=== PATIENT | male | born 1940 | race Caucasian/White ===

== ENCOUNTER → 2017-01-24 | Outpatient (CLI) | payer OTHER ==
--- NOTE | 2017-01-25 10:33 | MR ---
EXAMINATION TYPE: MR brain wo con DATE OF EXAM: 01/24/2017 1:21 PM COMPARISON: NONE HISTORY: early onset parkinsons dis CONTRAST: Performed utilizing 0 mL intravenous MultiHance gadolinium contrast. TECHNIQUE: Multiplanar, multiecho imaging on a 3.0 Radha magnet is performed through the brain. Stud y is performed within 24 hours of arrival to the hospital. The craniovertebral junction is normal. The pituitary is normal. Diffusion-weighted imaging is performed. No abnormal hyperintensity is present to suggest an acute i ntracranial infarct or acute ischemic change. There are scattered punctate hyperintensities in the subcortical and deep white matter, slightly grea ter in the right frontal region. The largest area measures 0.9 x 0.7 cm within the right frontal lobe subcortical white matter. Series 501 image 19. Findings are nonspecific but can be related to chroni c white matter ischemic changes. Ventricles and sulci are mildly prominent for the patient age. There is an air-fluid level within right maxillary sinus. Minimal mucosal thickening is within the ri ght maxillary sinus. Very minimal mucosal thickening is within the medial left maxillary sinus. Mucos al thickening is through ethmoid air cells and the right frontal sinus. IMPRESSIONS: 1. Atrophy with chronic appearing periventricular white matter ischemic type changes
== END | disposition home or self-care (01) ==
LOC: RADMRIMAIN 12:27
PROVIDERS: ATTEND Psychiatry & Neurology Neurology
DX: G31.9 Degenerative disease of nervous system, unspecified (principal); I67.82 Cerebral ischemia; R90.82 White matter disease, unspecified; R90.89 Other abnormal findings on diagnostic imaging of central nervous system
CPT/HCPCS: 70551

== ENCOUNTER → 2017-07-29 | Outpatient (CLI) | payer OTHER ==
[2017-07-29 13:07] LABS: Anion Gap 10 mmol/L; Blood Urea Nitrogen 14 mg/dL (9-20); Calcium 9.7 mg/dL (8.4-10.2); Carbon Dioxide 27 mmol/L (22-30); Chloride 106 mmol/L (98-107); Glucose 114 mg/dL (74-99); Non-African American GFR(MDRD) >60 (>60 ml/min/1.73 sqM); Potassium 4.5 mmol/L (3.5-5.1); Sodium 143 mmol/L (137-145)
== END | disposition home or self-care (01) ==
LOC: LABWHC1 12:34
PROVIDERS: ATTEND Internal Medicine Interventional Cardiology
DX: I10 Essential (primary) hypertension (principal); I25.10 Atherosclerotic heart disease of native coronary artery without angina pectoris
CPT/HCPCS: 36415; 80048

== ENCOUNTER → 2018-08-16 | Outpatient (CLI) | payer OTHER ==
--- NOTE | 2018-08-17 03:51 | MR ---
EXAMINATION TYPE: MR cervical spine wo con DATE OF EXAM: 08/16/2018 COMPARISON: None HISTORY: Neck pain, Left arm pain TECHNIQUE: Multiplanar, multisequence images of the cervical spine were acquired. Cervical vertebra show fairly normal alignment. There is some degenerative disc space narrowing from C3 to C7 with spurring of the endplates. I see no evidence of cord edema. The spinal canal is narrowed to 7.2 mm at the C3-4 level. The brains tem appears intact. There is no compression fracture. I see no focal bone destruction. IMPRESSION: Multilevel spondylotic changes. There is 7 mm mild spinal stenosis at C3-4. No fracture seen.
== END | disposition home or self-care (01) ==
LOC: RADMRIMAIN 19:49
PROVIDERS: ATTEND Physician Assistant Medical
DX: M48.02 Spinal stenosis, cervical region (principal); M47.812 Spondylosis without myelopathy or radiculopathy, cervical region
CPT/HCPCS: 72141

== ENCOUNTER → 2019-04-12 | Outpatient (CLI) | payer OTHER ==
--- NOTE | 2019-04-12 11:08 | XR ---
EXAMINATION TYPE: XR KUB DATE OF EXAM: 04/12/2019 10:25 AM CLINICAL HISTORY: Distal right ureteral stone. Abdominal pain. TECHNIQUE: Single supine KUB image of the abdomen is obtained. COMPARISON: None. FINDINGS: There are radiopaque calculi overlying the renal shadows. On the right there are at least 3 measuring 0.3 cm, 0.2 cm, and 2.0 cm. On the left there are also at least 3 measuring 0.4 cm,r 0.8 c m, and 1.5 cm. Punctate calcifications are also seen within the region of the stomach and pancreas. C hronic pancreatitis is possible. Additionally overlying the right hemisacrum there is a 0.7 cm calculus that may be located within the distal right ureter. Cholecystectomy clips are seen. Moderate degenerative changes of the spine with mildly levoscoliosis of the lower lumbar spine. Surgical clips overlying the right hemipelvis. Atherosclerosis of the femo ral veins. No dilated bowel. IMPRESSION: 1. Possible distal right ureteral calculus measuring 3.7 cm. 2. Multiple additional bilateral calculi as detailed above.
== END | disposition home or self-care (01) ==
LOC: RADXRMAIN 10:07
PROVIDERS: ATTEND Urology
DX: N20.2 Calculus of kidney with calculus of ureter (principal)
CPT/HCPCS: 74018

== ENCOUNTER → 2019-04-21 | Outpatient (CLI) | payer OTHER ==
--- NOTE | 2019-04-21 12:19 | XR ---
EXAMINATION TYPE: XR KUB DATE OF EXAM: 04/21/2019 COMPARISON: 04/12/2019 INDICATION: Renal stones TECHNIQUE: Single view abdomen supine view FINDINGS: There is a nonspecific bowel gas pattern. Psoas margins are normal. No organomegaly is present. Multiple calcifications overlie the bilateral kidneys. A remaining 0.8 cm calcification which originally resided at the inferior pole left kidney is now in the region of the renal pelvis on the left. A larger calcification on the right measuring 1.9 cm is close to the right renal pelvis on the current exam. The punctate calcifications previously identifie d are less well visualized currently. No suspicious distal ureteral stone is evident. The area of inc reased density along the right margin of the sacrum appears stable. IMPRESSION: 1. Bilateral kidneys have inferior pole renal stones which appear to move into the region of the oneil l pelves bilaterally.
== END | disposition home or self-care (01) ==
LOC: RADXRMAIN 11:43
PROVIDERS: ATTEND Urology
DX: N20.0 Calculus of kidney (principal); Z98.890 Other specified postprocedural states
CPT/HCPCS: 74018

== ENCOUNTER → 2019-04-23 | Outpatient (CLI) | payer OTHER ==
--- NOTE | 2019-04-23 15:28 | XR ---
EXAMINATION TYPE: XR KUB DATE OF EXAM: 04/23/2019 3:11 PM CLINICAL HISTORY: Renal calculus TECHNIQUE: Single supine KUB image of the abdomen is obtained. COMPARISON: 04/21/2019 FINDINGS: Change in size of the rounded right renal calculus may be from obliquity as this previously measured 1.9 cm and now measures 1.5 cm. On the left there are 2 calculi adjacent to one another the first measuring 1.5 cm and the second measuring 0.9 cm. There is mild dextro scoliosis of the thorac olumbar junction and moderate degenerative disc disease. Surgical changes are seen of the right hemia bdomen with scattered surgical clips. Moderate arthropathy of the hips. No dilated overlying bowel in the left hemicolon how her right hemicolon is dilated with the cecum measuring approximately 11 cm a nd marked amount retained colonic stool. Atherosclerosis is seen at the abdominal aorta branches. IMPRESSION: 1. Bilateral renal calculi, stable in number from the prior. 2. Mildly dilated cecum by marked amount of retained colonic stool.
== END | disposition home or self-care (01) ==
LOC: RADXRMAIN 15:00
PROVIDERS: ATTEND Urology
DX: N20.0 Calculus of kidney (principal); K59.39 Other megacolon
CPT/HCPCS: 74018

== ENCOUNTER → 2019-05-03 | Outpatient (CLI) | payer OTHER ==
[2019-05-03 13:28] LABS: Appearance,Urine Clear (Clear); Bilirubin,Urine Negative (Negative); Blood,Urine Negative (Negative); Color,Urine Yellow; Glucose,Urine (UA) Negative (Negative); Ketones,Urine Negative (Negative); Leukocyte Esterase,Urine Negative (Negative); Nitrite,Urine Negative (Negative); PH, Urine 6.5 (5.0-8.0); Protein,Urine Negative (Negative); Specific Gravity,Urine 1.013 (1.001-1.035); Urobilinogen,Urine <2.0 mg/dL (<2.0)
--- NOTE | 2019-05-03 13:56 | XR ---
EXAMINATION TYPE: XR KUB DATE OF EXAM: 05/03/2019 COMPARISON: 04/23/2019 HISTORY: Z01.818 TECHNIQUE: Supine abdomen FINDINGS: There is a 1.8 cm inferior right renal stone. There is a 1.5 and 0.7 cm mid left renal ston e. Psoas margins are normal. Organomegaly is not evident. Surgical clips are within the right hemipelvis . Normal colonic bowel gas is present. IMPRESSION: 1. Bilateral calcifications which are likely renal calcifications present previously
== END | disposition home or self-care (01) ==
LOC: RADXRMAIN 12:18
PROVIDERS: ATTEND Urology
DX: Z01.818 Encounter for other preprocedural examination (principal); N20.0 Calculus of kidney; Z79.899 Other long term (current) drug therapy; R31.29 Other microscopic hematuria; I10 Essential (primary) hypertension; Z01.812 Encounter for preprocedural laboratory examination
CPT/HCPCS: 74018; 81003; 87086; 93005

== ENCOUNTER 2019-05-08 06:32 | Day surgery (SDC) | payer OTHER ==
[2019-05-03 09:30] VITALS: BMI 30.7
--- NOTE | 2019-05-07 20:08 | P.GSHP ---
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, early Parkinson's, tremors, "pre-diabetic"-checks blood sugar periodically, kidney stones, left inguinal hernia currently, uses CPAP Last Myocardial Infarction Date:: unknown History of Any Multi-Drug Resistant Organisms: None Reported Past Surgical History: Cholecystectomy, Coronary Bypass/CABG, Heart Catheterization, Hernia Repair, Orthopedic Surgery Additional Past Surgical History / Comment(s): 2001 double bypass, right tibia repair, lithotripsy 04-15-19 Past Anesthesia/Blood Transfusion Reactions: No Reported Reaction Smoking Status: Former smoker - Past Family History Mother Family Medical History: No Reported History Medications and Allergies Home Medications Medication Instructions Recorded Confirmed Type Ascorbic Acid [Vitamin C] 1,000 mg PO DAILY 05/03/19 05/03/19 History Aspirin 81 mg PO DAILY 05/03/19 05/03/19 History Cinnamon Bark [Cinnamon] 500 mg PO DAILY 05/03/19 05/03/19 History Fish Oil/Dha/Epa [Fish Oil 1,200 1,200 mg PO DAILY 05/03/19 05/03/19 History mg Fish Oil] Fluticasone Nasal [place] [Flonase 2 spr EA NOSTRIL DAILY 05/03/19 05/03/19 History Nasal [place]] Garlic 1,000 mg PO DAILY 05/03/19 05/03/19 History Glucosamine Sulfate 1,500 mg PO DAILY 05/03/19 05/03/19 History L.acidoph,Paracasei, B.lactis 1 each PO DAILY 05/03/19 05/03/19 History [Probiotic] Levothyroxine Sodium [Synthroid] 150 mcg PO DAILY 05/03/19 05/03/19 History Mometasone Inhalr 220 Mcg/Puff 1 puff INHALATION BID 05/03/19 05/03/19 History [Asmanex] Montelukast [Singulair] 10 mg PO DAILY 05/03/19 05/03/19 History Multivitamins, Thera [Multivitamin 0.5 tab PO BID 05/03/19 05/03/19 History (formulary)] Omeprazole 20 mg PO DAILY 05/03/19 05/03/19 History Simvastatin [Zocor] 20 mg PO HS 05/03/19 05/03/19 History Tamsulosin [Flomax] 0.4 mg PO DAILY 05/03/19 05/03/19 History Turmeric Root Extract [Turmeric] 500 mg PO DAILY 05/03/19 05/03/19 History Vitamin B Complex 1 each PO DAILY 05/03/19 05/03/19 History Vitamin E (Dl,Tocopheryl Acet) 400 unit PO DAILY 05/03/19 05/03/19 History [Vitamin E] White [place] Bark 1 tab PO DAILY 05/03/19 05/03/19 History amLODIPine BESYLATE [Norvasc] 5 mg PO HS 05/03/19 05/03/19 History Allergies Allergy/AdvReac Type Severity Reaction Status Date / Time furosemide [From Lasix] Allergy hives, lip Verified 05/03/19 09:27 swelling levofloxacin [From Levaquin] Allergy Rash/Hives Verified 05/03/19 09:27 moxifloxacin [From Avelox] Allergy Rash/Hives Verified 05/03/19 09:27 valacyclovir [From Valtrex] Allergy Rash/Hives Verified 05/03/19 08:56 Surgical - Exam - General well developed, well nourished, no distress - Eyes PERRL - ENT no hearing loss - Neck trachea midline - Respiratory normal expansion, normal respiratory effort - Cardiovascular Rhythm: regular - Abdomen Abdomen: soft, non tender - Genitourinary normal penis with no external lesions, testicles present - Neurologic normal coordination, normal sensation - Musculoskeletal normal gait, normal posture - Psychiatric oriented to time, oriented to person, oriented to place, speech is normal, memory intact Results - Imaging Abdominal x-ray: report reviewed, image reviewed CT scan - abdomen: report reviewed, image reviewed CT scan - pelvis: report reviewed, image reviewed Assessment and Plan Assessment: Impression: Bilateral renal stones Plan: Right pcnl
[~2019-05-08 06:32] MED LIST: DEXAMETHASONE SOD PHOSPHATE 10 MG/ML 1 ML VIAL IV ONE; LIDOCAINE 1% 20 ML VIAL (10MG/ML) FOR IV START INTRADERMA PRN; MIDAZOLAM 2 MG/2 ML VIAL IV PRN; ONDANSETRON 4 MG/2 ML VIAL IVP ONE; fentaNYL (PF) 50 MCG/ML 2 ML AMP IV PRN
[2019-05-08] MEDS: LACTATED RINGERS 1,000 ML IV SCH (07:25)
[2019-05-08] MEDS ORDERED: fentaNYL (PF) 50 MCG/ML 2 ML AMP ONE (07:26)
[2019-05-08] MEDS ORDERED: PROPOFOL 10 MG/ML 20 ML VIAL IV ONE (07:26)
[2019-05-08] MEDS ORDERED: ePHEDrine SULFATE/0.9% NACL/PF 50 MG/5 ML SYRINGE IV ONE (07:26)
[2019-05-08] MEDS ORDERED: NEOSTIGMINE 1 MG/ML 10 ML VIAL ONE (07:26)
[2019-05-08] MEDS ORDERED: ROCURONIUM BROMIDE 10 MG/ML 10 ML VIAL IV ONE (07:26)
[2019-05-08] MEDS ORDERED: MIDAZOLAM 2 MG/2 ML VIAL ONE (07:26)
[2019-05-08] MEDS ORDERED: GLYCOPYRROLATE 0.2 MG/ML 2 ML VIAL ONE (07:26)
[2019-05-08] MEDS ORDERED: SUCCINYLCHOLINE CHLORIDE 100 MG/5 ML SYR IV ONE (07:26)
[2019-05-08] MEDS ORDERED: LIDOCAINE 1% INJ 10MG/ML (20 ML MDV) ONE (07:26)
--- NOTE | 2019-05-08 07:40 | XR ---
EXAMINATION TYPE: XR KUB DATE OF EXAM: 05/08/2019 COMPARISON: 05/03/2019 INDICATION: Presurgical percutaneous nephrostomy TECHNIQUE: Single view abdomen supine view FINDINGS: There is a normal bowel gas pattern. Psoas margins are normal. No organomegaly is present. Multiple bilateral renal stones are present. The renal stone at the left renal pelvic region has move d from the inferior pole of the previous exam. The inferior pole left renal stone is stable in positi on. The right renal calcification appears stable position. Distal right calcification is unchanged he mipelvis. IMPRESSION: 1. A 1.6 cm calcification now resides in the region of the left renal pelvis and is moved from the in ferior pole from the prior examination. Remaining calcifications appear stable in appearance.
[2019-05-08] MEDS ORDERED: IOPAMIDOL-300 50ML BTL MISCELLANE ONE ×3 (07:45→08:00)
[2019-05-08] MEDS ORDERED: LACTATED RINGERS 1,000 ML IV ONE (09:39)
[2019-05-08] MEDS ORDERED: MAG HYDROX/AL HYDROX/SIMETH 30 ML CUP PO PRN (09:46)
[2019-05-08] MEDS ORDERED: ONDANSETRON 4 MG/2 ML VIAL IVP PRN (09:46)
[2019-05-08] MEDS ORDERED: ACETAMINOPHEN TAB 325 MG TAB PO PRN (09:46)
--- NOTE | 2019-05-08 09:53 | P.OP ---
Date of Procedure: 05/08/19 Preoperative Diagnosis: Right renal calculus Postoperative Diagnosis: Right ureteral calculus, right renal calculus Procedure(s) Performed: Cystoscopy, right ureteroscopy with laser lithotripsy, right percutaneous nephrostolithotomy with antegrade double-J catheter nephrostomy tube Anesthesia: MAYA Surgeon: Thanh Mckenzie Gun [employer] Manager #1: Michael Drew [employer] Manager #2: Eron Braun Estimated Blood Loss (ml): 50 Pathology: other (Stone) Condition: stable Disposition: PACU Indications for Procedure: The patient is a 79-year-old gentleman patient of who has active stone disease. Dr. Townsend did a shockwave lithotripsy to a right ureteral stone and then asked me to do percutaneous nephrostolithotomy to his 18 mm right renal pelvic stone and eventually a left percutaneous nephrostolithotomy to 2 stones over 2 cm in diameter the patient comes for this procedure. I question whether there may be a right distal ureteral stone on KUB. Description of Procedure: Patient is brought to the operating suite. He is given general anesthesia. He's placed in a frog position with sterile prep and drape. Cystoscopy Foroblique lens and 22-[place] sheath is performed. The right ureteral orifice is identified and intubated with a 5-[place] occluding balloon catheter but meet an obstruction. This is consistent with a ureteral stone. The patient is taken out of frog position and placed on the operating table in a lithotomy position. He is reprepped and drape. I then pass a 7-[place]ese mini ureteroscope up the right ureter and identify the stone about 7 mm between the iliac vessels and the bladder. With the laser probe I break the stone into small pieces and basketed out the fragments. I then pass a 5-[place] occluding balloon catheter through the cystoscope up into the proximal ureter. The patient is then placed in a prone position with care to airways and extremities. Dr. braun of radiology performed percutaneous access to a right middle pole calyx as a 18 mm stone is in the right renal pelvis. I then dilate the tract to 30-[place]ai[place]ese. With the ultrasonic wand the stone was broken into smaller pieces in the larger pieces were grasped and removed from the collecting system. I then inspect the ureter and the calyces with the flexible nephroscope and see no remaining stones. Over the working wire a 6 x 26 double-J catheters and passed into the bladder and coils in the bladder in the renal pelvis as seen fluoroscopically and endoscopically. I then place an 8-[place]ai[place]ese J nephrostomy tube into the collecting system. His secured to the skin. The sheath, wires and occluding balloon catheter are removed. The patient's awake and returned recovery room good condition. Blood loss is at most 50 mL.
[2019-05-08] MEDS ORDERED: NALOXONE 0.4 MG/ML 1 ML VIAL IV PRN (10:13)
--- NOTE | 2019-05-08 12:41 | FL ---
EXAMINATION TYPE: FL Perc Nephrostomy New Access DATE OF EXAM: 05/08/2019 COMPARISON: NONE HISTORY: Right renal stone Procedure had been discussed with the patient by Dr. Mckenzie, risks, benefits, alternatives, were dis cussed and any questions were answered. Informed consent was obtained. The patient was in a semipro ne position prepped and draped on the OR table in the usual sterile fashion. Utilizing a 15 cm lengt h [place] needle a single pass was made into a lower pole posterior calyx under fluoroscopic guidance. An 0.018 guidewire is passed through the needle and there was placement of a 6-[place]e catheter sheat h system. There was conversion to a 0.035 system was performed with passage of a guidewire into the ureter utilizing a directional catheter. A second safety wire was placed. Remaining portion of pro cedure performed by . Approximately 4.1 minutes of fluoroscopy was provided. No images sub mitted. IMPRESSION: 1. Successful intraoperative right nephrostomy prior to nephrolithotomy.
[2019-05-08] MEDS ORDERED: HYDROmorphone PCA 10 MG/50 ML BAG IV PRN (12:49)
[2019-05-08] MEDS: DEXTROSE 5%-0.45% NACL 1,000 ML IV SCH (14:21)
[2019-05-08] MEDS ORDERED: amLODIPine 5 MG TAB PO SCH (21:00)
[2019-05-08] MEDS ORDERED: ATORVASTATIN 10 MG TAB PO SCH (21:00)
[2019-05-08] MEDS: FLUTICASONE 110 MCG INHALER INHALATION SCH (21:23)
[2019-05-09] MEDS: DEXTROSE 5%-0.45% NACL 1,000 ML IV SCH (00:54)
[2019-05-09 02:29] VITALS: RESP 16
[2019-05-09] MEDS: LACTATED RINGERS 1,000 ML IV SCH (04:53)
--- NOTE | 2019-05-09 06:25 | P.DS ---
Providers Attending physician: Thanh Mckenzie Primary care physician: [facility] Course: The patient was admitted to the hospital 05/08/2019 for a right percutaneous nephrostolithotomy. He ended up having both a renal stone as well as a ureteral stone. He underwent ureteroscopy with laser lithotripsy and then a percutaneous nephrostolithotomy. He has done well overnight with minimal discomfort. His nephrostomy tube urine is cleared nicely. I will remove his [place]. He'll be discharged home later this morning. He'll follow-up in the office tomorrow for removal nephrostomy tube. The ureteral catheter will stay in another week or so. Condition is good. He'll resume his home medicines other than blood thinners. He does not wish any pain medicine. Patient Condition at Discharge: Good Plan - Discharge Summary Discharge Rx Participant: No New Discharge Prescriptions: No Action Vitamin E (Dl,Tocopheryl Acet) [Vitamin E] 400 unit PO DAILY Montelukast [Singulair] 10 mg PO DAILY Mometasone Inhalr 220 Mcg/Puff [Asmanex] 1 puff INHALATION BID Multivitamins, Thera [Multivitamin (formulary)] 0.5 tab PO BID Glucosamine Sulfate 1,500 mg PO DAILY Fluticasone Nasal [place] [Flonase Nasal [place]] 2 spr EA NOSTRIL DAILY Aspirin 81 mg PO DAILY amLODIPine BESYLATE [Norvasc] 5 mg PO HS [place] Bark 1 tab PO DAILY Vitamin B Complex 1 each PO DAILY Turmeric Root Extract [Turmeric] 500 mg PO DAILY Tamsulosin [Flomax] 0.4 mg PO DAILY Simvastatin [Zocor] 20 mg PO HS Omeprazole 20 mg PO DAILY Levothyroxine Sodium [Synthroid] 150 mcg PO DAILY L.acidoph,Paracasei, B.lactis [Probiotic] 1 each PO DAILY Garlic 1,000 mg PO DAILY Fish Oil/Dha/Epa [Fish Oil 1,200 mg Fish Oil] 1,200 mg PO DAILY Cinnamon Bark [Cinnamon] 500 mg PO DAILY Ascorbic Acid [Vitamin C] 1,000 mg PO DAILY Discharge Medication List Ascorbic Acid [Vitamin C] 1,000 mg PO DAILY 05/03/19 [History] Aspirin 81 mg PO DAILY 05/03/19 [History] Cinnamon Bark [Cinnamon] 500 mg PO DAILY 05/03/19 [History] Fish Oil/Dha/Epa [Fish Oil 1,200 mg Fish Oil] 1,200 mg PO DAILY 05/03/19 [History] Fluticasone Nasal [place] [Flonase Nasal [place]] 2 spr EA NOSTRIL DAILY 05/03/19 [History] Garlic 1,000 mg PO DAILY 05/03/19 [History] Glucosamine Sulfate 1,500 mg PO DAILY 05/03/19 [History] L.acidoph,Paracasei, B.lactis [Probiotic] 1 each PO DAILY 05/03/19 [History] Levothyroxine Sodium [Synthroid] 150 mcg PO DAILY 05/03/19 [History] Mometasone Inhalr 220 Mcg/Puff [Asmanex] 1 puff INHALATION BID 05/03/19 [History] Montelukast [Singulair] 10 mg PO DAILY 05/03/19 [History] Multivitamins, Thera [Multivitamin (formulary)] 0.5 tab PO BID 05/03/19 [History] Omeprazole 20 mg PO DAILY 05/03/19 [History] Simvastatin [Zocor] 20 mg PO HS 05/03/19 [History] Tamsulosin [Flomax] 0.4 mg PO DAILY 05/03/19 [History] Turmeric Root Extract [Turmeric] 500 mg PO DAILY 05/03/19 [History] Vitamin B Complex 1 each PO DAILY 05/03/19 [History] Vitamin E (Dl,Tocopheryl Acet) [Vitamin E] 400 unit PO DAILY 05/03/19 [History] [place] Bark 1 tab PO DAILY 05/03/19 [History] amLODIPine BESYLATE [Norvasc] 5 mg PO HS 05/03/19 [History] Follow up Appointment(s)/Referral(s): Thanh Mckenzie MD [STAFF PHYSICIAN] - 05/10/19 Activity/Diet/Wound Care/Special Instructions: home with n tube Discharge Disposition: HOME SELF-CARE
[2019-05-09] MEDS ORDERED: LEVOTHYROXINE 75 MCG TAB PO SCH (06:30)
[2019-05-09] MEDS ORDERED: PANTOPRAZOLE 40 MG TABLET PO SCH (07:30)
[2019-05-09 08:21] VITALS: BP 143/73; PULSE 78; TEMP 98.2
[2019-05-09] MEDS: FLUTICASONE 110 MCG INHALER INHALATION SCH (08:55)
[2019-05-09] MEDS ORDERED: TAMSULOSIN 0.4 MG CAP.ER.24H PO SCH (09:00)
[2019-05-09] MEDS ORDERED: MONTELUKAST 10 MG TAB PO SCH (09:00)
[2019-05-09] MEDS ORDERED: FLUTICASONE 50MCG/SPRAY NASAL 16GM EA NOSTRIL SCH (09:00)
== END 2019-05-09 10:54 | disposition home or self-care (01) ==
LOC: OR 06:32 → 4SSUR 09:38 → OR 05-09 10:54
PROVIDERS: ATTEND Urology
DX: N40.2 Nodular prostate without lower urinary tract symptoms (principal); J45.909 Unspecified asthma, uncomplicated; K21.9 Gastro-esophageal reflux disease without esophagitis; E78.5 Hyperlipidemia, unspecified; I10 Essential (primary) hypertension; E11.9 Type 2 diabetes mellitus without complications; I25.2 Old myocardial infarction; M19.90 Unspecified osteoarthritis, unspecified site; G62.2 Polyneuropathy due to other toxic agents; Z77.098 Contact with and (suspected) exposure to other hazardous, chiefly nonmedicinal, chemicals; N42.9 Disorder of prostate, unspecified; G47.30 Sleep apnea, unspecified; E03.9 Hypothyroidism, unspecified; Z99.89 Dependence on other enabling machines and devices; G20 Parkinson's disease; Z87.442 Personal history of urinary calculi; Z90.49 Acquired absence of other specified parts of digestive tract; Z95.1 Presence of aortocoronary bypass graft; Z87.891 Personal history of nicotine dependence; I25.5 Ischemic cardiomyopathy; I25.10 Atherosclerotic heart disease of native coronary artery without angina pectoris; Z82.49 Family history of ischemic heart disease and other diseases of the circulatory system; Z97.2 Presence of dental prosthetic device (complete) (partial); Z79.4 Long term (current) use of insulin; Z79.51 Long term (current) use of inhaled steroids; Z79.82 Long term (current) use of aspirin; Z79.890 Hormone replacement therapy; Z79.899 Other long term (current) drug therapy; Z88.1 Allergy status to other antibiotic agents; Z88.8 Allergy status to other drugs, medicaments and biological substances
CPT/HCPCS: 50081; 94640 ×2; 82365; 50432; 74018; 52353; C2625; C1769 ×3; C2628; C1894; C1729; J2250; J1100; J2710; J0690; J2405; J2001; J3010; J0330; J2704; Q9967; 36415; 86850; 86900; 86901

== ENCOUNTER → 2019-05-29 | Outpatient (CLI) | payer OTHER ==
[2019-05-29 13:22] LABS: African American GFR (CKD) >90 (>60 ml/min/1.73 sqM); Anion Gap 10 mmol/L; Blood Urea Nitrogen 11 mg/dL (9-20); Calcium 9.6 mg/dL (8.4-10.2); Carbon Dioxide 22 mmol/L (22-30); Chloride 109 mmol/L (98-107); Glucose 117 mg/dL (74-99); Potassium 4.2 mmol/L (3.5-5.1); Sodium 141 mmol/L (137-145)
[2019-05-29 13:23] LABS: Appearance,Urine Clear (Clear); Bacteria,Urine Rare /hpf; Bilirubin,Urine Negative (Negative); Blood,Urine Large (Negative); Color,Urine Yellow; Glucose,Urine (UA) Negative (Negative); Ketones,Urine Negative (Negative); Leukocyte Esterase,Urine Small (Negative); Mucus,Urine Rare /hpf; Nitrite,Urine Negative (Negative); PH, Urine 5.5 (5.0-8.0); Protein,Urine 1+ (Negative); RBC,Urine >182 /hpf (0-5); Specific Gravity,Urine 1.018 (1.001-1.035); Squamous Epithelial Cell,Urine <1 /hpf (0-4); Urobilinogen,Urine <2.0 mg/dL (<2.0); WBC,Urine 9 /hpf (0-5)
[2019-05-29 13:30] LABS: Basophils # (A) 0.1 k/uL (0-0.2); Basophils % (A) 1 %; Eosinophils # (A) 0.1 k/uL (0-0.7); Eosinophils % (A) 2 %; HCT 44.8 % (39.0-53.0); HGB 15.2 gm/dL (13.0-17.5); Lymphocytes # (A) 1.9 k/uL (1.0-4.8); Lymphocytes % (A) 26 %; MCH 30.9 pg (25.0-35.0); MCHC 33.9 g/dL (31.0-37.0); MCV 91.1 fL (80.0-100.0); Mean Platelet Volume 7.4; Monocytes # (A) 0.5 k/uL (0-1.0); Monocytes % (A) 8 %; Neutrophils # (A) 4.5 k/uL (1.3-7.7); Neutrophils % (A) 62 %; Platelet Count 249 k/uL (150-450); RBC 4.92 m/uL (4.30-5.90); RDW 15.7 % (11.5-15.5); WBC 7.3 k/uL (3.8-10.6)
== END | disposition home or self-care (01) ==
LOC: LABPAT 11:30
PROVIDERS: ATTEND Urology
DX: Z01.812 Encounter for preprocedural laboratory examination (principal); Z01.818 Encounter for other preprocedural examination; E11.9 Type 2 diabetes mellitus without complications; N20.0 Calculus of kidney; R31.29 Other microscopic hematuria
CPT/HCPCS: 36415; 80048; 81001; 85025; 87086

== ENCOUNTER 2019-06-05 08:47 | Day surgery (SDC) | payer OTHER ==
[2019-06-04 11:06] VITALS: BMI 30.9
--- NOTE | 2019-06-04 20:20 | P.GSHP ---
History of Present Illness H&P Date: 06/04/19 79 yo male with a previous rt pcnl now comes for a left pcnl due to a large volume of stones[2.5] cm the risks complications and alternatives have been discussed. - Constitutional Constitutional: Denies chills, Denies fever - EENT Eyes: denies blurred vision, denies pain Ears, nose, mouth and throat: Denies headache, Denies sore throat - Cardiovascular Cardiovascular: Denies chest pain, Denies shortness of breath - Respiratory Respiratory: Denies cough, Denies 7 - Gastrointestinal Gastrointestinal: Denies abdominal pain, Denies diarrhea, Denies nausea, Denies vomiting - Genitourinary (Female) Genitourinary: Denies dysuria, Denies hematuria - Genitourinary (Male) Genitourinary: Denies dysuria, Denies hematuria - Musculoskeletal Musculoskeletal: Denies myalgias - Integumentary Integumentary: Denies pruritus, Denies rash - Neurological Neurological: Denies numbness, Denies weakness - Psychiatric Psychiatric: Denies anxiety, Denies depression - Endocrine Endocrine: Denies fatigue, Denies weight change Past Medical History Past Medical History: Asthma, Diabetes Mellitus, GERD/Reflux, Hyperlipidemia, Hypertension, Myocardial Infarction ([place]), Neurologic Disorder, Osteoarthritis (OA), Prostate Disorder, Sleep Apnea/CPAP/BIPAP, Thyroid Disorder Additional Past Medical History / Comment(s): 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 nephrostolithotomy 05-08-19 Past Anesthesia/Blood Transfusion Reactions: No Reported Reaction Smoking Status: Former smoker - Past Family History Mother Family Medical History: No Reported History Medications and Allergies Home Medications Medication Instructions Recorded Confirmed Type Ascorbic Acid [Vitamin C] 1,000 mg PO DAILY 05/03/19 06/04/19 History Aspirin 81 mg PO DAILY 05/03/19 06/04/19 History Fish Oil/Dha/Epa [Fish Oil 1,200 1,200 mg PO DAILY 05/03/19 06/04/19 History mg Fish Oil] Fluticasone Nasal [place] [Flonase 2 spr EA NOSTRIL DAILY 05/03/19 06/04/19 History Nasal [place]] Garlic 1,000 mg PO DAILY 05/03/19 06/04/19 History Glucosamine Sulfate 1,500 mg PO DAILY 05/03/19 06/04/19 History L.acidoph,Paracasei, B.lactis 1 each PO DAILY 05/03/19 06/04/19 History [Probiotic] Levothyroxine Sodium [Synthroid] 150 mcg PO DAILY 05/03/19 06/04/19 History Mometasone Inhalr 220 Mcg/Puff 2 puff INHALATION BID 05/03/19 06/04/19 History [Asmanex] Montelukast [Singulair] 10 mg PO HS 05/03/19 06/04/19 History Multivitamins, Thera [Multivitamin 0.5 tab PO BID 05/03/19 06/04/19 History (formulary)] Omeprazole 20 mg PO DAILY 05/03/19 06/04/19 History Simvastatin [Zocor] 20 mg PO HS 05/03/19 06/04/19 History Tamsulosin [Flomax] 0.4 mg PO DAILY 05/03/19 06/04/19 History Turmeric Root Extract [Turmeric] 500 mg PO DAILY 05/03/19 06/04/19 History Vitamin B Complex 1 each PO DAILY 05/03/19 06/04/19 History Vitamin E (Dl,Tocopheryl Acet) 400 unit PO DAILY 05/03/19 06/04/19 History [Vitamin E] [place] Bark 1 tab PO DAILY 05/03/19 06/04/19 History amLODIPine BESYLATE [Norvasc] 5 mg PO HS 05/03/19 06/04/19 History [place] 500 mg PO DAILY 06/04/19 06/04/19 History Allergies Allergy/AdvReac Type Severity Reaction Status Date / Time furosemide [From Lasix] Allergy hives, lip Verified 06/04/19 10:16 swelling levofloxacin [From Levaquin] Allergy Rash/Hives Verified 06/04/19 10:16 moxifloxacin [From Avelox] Allergy Rash/Hives Verified 06/04/19 10:16 valacyclovir [From Valtrex] Allergy Rash/Hives Verified 06/04/19 10:16 Surgical - Exam - General well developed, well nourished, no distress - Eyes PERRL - ENT no hearing loss - Neck no masses - Respiratory normal expansion, normal respiratory effort - Cardiovascular Rhythm: regular - Abdomen Abdomen: soft, non tender - Genitourinary normal penis with no external lesions, testicles present - Integumentary no rash, no growths - Neurologic normal coordination, normal sensation - Musculoskeletal normal gait, normal posture - Psychiatric oriented to time, oriented to person, oriented to place, speech is normal, memory intact Results - Imaging CT scan - abdomen: report reviewed, image reviewed CT scan - pelvis: report reviewed, image reviewed Assessment and Plan Assessment: Impression : Left renal stones large Plan: PCNL left
[~2019-06-05 08:47] MED LIST changes: +AMPICILLIN 1,000 MG in SODIUM CHLORIDE 0.9% 50 ML IVPB ONE; -DEXAMETHASONE SOD PHOSPHATE 10 MG/ML 1 ML VIAL IV ONE; +GENTAMICIN 140 MG in SODIUM CHLORIDE 0.9% 100 ML IVPB ONE; +HYDROmorphone 0.5 MG/0.5 ML SYRINGE IVP PRN; -MIDAZOLAM 2 MG/2 ML VIAL IV PRN; +ONDANSETRON 4 MG/2 ML VIAL IVP PRN; -fentaNYL (PF) 50 MCG/ML 2 ML AMP IV PRN
--- NOTE | 2019-06-05 08:59 | XR ---
KUB HISTORY: Kidney stones Frontal KUB and 2 images correlated prior KUB 05/08/2019 Double-J stent has been placed in the interval on the right coiled within the region of the right augusto al pelvis and bladder. The right-sided kidney stone seen on prior exam is no longer evident. 2 left-s ided kidney stones persist and are overlying the midpole the left kidney. Surgical clips present righ t upper quadrant. Right pelvic clips also noted, there are likely vascular calcifications present. Ri ght pelvic calcification also no longer seen. IMPRESSION: Left-sided nephrolithiasis. Double-J stent on the right, interval stone removal.
[2019-06-05] MEDS: LACTATED RINGERS 1,000 ML IV SCH ×2 (09:26→23:37)
[2019-06-05] MEDS ORDERED: DEXAMETHASONE SOD PHOS (MDV) 100 MG/10 ML VIAL IVP ONE (09:32)
[2019-06-05] MEDS ORDERED: ROCURONIUM BROMIDE 10 MG/ML 10 ML VIAL IV ONE (09:48)
[2019-06-05] MEDS ORDERED: GLYCOPYRROLATE 0.2 MG/ML 2 ML VIAL ONE (09:48)
[2019-06-05] MEDS ORDERED: fentaNYL (PF) 50 MCG/ML 2 ML AMP ONE (09:48)
[2019-06-05] MEDS ORDERED: PROPOFOL 10 MG/ML 20 ML VIAL IV ONE (09:48)
[2019-06-05] MEDS ORDERED: LIDOCAINE 1% INJ 10MG/ML (20 ML MDV) ONE (09:48)
[2019-06-05] MEDS ORDERED: SUCCINYLCHOLINE CHLORIDE 100 MG/5 ML SYR IV ONE (09:48)
[2019-06-05] MEDS ORDERED: ePHEDrine SULFATE/0.9% NACL/PF 50 MG/5 ML SYRINGE IV ONE (09:48)
[2019-06-05] MEDS ORDERED: NEOSTIGMINE 1 MG/ML 10 ML VIAL ONE (09:48)
[2019-06-05] MEDS ORDERED: MIDAZOLAM 2 MG/2 ML VIAL ONE (09:48)
[2019-06-05 10:04] LABS: Glucose,Whole Blood 122 mg/dL (75-99)
[2019-06-05] MEDS ORDERED: IOHEXOL 350 MG/ML (PER ML) 100ML BTL MISCELLANE ONE (10:06)
[2019-06-05] MEDS ORDERED: LACTATED RINGERS 1,000 ML IV ONE (11:17)
[2019-06-05] MEDS ORDERED: MAG HYDROX/AL HYDROX/SIMETH 30 ML CUP PO PRN (11:28)
[2019-06-05] MEDS ORDERED: ACETAMINOPHEN TAB 325 MG TAB PO PRN (11:28)
[2019-06-05] MEDS ORDERED: ONDANSETRON 4 MG/2 ML VIAL IVP PRN (11:28)
[2019-06-05] MEDS ORDERED: NALOXONE 0.4 MG/ML 1 ML VIAL IV PRN (11:30)
[2019-06-05] MEDS ORDERED: KETOROLAC 30 MG/ML 1 ML VIAL IVP PRN (11:30)
[2019-06-05] MEDS ORDERED: HYDROmorphone PCA 10 MG/50 ML BAG IV PRN (11:30)
--- NOTE | 2019-06-05 11:35 | P.OP ---
Date of Procedure: 06/05/19 Preoperative Diagnosis: Left renal calculi large Postoperative Diagnosis: Same Procedure(s) Performed: Cystoscopy, removal double-J catheter right, placement of occluding balloon catheter left, percutaneous nephrostomy (Dr. harris], percutaneous nephrosto lithotomy with ultrasound, placement of 8 J nephrostomy Anesthesia: MAYA Surgeon: Thanh Mckenzie Estimated Blood Loss (ml): 50 Pathology: other (Stone) Condition: stable Disposition: PACU Indications for Procedure: The patient is 79. He presented several weeks ago with bilateral large renal stones. He is undergone a successful right percutaneous nephrostolithotomy. He now comes for a left percutaneous nephrostolithotomy. The risks and complications have been outlined. Description of Procedure: Patient is brought to the operating suite. He is given a successful general endotracheal anesthesia on the transport gurney. He's placed in a frog position with a sterile prep and drape. Cystoscopy Foroblique lens and 22-Bahraini sheath with Foroblique lens identifies a normal anterior urethra. The prostatic urethra shows some middle lobe obstruction. Upon entering the bladder the right double-J catheters identified and grasped with the grasping forceps and removed. I reintroduced the scope. Identify the left ureteral orifices and it is intubated with a 5-Bahraini occluding balloon catheter. The cystoscope was removed. A Madden catheters placed and secured to the ureteral catheter. The patient's placed in a prone position care to airways and extremities. Dr. harris of radiology enters the procedure and performed percutaneous access to a left lower pole calyx. I dilate the tract to 30-Bahraini. I remove clot and see the 2 stones one about 8 mm another closer to 2 cm given stone burden greater than 2 cm. The smaller stone was grasped and removed. I then used the ultrasound to break up the larger stone into pieces and remove all the fragments. At the end of the procedure I looked throughout the collecting system with the flexible nephroscope. I passed down in the ureter and see no remaining stone. Over the working wire and 8-Bahraini J nephrostomy tube was placed and coils in the renal pelvis. It is secured to the skin. The patient's awake and returned recovery in good condition. Blood loss is approximately 50 mL. He tolerated procedure well be placed in the hospital postoperatively.
--- NOTE | 2019-06-05 11:38 | FL ---
EXAMINATION TYPE: FL Perc Nephrostomy New Access DATE OF EXAM: 06/05/2019 COMPARISON: X-ray 06/05/2019 HISTORY: Left renal stone Procedure had been discussed with the patient by Dr. Mckenzie, risks, benefits, alternatives, were dis cussed and any questions were answered. Informed consent was obtained. The patient was in a semipro ne position prepped and draped on the OR table in the usual sterile fashion. Utilizing a 15 cm lengt h Chiba needle a single pass was made into a lower pole posterior calyx under fluoroscopic guidance. An 0.018 guidewire is passed through the needle and there was placement of a 6-Chadian catheter sheat h system. There was conversion to a 0.035 system was performed with passage of a guidewire into the ureter utilizing a directional catheter. A second safety wire was placed. Remaining portion of pro cedure performed by . Approximately 2.1 minutes of fluoroscopy was provided. IMPRESSION: 1. Successful intraoperative left nephrostomy prior to nephrolithotomy.
[2019-06-05 12:38] LABS: Glucose,Whole Blood 129 mg/dL (75-99)
[2019-06-05] MEDS: DEXTROSE 5%-0.45% NACL 1,000 ML IV SCH ×2 (15:13→23:36)
[2019-06-05] MEDS: FLUTICASONE 220 MCG INHALER INHALATION SCH (20:23)
[2019-06-05] MEDS ORDERED: amLODIPine 5 MG TAB PO SCH (21:00)
[2019-06-05] MEDS ORDERED: MONTELUKAST 10 MG TAB PO SCH (21:00)
[2019-06-05] MEDS ORDERED: ATORVASTATIN 10 MG TAB PO SCH (21:00)
[2019-06-06] MEDS: DEXTROSE 5%-0.45% NACL 1,000 ML IV SCH (05:19)
[2019-06-06] MEDS ORDERED: LEVOTHYROXINE 75 MCG TAB PO SCH (06:30)
--- NOTE | 2019-06-06 06:38 | P.DS ---
Providers Attending physician: Thanh Mckenzie Primary care physician: [facility] Course: The patient was admitted 06/05/2019 for a left percutaneous nephrostolithotomy. He underwent this without difficulty. He did well overnight. This morning his pain is under control. His urine has cleared up. I will remove his Madden. If he voids well he'll be discharged home later this morning. He'll follow-up in the office tomorrow for nephrostomy tube removal. Postoperative instructions been given. He will resume his home medicines other than blood thinners and aspirin. He'll contact me with any problems. His condition is good. Patient Condition at Discharge: Good Plan - Discharge Summary Discharge Rx Participant: No New Discharge Prescriptions: No Action Vitamin E (Dl,Tocopheryl Acet) [Vitamin E] 400 unit PO DAILY Montelukast [Singulair] 10 mg PO HS Mometasone Inhalr 220 Mcg/Puff [Asmanex] 2 puff INHALATION BID Multivitamins, Thera [Multivitamin (formulary)] 0.5 tab PO BID Glucosamine Sulfate 1,500 mg PO DAILY Fluticasone Nasal [place] [Flonase Nasal [place]] 2 spr EA NOSTRIL DAILY Aspirin 81 mg PO DAILY amLODIPine BESYLATE [Norvasc] 5 mg PO HS [place] Bark 1 tab PO DAILY Vitamin B Complex 1 each PO DAILY Turmeric Root Extract [Turmeric] 500 mg PO DAILY Tamsulosin [Flomax] 0.4 mg PO DAILY Simvastatin [Zocor] 20 mg PO HS Omeprazole 20 mg PO DAILY Levothyroxine Sodium [Synthroid] 150 mcg PO DAILY L.acidoph,Paracasei, B.lactis [Probiotic] 1 each PO DAILY Garlic 1,000 mg PO DAILY Fish Oil/Dha/Epa [Fish Oil 1,200 mg Fish Oil] 1,200 mg PO DAILY Ascorbic Acid [Vitamin C] 1,000 mg PO DAILY Deisy 500 mg PO DAILY Discharge Medication List Ascorbic Acid [Vitamin C] 1,000 mg PO DAILY 05/03/19 [History] Aspirin 81 mg PO DAILY 05/03/19 [History] Fish Oil/Dha/Epa [Fish Oil 1,200 mg Fish Oil] 1,200 mg PO DAILY 05/03/19 [History] Fluticasone Nasal [place] [Flonase Nasal [place]] 2 spr EA NOSTRIL DAILY 05/03/19 [History] Garlic 1,000 mg PO DAILY 05/03/19 [History] Glucosamine Sulfate 1,500 mg PO DAILY 05/03/19 [History] L.acidoph,Paracasei, B.lactis [Probiotic] 1 each PO DAILY 05/03/19 [History] Levothyroxine Sodium [Synthroid] 150 mcg PO DAILY 05/03/19 [History] Mometasone Inhalr 220 Mcg/Puff [Asmanex] 2 puff INHALATION BID 05/03/19 [History] Montelukast [Singulair] 10 mg PO HS 05/03/19 [History] Multivitamins, Thera [Multivitamin (formulary)] 0.5 tab PO BID 05/03/19 [History] Omeprazole 20 mg PO DAILY 05/03/19 [History] Simvastatin [Zocor] 20 mg PO HS 05/03/19 [History] Tamsulosin [Flomax] 0.4 mg PO DAILY 05/03/19 [History] Turmeric Root Extract [Turmeric] 500 mg PO DAILY 05/03/19 [History] Vitamin B Complex 1 each PO DAILY 05/03/19 [History] Vitamin E (Dl,Tocopheryl Acet) [Vitamin E] 400 unit PO DAILY 05/03/19 [History] [place] Bark 1 tab PO DAILY 05/03/19 [History] amLODIPine BESYLATE [Norvasc] 5 mg PO HS 05/03/19 [History] Deisy 500 mg PO DAILY 06/04/19 [History] Follow up Appointment(s)/Referral(s): Thanh Mckenzie MD [STAFF PHYSICIAN] - 06/07/19 Activity/Diet/Wound Care/Special Instructions: Home with nephrostomy tube. Hold aspirin. Discharge Disposition: HOME SELF-CARE
[2019-06-06 07:19] VITALS: BP 154/80; PULSE 62; RESP 18; TEMP 98.5
[2019-06-06] MEDS ORDERED: PANTOPRAZOLE 40 MG TABLET PO SCH (07:30)
[2019-06-06] MEDS ORDERED: FLUTICASONE 50MCG/SPRAY NASAL 16GM EA NOSTRIL SCH (09:00)
[2019-06-06] MEDS ORDERED: TAMSULOSIN 0.4 MG CAP.ER.24H PO SCH (09:00)
[2019-06-06] MEDS: FLUTICASONE 220 MCG INHALER INHALATION SCH (09:54)
== END 2019-06-06 11:13 | disposition home or self-care (01) ==
LOC: OR 08:47 → 4SSUR 11:22 → OR 06-06 11:13
PROVIDERS: ATTEND Urology
DX: N20.0 Calculus of kidney (principal); Z46.6 Encounter for fitting and adjustment of urinary device; J45.909 Unspecified asthma, uncomplicated; R73.03 Prediabetes; K21.9 Gastro-esophageal reflux disease without esophagitis; E78.5 Hyperlipidemia, unspecified; I10 Essential (primary) hypertension; I25.2 Old myocardial infarction; G62.2 Polyneuropathy due to other toxic agents; M19.90 Unspecified osteoarthritis, unspecified site; N42.9 Disorder of prostate, unspecified; G47.30 Sleep apnea, unspecified; Z99.89 Dependence on other enabling machines and devices; E07.9 Disorder of thyroid, unspecified; Z90.49 Acquired absence of other specified parts of digestive tract; Z95.1 Presence of aortocoronary bypass graft; Z87.891 Personal history of nicotine dependence; Z79.82 Long term (current) use of aspirin; Z79.890 Hormone replacement therapy; Z79.899 Other long term (current) drug therapy; Z88.1 Allergy status to other antibiotic agents; Z88.8 Allergy status to other drugs, medicaments and biological substances
CPT/HCPCS: 50080; 94640 ×2; 82365; 50432; 74018; C1769 ×3; C2628; C1729 ×2; C1894; J2250; J2710; Q9967; J2405 ×2; J2001; J3010; J1580; J0290; J1100; J0330; J2704; 86850; 86900; 86901

== ENCOUNTER → 2019-06-17 | Outpatient (CLI) | payer OTHER | END | disposition home or self-care (01) | LOC: RADCTMAIN 05-01 16:29 | PROVIDERS: ATTEND Internal Medicine Interventional Cardiology | DX: Z53.9 Procedure and treatment not carried out, unspecified reason (principal) ==

== ENCOUNTER 2019-06-24 18:00 | Inpatient (IN) | payer OTHER, MEDICARE ==
[2019-06-24] MEDS ORDERED: SODIUM CHLORIDE 0.9% 1,000 ML IV STA (18:16)
--- NOTE | 2019-06-24 18:16 | ED ---
Weakness HPI - General Stated complaint: GENERALIZED WEAKNESS Time Seen by Provider: 06/24/19 18:12 Source: RN notes reviewed, old records reviewed Mode of arrival: EMS Limitations: altered mental status, physical limitation - History of Present Illness Initial comments: This 39-year-old male the ER for evasive generalized weakness presented by EMS for evaluation regarding this unlabored for history obtained by EMS also complaining of nausea vomiting diarrhea and then again over is overall weakness. Patient denying any pain currently. Patient did and was noticed to have fever. Patient does admit to not feeling well last nail male this morning, he did feel like he may or may have had a fever had some chills and sweating earlier. He is also had persistent nausea vomiting and diarrhea MD Complaint: generalized weakness, lack of energy, difficulty walking -: unknown Location: generalized Severity: moderate Severity scale (1-10): 7 Consistency: constant Improves with: none Worsens with: none Context: recent illness (Known fever) Associated Symptoms: nausea/vomiting - Related Data Home Medications Medication Instructions Recorded Confirmed Ascorbic Acid [Vitamin C] 1,000 mg PO DAILY 05/03/19 06/24/19 Aspirin 81 mg PO DAILY 05/03/19 06/24/19 Fish Oil/Dha/Epa [Fish Oil 1,200 1,200 mg PO DAILY 05/03/19 06/24/19 mg Fish Oil] Fluticasone Nasal [place] [Flonase 2 spr EA NOSTRIL DAILY 05/03/19 06/24/19 Nasal [place]] Garlic 1,000 mg PO DAILY 05/03/19 06/24/19 L.acidoph,Paracasei, B.lactis 1 cap PO DAILY 05/03/19 06/24/19 [Probiotic] Levothyroxine Sodium [Synthroid] 150 mcg PO DAILY 05/03/19 06/24/19 Mometasone Inhalr 220 Mcg/Puff 2 puff INHALATION RT-BID 05/03/19 06/24/19 [Asmanex] Montelukast [Singulair] 10 mg PO HS 05/03/19 06/24/19 Multivitamins, Thera [Multivitamin 0.5 tab PO BID 05/03/19 06/24/19 (formulary)] Omeprazole 20 mg PO DAILY 05/03/19 06/24/19 Simvastatin [Zocor] 20 mg PO HS 05/03/19 06/24/19 Tamsulosin [Flomax] 0.4 mg PO DAILY 05/03/19 06/24/19 Turmeric Root Extract [Turmeric] 500 mg PO DAILY 05/03/19 06/24/19 Vitamin B Complex 1 cap PO BID 05/03/19 06/24/19 Vitamin E (Dl,Tocopheryl Acet) 400 unit PO DAILY 05/03/19 06/24/19 [Vitamin E] [place] Bark 1 tab PO DAILY 05/03/19 06/24/19 amLODIPine BESYLATE [Norvasc] 5 mg PO HS 05/03/19 06/24/19 Deisy 500 mg PO BID 06/04/19 06/24/19 Cholecalciferol [Vitamin D3 (25 1,000 unit PO DAILY 06/24/19 06/24/19 Mcg = 1000 Iu)] Cyanocobalamin (Vitamin B-12) 1,000 mcg PO BID 06/24/19 06/24/19 [Vitamin B-12] Glucosam/Praveen-Msm1/C/Harris/Bosw 1 tab PO BID 06/24/19 06/24/19 [Glucosamine-Chondroitin Tablet] Turmeric Root Extract [Turmeric] 500 mg PO BID 06/24/19 06/24/19 Allergies Allergy/AdvReac Type Severity Reaction Status Date / Time furosemide [From Lasix] Allergy hives, lip Verified 06/24/19 18:54 swelling levofloxacin [From Levaquin] Allergy Rash/Hives Verified 06/24/19 18:54 moxifloxacin [From Avelox] Allergy Rash/Hives Verified 06/24/19 18:54 valacyclovir [From Valtrex] Allergy Rash/Hives Verified 06/24/19 18:54 Review of Systems ROS Statement: Those systems with pertinent positive or pertinent negative responses have been documented in the HPI. ROS Other: All systems not noted in ROS Statement are negative. 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, early Parkinson's, tremors, "pre-diabetic"-checks blood sugar periodically, kidney stones, left inguinal hernia currently, uses CPAP Last Myocardial Infarction Date:: unknown History of Any Multi-Drug Resistant Organisms: None Reported Past Surgical History: Cholecystectomy, Coronary Bypass/CABG, Heart Catheterization, Hernia Repair, Orthopedic Surgery Additional Past Surgical History / Comment(s): 2002 double bypass, right tibia repair, lithotripsy 04-15-19 Past Anesthesia/Blood Transfusion Reactions: No Reported Reaction Past Psychological History: No Psychological Hx Reported Smoking Status: Former smoker Past Alcohol Use History: Occasional Additional Past Alcohol Use History / Comment(s): quit smoking 1998, smoked 40 yrs. <ppd Past Drug Use History: None Reported - Past Family History Mother Family Medical History: No Reported History General Exam General appearance: alert, in no apparent distress Head exam: Present: atraumatic, normocephalic, normal inspection Eye exam: Present: normal appearance, EOMI. Absent: scleral icterus, conjunctival injection, periorbital swelling ENT exam: Present: normal exam, mucous membranes moist Neck exam: Present: normal inspection. Absent: tenderness, meningismus, lymphadenopathy Respiratory exam: Present: normal lung sounds bilaterally. Absent: respiratory distress, wheezes, rales, rhonchi, stridor Cardiovascular Exam: Present: regular rate, normal rhythm, normal heart sounds. Absent: systolic murmur, diastolic murmur, rubs, gallop, clicks GI/Abdominal exam: Present: soft, normal bowel sounds. Absent: distended, tenderness, guarding, rebound, rigid Extremities exam: Present: normal inspection, full ROM, normal capillary refill. Absent: tenderness, pedal edema, joint swelling, calf tenderness Back exam: Present: normal inspection Neurological exam: Present: alert, oriented X3, CN II-XII intact Psychiatric exam: Present: normal affect, normal mood Skin exam: Present: warm, dry, intact, normal color. Absent: rash Course Vital Signs 06/24/19 06/24/19 18:20 20:18 Temperature 100.4 F H 100.9 F H Pulse Rate 75 77 Respiratory 18 20 Rate Blood Pressure 153/88 134/93 O2 Sat by Pulse 98 95 Oximetry - Reevaluation(s) Reevaluation #1: 06/24/19 18:22 Medical history is reviewed Reevaluation #2: 06/24/19 20:25 Patient is improving with fever control and hydration here in the ER, no pain - Consultations Consultation #1: spoke w Dr Shea ok for admission EKG Findings - EKG Comments: EKG Findings:: EKG shows sinus rhythm rate of 77, MD 150, QRS 114, QTc 468 Medical Decision Making - Medical Decision Making Male the ER for evaluation of weakness, brought by EMS. Positive fever po sitive pneumonia on x-ray, patient's can be required pneumonia no recent hospitalizations will admit for IV antibiotics - Lab Data Result diagrams: 06/24/19 18:45 06/24/19 18:45 Lab Results 06/24/19 06/24/19 06/24/19 Range/Units 18:45 18:45 18:45 WBC 9.6 (3.8-10.6) k/uL RBC 5.18 (4.30-5.90) m/uL Hgb 15.7 (13.0-17.5) gm/dL Hct 45.1 (39.0-53.0) % MCV 87.1 (80.0-100.0) fL MCH 30.3 (25.0-35.0) pg MCHC 34.7 (31.0-37.0) g/dL RDW 12.9 (11.5-15.5) % Plt Count 212 (150-450) k/uL Neutrophils % 78 % Lymphocytes % 9 % Monocytes % 9 % Eosinophils % 0 % Basophils % 2 % Neutrophils # 7.5 (1.3-7.7) k/uL Lymphocytes # 0.8 L (1.0-4.8) k/uL Monocytes # 0.9 (0-1.0) k/uL Eosinophils # 0.0 (0-0.7) k/uL Basophils # 0.2 (0-0.2) k/uL PT (9.0-12.0) sec INR (<1.2) APTT (22.0-30.0) sec Sodium 135 L (137-145) mmol/L Potassium 4.1 (3.5-5.1) mmol/L Chloride 102 (98-107) mmol/L Carbon Dioxide 20 L (22-30) mmol/L Anion Gap 13 mmol/L BUN 14 (9-20) mg/dL Creatinine 0.75 (0.66-1.25) mg/dL Est GFR (CKD-EPI)AfAm >90 (>60 ml/min/1.73 sqM) Est GFR (CKD-EPI)NonAf 89 (>60 ml/min/1.73 sqM) Glucose 133 H (74-99) mg/dL Plasma Lactic Acid Ras 1.3 (0.7-2.0) mmol/L Calcium 8.9 (8.4-10.2) mg/dL Phosphorus 2.9 (2.5-4.5) mg/dL Magnesium 1.9 (1.6-2.3) mg/dL Total Bilirubin 1.2 (0.2-1.3) mg/dL AST 47 (17-59) U/L ALT 23 (21-72) U/L Alkaline Phosphatase 76 (38-126) U/L Creatine Kinase 264 H (55-170) U/L Troponin I (0.000-0.034) ng/mL Total Protein 7.1 (6.3-8.2) g/dL Albumin 3.9 (3.5-5.0) g/dL TSH 0.318 L (0.465-4.680) mIU/L 06/24/19 06/24/19 Range/Units 18:45 18:45 WBC (3.8-10.6) k/uL RBC (4.30-5.90) m/uL Hgb (13.0-17.5) gm/dL Hct (39.0-53.0) % MCV (80.0-100.0) fL MCH (25.0-35.0) pg MCHC (31.0-37.0) g/dL RDW (11.5-15.5) % Plt Count (150-450) k/uL Neutrophils % % Lymphocytes % % Monocytes % % Eosinophils % % Basophils % % Neutrophils # (1.3-7.7) k/uL Lymphocytes # (1.0-4.8) k/uL Monocytes # (0-1.0) k/uL Eosinophils # (0-0.7) k/uL Basophils # (0-0.2) k/uL PT 10.7 (9.0-12.0) sec INR 1.0 (<1.2) APTT 31.6 H (22.0-30.0) sec Sodium (137-145) mmol/L Potassium (3.5-5.1) mmol/L Chloride (98-107) mmol/L Carbon Dioxide (22-30) mmol/L Anion Gap mmol/L BUN (9-20) mg/dL Creatinine (0.66-1.25) mg/dL Est GFR (CKD-EPI)AfAm (>60 ml/min/1.73 sqM) Est GFR (CKD-EPI)NonAf (>60 ml/min/1.73 sqM) Glucose (74-99) mg/dL Plasma Lactic Acid Ras (0.7-2.0) mmol/L Calcium (8.4-10.2) mg/dL Phosphorus (2.5-4.5) mg/dL Magnesium (1.6-2.3) mg/dL Total Bilirubin (0.2-1.3) mg/dL AST (17-59) U/L ALT (21-72) U/L Alkaline Phosphatase (38-126) U/L Creatine Kinase (55-170) U/L Troponin I 0.035 H* (0.000-0.034) ng/mL Total Protein (6.3-8.2) g/dL Albumin (3.5-5.0) g/dL TSH (0.465-4.680) mIU/L - Radiology Data Radiology results: report reviewed (Chest x-ray is positive for pneumonia), image reviewed Disposition Clinical Impression: Dehydration, Community acquired bacterial pneumonia, Fever, Weakness Disposition: ADMITTED IP TO THIS HOSP Condition: Fair Is patient prescribed a controlled substance at d/c from ED?: No Referrals: [facility],Clinic [Primary Care Provider] - 1-2 days
[2019-06-24 19:08] LABS: Partial Thromboplastin Time 31.6 sec (22.0-30.0); Prothrombin Time 10.7 sec (9.0-12.0)
[2019-06-24 19:10] LABS: ALT 23 U/L (21-72); AST 47 U/L (17-59); African American GFR (CKD) >90 (>60 ml/min/1.73 sqM); Albumin 3.9 g/dL (3.5-5.0); Alkaline Phosphatase 76 U/L (38-126); Anion Gap 13 mmol/L; Blood Urea Nitrogen 14 mg/dL (9-20); Calcium 8.9 mg/dL (8.4-10.2); Carbon Dioxide 20 mmol/L (22-30); Chloride 102 mmol/L (98-107); Creatine Kinase 264 U/L (55-170); Glucose 133 mg/dL (74-99); Phosphorus 2.9 mg/dL (2.5-4.5); Sodium 135 mmol/L (137-145); Total Bilirubin 1.2 mg/dL (0.2-1.3); Total Protein 7.1 g/dL (6.3-8.2)
[2019-06-24 19:11] LABS: Basophils # (A) 0.2 k/uL (0-0.2); Basophils % (A) 2 %; Eosinophils % (A) 0 %; HCT 45.1 % (39.0-53.0); HGB 15.7 gm/dL (13.0-17.5); Lymphocytes # (A) 0.8 k/uL (1.0-4.8); Lymphocytes % (A) 9 %; MCH 30.3 pg (25.0-35.0); MCHC 34.7 g/dL (31.0-37.0); MCV 87.1 fL (80.0-100.0); Mean Platelet Volume 7.1; Monocytes # (A) 0.9 k/uL (0-1.0); Monocytes % (A) 9 %; Neutrophils # (A) 7.5 k/uL (1.3-7.7); Neutrophils % (A) 78 %; Platelet Count 212 k/uL (150-450); RBC 5.18 m/uL (4.30-5.90); RDW 12.9 % (11.5-15.5); WBC 9.6 k/uL (3.8-10.6)
[2019-06-24 19:17] LABS: Magnesium 1.9 mg/dL (1.6-2.3); Potassium 4.1 mmol/L (3.5-5.1)
--- NOTE | 2019-06-24 19:27 | XR ---
EXAMINATION TYPE: XR chest 2V DATE OF EXAM: 06/24/2019 COMPARISON: NONE HISTORY: Short of breath TECHNIQUE: Frontal and lateral views of the chest are obtained. FINDINGS: There is a 4 cm patch of infiltrate in the left upper lobe. The right lung is clear. There is no heart failure. There are sternal wires. Costophrenic angles are clear. There are chest leads. There is no definite pleural effusion. IMPRESSION: Poorly marginated pneumonic infiltrate left upper lobe. Follow-up recommended show clear ing. No heart failure.
[2019-06-24] MEDS ORDERED: PNEUMONIA PROTOCOL UTILIZED 1 EACH MISC PO PRN (20:23)
[2019-06-24] MEDS ORDERED: AZITHROMYCIN 500 MG in SODIUM CHLORIDE 0.9% 250 ML IVPB STA (20:23)
[2019-06-24 21:14] LABS: Appearance,Urine Clear (Clear); Bilirubin,Urine Negative (Negative); Blood,Urine Negative (Negative); Color,Urine Yellow; Glucose,Urine (UA) Negative (Negative); Granular Casts,Urine 1 /lpf (0); Ketones,Urine 1+ (Negative); Leukocyte Esterase,Urine Negative (Negative); Mucus,Urine Rare /hpf; Nitrite,Urine Negative (Negative); PH, Urine 5.5 (5.0-8.0); Protein,Urine 1+ (Negative); RBC,Urine 3 /hpf (0-5); Specific Gravity,Urine 1.021 (1.001-1.035); Urobilinogen,Urine <2.0 mg/dL (<2.0)
[2019-06-24] MEDS: ACETAMINOPHEN TAB 325 MG TAB PO PRN (21:23)
[2019-06-24] MEDS: SODIUM CHLORIDE 0.9% 1,000 ML IV SCH (22:48)
[2019-06-25] MEDS: LEVOTHYROXINE 75 MCG TAB PO SCH (05:14)
[2019-06-25] MEDS: ACETAMINOPHEN TAB 325 MG TAB PO PRN (05:16)
[2019-06-25] MEDS: IPRATROPIUM-ALBUTEROL 3 ML NEB INHALATION SCH ×4 (07:55→20:03)
--- NOTE | 2019-06-25 08:28 | XR ---
EXAMINATION TYPE: XR chest 2V DATE OF EXAM: 06/25/2019 COMPARISON: 06/24/2019 HISTORY: Shortness of breath. Follow-up exam for pneumonia. TECHNIQUE: Frontal and lateral views of the chest are obtained. FINDINGS: Persistent left upper lobe opacity, appearing larger than the prior and somewhat masslike. Nodular density in the left lower lung likely representing minimal shadow. There is prominence that is new within the aorticopulmonary window and ill definition of the aortic arch. Right basilar atelec tasis is unchanged. There is tortuosity of the descending thoracic aorta and mild cardiomediastinal s ilhouette enlargement with post CABG change. IMPRESSION: Masslike consolidation in the left upper lobe is larger than the prior. CT thorax is rec ommended to evaluate for underlying mass. Poor definition of the aorticopulmonary window could repres ent adenopathy, peribronchial cuffing or atelectasis.
[2019-06-25] MEDS: CYANOCOBALAMIN 500 MCG TAB PO SCH ×2 (08:50→21:44)
[2019-06-25] MEDS: TAMSULOSIN 0.4 MG CAP.ER.24H PO SCH (08:50)
[2019-06-25] MEDS: MULTIVITAMINS, THERA 1 EACH TAB PO SCH ×2 (08:50→21:43)
[2019-06-25] MEDS: ASPIRIN 81 MG PO SCH (08:50)
[2019-06-25] MEDS: ENOXAPARIN 40 MG/0.4 ML SYRINGE SQ SCH (08:51)
[2019-06-25] MEDS: SODIUM CHLORIDE 0.9% 1,000 ML IV SCH ×2 (08:51→17:40)
[2019-06-25] MEDS: CHOLECALCIFEROL 1,000 UNIT TAB PO SCH (08:51)
[2019-06-25] MEDS ORDERED: RX INFO: IV CONTRAST WAS GIVEN 1 EACH MISC MISCELLANE PRN (10:51)
--- NOTE | 2019-06-25 14:28 | CT ---
EXAMINATION TYPE: CT chest w con DATE OF EXAM: 06/25/2019 COMPARISON: Chest x-ray same date HISTORY: Left upper lobe pneumonia CT DLP: 652.5 mGycm Automated exposure control for dose reduction was used. CONTRAST: CT scan of the chest is performed with IV Contrast, patient injected with 100 mL of Isovue 300. FINDINGS: LUNGS: The lungs are remarkable for air bronchograms, abnormal increased attenuation in the left uppe r lobe and a patchy distribution. There is associated volume loss. There is only minimal left pleural effusion. The tracheobronchial tree is patent. MEDIASTINUM: There are no greater than 1 cm hilar or mediastinal lymph nodes. No pericardial effusi on is seen. There is some pericardial calcification suspected along the inferior wall of the heart. Intracardiac metallic density present within the left ventricle is indeterminate. Some calcification, metallic density present at the root of the aorta. The heart is enlarged. AORTA: No additional significant abnormality is seen. OTHER: Patient is post cholecystectomy. Liver shows low attenuation possibly due to hepatic steatosi s. Spleen shows calcification possibly due to old granulomatous disease. IMPRESSION: Findings consistent with pneumonia. Follow-up to resolution to exclude underlying mass. Cardiomegaly. Postop changes. Coronary artery disease. Additional findings above.
[2019-06-25] MEDS: PANTOPRAZOLE 40 MG TABLET PO SCH (15:17)
[2019-06-25 16:35] LABS: Hemoglobin A1C 5.3 % (4.0-6.0)
--- NOTE | 2019-06-25 17:31 | CONS ---
CONSULTATION DATE OF SERVICE: 06/25/2019. HISTORY OF PRESENT ILLNESS: Patient is a 79-year-old male who follows with Dr. Mejia in the Pulmonary office. Patient states that on Monday, he started to experience generalized weakness with nausea, dry heaves, constipation followed by loose stools. Patient did have chills at home with a possible fever. He did not check it. The patient states that he would sit down in a recliner and the weakness was to the extent where he could not even get up out of the chair and had no appetite. Also complains of a cough which is productive. Denies any hemoptysis. Subsequently, patient came to the emergency room at [facility] and was admitted for further evaluation and treatment. PAST MEDICAL HISTORY: Significant for thyroid disease, diabetes mellitus, pre-GERD, asthma, hypertension, ND, high cholesterol, BPH, CAD, neurologic disorder, osteoarthritis, SONYA on CPAP, kidney stones. PAST SURGICAL HISTORY: Significant for cholecystectomy, CABG, heart catheterization, hernia repair, right tibia repair and lithotripsy. Patient recently had placement of a nephrostomy tube and underwent nephrostolithotomy the end of May and the tube was removed a few days later. ALLERGIES: INCLUDE LEVAQUIN, LASIX, AVELOX, AND VALACYCLOVIR. FAMILY HISTORY: Noncontributory. SOCIAL HISTORY: The patient does have a history of smoking x 40 years. Less a pack per day, quit in 1998. Alcohol socially. Denies any illicit drug use. 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 REVIEW OF SYSTEMS: General is positive for fever, chills. Negative for any loss of weight. Patient is trying to lose weight. HEENT: Negative for any headaches or dizziness. Negative for acute visual changes. Denies any difficulty hearing. Does have seasonal allergies. Denies any sore throat or difficulty swallowing. RESPIRATORY is positive for shortness of breath with worsening congestion nasally and chest scott. Negative for hemoptysis. CARDIOVASCULAR: Negative for any chest pain or palpitations. GI: Positive for dry heaves which have resolved. No nausea, no vomiting. Did have constipation followed by diarrhea. : Negative for any hematuria or dysuria. Again, did have recent nephrostomy tube with a procedure by the urologist. ENDOCRINE positive for prediabetes and thyroid disease. MUSCULOSKELETAL: History of osteoarthritis. NEUROLOGIC is positive for Parkinson's from [employer]. Patient follows with Dr. Muriel Weller. PSYCHIATRIC is negative for anxiety or depression. MEDICATIONS: Patient's home medications include Norvasc 5 mg p.o. q.h.s., Zocor 20 mg p.o. q.h.s., Singulair 10 mg p.o. q.h.s., Tumeric 500 mg p.o. b.i.d., silvio 500 mg p.o. b.i.d., willow bark 1 tab p.o. daily, vitamin D3 1000 international units daily, vitamin B complex 1 cap b.i.d., vitamin B12 a 1000 mcg b.i.d., vitamin D 400 units p.o. daily. Asmanex 2 puffs b.i.d., probiotic 1 cap daily, glucosamine chondroitin 1 tab p.o. b.i.d., Flomax 0.4 mg p.o. daily, multivitamin 0.5 tab p.o. b.i.d., garlic 1000 mg p.o. daily. Flonase 2 sprays each nostril daily. Omeprazole 20 mg p.o. daily, Synthroid 150 mcg daily, fish oil 1200 mg daily, aspirin 81 mg p.o. daily and vitamin C 1000 mg p.o. daily. PHYSICAL EXAM: GENERAL is a pleasant 79-year-old male who is seen sitting up on the side of bed, in no acute distress. VITAL SIGNS temp is 98.3, pulse is 61, respiratory rate is 17, blood pressure 137/76, O2 saturation 97% on 2 L O2 via nasal cannula. HEENT: Head is normocephalic, atraumatic. Pupils equal, round, react to light. Ears, nose: No discharge is noted. Mouth was moist mucous membranes. Small oropharynx. No pharyngeal erythema is noted. NECK: Supple. Trachea is midline. LUNGS: With slightly decreased breath sounds. No rales or wheezes. Prolonged expiratory phase. HEART: S1, S2 are heard. Not tachycardic. ABDOMEN: Soft. Bowel sounds are positive. EXTREMITIES: With no edema. NEUROLOGIC: Patient is awake and alert. LABS: White count 9.6, hemoglobin 15.7, hematocrit 45.1 with 212,000 platelets. PT is 10.7, INR is 1.0, PTT is 31.6. Sodium is 135, potassium is 4.1, chloride is 102, CO2 is 20, anion gap is 13, BUN is 14, creatinine 0.75, glucose is 133. Plasma lactic acid venous 1.3, calcium 8.9, phosphorus 2.9, magnesium 1.9, total bilirubin 1.2. AST 47, ALT 23, alkaline phosphatase 76, CK 264, troponin 0.035, total protein 7.1, albumin 3.9, TSH 0.318, free T4 1.54. Repeat troponins are 0.031. Urinalysis is 1+ protein, 1+, ketones negative for nitrites, negative for leuk esterase. IMAGING: Chest x-ray, a masslike consolidation in the left upper lobe is larger than the prior. CT thorax is recommended to evaluate for underlying mass. Poor definition of the aorta pulmonary window could represent adenopathy, peribronchial cuffing or atelectasis. CT of the chest: Findings consistent with pneumonia. Followup to resolution to exclude underlying mass. Cardiomegaly, postop changes, coronary artery disease. IMPRESSION: At this time: 1. Left upper lobe pneumonia, 2. Generalized weakness 3. Obstructive sleep apnea, treated with CPAP. 4. Asthma, stable. 5. History of coronary artery disease. PLAN: Agree with bronchodilators and antibiotics, Lovenox for DVT prophylaxis. We will add Protonix for GI prophylaxis. We will add aerosol steroids. Add incentive spirometry with pulmonary hygiene. Supplemental oxygen to maintain saturation > 92%. Sputum culture is pending. Thank you for the consultation. We will follow patient closely with you making further changes as necessary. I performed a History & Physical Examination of the patient and discussed their management with nurse practitioner. I reviewed the nurse practitioner's note and agree with the documented findings and plan of care. MMODL / IJN: [id number] / ELIZABETH
[2019-06-25] MEDS ORDERED: AZITHROMYCIN 500 MG TAB PO SCH (19:00)
[2019-06-25] MEDS: BUDESONIDE 0.5 MG/2 ML NEBU INHALATION SCH (20:03)
[2019-06-25 20:04] VITALS: RESP 16
[2019-06-25] MEDS ORDERED: amLODIPine 5 MG TAB PO SCH (21:00)
[2019-06-25] MEDS ORDERED: MONTELUKAST 10 MG TAB PO SCH (21:00)
--- NOTE | 2019-06-25 21:30 | P.HPIM ---
History of Present Illness H&P Date: 06/25/19 Chief Complaint: Generalized weakness Patient is a 79-year-old male with a known history of hypertension, hyperlipidemia,diabetes type II, history of AK, history of coronary artery bypass graft, sure arthritis, obstructive sleep apnea and recent history of percutaneous lithotripsy in March and April 2019 came to ER with the complaints of generalized weakness and not eating very well for the past 5 days. Patient also has been having nausea and few episodes of vomiting. Last night he was sitting in the chair and suddenly slid down to the floor due to generalized weakness. Patient does have fever and chills. T-max 100.8 on admission. Patient denied any complaints of chest pain or shortness of breath. No headache or dizziness or tenderness. Denied any cough or sputum production. Denied any recent illnesses or sick contacts. Chest x-ray showed left upper lobe consolidation and mass like. CT of the chest was recommended. Patient also found have slightly elevated troponin level 0.035 Review of Systems Constitutional: Patient does have fever and chills. Generalized weakness and malaise. Abdomen: Patient denied nausea vomiting and diarrhea and abdominal pain. Cardiovascular: Patient denies any chest pain or short of breath no palpitations. Respiratory: patient denied any cough is from production. Does have shortness of breath Neurologic: Patient denied any numbness or tingling headache. Musculoskeletal: Patient denies any complaints of joint swelling or deformity. Skin: Negative Psychiatric: Negative Endocrine: No heat or cold intolerance. No recent weight gain. Genitourinary: No dysuria or hematuria. 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, early Parkinson's, tremors, "pre-diabetic"-checks blood sugar periodically, kidney stones, left inguinal hernia currently, uses CPAP Last Myocardial Infarction Date:: unknown History of Any Multi-Drug Resistant Organisms: None Reported Past Surgical History: Cholecystectomy, Coronary Bypass/CABG, Heart Catheterization, Hernia Repair, Orthopedic Surgery Additional Past Surgical History / Comment(s): 2001 double bypass, right tibia repair, lithotripsy 04-15-19 Past Anesthesia/Blood Transfusion Reactions: No Reported Reaction Past Psychological History: No Psychological Hx Reported Smoking Status: Former smoker Past Alcohol Use History: Occasional Additional Past Alcohol Use History / Comment(s): quit smoking 1998, smoked 40 yrs. <ppd Past Drug Use History: None Reported - Past Family History Mother Family Medical History: No Reported History Medications and Allergies Home Medications Medication Instructions Recorded Confirmed Type Ascorbic Acid [Vitamin C] 1,000 mg PO DAILY 05/03/19 06/24/19 History Aspirin 81 mg PO DAILY 05/03/19 06/24/19 History Fish Oil/Dha/Epa [Fish Oil 1,200 1,200 mg PO DAILY 05/03/19 06/24/19 History mg Fish Oil] Fluticasone Nasal [place] [Flonase 2 spr EA NOSTRIL DAILY 05/03/19 06/24/19 History Nasal [place]] Garlic 1,000 mg PO DAILY 05/03/19 06/24/19 History L.acidoph,Paracasei, B.lactis 1 cap PO DAILY 05/03/19 06/24/19 History [Probiotic] Levothyroxine Sodium [Synthroid] 150 mcg PO DAILY 05/03/19 06/24/19 History Mometasone Inhalr 220 Mcg/Puff 2 puff INHALATION RT-BID 05/03/19 06/24/19 History [Asmanex] Montelukast [Singulair] 10 mg PO HS 05/03/19 06/24/19 History Multivitamins, Thera [Multivitamin 0.5 tab PO BID 05/03/19 06/24/19 History (formulary)] Omeprazole 20 mg PO DAILY 05/03/19 06/24/19 History Simvastatin [Zocor] 20 mg PO HS 05/03/19 06/24/19 History Tamsulosin [Flomax] 0.4 mg PO DAILY 05/03/19 06/24/19 History Turmeric Root Extract [Turmeric] 500 mg PO DAILY 05/03/19 06/24/19 History Vitamin B Complex 1 cap PO BID 05/03/19 06/24/19 History Vitamin E (Dl,Tocopheryl Acet) 400 unit PO DAILY 05/03/19 06/24/19 History [Vitamin E] [place] 1 tab PO DAILY 05/03/19 06/24/19 History amLODIPine BESYLATE [Norvasc] 5 mg PO HS 05/03/19 06/24/19 History Deisy 500 mg PO BID 06/04/19 06/24/19 History Cholecalciferol [Vitamin D3 (25 1,000 unit PO DAILY 06/24/19 06/24/19 History Mcg = 1000 Iu)] Cyanocobalamin (Vitamin B-12) 1,000 mcg PO BID 06/24/19 06/24/19 History [Vitamin B-12] Glucosam/Praveen-Msm1/C/Harris/Bosw 1 tab PO BID 06/24/19 06/24/19 History [Glucosamine-Chondroitin Tablet] Turmeric Root Extract [Turmeric] 500 mg PO BID 06/24/19 06/24/19 History Allergies Allergy/AdvReac Type Severity Reaction Status Date / Time furosemide [From Lasix] Allergy hives, lip Verified 06/24/19 18:54 swelling levofloxacin [From Levaquin] Allergy Rash/Hives Verified 06/24/19 18:54 moxifloxacin [From Avelox] Allergy Rash/Hives Verified 06/24/19 18:54 valacyclovir [From Valtrex] Allergy Rash/Hives Verified 06/24/19 18:54 Physical Exam Vitals: Vital Signs Temp Pulse Pulse Resp BP BP Pulse Ox 06/25/19 08:06 88 06/25/19 07:58 84 06/25/19 07:00 98.3 F 61 17 137/76 97 06/25/19 02:07 100.3 F H 78 18 150/84 94 L 06/24/19 22:39 100.1 F H 64 16 133/64 94 L 06/24/19 21:20 79 20 156/83 95 06/24/19 20:18 100.9 F H 77 20 134/93 95 06/24/19 18:20 100.4 F H 75 18 153/88 98 Intake and Output 06/24/19 06/25/19 06/25/19 22:59 06:59 14:59 Intake Total 1100 580 980 Balance 1100 580 980 Intake: Amount of Fluid Infused ( 1100 ml) Intake, IV Titration 100 500 Amount Sodium Chloride 0.9% 1, 100 500 000 ml @ 100 mls/hr IV . Q10H [facility] Rx#:[id number] Oral 480 480 Other: # Voids 1 1 Weight 110.677 kg PHYSICAL EXAMINATION: Patient is lying in the bed comfortably, no acute distress, awake alert and oriented.. HEENT: Normocephalic. Neck is supple. Pupils reactive. Nostrils clear. Oral cavity is moist. Ears reveal no drainage. Neck reveals no JVD, carotid bruits, or thyromegaly. CHEST EXAMINATION: Trachea is central. Symmetrical expansion. Lung chahal clear to auscultation and percussion. CARDIAC: Normal S1, S2 with no gallops. No murmurs ABDOMEN: Soft. Bowel sounds normal. No organomegaly. No abdominal bruits. Extremities: reveal no edema. No clubbing or cyanosis Neurologically awake, alert, oriented x3 with well-coordinated movements. No focal deficits noted Skin: No rash or skin lesions. Psychiatric: Coperative. Nonsuicidal Musculoskeletal: No joint swelling or deformity. Normal range of motion. Results CBC & Chem 7: 06/24/19 18:45 06/24/19 18:45 Labs: Abnormal Lab Results - Last 24 Hours (Table) 06/24/19 06/24/19 06/24/19 Range/Units 18:45 18:45 18:45 Lymphocytes # 0.8 L (1.0-4.8) k/uL APTT 31.6 H (22.0-30.0) sec Sodium 135 L (137-145) mmol/L Carbon Dioxide 20 L (22-30) mmol/L Glucose 133 H (74-99) mg/dL Creatine Kinase 264 H (55-170) U/L Troponin I (0.000-0.034) ng/mL TSH 0.318 L (0.465-4.680) mIU/L Urine Protein (Negative) Urine Ketones (Negative) Urine Mucus (None) /hpf 06/24/19 06/24/19 Range/Units 18:45 20:50 Lymphocytes # (1.0-4.8) k/uL APTT (22.0-30.0) sec Sodium (137-145) mmol/L Carbon Dioxide (22-30) mmol/L Glucose (74-99) mg/dL Creatine Kinase (55-170) U/L Troponin I 0.035 H* (0.000-0.034) ng/mL TSH (0.465-4.680) mIU/L Urine Protein 1+ H (Negative) Urine Ketones 1+ H (Negative) Urine Mucus Rare H (None) /hpf Thrombosis Risk Factor Assmnt - DVT/VTE Prophylaxis DVT/VTE Prophylaxis: Pharmacologic Prophylaxis ordered - Choose All That Apply Any of the Below Risk Factors Present?: No Other Risk Factors: Yes Each Risk Factor Represents 3 Points: Age 75 years or older Thrombosis Risk Factor Assessment Total Risk Factor Score: 3 Thrombosis Risk Factor Assessment Level: Moderate Risk Assessment and Plan Assessment: Left upper lobe masslike consolidation likely due to pneumonia. CT chest was ordered to rule out any underlying mass. Nausea vomiting and generalized weakness. Improving now Objective sleep apnea on CPAP at home Previous history of smoking GERD Diabetes type 2. Prediabetic. Asthma stable Hypertension Hyperlipidemia History of AK History of coronary artery bypass grafting Parkinson's disease with tremors history of recent renal stones and lithotripsy 2 DVT prophylaxis with heparin subcu. plan: Patient will be continued on antibiotics in the form of ceftriaxone and azithromycin. Continue with oxygen therapy and breathing treatments as needed. CT of the chest was done to rule out any underlying mass. Continue the current management and follow closely. Continue the home medications and the prognosis is guarded with multiple medical problems and comorbid conditions. Time with Patient: Greater than 30
[2019-06-26] MEDS: BUDESONIDE 0.5 MG/2 ML NEBU INHALATION SCH (07:54)
[2019-06-26] MEDS: IPRATROPIUM-ALBUTEROL 3 ML NEB INHALATION SCH ×2 (07:54→11:25)
[2019-06-26 08:09] VITALS: BP 134/69; PULSE 64; TEMP 98.1
[2019-06-26] MEDS: LEVOTHYROXINE 75 MCG TAB PO SCH (08:12)
[2019-06-26] MEDS: ASPIRIN 81 MG PO SCH (08:25)
[2019-06-26] MEDS: TAMSULOSIN 0.4 MG CAP.ER.24H PO SCH (08:25)
[2019-06-26] MEDS: MULTIVITAMINS, THERA 1 EACH TAB PO SCH (08:25)
[2019-06-26] MEDS: CHOLECALCIFEROL 1,000 UNIT TAB PO SCH (08:26)
[2019-06-26] MEDS: ENOXAPARIN 40 MG/0.4 ML SYRINGE SQ SCH ×2 (08:26→08:28)
[2019-06-26] MEDS: PANTOPRAZOLE 40 MG TABLET PO SCH (08:26)
[2019-06-26] MEDS: CYANOCOBALAMIN 500 MCG TAB PO SCH (08:26)
[2019-06-26 08:27] LABS: African American GFR (CKD) >90 (>60 ml/min/1.73 sqM); Anion Gap 10 mmol/L; Blood Urea Nitrogen 9 mg/dL (9-20); Calcium 8.1 mg/dL (8.4-10.2); Carbon Dioxide 21 mmol/L (22-30); Chloride 103 mmol/L (98-107); Glucose 102 mg/dL (74-99); Potassium 3.6 mmol/L (3.5-5.1); Sodium 134 mmol/L (137-145)
[2019-06-26 08:33] LABS: Basophils # (A) 0.1 k/uL (0-0.2); Basophils % (A) 2 %; Eosinophils # (A) 0.1 k/uL (0-0.7); Eosinophils % (A) 1 %; HCT 39.5 % (39.0-53.0); HGB 12.9 gm/dL (13.0-17.5); Lymphocytes # (A) 1.7 k/uL (1.0-4.8); Lymphocytes % (A) 21 %; MCH 29.1 pg (25.0-35.0); MCHC 32.7 g/dL (31.0-37.0); MCV 88.9 fL (80.0-100.0); Mean Platelet Volume 8.8; Monocytes # (A) 0.7 k/uL (0-1.0); Monocytes % (A) 9 %; Neutrophils # (A) 5.1 k/uL (1.3-7.7); Neutrophils % (A) 64 %; Platelet Count 214 k/uL (150-450); RBC 4.45 m/uL (4.30-5.90); RDW 13.1 % (11.5-15.5)
[2019-06-26] MEDS ORDERED: CEFDINIR 300 MG CAP PO SCH (09:00)
--- NOTE | 2019-06-26 12:38 | PN ---
PROGRESS NOTE DATE OF SERVICE: 06/26/2019 He has been hemodynamically stable. He is afebrile and is doing significantly better overall. He has been walking around. PHYSICAL EXAMINATION: Blood pressure is 134/69, respiratory rate of 16, pulse rate of 64, temperature 98.1, O2 saturation on room air is 92%. HEENT reveals pupils that are equal. No jugular venous distention. Chest is clear. Cardiovascular system reveals an S1, S2. Abdomen is soft. There is no pedal edema. Cultures have shown no growth so far. Chest x-ray as well as CT scan were reviewed. Labs were reviewed. IMPRESSION: 1. Left upper lobe pneumonia. 2. Obstructive sleep apnea, on CPAP. 3. Asthma. This seems fairly stable. 4. Coronary artery disease. Continue antibiotics. Agree with discharge planning with close outpatient followup. Continue him on his inhalers that he had been on at home. Continue CPAP as well. I would like to thank you for allowing me the privilege of participating in his care. MMODL / IJN: [id number] /
== END 2019-06-26 12:39 | disposition home or self-care (01) | DRG 195 ==
LOC: EC 18:00 → 4SSUR 20:24 → INTOOBSV 20:24 → OBSVTOIN 06-26 10:05
PROVIDERS: ADMIT Hospitalist; ATTEND Hospitalist
DX: J18.1 Lobar pneumonia, unspecified organism (principal); G20 Parkinson's disease; G62.2 Polyneuropathy due to other toxic agents; E86.0 Dehydration; E11.9 Type 2 diabetes mellitus without complications; G47.33 Obstructive sleep apnea (adult) (pediatric); I25.10 Atherosclerotic heart disease of native coronary artery without angina pectoris; T59.891A Toxic effect of other specified gases, fumes and vapors, accidental (unintentional), initial encounter; J45.909 Unspecified asthma, uncomplicated; I10 Essential (primary) hypertension; E78.5 Hyperlipidemia, unspecified; K59.00 Constipation, unspecified; N40.0 Benign prostatic hyperplasia without lower urinary tract symptoms; E07.9 Disorder of thyroid, unspecified; R19.7 Diarrhea, unspecified; R11.2 Nausea with vomiting, unspecified; K21.9 Gastro-esophageal reflux disease without esophagitis; I25.2 Old myocardial infarction; M19.90 Unspecified osteoarthritis, unspecified site; Z79.82 Long term (current) use of aspirin; Z79.890 Hormone replacement therapy; Z79.899 Other long term (current) drug therapy; Z88.1 Allergy status to other antibiotic agents; Z88.8 Allergy status to other drugs, medicaments and biological substances; Z87.442 Personal history of urinary calculi; Z99.89 Dependence on other enabling machines and devices; Z90.49 Acquired absence of other specified parts of digestive tract; Z95.1 Presence of aortocoronary bypass graft; Z98.890 Other specified postprocedural states; Z87.891 Personal history of nicotine dependence
CPT/HCPCS: 36415; 71046; 71260; 80048; 80053; 81001; 82550; 83036; 83605; 83735; 84100; 84439; 84443; 84484; 85025; 85610; 85730; 87040; 87070; 87205; 93005; 94640; 96361; 96365; 96366; 99285

== ENCOUNTER → 2020-02-21 | Outpatient (CLI) | payer OTHER | END | disposition home or self-care (01) | LOC: CPPFTMAIN 11:52 | PROVIDERS: ATTEND Internal Medicine Critical Care Medicine | DX: J44.9 Chronic obstructive pulmonary disease, unspecified (principal); R94.2 Abnormal results of pulmonary function studies | CPT/HCPCS: 94060; 94726; 94729 ==

== ENCOUNTER 2020-08-22 18:00 | Inpatient (IN) | payer MEDICARE, OTHER ==
[2020-08-22] MEDS ORDERED: HEPARIN SODIUM,PORCINE 5,000 UNIT/ML 1 ML VIAL IV PRN (18:03)
[2020-08-22] MEDS ORDERED: NALOXONE 0.4 MG/ML 1 ML VIAL IV PRN (18:11)
[2020-08-22] MEDS ORDERED: DEXAMETHASONE SOD PHOSPHATE 10 MG/ML 1 ML VIAL IV STA (18:12)
[2020-08-22] MEDS ORDERED: HEPARIN SOD,PORK IN 0.45% NACL 25,000 UNIT in 0.45% NACL 1 250ML.BAG IV SCH (18:15)
--- NOTE | 2020-08-22 18:20 | ED ---
General Adult HPI - General Chief complaint: Recheck/Abnormal Lab/Rx Stated complaint: NSTEMI transfer Time Seen by Provider: 08/22/20 18:02 Source: patient, EMS, RN notes reviewed, old records reviewed Mode of arrival: EMS Limitations: no limitations - History of Present Illness Initial comments: 80-year-old male presenting from outside hospital, evaluation of dyspnea, coronavirus, troponin elevation. Patient was transferred for evaluation of coronavirus and non-ST segment elevated [place]. He has been experiencing some cough, fatigue, dyspnea over the past 2 weeks. He was found to have an elevated troponin and was started on heparin, aspirin, and transferred for further evaluation. He denies a substernal chest pain. He has had dyspnea over the past approximately 10 days. He was found to be hypoxic in the high 80s, he was placed on nasal cannula at 3 L with improvement and hypoxia. He is stating he is feeling much better at the time my evaluation. No active chest pain. - Related Data Home Medications Medication Instructions Recorded Confirmed Ascorbic Acid [Vitamin C] 1,000 mg PO DAILY 05/03/19 06/24/19 Aspirin 81 mg PO DAILY 05/03/19 06/24/19 Fish Oil/Dha/Epa [Fish Oil 1,200 1,200 mg PO DAILY 05/03/19 06/24/19 mg Fish Oil] Fluticasone Nasal [place] [Flonase 2 spr EA NOSTRIL DAILY 05/03/19 06/24/19 Nasal [place]] Garlic 1,000 mg PO DAILY 05/03/19 06/24/19 L.acidoph,Paracasei, B.lactis 1 cap PO DAILY 05/03/19 06/24/19 [Probiotic] Levothyroxine Sodium [Synthroid] 150 mcg PO DAILY 05/03/19 06/24/19 Mometasone Inhalr 220 Mcg/Puff 2 puff INHALATION RT-BID 05/03/19 06/24/19 [Asmanex] Montelukast [Singulair] 10 mg PO HS 05/03/19 06/24/19 Multivitamins, Thera [Multivitamin 0.5 tab PO BID 05/03/19 06/24/19 (formulary)] Omeprazole 20 mg PO DAILY 05/03/19 06/24/19 Simvastatin [Zocor] 20 mg PO HS 05/03/19 06/24/19 Tamsulosin [Flomax] 0.4 mg PO DAILY 05/03/19 06/24/19 Turmeric Root Extract [Turmeric] 500 mg PO DAILY 05/03/19 06/24/19 Vitamin B Complex 1 cap PO BID 05/03/19 06/24/19 Vitamin E (Dl,Tocopheryl Acet) 400 unit PO DAILY 05/03/19 06/24/19 [Vitamin E] [place] Bark 1 tab PO DAILY 05/03/19 06/24/19 amLODIPine BESYLATE [Norvasc] 5 mg PO HS 05/03/19 06/24/19 Deisy 500 mg PO BID 06/04/19 06/24/19 Cholecalciferol [Vitamin D3 (25 1,000 unit PO DAILY 06/24/19 06/24/19 Mcg = 1000 Iu)] Cyanocobalamin (Vitamin B-12) 1,000 mcg PO BID 06/24/19 06/24/19 [Vitamin B-12] Glucosam/Praveen-Msm1/C/Harris/Bosw 1 tab PO BID 06/24/19 06/24/19 [Glucosamine-Chondroitin Tablet] Turmeric Root Extract [Turmeric] 500 mg PO BID 06/24/19 06/24/19 Previous Rx's Medication Instructions Recorded Cefdinir [Omnicef] 300 mg PO BID 5 Days #10 cap 06/26/19 Allergies Allergy/AdvReac Type Severity Reaction Status Date / Time furosemide [From Lasix] Allergy hives, lip Verified 08/22/20 18:07 swelling levofloxacin [From Levaquin] Allergy Rash/Hives Verified 08/22/20 18:07 moxifloxacin [From Avelox] Allergy Rash/Hives Verified 08/22/20 18:07 valacyclovir [From Valtrex] Allergy Rash/Hives Verified 08/22/20 18:07 Review of Systems ROS Statement: Those systems with pertinent positive or pertinent negative responses have been documented in the HPI. ROS Other: All systems not noted in ROS Statement are negative. 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, early Parkinson's, tremors, "pre-diabetic"-checks blood sugar periodically, kidney stones, left inguinal hernia currently, uses CPAP Last Myocardial Infarction Date:: unknown History of Any Multi-Drug Resistant Organisms: None Reported Past Surgical History: Cholecystectomy, Coronary Bypass/CABG, Heart Catheterization, Hernia Repair, Orthopedic Surgery Additional Past Surgical History / Comment(s): 2002 double bypass, right tibia repair, lithotripsy 04-15-19 Past Anesthesia/Blood Transfusion Reactions: No Reported Reaction Past Psychological History: No Psychological Hx Reported Smoking Status: Never smoker Past Alcohol Use History: Occasional Past Drug Use History: None Reported - Past Family History Mother Family Medical History: No Reported History General Exam Limitations: no limitations General appearance: alert, in no apparent distress Head exam: Present: atraumatic, normocephalic Eye exam: Present: normal appearance, PERRL ENT exam: Present: normal exam Neck exam: Present: normal inspection Respiratory exam: Absent: respiratory distress Cardiovascular Exam: Present: regular rate, normal rhythm GI/Abdominal exam: Present: soft. Absent: distended, tenderness, guarding, rebound Extremities exam: Present: normal inspection, normal capillary refill. Absent: pedal edema Neurological exam: Present: alert, oriented X3, CN II-XII intact. Absent: motor sensory deficit Psychiatric exam: Present: normal affect, normal mood Skin exam: Present: warm, dry, intact. Absent: cyanosis, diaphoretic Course Vital Signs 08/22/20 18:03 Temperature 98.6 F Pulse Rate 62 Respiratory 18 Rate Blood Pressure 124/80 O2 Sat by Pulse 96 Oximetry EKG Findings - EKG Comments: EKG Findings:: EKG: Normal sinus, left axis widened QRS with left ventricular hypertrophy, rate of 61, MI interval 146, QRS duration 1:30, QTC 509, no ST segment elevation. Medical Decision Making - Medical Decision Making 72-year-old male with dyspnea, presenting as a transfer with diagnosis of coronavirus and troponin elevation. Patient had been started on heparin as well as oxygen. He is feeling much better at time my evaluation. Patient was noted to have an elevated troponin of 0.67 this will be repeated, these results are pending. He's continued on heparin. Patient did have a normal CBC, normal CMP, these will also be repeated and results are pending. His oxygenation is 96 nasal cannula. No respiratory distress. Patient is given a dose of Decadron in the emergency department. He will be admitted with cardiology on consult. Case discussed with Dr. Velasquez who will admit. Disposition Clinical Impression: COVID-19, Elevated troponin Disposition: ADMITTED IP TO THIS HOSP Condition: Stable Is patient prescribed a controlled substance at d/c from ED?: No Referrals: Tony Diehl PT [Primary Care Provider] - 1-2 days Decision to Admit Reason: Admit from EC Decision Date: 08/22/20 Decision Time: 18:20
[2020-08-22 18:26] LABS: Basophils # (A) 0.1 k/uL (0-0.2); Basophils % (A) 1 %; Eosinophils % (A) 1 %; HCT 49.4 % (39.0-53.0); HGB 16.4 gm/dL (13.0-17.5); Lymphocytes # (A) 1.6 k/uL (1.0-4.8); Lymphocytes % (A) 24 %; MCH 28.5 pg (25.0-35.0); MCHC 33.1 g/dL (31.0-37.0); Mean Platelet Volume 9.1; Monocytes # (A) 0.2 k/uL (0-1.0); Monocytes % (A) 4 %; Neutrophils # (A) 4.7 k/uL (1.3-7.7); Neutrophils % (A) 69 %; Platelet Count 179 k/uL (150-450); RBC 5.75 m/uL (4.30-5.90); RDW 13.8 % (11.5-15.5); WBC 6.8 k/uL (3.8-10.6)
[2020-08-22 18:37] LABS: INR 1.1 (<1.2); Partial Thromboplastin Time 55.6 sec (22.0-30.0); Prothrombin Time 11.3 sec (9.0-12.0)
[2020-08-22 18:55] LABS: ALT 39 U/L (4-49); AST 75 U/L (17-59); African American GFR (CKD) >90 (>60 ml/min/1.73 sqM); Albumin 3.6 g/dL (3.5-5.0); Alkaline Phosphatase 57 U/L (38-126); Anion Gap 9 mmol/L; Blood Urea Nitrogen 16 mg/dL (9-20); Calcium 8.6 mg/dL (8.4-10.2); Carbon Dioxide 23 mmol/L (22-30); Chloride 104 mmol/L (98-107); Glucose 109 mg/dL (74-99); Non-African American GFR(CKD) 80 (>60 ml/min/1.73 sqM); Potassium 3.6 mmol/L (3.5-5.1); Sodium 136 mmol/L (137-145); Total Protein 6.7 g/dL (6.3-8.2)
[2020-08-22] MEDS ORDERED: ALBUTEROL NEBULIZED 2.5 MG/3 ML INHALATION SCH (20:00)
[2020-08-23] MEDS: LEVOTHYROXINE 75 MCG TAB PO SCH (06:32)
[2020-08-23] MEDS: carvediloL 6.25 MG TAB PO SCH ×2 (06:32→17:08)
[2020-08-23 06:38] LABS: Basophils % (A) 1 %; Eosinophils % (A) 0 %; HCT 48.1 % (39.0-53.0); HGB 16.1 gm/dL (13.0-17.5); Lymphocytes # (A) 0.7 k/uL (1.0-4.8); Lymphocytes % (A) 14 %; MCH 28.9 pg (25.0-35.0); MCHC 33.5 g/dL (31.0-37.0); MCV 86.3 fL (80.0-100.0); Mean Platelet Volume 9.1; Monocytes # (A) 0.2 k/uL (0-1.0); Monocytes % (A) 3 %; Neutrophils % (A) 80 %; Platelet Count 174 k/uL (150-450); RBC 5.58 m/uL (4.30-5.90); RDW 13.9 % (11.5-15.5)
[2020-08-23 06:51] LABS: African American GFR (CKD) >90 (>60 ml/min/1.73 sqM); Anion Gap 8 mmol/L; Blood Urea Nitrogen 16 mg/dL (9-20); Calcium 8.4 mg/dL (8.4-10.2); Carbon Dioxide 24 mmol/L (22-30); Chloride 105 mmol/L (98-107); Glucose 205 mg/dL (74-99); Non-African American GFR(CKD) >90 (>60 ml/min/1.73 sqM); Potassium 3.7 mmol/L (3.5-5.1); Sodium 137 mmol/L (137-145)
[2020-08-23] MEDS: ALBUTEROL HFA INHALER INHALATION SCH ×4 (07:53→19:56)
[2020-08-23] MEDS: dexAMETHasone 2 MG TAB PO SCH (08:14)
[2020-08-23] MEDS: ASCORBIC ACID 500 MG TAB PO SCH (08:14)
[2020-08-23] MEDS: LOSARTAN 50 MG TAB PO SCH (08:14)
[2020-08-23] MEDS: ASPIRIN 81 MG PO SCH (08:14)
--- NOTE | 2020-08-23 08:14 | P.HPIM ---
History of Present Illness This is a pleasant 80 years old male with multiple medical problems as below. [facility] in the [place] [facility]. Presents because of dyspnea and generalized weakness. Patient was complaining of from Raynaud's few days ago and he has been prescribed amoxicillin which helped him a little bit but then he developed significant weakness and fatigue over the last 3-4 days that his make him come to the hospital. He has history of COPD and he quit smoking in 1998, he follows up with Dr. [place] is not on home oxygen however he says that he has mild dyspnea associated with chronic cough and brown greenish phlegm. He denies chest pain, but he has loose bowel movement about once daily no abdominal pain or vomiting No urinary complaints. He denies alcohol or illicit drugs. Vital signs stable, he is saturating 91% on 4 L oxygen via nasal cannula. He has had unremarkable labs including CBC, INR, BMP, liver enzymes. For his troponin is elevated at 0.05, 0.04, 0.03. EKG showed normal sinus rhythm at [address]-T changes, Q waves in lead 2, 3 and aVF, T wave inversion in the lateral blades V4-V6 Labs at [facility] showing normal sodium and potassium at 137 and 3.5 respectively, creatinine normal at 1.0, liver enzymes not elevated, bilirubin is normal 0.9, WT normal 6.9K, hemoglobin 16.6 and platelets 180 1K. Coronavirus was detected As per the records his been having shortness of breath for 10 days. And he checked his oxygen saturating at home it was 88%. He states that he is post to [place] by son and [id number] around Thanksgiving time. Chest x-ray report showed mild atelectasis. Review of Systems CONSTITUTIONAL: No fever, no malaise, no fatigue. HEENT: No recent visual problems or hearing problems. Denied any sore throat. CARDIOVASCULAR: No orthopnea, PND, no palpitations, no syncope. PULMONARY: No chest wall tenderness,, no hemoptysis. GASTROINTESTINAL: No diarrhea, no nausea, no vomiting, no abdominal pain. Normoactive bowel sounds. NEUROLOGICAL: No headaches, no weakness, no numbness. HEMATOLOGICAL: Denies any bleeding or petechiae. GENITOURINARY: Denies any burning micturition, frequency, or urgency. MUSCULOSKELETAL/RHEUMATOLOGICAL: Denies any joint pain, swelling, or any muscle pain. ENDOCRINE: Denies any polyuria or polydipsia. 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, early Parkinson's, tremors, "pre-diabetic"-checks blood sugar periodically, kidney stones, left inguinal hernia currently, uses CPAP Last Myocardial Infarction Date:: unknown History of Any Multi-Drug Resistant Organisms: None Reported Past Surgical History: Cholecystectomy, Coronary Bypass/CABG, Heart Catheterization, Hernia Repair, Orthopedic Surgery Additional Past Surgical History / Comment(s): 2001 double bypass, right tibia repair, lithotripsy 04-15-19 Past Anesthesia/Blood Transfusion Reactions: No Reported Reaction Past Psychological History: No Psychological Hx Reported Smoking Status: Never smoker Past Alcohol Use History: Occasional Additional Past Alcohol Use History / Comment(s): quit smoking 1998, smoked 40 yrs. <ppd Past Drug Use History: None Reported - Past Family History Mother Family Medical History: No Reported History Medications and Allergies Home Medications Medication Instructions Recorded Confirmed Type Ascorbic Acid [Vitamin C] 1,000 mg PO DAILY 05/03/19 08/22/20 History Aspirin 81 mg PO DAILY 05/03/19 08/22/20 History Fluticasone Nasal [place] [Flonase 2 spr EA NOSTRIL DAILY 05/03/19 08/22/20 History Nasal [place]] Garlic 1,000 mg PO DAILY 05/03/19 08/22/20 History Levothyroxine Sodium [Synthroid] 150 mcg PO DAILY 05/03/19 08/22/20 History Multivitamins, Thera [Multivitamin 1 tab PO DAILY 05/03/19 08/22/20 History (formulary)] Simvastatin [Zocor] 20 mg PO HS 05/03/19 08/22/20 History Tamsulosin [Flomax] 0.4 mg PO DAILY 05/03/19 08/22/20 History Vitamin E (Dl,Tocopheryl Acet) 400 unit PO BID 05/03/19 08/22/20 History [Vitamin E] Cholecalciferol [Vitamin D3 (25 1,000 unit PO DAILY 06/24/19 08/22/20 History Mcg = 1000 Iu)] Glucosam/Praveen-Msm1/C/Harris/Bosw 1 tab PO BID 06/24/19 08/22/20 History [Glucosamine-Chondroitin Tablet] Amoxic-Pot Clav 875-125Mg 1 tab PO BID 08/22/20 08/22/20 History [Augmentin 875-125] Bumetanide [BUMEX] 1 mg PO BID 08/22/20 08/22/20 History Carvedilol [Coreg] 6.25 mg PO BID 08/22/20 08/22/20 History Fish Oil/Dha/Epa [Fish Oil 1,200 1 cap PO DAILY 08/22/20 08/22/20 History mg Fish Oil] Loratadine [Claritin] 10 mg PO DAILY 08/22/20 08/22/20 History Losartan Potassium 50 mg PO DAILY 08/22/20 08/22/20 History Allergies Allergy/AdvReac Type Severity Reaction Status Date / Time furosemide [From Lasix] Allergy hives, lip Verified 08/22/20 18:07 swelling levofloxacin [From Levaquin] Allergy Rash/Hives Verified 08/22/20 18:07 moxifloxacin [From Avelox] Allergy Rash/Hives Verified 08/22/20 18:07 valacyclovir [From Valtrex] Allergy Rash/Hives Verified 08/22/20 18:07 Physical Exam Vitals: Vital Signs Temp Pulse Pulse Resp BP BP Pulse Ox 08/23/20 04:00 98.1 F 66 20 124/71 91 L 08/23/20 00:00 98.2 F 67 18 131/72 94 L 08/22/20 20:42 76 16 08/22/20 20:33 74 16 08/22/20 20:30 98.2 F 70 18 135/93 92 L 08/22/20 19:42 98.1 F 64 20 138/74 92 L 08/22/20 18:03 98.6 F 62 18 124/80 96 Intake and Output 08/22/20 08/23/20 08/23/20 22:59 06:59 14:59 Intake Total 535.982 Balance 535.982 Intake: Intake, IV Titration 60.982 Amount Heparin Sod,Pork in 0.45% 60.982 NaCl 25,000 unit In 0.45 % NaCl 1 250ml.bag @ 9.07 UNITS/KG/HR 9.997 mls/hr IV .Q24H [facility] Rx#: [id number] Oral 475 Other: Voiding Method Toilet Toilet Weight 110.223 kg 109 kg GENERAL: The patient is alert and oriented x3, not in any acute distress. Well developed, well nourished. HEENT: Pupils are round and equally reacting to light. EOMI. No scleral icterus. No conjunctival pallor. Normocephalic, atraumatic. No pharyngeal erythema. No thyromegaly. CARDIOVASCULAR: S1 and S2 present. No murmurs, rubs, or gallops. PULMONARY: Chest is clear to auscultation, no wheezing or crackles. Mild basal crepitation ABDOMEN: Soft, nontender, nondistended, normoactive bowel sounds. No palpable organomegaly. MUSCULOSKELETAL: No joint swelling or deformity. -EXTREMITIES: No cyanosis, clubbing, . 2+ bilateral leg edema NEUROLOGICAL: Gross neurological examination did not reveal any focal deficits. SKIN: No rashes. No petechiae Results CBC & Chem 7: 08/23/20 06:17 08/23/20 06:17 Labs: Abnormal Lab Results - Last 24 Hours (Table) 08/22/20 08/22/20 08/22/20 Range/Units 18:08 18:08 18:08 Lymphocytes # (1.0-4.8) k/uL APTT 55.6 H (22.0-30.0) sec Sodium 136 L (137-145) mmol/L Glucose 109 H (74-99) mg/dL AST 75 H (17-59) U/L Troponin I 0.058 H* (0.000-0.034) ng/mL 08/22/20 08/22/20 08/22/20 Range/Units 21:04 23:45 23:45 Lymphocytes # (1.0-4.8) k/uL APTT 44.3 H (22.0-30.0) sec Sodium (137-145) mmol/L Glucose (74-99) mg/dL AST (17-59) U/L Troponin I 0.040 H* 0.035 H* (0.000-0.034) ng/mL 08/23/20 08/23/20 Range/Units 06:17 06:17 Lymphocytes # 0.7 L (1.0-4.8) k/uL APTT (22.0-30.0) sec Sodium (137-145) mmol/L Glucose 205 H (74-99) mg/dL AST (17-59) U/L Troponin I (0.000-0.034) ng/mL Thrombosis Risk Factor Assmnt - Choose All That Apply Any of the Below Risk Factors Present?: Yes Each Factor Represents 1 point: Medical pt on bed rest, Obesity (BMI >25), Serious lung disease incl. pneumonia (< 1month) Each Risk Factor Represents 3 Points: Age 75 years or older Other congenital or acquired thrombophilia - If yes, enter type in comment: No Thrombosis Risk Factor Assessment Total Risk Factor Score: 6 Thrombosis Risk Factor Assessment Level: High Risk Assessment and Plan Assessment: Acute hypoxic respiratory failure Elevated troponin, rule out cardiac causes. Diabetes mellitus Hypertension Hyperlipidemia Osteoarthritis Chronic heart failure Hypothyroidism Sleep apnea on CPAP/BiPAP Prostatic hypertrophy Diabetic neuropathy Parkinson disease with Keyur History of kidney stone Asthma, not an active issue GERD Plan: This is a pleasant 80 years old who presents with covid infection and elevated troponin. Continue with bronchodilator, dexamethasone, heparin drip, zinc and vitamin C. continue with Bumex(patient is ALLERGIC to Lasix) . Continue with oxygen as needed. Send sputum culture. Check a pro-calcitonin. Follow-up inflammatory markers Cardiology and pulmonary consult Labs and medication were reviewed.. Continue same treatment. Continue with symptomatic treatment. Resume home medication. Monitor lytes and vitals. DVT and GI prophylaxis. Further recommendations depends on the clinical course of the patient DVT prophylaxis: heparin GI Prophylaxis: Ppi PT/OT: Pending Prognosis is guarded
[2020-08-23] MEDS: TAMSULOSIN 0.4 MG CAP.ER.24H PO SCH (08:15)
[2020-08-23] MEDS: BUMETANIDE 1 MG TAB PO SCH ×2 (08:15→19:37)
[2020-08-23] MEDS: CHOLECALCIFEROL 1,000 UNIT TAB PO SCH (08:15)
[2020-08-23] MEDS: PANTOPRAZOLE 40 MG TABLET PO SCH (08:15)
[2020-08-23] MEDS: FLUTICASONE 50MCG/SPRAY NASAL 16GM EA NOSTRIL SCH (08:16)
[2020-08-23] MEDS: ZINC SULFATE 220 MG CAP PO SCH (08:16)
[2020-08-23 09:14] LABS: C Reactive Protein 59.5 mg/L (<10.0)
[2020-08-23] MEDS ORDERED: REMDESIVIR 200 MG in SODIUM CHLORIDE 0.9% 250 ML IVPB ONE (11:03)
--- NOTE | 2020-08-23 11:05 | P.CNPUL ---
History of Present Illness Consult date: 08/23/20 History of present illness: 10-year-old male patient who follows up at the [place] [facility]. The patient presented to the emergency department because of generalized weakness and worsening shortness of breath. Apparently the patient was given antibiotics on outpatient basis without any help. He reported increased dyspnea and cough and sputum. Apparently, the patient has been having shortness of breath for almost 10 days. He stated that exposed to COVID 19 by his son and [id number] around [facility]. Patient went yesterday to [facility] where he was checked and he was tested positive for coronary/Covid 19 infection. Following that, he was brought to the hospital for further evaluation. Note that his main symptoms were fatigue, tiredness, loss of appetite, diminished oral intake and some increased shortness of breath. No nausea. No vomiting. No abdominal pain. No loss in the sense of taste and smell. He was having some symptoms of URI. Currently is on 2 by nasal cannula with a pulse is 91%. He does have some mild troponin leak with troponin being at 0.05 0.04-0.03 respectively with an EKG showing a normal sinus mechanism and some nonspecific T-wave inversions. Blood work from [facility] showed normal LFTs, white cell count of 6900, hemoglobin of 16.6, platelets of 1 80,000, and his sodium was at 137. The patient's LDH is at 982 and the CRP is a 59.5. Chest x-ray is showing some limited infiltration of the lung bases. On examination he has crackles in lung bases bilaterally. No altered mental status. The patient is currently on Decadron 6 mg by mouth daily. Acute hypoxic respiratory failure Elevated troponin, rule out cardiac causes. Diabetes mellitus Hypertension Hyperlipidemia Osteoarthritis Chronic heart failure Hypothyroidism Sleep apnea on CPAP/BiPAP Prostatic hypertrophy Diabetic neuropathy Parkinson disease with Keyur History of kidney stone Asthma, not an active issue GERD Review of Systems Constitutional: Reports fatigue, Reports fever, Reports lethargy, Reports poor appetite, Reports weakness Eyes: denies as per HPI, denies blurred vision, denies bulging eye, denies decreased vision, denies diplopia, denies discharge, denies dry eye, denies irritation, denies itching, denies pain, denies photophobia, denies loss of peripheral vision, denies loss of vision, denies tunnel vision/blind spots Ears: deny: decreased hearing, ear discharge, earache, tinnitus Ears, nose, mouth and throat: Reports nasal congestion, Reports sinus pressure, Denies headache, Denies sore throat Breasts: absent: as per HPI, gynecomastia Cardiovascular: Reports as per HPI, Reports decreased exercise tolerance, Reports dyspnea on exertion Respiratory: Reports dyspnea Gastrointestinal: Reports as per HPI, Reports loss of appetite Genitourinary: Reports as per HPI Musculoskeletal: Reports as per HPI Musculoskeletal: absent: ankle pain, ankle stiffness, ankle swelling Integumentary: Reports as per HPI Neurological: Reports as per HPI, Reports weakness Psychiatric: Reports as per HPI Endocrine: Reports as per HPI, Reports fatigue Hematologic/Lymphatic: Reports as per HPI Allergic/Immunologic: Reports as per HPI Past Medical History Past Medical History: Asthma, Diabetes Mellitus, GERD/Reflux, Hyperlipidemia, Hypertension, Myocardial Infarction ([place]), Neurologic Disorder, Osteoarthritis (OA), Prostate Disorder, Sleep Apnea/CPAP/BIPAP, Thyroid Disorder Additional Past Medical History / Comment(s): Coronary artery disease, Diabetes mellitus, Hypertension, hyperlipidemia, osteoarthritis, CHF, hypothyroidism,, Sleep apnea on CPAP/BiPAP, Prostatic hypertrophy, Diabetic neuropathy, Pa rkinson's disease, nephrolithiasis,. 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, early Parkinson's, tremors, "pre-diabetic"-checks blood sugar periodically, kidney stones, left inguinal hernia currently, uses CPAP Last Myocardial Infarction Date:: unknown History of Any Multi-Drug Resistant Organisms: None Reported Past Surgical History: Cholecystectomy, Coronary Bypass/CABG, Heart Catheterization, Hernia Repair, Orthopedic Surgery Additional Past Surgical History / Comment(s): 2001 double bypass, right tibia repair, lithotripsy 04-15-19 Past Anesthesia/Blood Transfusion Reactions: No Reported Reaction Past Psychological History: No Psychological Hx Reported Smoking Status: Never smoker Past Alcohol Use History: Occasional Additional Past Alcohol Use History / Comment(s): quit smoking 1998, smoked 40 yrs. <ppd Past Drug Use History: None Reported - Past Family History Mother Family Medical History: No Reported History Medications and Allergies Home Medications Medication Instructions Recorded Confirmed Type Ascorbic Acid [Vitamin C] 1,000 mg PO DAILY 05/03/19 08/22/20 History Aspirin 81 mg PO DAILY 05/03/19 08/22/20 History Fluticasone Nasal [place] [Flonase 2 spr EA NOSTRIL DAILY 05/03/19 08/22/20 History Nasal [place]] Garlic 1,000 mg PO DAILY 05/03/19 08/22/20 History Levothyroxine Sodium [Synthroid] 150 mcg PO DAILY 05/03/19 08/22/20 History Multivitamins, Thera [Multivitamin 1 tab PO DAILY 05/03/19 08/22/20 History (formulary)] Simvastatin [Zocor] 20 mg PO HS 05/03/19 08/22/20 History Tamsulosin [Flomax] 0.4 mg PO DAILY 05/03/19 08/22/20 History Vitamin E (Dl,Tocopheryl Acet) 400 unit PO BID 05/03/19 08/22/20 History [Vitamin E] Cholecalciferol [Vitamin D3 (25 1,000 unit PO DAILY 06/24/19 08/22/20 History Mcg = 1000 Iu)] Glucosam/Praveen-Msm1/C/Harris/Bosw 1 tab PO BID 06/24/19 08/22/20 History [Glucosamine-Chondroitin Tablet] Amoxic-Pot Clav 875-125Mg 1 tab PO BID 08/22/20 08/22/20 History [Augmentin 875-125] Bumetanide [BUMEX] 1 mg PO BID 08/22/20 08/22/20 History Carvedilol [Coreg] 6.25 mg PO BID 08/22/20 08/22/20 History Fish Oil/Dha/Epa [Fish Oil 1,200 1 cap PO DAILY 08/22/20 08/22/20 History mg Fish Oil] Loratadine [Claritin] 10 mg PO DAILY 08/22/20 08/22/20 History Losartan Potassium 50 mg PO DAILY 08/22/20 08/22/20 History Allergies Allergy/AdvReac Type Severity Reaction Status Date / Time furosemide [From Lasix] Allergy hives, lip Verified 08/22/20 18:07 swelling levofloxacin [From Levaquin] Allergy Rash/Hives Verified 08/22/20 18:07 moxifloxacin [From Avelox] Allergy Rash/Hives Verified 08/22/20 18:07 valacyclovir [From Valtrex] Allergy Rash/Hives Verified 08/22/20 18:07 Physical Exam Vitals: Vital Signs Temp Pulse Pulse Resp BP BP Pulse Ox 08/23/20 08:00 97.8 F 61 19 125/71 91 L 08/23/20 04:00 98.1 F 66 20 124/71 91 L 08/23/20 00:00 98.2 F 67 18 131/72 94 L 08/22/20 20:42 76 16 08/22/20 20:33 74 16 08/22/20 20:30 98.2 F 70 18 135/93 92 L 08/22/20 19:42 98.1 F 64 20 138/74 92 L 08/22/20 18:03 98.6 F 62 18 124/80 96 Intake and Output 08/22/20 08/23/20 08/23/20 22:59 06:59 14:59 Intake Total 535.982 Balance 535.982 Intake: Intake, IV Titration 60.982 Amount Heparin Sod,Pork in 0.45% 60.982 NaCl 25,000 unit In 0.45 % NaCl 1 250ml.bag @ 9.07 UNITS/KG/HR 9.997 mls/hr IV .[facility]H [facility] Rx#: [id number] Oral 475 Other: Voiding Method Toilet Toilet Weight 110.223 kg 109 kg The patient appeared well nourished and normally developed. Vital signs as documented. Head exam is unremarkable. No scleral icterus or corneal arcus noted. Neck is without jugular venous distension, thyromegaly, or carotid bruits. Carotid upstrokes are brisk bilaterally. Lungs show thoracotomy scar over the anterior chest area. The patient also has some limited bibasilar crackles. Cardiac exam reveals the PMI to be normally sized and situated. Rhythm is regular. First and second heart sounds normal. No murmurs, rubs or gallops. Abdominal exam reveals normal bowel sounds, no masses, no organomegaly and no aortic enlargement. Extremities are nonedematous and both femoral and pedal pulses are normal.Examination of the skin revealed no evidence of significant rashes, suspicious appearing nevi or other concerning lesions.Neurologically, the patient is awake and alert and the patient does not have any focal neurological deficit. Cranial nerves are essentially intact. Results - Laboratory Findings CBC and BMP: 08/23/20 06:17 08/23/20 06:17 PT/INR, D-dimer PT 11.3 sec (9.0-12.0) 08/22/20 18:08 INR 1.1 (<1.2) 08/22/20 18:08 Abnormal lab findings: Abnormal Labs 08/22/20 08/22/20 08/22/20 18:08 18:08 18:08 Lymphocytes # APTT 55.6 H Sodium 136 L Glucose 109 H AST 75 H Lactate Dehydrogenase Troponin I 0.058 H* C-Reactive Protein 08/22/20 08/22/20 08/22/20 21:04 23:45 23:45 Lymphocytes # APTT 44.3 H Sodium Glucose AST Lactate Dehydrogenase Troponin I 0.040 H* 0.035 H* C-Reactive Protein 08/23/20 08/23/20 08/23/20 06:17 06:17 08:25 Lymphocytes # 0.7 L APTT Sodium Glucose 205 H AST Lactate Dehydrogenase 982 H Troponin I C-Reactive Protein 59.5 H 08/23/20 08:25 Lymphocytes # APTT 43.5 H Sodium Glucose AST Lactate Dehydrogenase Troponin I C-Reactive Protein - Diagnostic Findings Chest x-ray: image reviewed Assessment and Plan Plan: 1 acute Covid 19 related pneumonia. The patient was diagnosed having Covid 19 infection on 08/22/2020. His exposure was around Thanksgiving and the patient has been symptomatic for approximately a week. His chest x-ray showing some limited bibasilar pulmonary infiltrates. He is currently hypoxic and 40s about 2 by nasal cannula.. Significant constitutional symptoms and his inflammatory markers are elevated. 2 acute hypoxic respiratory failure, currently on 4 L of oxygen by nasal cannula secondary to above 3 COPD with an FEV1 of 86% of predicted. The patient is not home oxygen dependent and the patient is an ex-smoker 4 coronary artery disease with previous bypass surgery. Limited amount of troponin leak and free of any chest pain and EKG is not showing any acute ischemic changes. 5 CHF 6 diabetes mellitus 7 BPH 8 Parkinson's disease 9 obstructive sleep apnea 10 history of nephrolithiasis 11 history of peripheral neuropathy CHRIS Start the patient on Decadron 6 mg by mouth daily and monitor the blood sugars Start the patient on Remdesivir per protocol which will essentially lower the duration of the sickness Use a vitamin supplements including vitamin C and vitamin D in addition to using Pepcid and melatonin Oxygen supplementation 4 liters per minute nasal cannula Lovenox 40 mg subcu for DVT prophylaxis Resume all medications We'll continue to follow
--- NOTE | 2020-08-23 12:38 | P.CRDCN ---
History of Present Illness History of present illness: HISTORY OF PRESENTING ILLNESS This is a pleasant 80-year-old male past medical history significant for coronary artery disease status post 2V bypass grafting 2001, diabetes mellitus, hypertension, dyslipidemia and former nicotine dependence. 82 follows in the office with Dr Zayas in [place]. We have been asked to see in consultation for elevated troponin. He states since Monday after Thanksgiving he has noticed increased nasal drainage and congestion. He was seen in urgent care and started on antibiotics for presumed sinus infection. However, his symptoms persisted without improvement and he started becoming increasingly weak and unable to even dress himself. He has been tested COVID positive. He denies ever having symptoms of chest pain or shortness of breath. EKG on arrival reveals sinus mechanism heart rate of 61, T wave inversions inferior laterally left axis deviation. Consistent with previous EKGs. No acute changes noted. Laboratory data reviewed, CBC unremarkable, sodium 137, potassium 3.7, creatinine 0.71, troponin 0.058, 0.040, 0.035 and 0.022. Current daily cardiac medications include Bumex 1 mg twice a day, carvedilol 6.25 mg twice a day, losartan 50 mg daily and simvastatin 20 mg at bedtime. REVIEW OF SYSTEMS At the time of my exam: CONSTITUTIONAL: Denies fever or chills. Complains of generalized weakness. CARDIOVASCULAR: Denies chest pain, shortness of breath, orthopnea, PND or palpitations. RESPIRATORY: Denies cough. GASTROINTESTINAL: Denies abdominal pain, diarrhea, constipation, nausea or vomiting. MUSCULOSKELETAL: Denies myalgias. NEUROLOGIC: Denies numbness, tingling or weakness. ENDOCRINE: Denies fatigue, weight change, polydipsia or polyurina. GENITOURINARY: Denies burning, hematuria or urgency with micturation. HEMATOLOGIC: Denies history of anemia or bleeding. PHYSICAL EXAMINATION Blood pressure 125/71 heart rate 61 afebrile and maintaining oxygen saturation on nasal cannula. CONSTITUTIONAL: No apparent distress. Limited exam done secondary to Covid 19. Patient was interviewed at length from an appropriate distance. ASSESSMENT Acute Covid 19 Troponin leak not related to primary myocardial injury History of coronary artery disease status post bypass grafting in 2001 Diabetes mellitus Hypertension Dyslipidemia Former nicotine dependence PLAN Resume aspirin, simvastatin, coreg and bumex as previously ordered. Request records from his primary clinical data coordinator for review. Obtain 2D echocardiogram and doppler study to assess cardiac structure and function. Ongoing treatment of acute COVID 19. If echo is unremarkable, we will follow along as needed. Thank you kindly for this consultation. Nurse Practitioner note has been reviewed, I agree with a documented findings and plan of care. Patient was seen and examined. 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, early Parkinson's, tremors, "pre-diabetic"-checks blood sugar periodically, kidney stones, left inguinal hernia currently, uses CPAP Last Myocardial Infarction Date:: unknown History of Any Multi-Drug Resistant Organisms: None Reported Past Surgical History: Cholecystectomy, Coronary Bypass/CABG, Heart Catheterization, Hernia Repair, Orthopedic Surgery Additional Past Surgical History / Comment(s): 2001 double bypass, right tibia repair, lithotripsy 04-15-19 Past Anesthesia/Blood Transfusion Reactions: No Reported Reaction Past Psychological History: No Psychological Hx Reported Smoking Status: Never smoker Past Alcohol Use History: Occasional Additional Past Alcohol Use History / Comment(s): quit smoking 1998, smoked 40 yrs. <ppd Past Drug Use History: None Reported - Past Family History Mother Family Medical History: No Reported History Medications and Allergies Home Medications Medication Instructions Recorded Confirmed Type Ascorbic Acid [Vitamin C] 1,000 mg PO DAILY 05/03/19 08/22/20 History Aspirin 81 mg PO DAILY 05/03/19 08/22/20 History Fluticasone Nasal Malinta [Flonase 2 spr EA NOSTRIL DAILY 05/03/19 08/22/20 History Nasal Malinta] Garlic 1,000 mg PO DAILY 05/03/19 08/22/20 History Levothyroxine Sodium [Synthroid] 150 mcg PO DAILY 05/03/19 08/22/20 History Multivitamins, Thera [Multivitamin 1 tab PO DAILY 05/03/19 08/22/20 History (formulary)] Simvastatin [Zocor] 20 mg PO HS 05/03/19 08/22/20 History Tamsulosin [Flomax] 0.4 mg PO DAILY 05/03/19 08/22/20 History Vitamin E (Dl,Tocopheryl Acet) 400 unit PO BID 05/03/19 08/22/20 History [Vitamin E] Cholecalciferol [Vitamin D3 (25 1,000 unit PO DAILY 06/24/19 08/22/20 History Mcg = 1000 Iu)] Glucosam/Praveen-Msm1/C/Harris/Bosw 1 tab PO BID 06/24/19 08/22/20 History [Glucosamine-Chondroitin Tablet] Amoxic-Pot Clav 875-125Mg 1 tab PO BID 08/22/20 08/22/20 History [Augmentin 875-125] Bumetanide [BUMEX] 1 mg PO BID 08/22/20 08/22/20 History Carvedilol [Coreg] 6.25 mg PO BID 08/22/20 08/22/20 History Fish Oil/Dha/Epa [Fish Oil 1,200 1 cap PO DAILY 08/22/20 08/22/20 History mg Fish Oil] Loratadine [Claritin] 10 mg PO DAILY 08/22/20 08/22/20 History Losartan Potassium 50 mg PO DAILY 08/22/20 08/22/20 History Allergies Allergy/AdvReac Type Severity Reaction Status Date / Time furosemide [From Lasix] Allergy hives, lip Verified 08/22/20 18:07 swelling levofloxacin [From Levaquin] Allergy Rash/Hives Verified 08/22/20 18:07 moxifloxacin [From Avelox] Allergy Rash/Hives Verified 08/22/20 18:07 valacyclovir [From Valtrex] Allergy Rash/Hives Verified 08/22/20 18:07 Physical Exam Vitals: Vital Signs Temp Pulse Pulse Resp BP BP Pulse Ox 08/23/20 08:00 97.8 F 61 19 125/71 91 L 08/23/20 04:00 98.1 F 66 20 124/71 91 L 08/23/20 00:00 98.2 F 67 18 131/72 94 L 08/22/20 20:42 76 16 08/22/20 20:33 74 16 08/22/20 20:30 98.2 F 70 18 135/93 92 L 08/22/20 19:42 98.1 F 64 20 138/74 92 L 08/22/20 18:03 98.6 F 62 18 124/80 96 Intake and Output 08/22/20 08/23/20 08/23/20 22:59 06:59 14:59 Intake Total 535.982 Balance 535.982 Intake: Intake, IV Titration 60.982 Amount Heparin Sod,Pork in 0.45% 60.982 NaCl 25,000 unit In 0.45 % NaCl 1 250ml.bag @ 9.07 UNITS/KG/HR 9.997 mls/hr IV .Q24H [facility] Rx#: [id number] Oral 475 Other: Voiding Method Toilet Toilet Weight 110.223 kg 109 kg Results 08/23/20 06:17 08/23/20 06:17 Cardiac Enzymes 08/22/20 08/22/20 08/22/20 Range/Units 18:08 18:08 21:04 AST 75 H (17-59) U/L Lactate Dehydrogenase (313-618) U/L Troponin I 0.058 H* 0.040 H* (0.000-0.034) ng/mL 08/22/20 08/23/20 08/23/20 Range/Units 23:45 06:17 08:25 AST (17-59) U/L Lactate Dehydrogenase 982 H (313-618) U/L Troponin I 0.035 H* 0.022 (0.000-0.034) ng/mL Coagulation 08/22/20 08/22/20 08/23/20 Range/Units 18:08 23:45 08:25 PT 11.3 (9.0-12.0) sec APTT 55.6 H 44.3 H 43.5 H (22.0-30.0) sec CBC 08/22/20 08/23/20 Range/Units 18:08 06:17 WBC 6.8 5.0 (3.8-10.6) k/uL RBC 5.75 5.58 (4.30-5.90) m/uL Hgb 16.4 16.1 (13.0-17.5) gm/dL Hct 49.4 48.1 (39.0-53.0) % Plt Count 179 174 (150-450) k/uL Comprehensive Metabolic Panel 08/22/20 08/23/20 Range/Units 18:08 06:17 Sodium 136 L 137 (137-145) mmol/L Potassium 3.6 3.7 (3.5-5.1) mmol/L Chloride 104 105 (98-107) mmol/L Carbon Dioxide 23 24 (22-30) mmol/L BUN 16 16 (9-20) mg/dL Creatinine 0.92 0.71 (0.66-1.25) mg/dL Glucose 109 H 205 H (74-99) mg/dL Calcium 8.6 8.4 (8.4-10.2) mg/dL AST 75 H (17-59) U/L ALT 39 (4-49) U/L Alkaline Phosphatase 57 (38-126) U/L Total Protein 6.7 (6.3-8.2) g/dL Albumin 3.6 (3.5-5.0) g/dL Current Medications Generic Name Dose Route Start Last Admin Trade Name Freq PRN Reason Stop Dose Admin Acetaminophen 650 mg 08/22/20 18:11 Acetaminophen Tab 325 Mg Tab PO Q6HR PRN Mild Pain or Fever > 100.5 Albuterol Sulfate 2 puff 08/23/20 04:14 08/23/20 07:53 Albuterol Hfa Inhaler INHALATION 2 puff RT-QID WOLFGANG Administration Ascorbic Acid 1,000 mg 08/23/20 09:00 08/23/20 08:14 Ascorbic Acid 500 Mg Tab PO 1,000 mg DAILY WOLFGANG Administration Aspirin 81 mg 08/23/20 09:00 08/23/20 08:14 Aspirin 81 Mg PO 81 mg DAILY WOLFGANG Administration Bumetanide 1 mg 08/23/20 09:00 08/23/20 08:15 Bumetanide 1 Mg Tab PO 1 mg BID WOLFGANG Administration Carvedilol 6.25 mg 08/23/20 07:30 08/23/20 06:32 Carvedilol 6.25 Mg Tab PO 6.25 mg BID-W/MEALS WOLFGANG Administration Cholecalciferol 1,000 unit 08/23/20 09:00 08/23/20 08:15 Cholecalciferol 1,000 Unit Tab PO 1,000 unit DAILY WOLFGANG Administration Dexamethasone 6 mg 08/23/20 09:00 08/23/20 08:14 Dexamethasone 2 Mg Tab PO 09/01/20 09:01 6 mg DAILY WOLFGANG Administration Fluticasone Propionate 2 spray 08/23/20 09:00 08/23/20 08:16 Fluticasone 50mcg/Malinta Nasal 16gm EA NOSTRIL Not Given DAILY WOLFGANG Heparin Sodium (Porcine) 0 unit 08/22/20 18:03 Heparin Sodium,Porcine 5,000 Unit/Ml 1 Ml Vial IV PER PROTOCOL PRN Low PTT Protocol Heparin Sodium/Sodium Chloride 250 mls @ 9.997 mls/hr 08/22/20 18:15 08/23/20 00:50 25,000 unit/ Sodium Chloride IV 9.07 units/kg/hr .Q24H WOLFAGNG 9.997 mls/hr Titration Protocol 9.07 UNITS/KG/HR Levothyroxine Sodium 150 mcg 08/23/20 06:30 08/23/20 06:32 Levothyroxine 75 Mcg Tab PO 150 mcg DAILY@0630 WOLFGANG Administration Losartan Potassium 50 mg 08/23/20 09:00 08/23/20 08:14 Losartan 50 Mg Tab PO 50 mg DAILY WOLFGANG Administration Naloxone HCl 0.2 mg 08/22/20 18:11 Naloxone 0.4 Mg/Ml 1 Ml Vial IV Q2M PRN Opioid Reversal Pantoprazole Sodium 40 mg 08/23/20 08:00 08/23/20 08:15 Pantoprazole 40 Mg Tablet PO 40 mg [id number] WOLFGANG Administration Tamsulosin HCl 0.4 mg 08/23/20 09:00 08/23/20 08:15 Tamsulosin 0.4 Mg Cap.Er.24h PO 0.4 mg DAILY WOLFGANG Administration Zinc Sulfate 220 mg 08/23/20 09:00 08/23/20 08:16 Zinc Sulfate 220 Mg Cap PO 220 mg DAILY WOLFGANG Administration Intake and Output 08/22/20 08/23/20 08/23/20 22:59 06:59 14:59 Intake Total 535.982 Balance 535.982 Intake: Intake, IV Titration 60.982 Amount Heparin Sod,Pork in 0.45% 60.982 NaCl 25,000 unit In 0.45 % NaCl 1 250ml.bag @ 9.07 UNITS/KG/HR 9.997 mls/hr IV .Q24H [facility] Rx#: [id number] Oral 475 Other: Voiding Method Toilet Toilet Weight 110.223 kg 109 kg 08/23/20 06:17 08/23/20 06:17
[2020-08-23] MEDS: ENOXAPARIN 40 MG/0.4 ML SYRINGE SQ SCH (12:52)
[2020-08-23 16:59] LABS: Ferritin 581.9 ng/mL (22.0-322.0)
[2020-08-23] MEDS: ACETAMINOPHEN TAB 325 MG TAB PO PRN (19:43)
[2020-08-23 20:56] LABS: Glucose,Whole Blood 177 mg/dL (75-99)
[2020-08-24] MEDS: ACETAMINOPHEN TAB 325 MG TAB PO PRN ×2 (03:31→11:18)
[2020-08-24] MEDS ORDERED: ALBUTEROL HFA INHALER INHALATION PRN (03:37)
[2020-08-24] MEDS: PANTOPRAZOLE 40 MG TABLET PO SCH (05:45)
[2020-08-24] MEDS: LEVOTHYROXINE 75 MCG TAB PO SCH (05:45)
[2020-08-24] MEDS: carvediloL 6.25 MG TAB PO SCH ×2 (05:46→17:09)
[2020-08-24 06:26] LABS: Glucose,Whole Blood 129 mg/dL (75-99)
[2020-08-24 07:54] LABS: Basophils # (A) 0.1 k/uL (0-0.2); Basophils % (A) 1 %; Eosinophils % (A) 0 %; HCT 47.1 % (39.0-53.0); HGB 16.2 gm/dL (13.0-17.5); Lymphocytes % (A) 9 %; MCHC 34.4 g/dL (31.0-37.0); MCV 87.2 fL (80.0-100.0); Mean Platelet Volume 8.8; Monocytes # (A) 0.3 k/uL (0-1.0); Monocytes % (A) 3 %; Neutrophils # (A) 9.9 k/uL (1.3-7.7); Neutrophils % (A) 85 %; Platelet Count 202 k/uL (150-450); RBC 5.39 m/uL (4.30-5.90); RDW 13.5 % (11.5-15.5); WBC 11.6 k/uL (3.8-10.6)
[2020-08-24 08:03] LABS: Chloride 106 mmol/L (98-107)
[2020-08-24 08:09] LABS: African American GFR (CKD) >90 (>60 ml/min/1.73 sqM); Anion Gap 10 mmol/L; Blood Urea Nitrogen 20 mg/dL (9-20); Calcium 8.6 mg/dL (8.4-10.2); Carbon Dioxide 22 mmol/L (22-30); Glucose 129 mg/dL (74-99); LDH 1275 U/L (313-618); Non-African American GFR(CKD) 83 (>60 ml/min/1.73 sqM); Potassium 3.8 mmol/L (3.5-5.1); Sodium 138 mmol/L (137-145)
[2020-08-24 08:17] LABS: Partial Thromboplastin Time 25.2 sec (22.0-30.0)
[2020-08-24] MEDS: ASPIRIN 81 MG PO SCH (08:24)
[2020-08-24] MEDS: ZINC SULFATE 220 MG CAP PO SCH (08:24)
[2020-08-24] MEDS: LOSARTAN 50 MG TAB PO SCH (08:24)
[2020-08-24] MEDS: ENOXAPARIN 40 MG/0.4 ML SYRINGE SQ SCH (08:24)
[2020-08-24] MEDS: CHOLECALCIFEROL 1,000 UNIT TAB PO SCH (08:24)
[2020-08-24] MEDS: dexAMETHasone 2 MG TAB PO SCH (08:24)
[2020-08-24] MEDS: TAMSULOSIN 0.4 MG CAP.ER.24H PO SCH (08:24)
[2020-08-24] MEDS: BUMETANIDE 1 MG TAB PO SCH ×2 (08:24→20:21)
[2020-08-24] MEDS: ASCORBIC ACID 500 MG TAB PO SCH (08:24)
[2020-08-24] MEDS: FLUTICASONE 50MCG/SPRAY NASAL 16GM EA NOSTRIL SCH (08:25)
[2020-08-24] MEDS: ALPRAZolam 0.25 MG TAB PO SCH ×2 (08:38→20:21)
[2020-08-24] MEDS ORDERED: AZITHROMYCIN 500 MG TAB PO SCH (09:00)
[2020-08-24] MEDS: ALBUTEROL HFA INHALER INHALATION SCH ×4 (09:00→19:26)
[2020-08-24] MEDS ORDERED: REMDESIVIR 100 MG in SODIUM CHLORIDE 0.9% 250 ML IVPB SCH (11:03)
[2020-08-24 12:07] LABS: Glucose,Whole Blood 130 mg/dL (75-99)
--- NOTE | 2020-08-24 12:53 | P.PN ---
Subjective Progress Note Date: 08/24/20 HISTORY OF PRESENT ILLNESS: 80-year-old male who was admitted to the hospital secondary to Covid 19. Patient febrile this morning with a temperature of 101.9. Heart rate in the 60s. Blood pressure 142/66. He is on a nonrebreather with oxygen saturations greater than 92%. PHYSICAL EXAM: Thorough physical exam not completed secondary to limited evaluation/examination and due to Covid19 ASSESSMENT: Acute Covid 19 Troponin leak not related to primary myocardial injury History of coronary artery disease status post bypass grafting in 2001 Diabetes mellitus Hypertension Dyslipidemia Former nicotine dependence PLAN: Echo ordered. Await results. If no significant abnormalities noted on echocardiogram we will sign off. Nurse practitioner note has been reviewed by physician. Signing provider agrees with the documented findings, assessment, and plan of care. Objective - Vital Signs Vital signs: Vital Signs Temp 98.1 F 08/24/20 12:31 Pulse 63 08/24/20 11:15 Resp 34 H 08/24/20 11:15 BP 117/57 08/24/20 11:15 Pulse Ox 94 L 08/24/20 11:15 Intake & Output 08/23/20 08/24/20 08/24/20 18:59 06:59 18:59 Intake Total 390 0 Output Total 150 Balance 390 -150 0 Weight 108.5 kg Intake: Oral 390 0 Output: Urine 150 Other: # Voids 1 1 1 - Labs CBC & Chem 7: 08/24/20 07:24 08/24/20 07:24 Labs: Abnormal Lab Results - Last 24 Hours (Table) 08/23/20 08/23/20 08/23/20 Range/Units 08:25 08:25 20:54 WBC (3.8-10.6) k/uL Neutrophils # (1.3-7.7) k/uL D-Dimer (<0.60) mg/L FEU Glucose (74-99) mg/dL POC Glucose (mg/dL) 177 H (75-99) mg/dL Ferritin 581.9 H (22.0-322.0) ng/mL Lactate Dehydrogenase (313-618) U/L C-Reactive Protein (<10.0) mg/L Procalcitonin 0.12 H (0.02-0.09) ng/mL 08/24/20 08/24/20 08/24/20 Range/Units 06:22 07:24 07:24 WBC 11.6 H (3.8-10.6) k/uL Neutrophils # 9.9 H (1.3-7.7) k/uL D-Dimer (<0.60) mg/L FEU Glucose 129 H (74-99) mg/dL POC Glucose (mg/dL) 129 H (75-99) mg/dL Ferritin (22.0-322.0) ng/mL Lactate Dehydrogenase 1275 H (313-618) U/L C-Reactive Protein 45.0 H (<10.0) mg/L Procalcitonin (0.02-0.09) ng/mL 08/24/20 08/24/20 Range/Units 07:24 12:05 WBC (3.8-10.6) k/uL Neutrophils # (1.3-7.7) k/uL D-Dimer 1.44 H (<0.60) mg/L FEU Glucose (74-99) mg/dL POC Glucose (mg/dL) 130 H (75-99) mg/dL Ferritin (22.0-322.0) ng/mL Lactate Dehydrogenase (313-618) U/L C-Reactive Protein (<10.0) mg/L Procalcitonin (0.02-0.09) ng/mL
--- NOTE | 2020-08-24 13:00 | ECHOF ---
Referral Reason: MEASUREMENTS -------- HEIGHT: 185.4 cm WEIGHT: 108.4 kg BP: 157/67 IVSd: 1.4 cm (0.6 - 1.1) LVIDd: 4.6 cm (3.9 - 5.3) LVPWd: 1.2 cm (0.6 - 1.1) IVSs: 1.7 cm LVIDs: 4.3 cm LVPWs: 1.4 cm Ao Diam: 3.2 cm (2.0 - 3.7) AV Cusp: 1.7 cm (1.5 - 2.6) LA Diam: 4.6 cm (2.7 - 3.8) MV EXCURSION: 23.492 mm (> 18.000) MV EF SLOPE: 68 mm/s (70 - 150) EPSS: 1.1 cm MV E Francisco: 0.62 m/s MV DecT: 285 ms MV A Francisco: 1.01 m/s MV E/A Ratio: 0.61 RAP: 5.00 mmHg RVSP: 12.70 mmHg FINDINGS -------- This was a technically difficult study with suboptimal views. Not all wall segments were visualized however there is global hypokinesis with EF approximately 35-40 %. Unable to give Lumason for better definition. If more precise EF required, may repeat echo with Lumason. The RV was not well visualized. , and the LA measures 4.6cm. The right atrium was not well visualized. Aortic valve is trileaflet and is mildly thickened. The mitral valve leaflets are mildly thickened. There is trace mitral regurgitation. The tricuspid valve appears structurally normal. Trace tricuspid regurgitation present. Right matt tricular systolic pressure is normal at < 35 mmHg. The pulmonic valve was not well visualized. The aortic root size is normal. IVC Not well visulized. There is no pericardial effusion. CONCLUSIONS -------- 1. Not all wall segments were visualized however there is global hypokinesis with EF approximately 35 -40%. Unable to give Lumason for better definition. If more precise EF required, may repeat echo wi th Lumason. 2. Aortic valve is trileaflet and is mildly thickened. 3. The mitral valve leaflets are mildly thickened. 4. There is trace mitral regurgitation. 5. Trace tricuspid regurgitation present. 6. There is no pericardial effusion. SEPARATOR TENDER: Gemma Melissa RDCS
--- NOTE | 2020-08-24 15:01 | XR ---
EXAMINATION TYPE: XR chest 1V portable DATE OF EXAM: 08/24/2020 HISTORY: Shortness of breath. COMPARISON: 06/25/2019 TECHNIQUE: Single view of the chest is submitted. FINDINGS: Demonstrated are scattered senescent parenchymal change. Interstitial left mid and lower lung zone infiltrates seen bilaterally. Correlate for Covid 19 pneumo toby. The heart is stable. Hilar and mediastinal structures are within normal limits. Degenerative changes are seen of the dorsal spine. IMPRESSION: 1. Interstitial left mid and lower lung zone infiltrates seen bilaterally. Correlate for Covid 19 pn eumonia.
[2020-08-24 16:09] LABS: Glucose,Whole Blood 174 mg/dL (75-99)
--- NOTE | 2020-08-24 18:12 | P.PN ---
Subjective Progress Note Date: 08/24/20 Principal diagnosis: acute COVID 19 80-year-old male patient who follows up at the [facility] clinic. The patient presented to the emergency department because of generalized weakness and worsening shortness of breath. Apparently the patient was given antibiotics on outpatient basis without any help. He reported increased dyspnea and cough and sputum. Apparently, the patient has been having shortness of breath for almost 10 days. He stated that exposed to COVID 19 by his son and [id number] around [facility]. Patient went yesterday to [facility] where he was checked and he was tested positive for coronary/Covid 19 infection. Following that, he was brought to the hospital for further evaluation. Note that his main symptoms were fatigue, tiredness, loss of appetite, diminished oral intake and some increased shortness of breath. No nausea. No vomiting. No abdominal pain. No loss in the sense of taste and smell. He was having some symptoms of URI. Alina abraham is on 2 by nasal cannula with a pulse is 91%. He does have some mild troponin leak with troponin being at 0.05 0.04-0.03 respectively with an EKG showing a normal sinus mechanism and some nonspecific T-wave inversions. Blood work from [facility] or [facility] showed normal LFTs, white cell count of 6900, hemoglobin of 16.6, platelets of 1 80,000, and his sodium was at 137. The patient's LDH is at 982 and the CRP is a 59.5. Chest x-ray is showing some limited infiltration of the lung bases. On examination he has crackles in lung bases bilaterally. No altered mental status. The patient is currently on Decadron 6 mg by mouth daily. On 08/24/2020 patient seen in follow-up on selective care unit. He remains on Lovenox at prophylactic dose, oral Bumex, home dose at 1 mg twice daily, and oral Decadron 6 mg daily, maintenance on high flow oxygen, 15 L, his pulse ox is 91-94%, low-grade fever earlier today, his LDH has trended up, and is currently at 1275, LDH has come down some. His d-dimer currently is at 1.4, electrolytes are renal profile are unremarkable. pro Calcitonin level was low at 0.12 Objective - Vital Signs Vital signs: Vital Signs Temp 98.7 F 08/24/20 16:00 Pulse 54 L 08/24/20 16:00 Resp 24 08/24/20 16:00 BP 132/68 08/24/20 16:00 Pulse Ox 91 L 08/24/20 16:00 Intake & Output 08/23/20 08/24/20 08/24/20 18:59 06:59 18:59 Intake Total 390 120 Output Total 150 Balance 390 -150 120 Weight 108.5 kg Intake: Oral 390 120 Output: Urine 150 Other: # Voids 1 1 1 # Bowel Movements 1 - Exam GENERAL EXAM: Alert, very pleasant, 72-year-old 15 L of oxygen and the pulse ox of 91-94% comfortable in no apparent distress. HEAD: Normocephalic/atraumatic. EYES: Normal reaction of pupils, equal size. Conjunctiva pink, sclera white. NOSE: Clear with pink turbinates. THROAT: No erythema or exudates. NECK: No masses, no JVD, no thyroid enlargement, no adenopathy. CHEST: No chest wall deformity. Symmetrical expansion. LUNGS: Equal air entry with no crackles, wheeze, rhonchi or dullness. CVS: Regular rate and rhythm, normal S1 and S2, no gallops, no murmurs, no rubs ABDOMEN: Soft, nontender. No hepatosplenomegaly, normal bowel sounds, no guarding or rigidity. EXTREMITIES: No clubbing, no edema, no cyanosis, 2+ pulses and upper and lower extremities. MUSCULOSKELETAL: Muscle strength and tone normal. SPINE: No scoliosis or deformity SKIN: No rashes CENTRAL NERVOUS SYSTEM: Alert and oriented -3. No focal deficits, tone is normal in all 4 extremities. PSYCHIATRIC: Alert and oriented -3. Appropriate affect. Intact judgment and insight. - Labs CBC & Chem 7: 08/24/20 07:24 08/24/20 07:24 Labs: Abnormal Lab Results - Last 24 Hours (Table) 08/23/20 08/24/20 08/24/20 Range/Units 20:54 06:22 07:24 WBC 11.6 H (3.8-10.6) k/uL Neutrophils # 9.9 H (1.3-7.7) k/uL D-Dimer (<0.60) mg/L FEU Glucose (74-99) mg/dL POC Glucose (mg/dL) 177 H 129 H (75-99) mg/dL Lactate Dehydrogenase (313-618) U/L C-Reactive Protein (<10.0) mg/L 08/24/20 08/24/20 08/24/20 Range/Units 07:24 07:24 12:05 WBC (3.8-10.6) k/uL Neutrophils # (1.3-7.7) k/uL D-Dimer 1.44 H (<0.60) mg/L FEU Glucose 129 H (74-99) mg/dL POC Glucose (mg/dL) 130 H (75-99) mg/dL Lactate Dehydrogenase 1275 H (313-618) U/L C-Reactive Protein 45.0 H (<10.0) mg/L 08/24/20 Range/Units 16:05 WBC (3.8-10.6) k/uL Neutrophils # (1.3-7.7) k/uL D-Dimer (<0.60) mg/L FEU Glucose (74-99) mg/dL POC Glucose (mg/dL) 174 H (75-99) mg/dL Lactate Dehydrogenase (313-618) U/L C-Reactive Protein (<10.0) mg/L Assessment and Plan Plan: Assessment: 1 acute Covid 19 related pneumonia. The patient was diagnosed having Covid 19 infection on 08/22/2020. His exposure was around Thanksgiving and the patient has been symptomatic for approximately a week. His chest x-ray showing some limited bibasilar pulmonary infiltrates. He is currently hypoxic and 40s about 2 by nasal cannula.. Significant constitutional symptoms and his inflammatory markers are elevated. he was outside of the window for Remdesivir. he will receive 2 units of convalescent plasma 2 acute hypoxic respiratory failure, currently on 4 L of oxygen by nasal cannula secondary to above 3 COPD with an FEV1 of 86% of predicted. The patient is not home oxygen dependent and the patient is an ex-smoker 4 coronary artery disease with previous bypass surgery. Limited amount of troponin leak and free of any chest pain and EKG is not showing any acute ischemic changes. 5 CHF 6 diabetes mellitus 7 BPH 8 Parkinson's disease 9 obstructive sleep apnea 10 history of nephrolithiasis 11 history of peripheral neuropathy Plan: Continue with all current medical treatment, continue with the oral Decadron, prophylactic dose of Lovenox, still requiring high flow oxygen, patient was outs rosita the window for Remdesivir, continue the vitamins and supplements, we will transfuse the patient with 2 units of convalescent plasma, follow-up chest x-ray in the morning, monitor symptom progression. Monitor inflammatory markers, continue to follow I performed a history & physical examination of the patient and discussed their management with my nurse practitioner, Martine Currie. I reviewed the nurse practitioner's note and agree with the documented findings and plan of care. Lung sounds are positive for management of sounds The findings and the impression was discussed with the patient. I attest to the documentation by the nurse practitioner. Time with Patient: Less than 30
[2020-08-24 20:30] LABS: Glucose,Whole Blood 143 mg/dL (75-99)
[2020-08-25] MEDS: ACETAMINOPHEN TAB 325 MG TAB PO PRN ×2 (02:34→10:01)
[2020-08-25 06:15] LABS: Glucose,Whole Blood 120 mg/dL (75-99)
[2020-08-25] MEDS: LEVOTHYROXINE 75 MCG TAB PO SCH (06:29)
[2020-08-25] MEDS: PANTOPRAZOLE 40 MG TABLET PO SCH (06:29)
[2020-08-25] MEDS: carvediloL 6.25 MG TAB PO SCH ×2 (06:29→18:22)
--- NOTE | 2020-08-25 07:50 | XR ---
EXAMINATION TYPE: XR chest 1V portable DATE OF EXAM: 08/25/2020 COMPARISON: 08/24/2020 INDICATION: Short of breath TECHNIQUE: Single frontal view of the chest is obtained. FINDINGS: The heart size is enlarged. The pulmonary vasculature is normal. Diffuse increased lung markings are present bilaterally. Findings are worsening. IMPRESSION: 1. Worsening bilateral patchy infiltrates
[2020-08-25 08:59] LABS: Basophils # (A) 0.1 k/uL (0-0.2); Basophils % (A) 1 %; Eosinophils % (A) 0 %; HCT 47.3 % (39.0-53.0); HGB 15.6 gm/dL (13.0-17.5); Lymphocytes # (A) 1.3 k/uL (1.0-4.8); Lymphocytes % (A) 11 %; MCH 28.5 pg (25.0-35.0); MCV 86.6 fL (80.0-100.0); Monocytes # (A) 0.3 k/uL (0-1.0); Monocytes % (A) 2 %; Neutrophils # (A) 9.3 k/uL (1.3-7.7); Neutrophils % (A) 84 %; Platelet Count 234 k/uL (150-450); RBC 5.46 m/uL (4.30-5.90); WBC 11.1 k/uL (3.8-10.6)
[2020-08-25 09:16] LABS: C Reactive Protein 61.2 mg/L (<10.0); Calcium 8.5 mg/dL (8.4-10.2); Potassium 4.4 mmol/L (3.5-5.1)
[2020-08-25] MEDS: ALBUTEROL HFA INHALER INHALATION SCH ×4 (09:16→19:21)
[2020-08-25] MEDS: dexAMETHasone 2 MG TAB PO SCH (09:28)
[2020-08-25] MEDS: ASCORBIC ACID 500 MG TAB PO SCH (09:28)
[2020-08-25] MEDS: TAMSULOSIN 0.4 MG CAP.ER.24H PO SCH (09:28)
[2020-08-25] MEDS: ASPIRIN 81 MG PO SCH (09:28)
[2020-08-25] MEDS: CHOLECALCIFEROL 1,000 UNIT TAB PO SCH (09:28)
[2020-08-25] MEDS: ENOXAPARIN 40 MG/0.4 ML SYRINGE SQ SCH (09:29)
[2020-08-25] MEDS: ZINC SULFATE 220 MG CAP PO SCH (09:29)
[2020-08-25] MEDS: ALPRAZolam 0.25 MG TAB PO SCH ×2 (09:29→21:26)
[2020-08-25] MEDS: LOSARTAN 50 MG TAB PO SCH (09:29)
[2020-08-25] MEDS: BUMETANIDE 1 MG TAB PO SCH ×2 (09:29→21:26)
[2020-08-25] MEDS: FLUTICASONE 50MCG/SPRAY NASAL 16GM EA NOSTRIL SCH (09:32)
[2020-08-25 11:32] LABS: Appearance,Urine Clear (Clear); Bilirubin,Urine Negative (Negative); Blood,Urine Negative (Negative); Color,Urine Yellow; Glucose,Urine (UA) Negative (Negative); Hyaline Casts,Urine 1 /lpf (0-2); Ketones,Urine Negative (Negative); Leukocyte Esterase,Urine Negative (Negative); Mucus,Urine Rare /hpf; Nitrite,Urine Negative (Negative); Protein,Urine 2+ (Negative); RBC,Urine <1 /hpf (0-5); Specific Gravity,Urine 1.023 (1.001-1.035); Urobilinogen,Urine <2.0 mg/dL (<2.0); WBC,Urine 2 /hpf (0-5)
--- NOTE | 2020-08-25 11:42 | P.PN ---
Subjective This is a pleasant 80 years old male with multiple medical problems as below. He follows up in the [place] [facility]. Presents because of dyspnea and generalized weakness. Patient was complaining of from Raynaud's few days ago and he has been prescribed amoxicillin which helped him a little bit but then he developed significant weakness and fatigue over the last 3-4 days that his make him come to the hospital. He has history of COPD and he quit smoking in 1998, he follows up with Dr. Toledo is not on home oxygen however he says that he has mild dyspnea associated with chronic cough and brown greenish phlegm. He denies chest pain, but he has loose bowel movement about once daily no abdominal pain or vomiting No urinary complaints. He denies alcohol or illicit drugs. Vital signs stable, he is saturating 91% on 4 L oxygen via nasal cannula. He has had unremarkable labs including CBC, INR, BMP, liver enzymes. For his troponin is elevated at 0.05, 0.04, 0.03. EKG showed normal sinus rhythm at [address]-T changes, Q waves in lead 2, 3 and aVF, T wave inversion in the lateral blades V4-V6 Labs at [facility] showing normal sodium and potassium at 137 and 3.5 respectively, creatinine normal at 1.0, liver enzymes not elevated, bilirubin is normal 0.9, WT normal 6.9K, hemoglobin 16.6 and platelets 180 1K. Coronavirus was detected As per the records his been having shortness of breath for 10 days. And he checked his oxygen saturating at home it was 88%. He states that he is post to covert by son and [id number] around Thanksgiving time. Chest x-ray report showed mild atelectasis. 08/24/2020 Patient awake and alert, he has more dyspnea. No chest pain. He still has fever, his respiratory status was worsened overnight and is currently on 15 L high flow oxygen via cannula with oxygen saturation 91-93%. Inflammatory markers LDH and C-reactive protein are the same or slightly worsened. He is followed closely by the pulmonary team and he is on dexamethasone, vitamin C, zinc and Zithromax Cardiology team evaluated the patient for elevated troponin and echocardiogram is reviewed with preserved LV function, and they signed off the case Review of Systems CONSTITUTIONAL: No fever, no malaise, no fatigue. HEENT: No recent visual problems or hearing problems. Denied any sore throat. CARDIOVASCULAR: No orthopnea, PND, no palpitations, no syncope. PULMONARY: No chest wall tenderness,, no hemoptysis. GASTROINTESTINAL: No diarrhea, no nausea, no vomiting, no abdominal pain. Nor moactive bowel sounds. NEUROLOGICAL: No headaches, no weakness, no numbness. Active Medications Acetaminophen (Acetaminophen Tab 325 Mg Tab) 650 mg PO Q6HR PRN Albuterol Sulfate (Albuterol Hfa Inhaler) 2 puff INHALATION RT-QID [place] Albuterol Sulfate (Albuterol Hfa Inhaler) 2 puff INHALATION RT-QID PRN Alprazolam (Alprazolam 0.25 Mg Tab) 0.25 mg PO BID [facility] Ascorbic Acid (Ascorbic Acid 500 Mg Tab) 1,000 mg PO DAILY [facility] Aspirin (Aspirin 81 Mg) 81 mg PO DAILY [facility] Bumetanide (Bumetanide 1 Mg Tab) 1 mg PO BID [facility] Carvedilol (Carvedilol 6.25 Mg Tab) 6.25 mg PO BID-W/MEALS [facility] Cholecalciferol (Cholecalciferol 1,000 Unit Tab) 1,000 unit PO DAILY [facility] Dexamethasone (Dexamethasone 2 Mg Tab) 6 mg PO DAILY [facility] Enoxaparin Sodium (Enoxaparin 40 Mg/0.4 Ml Syringe) 40 mg SQ DAILY [facility] Fluticasone Propionate (Fluticasone 50mcg/[place] Nasal 16gm) 2 spray EA NOSTRIL DAILY [facility] Ceftriaxone Sodium 1 gm/ (Sodium Chloride) 50 mls @ 100 mls/hr IVPB Q24HR [facility] Levothyroxine Sodium (Levothyroxine 75 Mcg Tab) 150 mcg PO DAILY@0630 [facility] Losartan Potassium (Losartan 50 Mg Tab) 50 mg PO DAILY [facility] Naloxone HCl (Naloxone 0.4 Mg/Ml 1 Ml Vial) 0.2 mg IV Q2M PRN Pantoprazole Sodium (Pantoprazole 40 Mg Tablet) 40 mg PO AC-BRKFST [facility] Spironolactone (Spironolactone 25 Mg Tab) 25 mg PO DAILY [facility] Tamsulosin HCl (Tamsulosin 0.4 Mg Cap.Er.24h) 0.4 mg PO DAILY [facility] Zinc Sulfate (Zinc Sulfate 220 Mg Cap) 220 mg PO DAILY [facility] Objective - Vital Signs Vital signs: Vital Signs Temp 98.7 F 08/24/20 16:00 Pulse 54 L 08/24/20 16:00 Resp 24 08/24/20 16:00 BP 132/68 08/24/20 16:00 Pulse Ox 91 L 08/24/20 16:00 Intake & Output 08/23/20 08/24/20 08/24/20 18:59 06:59 18:59 Intake Total 390 120 Output Total 150 Balance 390 -150 120 Weight 108.5 kg Intake: Oral 390 120 Output: Urine 150 Other: # Voids 1 1 1 # Bowel Movements 1 - Exam GENERAL: The patient is alert and oriented x3, not in any acute distress. Well developed, well nourished. HEENT: Pupils are round and equally reacting to light. EOMI. No scleral icterus. No conjunctival pallor. Normocephalic, atraumatic. No pharyngeal erythema. No thyromegaly. CARDIOVASCULAR: S1 and S2 present. No murmurs, rubs, or gallops. PULMONARY: Chest is clear to auscultation, no wheezing or crackles. ABDOMEN: Soft, nontender, nondistended, normoactive bowel sounds. No palpable organomegaly. MUSCULOSKELETAL: No joint swelling or deformity. EXTREMITIES: No cyanosis, clubbing, or pedal edema. NEUROLOGICAL: Gross neurological examination did not reveal any focal deficits. SKIN: No rashes. no petechiae. - Labs CBC & Chem 7: 08/25/20 08:16 08/25/20 08:16 Labs: Abnormal Lab Results - Last 24 Hours (Table) 08/23/20 08/24/20 08/24/20 Range/Units 20:54 06:22 07:24 WBC 11.6 H (3.8-10.6) k/uL Neutrophils # 9.9 H (1.3-7.7) k/uL D-Dimer (<0.60) mg/L FEU Glucose (74-99) mg/dL POC Glucose (mg/dL) 177 H 129 H (75-99) mg/dL Lactate Dehydrogenase (313-618) U/L C-Reactive Protein (<10.0) mg/L 08/24/20 08/24/20 08/24/20 Range/Units 07:24 07:24 12:05 WBC (3.8-10.6) k/uL Neutrophils # (1.3-7.7) k/uL D-Dimer 1.44 H (<0.60) mg/L FEU Glucose 129 H (74-99) mg/dL POC Glucose (mg/dL) 130 H (75-99) mg/dL Lactate Dehydrogenase 1275 H (313-618) U/L C-Reactive Protein 45.0 H (<10.0) mg/L 08/24/20 Range/Units 16:05 WBC (3.8-10.6) k/uL Neutrophils # (1.3-7.7) k/uL D-Dimer (<0.60) mg/L FEU Glucose (74-99) mg/dL POC Glucose (mg/dL) 174 H (75-99) mg/dL Lactate Dehydrogenase (313-618) U/L C-Reactive Protein (<10.0) mg/L Assessment and Plan Assessment: Acute hypoxic respiratory failure Bilateral covid pneumonia Elevated troponin, secondary to demand ischemia from pulmonary disease Diabetes mellitus Hypertension Hyperlipidemia Osteoarthritis Chronic heart failure Hypothyroidism Sleep apnea on CPAP/BiPAP Prostatic hypertrophy Diabetic neuropathy Parkinson disease History of kidney stone Asthma, not an active issue GERD Plan: This is a pleasant 80 years old who presents with covid infection and hypoxia. Continue with bronchodilator, dexamethasone, Lovenox, zinc and vitamin C. continue with Bumex(patient is ALLERGIC to Lasix) . Continue with oxygen via high flow cannula. Send sputum culture. Cardiology Team signed off. Follow-up recommendation by pulmonary team Labs and medication were reviewed.. Continue same treatment. Continue with symptomatic treatment. Resume home medication. Monitor lytes and vitals. DVT and GI prophylaxis. Further recommendations depends on the clinical course of the patient DVT prophylaxis: Lovenox GI Prophylaxis: Ppi Prognosis is guarded
[2020-08-25 12:05] LABS: Glucose,Whole Blood 140 mg/dL (75-99)
[2020-08-25] MEDS: SPIRONOLACTONE 25 MG TAB PO SCH (12:19)
--- NOTE | 2020-08-25 12:36 | P.PN ---
Subjective 80 years old male with multiple medical problems as below. He follows up in the [place] [facility]. Presents because of dyspnea and generalized weakness. Patient was complaining of from Raynaud's few days ago and he has been prescribed amoxicillin which helped him a little bit but then he developed significant weakness and fatigue over the last 3-4 days that his make him come to the hospital. He has history of COPD and he quit smoking in 1998, he follows up with Dr. Toledo is not on home oxygen however he says that he has mild dyspnea associated with chronic cough and brown greenish phlegm. He denies chest pain, but he has loose bowel movement about once daily no abdominal pain or vomiting No urinary complaints. He denies alcohol or illicit drugs. Vital signs stable, he is saturating 91% on 4 L oxygen via nasal cannula. He narayanan s had unremarkable labs including CBC, INR, BMP, liver enzymes. For his troponin is elevated at 0.05, 0.04, 0.03. EKG showed normal sinus rhythm at [address]-T changes, Q waves in lead 2, 3 and aVF, T wave inversion in the lateral blades V4-V6 Labs at [facility] showing normal sodium and potassium at 137 and 3.5 respectively, creatinine normal at 1.0, liver enzymes not elevated, bilirubin is normal 0.9, WT normal 6.9K, hemoglobin 16.6 and platelets 180 1K. Coronavirus was detected As per the records his been having shortness of breath for 10 days. And he checked his oxygen saturating at home it was 88%. He states that he is post to [place] by son and [id number] around Thanksgiving time. Chest x-ray report showed mild atelectasis. 08/24/2020 Patient awake and alert, he has more dyspnea. No chest pain. He still has fever, his respiratory status was worsened overnight and is currently on 15 L high flow oxygen via cannula with oxygen saturation 91-93%. Inflammatory markers LDH and C-reactive protein are the same or slightly worsened. He is followed closely by the pulmonary team and he is on dexamethasone, vitamin C, zinc and Zithromax Cardiology team evaluated the patient for elevated troponin and echocardiogram is reviewed with preserved LV function, and they signed off the case 08/25/2020 Patient remains on the 15 L high flow along with Ventimask. Patient is to have elevated inflammatory markers. Patient does have a congestive heart failure appears to be fairly euvolemic continue with the present regimen of heart failure medication patient blood pressure is low because of which I'll hold off on losartan temporarily will be resumed as soon as possible. Constitutional: Admits second fatigue Cardio vascular: denied any chest pain, palpitations Gastrointestinal denied any nausea vomiting Pulmonary: He used to have shortness of breath cough Neurologic denied any new focal deficits All inpatient medications were reviewed and appropriate changes in these medications as dictated in the interval history and assessment and plan. Objective - Vital Signs Vital signs: Vital Signs Temp 98.4 F 08/25/20 12:00 Pulse 65 08/25/20 12:00 Resp 38 H 08/25/20 12:00 BP 104/58 08/25/20 12:00 Pulse Ox 92 L 08/25/20 12:00 Intake & Output 08/24/20 08/25/20 08/25/20 18:59 06:59 18:59 Intake Total 120 393 Output Total 500 Balance 120 -107 Weight 107.5 kg Intake: Oral 120 Blood Product 393 Ffp Pher Conval Covid19 200 Acda 2 Unit [id number] Ffp Pher Conval Covid19 193 Acda 2 Unit [id number] Output: Urine 500 Other: Voiding Method Toilet # Voids 1 1 2 # Bowel Movements 1 - Exam PHYSICAL EXAMINATION: GENERAL: The patient is alert and oriented x3, not in any acute distress. Well developed, well nourished. HEENT: Pupils are round and equally reacting to light. EOMI. No scleral icterus. No conjunctival pallor. Normocephalic, atraumatic. No pharyngeal erythema. No thyromegaly. CARDIOVASCULAR: S1 and S2 present. No murmurs, rubs, or gallops. PULMONARY: Crackles bilaterally ABDOMEN: Soft, nontender, nondistended, normoactive bowel sounds. No palpable organomegaly. MUSCULOSKELETAL: No joint swelling or deformity. EXTREMITIES: No cyanosis, clubbing, or pedal edema. NEUROLOGICAL: Gross neurological examination did not reveal any focal deficits. SKIN: No rashes. - Labs CBC & Chem 7: 08/25/20 08:16 08/25/20 08:16 Labs: Abnormal Lab Results - Last 24 Hours (Table) 08/24/20 08/24/20 08/25/20 Range/Units 16:05 20:28 06:13 WBC (3.8-10.6) k/uL Neutrophils # (1.3-7.7) k/uL D-Dimer (<0.60) mg/L FEU BUN (9-20) mg/dL Glucose (74-99) mg/dL POC Glucose (mg/dL) 174 H 143 H 120 H (75-99) mg/dL Lactate Dehydrogenase (313-618) U/L C-Reactive Protein (<10.0) mg/L Urine Protein (Negative) Urine Mucus (None) /hpf 08/25/20 08/25/20 08/25/20 Range/Units 08:16 08:16 08:16 WBC 11.1 H (3.8-10.6) k/uL Neutrophils # 9.3 H (1.3-7.7) k/uL D-Dimer 2.30 H (<0.60) mg/L FEU BUN 21 H (9-20) mg/dL Glucose 119 H (74-99) mg/dL POC Glucose (mg/dL) (75-99) mg/dL Lactate Dehydrogenase 1411 H (313-618) U/L C-Reactive Protein 61.2 H (<10.0) mg/L Urine Protein (Negative) Urine Mucus (None) /hpf 08/25/20 08/25/20 Range/Units 11:00 12:04 WBC (3.8-10.6) k/uL Neutrophils # (1.3-7.7) k/uL D-Dimer (<0.60) mg/L FEU BUN (9-20) mg/dL Glucose (74-99) mg/dL POC Glucose (mg/dL) 140 H (75-99) mg/dL Lactate Dehydrogenase (313-618) U/L C-Reactive Protein (<10.0) mg/L Urine Protein 2+ H (Negative) Urine Mucus Rare H (None) /hpf Assessment and Plan Plan: Acute hypoxic respiratory failure secondary to call with 19 continue with respiratory support continue with Decadron, zinc, vitamin C, bronchodilator therapy. Elevated troponin, secondary to demand ischemia from pulmonary disease Diabetes mellitus can you present regimen titrate depending on blood sugars. Hypertension Hyperlipidemia Osteoarthritis Chronic heart failure, chronic systolic dysfunction without any acute attacks of which patient is fairly will continue with oral Bumex, Aldactone and Coreg. Hold off on losartan temporarily because of hypotension Hypothyroidism Sleep apnea on CPAP/BiPAP Benign Prostatic hypertrophy Diabetic neuropathy Parkinson disease History of kidney stone Asthma, not an active issue GERD
--- NOTE | 2020-08-25 12:44 | P.PN ---
Subjective Progress Note Date: 08/25/20 Principal diagnosis: acute COVID 19 80-year-old male patient who follows up at the [place] [facility]. The patient presented to the emergency department because of generalized weakness and worsening shortness of breath. Apparently the patient was given antibiotics on outpatient basis without any help. He reported increased dyspnea and cough and sputum. Apparently, the patient has been having shortness of breath for almost 10 days. He stated that exposed to COVID 19 by his son and [id number] around [facility]. Patient went yesterday to [facility] where he was checked and he was tested positive for coronary/Covid 19 infection. Following that, he was brought to the hospital for further evaluation. Note that his main symptoms were fatigue, tiredness, loss of appetite, diminished oral intake and some increased shortness of breath. No nausea. No vomiting. No abdominal pain. No loss in the sense of taste and smell. He was having some symptoms of URI. Alina abraham is on 2 by nasal cannula with a pulse is 91%. He does have some mild troponin leak with troponin being at 0.05 0.04-0.03 respectively with an EKG showing a normal sinus mechanism and some nonspecific T-wave inversions. Blood work from [place] or [facility] showed normal LFTs, white cell count of 6900, hemoglobin of 16.6, platelets of 1 80,000, and his sodium was at 137. The patient's LDH is at 982 and the CRP is a 59.5. Chest x-ray is showing some limited infiltration of the lung bases. On examination he has crackles in lung bases bilaterally. No altered mental status. The patient is currently on Decadron 6 mg by mouth daily. On 08/24/2020 patient seen in follow-up on selective care unit. He remains on Lovenox at prophylactic dose, oral Bumex, home dose at 1 mg twice daily, and oral Decadron 6 mg daily, maintenance on high flow oxygen, 15 L, his pulse ox is 91-94%, low-grade fever earlier today, his LDH has trended up, and is currently at 1275, LDH has come down some. His d-dimer currently is at 1.4, electrolytes are renal profile are unremarkable. pro Calcitonin level was low at 0.12 On 08/25/2020 patient seen in follow-up on selective care unit, he is awake and alert, he is on 15 L of oxygen, and at times she gets confused, sometimes removes the oxygen, on 15 L he sat about 92-93%. Today's chest x-ray shows worsening bilateral patchy infiltrates. Yesterday we transfused the patient with 2 units of convalescent plasma, is possible the patient has a component of fluid overload, and we'll start the patient on IV diuretics. Lung sounds reveal coarse inspiratory crackles in bilateral lungs, patient patient was spiking fevers with T-max of 103 this morning. We'll obtain blood cultures, and Sandostatin pro calcitonin level., The patient with Rocephin for empiric antibiotic coverage. Objective - Vital Signs Vital signs: Vital Signs Temp 98.4 F 08/25/20 12:00 Pulse 65 08/25/20 12:00 Resp 38 H 08/25/20 12:00 BP 104/58 08/25/20 12:00 Pulse Ox 92 L 08/25/20 12:00 Intake & Output 08/24/20 08/25/20 08/25/20 18:59 06:59 18:59 Intake Total 120 393 Output Total 500 Balance 120 -107 Weight 107.5 kg Intake: Oral 120 Blood Product 393 Ffp Pher Conval Covid19 200 Acda 2 Unit [id number] Ffp Pher Conval Covid19 193 Acda 2 Unit [id number] Output: Urine 500 Other: Voiding Method Toilet # Voids 1 1 2 # Bowel Movements 1 - Exam GENERAL EXAM: Alert, very pleasant, 72-year-old 15 L of oxygen and the pulse ox of 91-94% comfortable in no apparent distress. HEAD: Normocephalic/atraumatic. EYES: Normal reaction of pupils, equal size. Conjunctiva pink, sclera white. NOSE: Clear with pink turbinates. THROAT: No erythema or exudates. NECK: No masses, no JVD, no thyroid enlargement, no adenopathy. CHEST: No chest wall deformity. Symmetrical expansion. LUNGS: Equal air entry with no crackles, wheeze, rhonchi or dullness. CVS: Regular rate and rhythm, normal S1 and S2, no gallops, no murmurs, no rubs ABDOMEN: Soft, nontender. No hepatosplenomegaly, normal bowel sounds, no guarding or rigidity. EXTREMITIES: No clubbing, no edema, no cyanosis, 2+ pulses and upper and lower extremities. MUSCULOSKELETAL: Muscle strength and tone normal. SPINE: No scoliosis or deformity SKIN: No rashes CENTRAL NERVOUS SYSTEM: Alert and oriented -3. No focal deficits, tone is normal in all 4 extremities. PSYCHIATRIC: Alert and oriented -3. Appropriate affect. Intact judgment and insight. - Labs CBC & Chem 7: 08/25/20 08:16 08/25/20 08:16 Labs: Abnormal Lab Results - Last 24 Hours (Table) 08/24/20 08/24/20 08/25/20 Range/Units 16:05 20:28 06:13 WBC (3.8-10.6) k/uL Neutrophils # (1.3-7.7) k/uL D-Dimer (<0.60) mg/L FEU BUN (9-20) mg/dL Glucose (74-99) mg/dL POC Glucose (mg/dL) 174 H 143 H 120 H (75-99) mg/dL Lactate Dehydrogenase (313-618) U/L C-Reactive Protein (<10.0) mg/L Urine Protein (Negative) Urine Mucus (None) /hpf 08/25/20 08/25/20 08/25/20 Range/Units 08:16 08:16 08:16 WBC 11.1 H (3.8-10.6) k/uL Neutrophils # 9.3 H (1.3-7.7) k/uL D-Dimer 2.30 H (<0.60) mg/L FEU BUN 21 H (9-20) mg/dL Glucose 119 H (74-99) mg/dL POC Glucose (mg/dL) (75-99) mg/dL Lactate Dehydrogenase 1411 H (313-618) U/L C-Reactive Protein 61.2 H (<10.0) mg/L Urine Protein (Negative) Urine Mucus (None) /hpf 08/25/20 08/25/20 Range/Units 11:00 12:04 WBC (3.8-10.6) k/uL Neutrophils # (1.3-7.7) k/uL D-Dimer (<0.60) mg/L FEU BUN (9-20) mg/dL Glucose (74-99) mg/dL POC Glucose (mg/dL) 140 H (75-99) mg/dL Lactate Dehydrogenase (313-618) U/L C-Reactive Protein (<10.0) mg/L Urine Protein 2+ H (Negative) Urine Mucus Rare H (None) /hpf Assessment and Plan Plan: Assessment: 1 acute Covid 19 related pneumonia. The patient was diagnosed having Covid 19 infection on 08/22/2020. His exposure was around Thanksgiving and the patient has been symptomatic for approximately a week. His chest x-ray showing some limited bibasilar pulmonary infiltrates. He is currently hypoxic and 40s about 2 by nasal cannula.. Significant constitutional symptoms and his inflammatory markers are elevated. he was outside of the window for Remdesivir. he will receive 2 units of convalescent plasma 2 acute hypoxic respiratory failure, currently on 4 L of oxygen by nasal cannula secondary to above 3 COPD with an FEV1 of 86% of predicted. The patient is not home oxygen dependent and the patient is an ex-smoker 4 coronary artery disease with previous bypass surgery. Limited amount of troponin leak and free of any chest pain and EKG is not showing any acute ischemic changes. 5 CHF 6 diabetes mellitus 7 BPH 8 Parkinson's disease 9 obstructive sleep apnea 10 history of nephrolithiasis 11 history of peripheral neuropathy Plan: Continue Bumex, we will add Rocephin for empiric antibiotic coverage, will send a pro-calcitonin level, and blood cultures, continue with oral Decadron, Lovenox at current dose, labs and chest x-ray have been noted, inflammatory markers remain elevated, and today's chest x-ray shows worsening of bilateral airspace disease. Continue to closely follow, prognosis is guarded I performed a history & physical examination of the patient and discussed their management with my nurse practitioner, Martine Currie. I reviewed the nurse practitioner's note and agree with the documented findings and plan of care. Lung sounds are positive for management of sounds The findings and the impression was discussed with the patient. I attest to the documentation by the nurse practitioner. Time with Patient: Less than 30
--- NOTE | 2020-08-25 15:01 | P.PN ---
Subjective Progress Note Date: 08/25/20 HISTORY OF PRESENT ILLNESS: 80-year-old male who was admitted to the hospital secondary to Covid 19. Echocardiogram completed reveals ejection fraction 35- 40%, trace mitral regurgitation and trace tricuspid regurgitation. Patient febrile this morning with a temperature of 103.0. Blood pressure 125/63. He is on 15 L high flow cannula. PHYSICAL EXAM: Thorough physical exam not completed secondary to limited evaluation/examination and due to Covid19 ASSESSMENT: Acute Covid 19 Troponin leak not related to primary myocardial injury History of coronary artery disease status post bypass grafting in 2001 Chronic systolic congestive heart failure, EF 35-40% Diabetes mellitus Hypertension Dyslipidemia Former nicotine dependence PLAN: Echocardiogram completed reveals cardiomyopathy with ejection fraction 35-40%. No previous echocardiogram available for comparison. Cardiomyopathy may be related to Covid 19, however patient has history of CAD as well so cardiomyopathy likely ischemic in nature. Add Aldactone 25mg daily. Patient will require further cardiac up with his primary special delivery clerk, Dr Zayas in [place] on an outpatient basis. Nurse practitioner note has been reviewed by physician. Signing provider agrees with the documented findings, assessment, and plan of care. Objective - Vital Signs Vital signs: Vital Signs Temp 98.4 F 08/25/20 12:00 Pulse 65 08/25/20 12:00 Resp 38 H 08/25/20 12:00 BP 104/58 08/25/20 12:00 Pulse Ox 92 L 08/25/20 12:00 Intake & Output 08/24/20 08/25/20 08/25/20 18:59 06:59 18:59 Intake Total 120 393 120 Output Total 500 Balance 120 -107 120 Weight 107.5 kg Intake: Oral 120 120 Blood Product 393 Ffp Pher Conval Covid19 200 Acda 2 Unit [id number] Ffp Pher Conval Covid19 193 Acda 2 Unit [id number] Output: Urine 500 Other: Voiding Method Toilet # Voids 1 1 2 # Bowel Movements 1 - Labs CBC & Chem 7: 08/25/20 08:16 08/25/20 08:16 Labs: Abnormal Lab Results - Last 24 Hours (Table) 08/24/20 08/24/20 08/25/20 Range/Units 16:05 20:28 06:13 WBC (3.8-10.6) k/uL Neutrophils # (1.3-7.7) k/uL D-Dimer (<0.60) mg/L FEU BUN (9-20) mg/dL Glucose (74-99) mg/dL POC Glucose (mg/dL) 174 H 143 H 120 H (75-99) mg/dL Lactate Dehydrogenase (313-618) U/L C-Reactive Protein (<10.0) mg/L Urine Protein (Negative) Urine Mucus (None) /hpf 08/25/20 08/25/20 08/25/20 Range/Units 08:16 08:16 08:16 WBC 11.1 H (3.8-10.6) k/uL Neutrophils # 9.3 H (1.3-7.7) k/uL D-Dimer 2.30 H (<0.60) mg/L FEU BUN 21 H (9-20) mg/dL Glucose 119 H (74-99) mg/dL POC Glucose (mg/dL) (75-99) mg/dL Lactate Dehydrogenase 1411 H (313-618) U/L C-Reactive Protein 61.2 H (<10.0) mg/L Urine Protein (Negative) Urine Mucus (None) /hpf 08/25/20 08/25/20 Range/Units 11:00 12:04 WBC (3.8-10.6) k/uL Neutrophils # (1.3-7.7) k/uL D-Dimer (<0.60) mg/L FEU BUN (9-20) mg/dL Glucose (74-99) mg/dL POC Glucose (mg/dL) 140 H (75-99) mg/dL Lactate Dehydrogenase (313-618) U/L C-Reactive Protein (<10.0) mg/L Urine Protein 2+ H (Negative) Urine Mucus Rare H (None) /hpf
[2020-08-25 17:02] LABS: Glucose,Whole Blood 181 mg/dL (75-99)
[2020-08-25 20:10] LABS: Glucose,Whole Blood 195 mg/dL (75-99)
[2020-08-25 20:34] LABS: ABG Base Excess 1.2 mmol/L; ABG HCO3 25 mmol/L (21-25); ABG Oxygen Saturation 93.4 % (94-97); ABG PCO2 35 mmHg (35-45); ABG PH 7.47 (7.35-7.45); ABG PO2 62 mmHg (83-108); ABG TCO2 26 mmol/L (19-24); Allen Test Performed? Yes
[2020-08-26 06:16] LABS: Glucose,Whole Blood 132 mg/dL (75-99)
[2020-08-26] MEDS: carvediloL 6.25 MG TAB PO SCH ×2 (06:23→17:37)
[2020-08-26] MEDS: PANTOPRAZOLE 40 MG TABLET PO SCH (06:23)
[2020-08-26] MEDS: LEVOTHYROXINE 75 MCG TAB PO SCH (06:23)
[2020-08-26] MEDS ORDERED: BUMETANIDE 0.25 MG/ML 4 ML VIAL IVP STA (08:20)
[2020-08-26] MEDS: ALBUTEROL HFA INHALER INHALATION SCH ×4 (08:28→19:08)
[2020-08-26 08:59] LABS: HCT 47.2 % (39.0-53.0); HGB 15.8 gm/dL (13.0-17.5); MCH 28.8 pg (25.0-35.0); MCHC 33.6 g/dL (31.0-37.0); MCV 85.8 fL (80.0-100.0); Mean Platelet Volume 10.1; Platelet Count 253 k/uL (150-450); WBC 11.8 k/uL (3.8-10.6)
--- NOTE | 2020-08-26 09:08 | XR ---
EXAMINATION TYPE: XR chest 1V portable DATE OF EXAM: 08/26/2020 HISTORY: Shortness of breath. COMPARISON: 08/25/2020 TECHNIQUE: Single view of the chest is submitted. FINDINGS: Demonstrated are scattered senescent parenchymal change. Patchy perihilar and basilar infiltrates persist. The heart is stable. Hilar and mediastinal structures are within normal limits. Degenerative changes are seen of the dorsal spine. IMPRESSION: 1. Patchy perihilar and basilar infiltrates persist.
[2020-08-26 09:15] LABS: ALT 44 U/L (4-49); African American GFR (CKD) >90 (>60 ml/min/1.73 sqM); Anion Gap 7 mmol/L; Blood Urea Nitrogen 24 mg/dL (9-20); C Reactive Protein 64.4 mg/L (<10.0); Calcium 8.4 mg/dL (8.4-10.2); Carbon Dioxide 25 mmol/L (22-30); Chloride 107 mmol/L (98-107); Glucose 132 mg/dL (74-99); Non-African American GFR(CKD) 89 (>60 ml/min/1.73 sqM); Sodium 139 mmol/L (137-145); Total Bilirubin 1.1 mg/dL (0.2-1.3)
[2020-08-26 09:28] LABS: AST 75 U/L (17-59); Albumin 3.4 g/dL (3.5-5.0); Alkaline Phosphatase 67 U/L (38-126); Potassium 4.6 mmol/L (3.5-5.1); Total Protein 6.9 g/dL (6.3-8.2)
[2020-08-26 09:29] LABS: LDH 2060 U/L (313-618)
--- NOTE | 2020-08-26 10:26 | P.PN ---
Subjective 80 years old male with multiple medical problems as below. He [facility] up in the [place] [facility]. Presents because of dyspnea and generalized weakness. Patient was complaining of from Raynaud's few days ago and he has been prescribed amoxicillin which helped him a little bit but then he developed significant weakness and fatigue over the last 3-4 days that his make him come to the hospital. He has history of COPD and he quit smoking in 1998, he follows up with Dr. Toledo is not on home oxygen however he says that he has mild dyspnea associated with chronic cough and brown greenish phlegm. He denies chest pain, but he has loose bowel movement about once daily no abdominal pain or vomiting No urinary complaints. He denies alcohol or illicit drugs. Vital signs stable, he is saturating 91% on 4 L oxygen via nasal cannula. He narayanan s had unremarkable labs including CBC, INR, BMP, liver enzymes. For his troponin is elevated at 0.05, 0.04, 0.03. EKG showed normal sinus rhythm at [address]-T changes, Q waves in lead 2, 3 and aVF, T wave inversion in the lateral blades V4-V6 Labs at [facility] showing normal sodium and potassium at 137 and 3.5 respectively, creatinine normal at 1.0, liver enzymes not elevated, bilirubin is normal 0.9, WT normal 6.9K, hemoglobin 16.6 and platelets 180 1K. Coronavirus was detected As per the records his been having shortness of breath for 10 days. And he checked his oxygen saturating at home it was 88%. He states that he is post to [place] by son and [id number] around Thanksgiving time. Chest x-ray report showed mild atelectasis. 08/24/2020 Patient awake and alert, he has more dyspnea. No chest pain. He still has fever, his respiratory status was worsened overnight and is currently on 15 L high flow oxygen via cannula with oxygen saturation 91-93%. Inflammatory markers LDH and C-reactive protein are the same or slightly worsened. He is followed closely by the pulmonary team and he is on dexamethasone, vitamin C, zinc and Zithromax Cardiology team evaluated the patient for elevated troponin and echocardiogram is reviewed with preserved LV function, and they signed off the case 08/25/2020 Patient remains on the 15 L high flow along with Ventimask. Patient is to have elevated inflammatory markers. Patient does have a congestive heart failure appears to be fairly euvolemic continue with the present regimen of heart failure medication patient blood pressure is low because of which I'll hold off on losartan temporarily will be resumed as soon as possible. 08/26/2020 Patient is presently on Airvo. Patient's is pretty status has worsened and patient is being transferred to ICU at this time. Patient the regarding heart failure scott appear to be euvolemic. Patient received a dose of Bumex today. Patient chest x-ray is consistent with a diffuse interstitial infiltrates. Review of systems: Unable to interpret due to his clinical condition All inpatient medications were reviewed and appropriate changes in these medications as dictated in the interval history and assessment and plan. Objective - Vital Signs Vital signs: Vital Signs Temp 98.9 F 08/26/20 04:00 Pulse 61 08/26/20 04:00 Resp 24 08/26/20 04:00 BP 147/80 08/26/20 04:00 Pulse Ox 89 L 08/26/20 08:39 Intake & Output 08/25/20 08/26/20 08/26/20 18:59 06:59 18:59 Intake Total 356 240 Output Total 650 1020 Balance -294 -1020 240 Weight 106 kg Intake: Oral 356 240 Output: Urine 650 1020 Other: Voiding Method Toilet # Voids 2 1 - Exam PHYSICAL EXAMINATION: GENERAL: The patient is drowsy on airvo, not in any acute distress. Well developed, well nourished. HEENT: Pupils are round and equally reacting to light. EOMI. No scleral icterus. No conjunctival pallor. Normocephalic, atraumatic. No pharyngeal erythema. No thyromegaly. CARDIOVASCULAR: S1 and S2 present. No murmurs, rubs, or gallops. PULMONARY: Crackles bilaterally ABDOMEN: Soft, nontender, nondistended, normoactive bowel sounds. No palpable organomegaly. MUSCULOSKELETAL: No joint swelling or deformity. EXTREMITIES: No cyanosis, clubbing, or pedal edema. NEUROLOGICAL: Unable to assess at this time SKIN: No rashes. - Labs CBC & Chem 7: 08/26/20 07:05 08/26/20 07:05 Labs: Abnormal Lab Results - Last 24 Hours (Table) 08/25/20 08/25/20 08/25/20 Range/Units 10:55 11:00 12:04 WBC (3.8-10.6) k/uL D-Dimer (<0.60) mg/L FEU ABG pH (7.35-7.45) ABG pO2 (83-108) mmHg ABG Total CO2 (19-24) mmol/L ABG O2 Saturation (94-97) % BUN (9-20) mg/dL Glucose (74-99) mg/dL POC Glucose (mg/dL) 140 H (75-99) mg/dL AST (17-59) U/L Lactate Dehydrogenase (313-618) U/L C-Reactive Protein (<10.0) mg/L Albumin (3.5-5.0) g/dL Procalcitonin 0.14 H (0.02-0.09) ng/mL Urine Protein 2+ H (Negative) Urine Mucus Rare H (None) /hpf 08/25/20 08/25/20 08/25/20 Range/Units 17:01 20:08 20:24 WBC (3.8-10.6) k/uL D-Dimer (<0.60) mg/L FEU ABG pH 7.47 H (7.35-7.45) ABG pO2 62 L (83-108) mmHg ABG Total CO2 26 H (19-24) mmol/L ABG O2 Saturation 93.4 L (94-97) % BUN (9-20) mg/dL Glucose (74-99) mg/dL POC Glucose (mg/dL) 181 H 195 H (75-99) mg/dL AST (17-59) U/L Lactate Dehydrogenase (313-618) U/L C-Reactive Protein (<10.0) mg/L Albumin (3.5-5.0) g/dL Procalcitonin (0.02-0.09) ng/mL Urine Protein (Negative) Urine Mucus (None) /hpf 08/26/20 08/26/20 08/26/20 Range/Units 06:15 07:05 07:05 WBC (3.8-10.6) k/uL D-Dimer 1.40 H (<0.60) mg/L FEU ABG pH (7.35-7.45) ABG pO2 (83-108) mmHg ABG Total CO2 (19-24) mmol/L ABG O2 Saturation (94-97) % BUN 24 H (9-20) mg/dL Glucose 132 H (74-99) mg/dL POC Glucose (mg/dL) 132 H (75-99) mg/dL AST 75 H (17-59) U/L Lactate Dehydrogenase 2060 H (313-618) U/L C-Reactive Protein 64.4 H (<10.0) mg/L Albumin 3.4 L (3.5-5.0) g/dL Procalcitonin (0.02-0.09) ng/mL Urine Protein (Negative) Urine Mucus (None) /hpf 08/26/20 Range/Units 07:05 WBC 11.8 H (3.8-10.6) k/uL D-Dimer (<0.60) mg/L FEU ABG pH (7.35-7.45) ABG pO2 (83-108) mmHg ABG Total CO2 (19-24) mmol/L ABG O2 Saturation (94-97) % BUN (9-20) mg/dL Glucose (74-99) mg/dL POC Glucose (mg/dL) (75-99) mg/dL AST (17-59) U/L Lactate Dehydrogenase (313-618) U/L C-Reactive Protein (<10.0) mg/L Albumin (3.5-5.0) g/dL Procalcitonin (0.02-0.09) ng/mL Urine Protein (Negative) Urine Mucus (None) /hpf Assessment and Plan Plan: Acute hypoxic respiratory failure secondary to Covid 19 continue with respiratory support continue with Decadron, zinc, vitamin C, bronchodilator therapy. Patient had worsening respiratory status and was initiated on Airvo and is being transferred to intensive care unit. Elevated troponin, secondary to demand ischemia from pulmonary disease Diabetes mellitus blood sugars are well controlled. Hypertension Hyperlipidemia Osteoarthritis Chronic heart failure, chronic systolic dysfunction without any acute attacks of which patient is fairly will continue with oral Bumex, Aldactone and Coreg. Hold off on losartan temporarily because of hypotension Hypothyroidism Sleep apnea on CPAP/BiPAP Benign Prostatic hypertrophy Diabetic neuropathy Parkinson disease History of kidney stone Asthma, not an active issue GERD
[2020-08-26] MEDS: ALPRAZolam 0.25 MG TAB PO SCH ×2 (10:27→20:53)
[2020-08-26] MEDS: ZINC SULFATE 220 MG CAP PO SCH (10:27)
[2020-08-26] MEDS: ASPIRIN 81 MG PO SCH (10:27)
[2020-08-26] MEDS: TAMSULOSIN 0.4 MG CAP.ER.24H PO SCH (10:27)
[2020-08-26] MEDS: ASCORBIC ACID 500 MG TAB PO SCH (10:27)
[2020-08-26] MEDS: BUMETANIDE 1 MG TAB PO SCH ×2 (10:28→20:53)
[2020-08-26] MEDS: FLUTICASONE 50MCG/SPRAY NASAL 16GM EA NOSTRIL SCH (10:28)
[2020-08-26] MEDS: ENOXAPARIN 40 MG/0.4 ML SYRINGE SQ SCH (10:30)
[2020-08-26] MEDS: CHOLECALCIFEROL 1,000 UNIT TAB PO SCH (10:30)
[2020-08-26] MEDS: dexAMETHasone 2 MG TAB PO SCH (10:30)
[2020-08-26] MEDS: SPIRONOLACTONE 25 MG TAB PO SCH (10:31)
[2020-08-26 12:18] LABS: Glucose,Whole Blood 145 mg/dL (75-99)
--- NOTE | 2020-08-26 14:38 | P.PN ---
Subjective Progress Note Date: 08/26/20 Principal diagnosis: acute COVID 19 80-year-old male patient who [facility] [place] [facility]. The patient presented to the emergency department because of generalized weakness and worsening shortness of breath. Apparently the patient was given antibiotics on outpatient basis without any help. He reported increased dyspnea and cough and sputum. Apparently, the patient has been having shortness of breath for almost 10 days. He stated that exposed to COVID 19 by his son and [id number] around [facility]. Patient went yesterday to [facility] where he was checked and he was tested positive for coronary/Covid 19 infection. Following that, he was brought to the hospital for further evaluation. Note that his main symptoms were fatigue, tiredness, loss of appetite, diminished oral intake and some increased shortness of breath. No nausea. No vomiting. No abdominal pain. No loss in the sense of taste and smell. He was having some symptoms of URI. Alina abraham is on 2 by nasal cannula with a pulse is 91%. He does have some mild troponin leak with troponin being at 0.05 0.04-0.03 respectively with an EKG showing a normal sinus mechanism and some nonspecific T-wave inversions. Blood work from [facility] showed normal LFTs, white cell count of 6900, hemoglobin of 16.6, platelets of 1 80,000, and his sodium was at 137. The patient's LDH is at 982 and the CRP is a 59.5. Chest x-ray is showing some limited infiltration of the lung bases. On examination he has crackles in lung bases bilaterally. No altered mental status. The patient is currently on Decadron 6 mg by mouth daily. On 08/24/2020 patient seen in follow-up on selective care unit. He remains on Lovenox at prophylactic dose, oral Bumex, home dose at 1 mg twice daily, and oral Decadron 6 mg daily, maintenance on high flow oxygen, 15 L, his pulse ox is 91-94%, low-grade fever earlier today, his LDH has trended up, and is currently at 1275, LDH has come down some. His d-dimer currently is at 1.4, electrolytes are renal profile are unremarkable. pro Calcitonin level was low at 0.12 On 08/25/2020 patient seen in follow-up on selective care unit, he is awake and alert, he is on 15 L of oxygen, and at times she gets confused, sometimes removes the oxygen, on 15 L he sat about 92-93%. Today's chest x-ray shows worsening bilateral patchy infiltrates. Yesterday we transfused the patient with 2 units of convalescent plasma, is possible the patient has a component of fluid overload, and we'll start the patient on IV diuretics. Lung sounds reveal coarse inspiratory crackles in bilateral lungs, patient patient was spiking fevers with T-max of 103 this morning. We'll obtain blood cultures, and Sandostatin pro calcitonin level., The patient with Rocephin for empiric antibiotic coverage. On 08/26/2020 patient seen in follow-up on [facility] care unit, his reading worsened this morning, patient had to be placed on high flow oxygen, he is currently on Airvo at 60 l/min, and Fio2 of 93%, patient was given extra dose of IV Bumex this morning, stay chest x-ray was obtained showing patchy perihilar and basilar infiltrates. Blood gas was obtained last night, showed pO2 of 62, pCO2 of 35, and pH of 7.47, this was done and FiO2 of 100%. His LDH is significantly elevated at 2059, his CRP remains elevated and 60 over 0.4, AST is 75, ALT and alk phos are within normal limits, his electrolytes were unremarkable, B1 is 24 creatinine 0.72. His white cell count is 11.8, d-dimer is 1.4. Patient continues on IV Rocephin for empiric antibiotic coverage, he is on oral Decadron, he is on a prophylactic dose of Lovenox 40 mg daily. he was placed on high flow oxygen, he was ordered to transfer to the intensive care unit earlier this morning however he has been placed on high flow oxygen and appears to be more comfortable, also he started to diurese. Objective - Vital Signs Vital signs: Vital Signs Temp 98.0 F 08/26/20 08:00 Pulse 58 L 08/26/20 08:00 Resp 34 H 08/26/20 08:00 BP 125/64 08/26/20 08:00 Pulse Ox 86 L 08/26/20 12:18 Intake & Output 08/25/20 08/26/20 08/26/20 18:59 06:59 18:59 Intake Total 356 480 Output Total 650 1020 1000 Balance -294 -1020 -520 Weight 106 kg Intake: Oral 356 480 Output: Urine 650 1020 1000 Other: Voiding Method Toilet Toilet # Voids 2 1 - Exam GENERAL EXAM: Alert, very pleasant, 72-year-old on 60 l/min, 90% Fio2, and the pulse ox of 86-92% comfortable in no apparent distress. HEAD: Normocephalic/atraumatic. EYES: Normal reaction of pupils, equal size. Conjunctiva pink, sclera white. NOSE: Clear with pink turbinates. THROAT: No erythema or exudates. NECK: No masses, no JVD, no thyroid enlargement, no adenopathy. CHEST: No chest wall deformity. Symmetrical expansion. LUNGS: Equal air entry with no crackles, wheeze, rhonchi or dullness. CVS: Regular rate and rhythm, normal S1 and S2, no gallops, no murmurs, no rubs ABDOMEN: Soft, nontender. No hepatosplenomegaly, normal bowel sounds, no guarding or rigidity. EXTREMITIES: No clubbing, no edema, no cyanosis, 2+ pulses and upper and lower extremities. MUSCULOSKELETAL: Muscle strength and tone normal. SPINE: No scoliosis or deformity SKIN: No rashes CENTRAL NERVOUS SYSTEM: Alert and oriented -3. No focal deficits, tone is normal in all 4 extremities. PSYCHIATRIC: Alert and oriented -3. Appropriate affect. Intact judgment and insight. - Labs CBC & Chem 7: 08/26/20 07:05 08/26/20 07:05 Labs: Abnormal Lab Results - Last 24 Hours (Table) 08/25/20 08/25/20 08/25/20 Range/Units 10:55 17:01 20:08 WBC (3.8-10.6) k/uL D-Dimer (<0.60) mg/L FEU ABG pH (7.35-7.45) ABG pO2 (83-108) mmHg ABG Total CO2 (19-24) mmol/L ABG O2 Saturation (94-97) % BUN (9-20) mg/dL Glucose (74-99) mg/dL POC Glucose (mg/dL) 181 H 195 H (75-99) mg/dL AST (17-59) U/L Lactate Dehydrogenase (313-618) U/L C-Reactive Protein (<10.0) mg/L Albumin (3.5-5.0) g/dL Procalcitonin 0.14 H (0.02-0.09) ng/mL 08/25/20 08/26/20 08/26/20 Range/Units 20:24 06:15 07:05 WBC (3.8-10.6) k/uL D-Dimer 1.40 H (<0.60) mg/L FEU ABG pH 7.47 H (7.35-7.45) ABG pO2 62 L (83-108) mmHg ABG Total CO2 26 H (19-24) mmol/L ABG O2 Saturation 93.4 L (94-97) % BUN (9-20) mg/dL Glucose (74-99) mg/dL POC Glucose (mg/dL) 132 H (75-99) mg/dL AST (17-59) U/L Lactate Dehydrogenase (313-618) U/L C-Reactive Protein (<10.0) mg/L Albumin (3.5-5.0) g/dL Procalcitonin (0.02-0.09) ng/mL 08/26/20 08/26/20 08/26/20 Range/Units 07:05 07:05 12:14 WBC 11.8 H (3.8-10.6) k/uL D-Dimer (<0.60) mg/L FEU ABG pH (7.35-7.45) ABG pO2 (83-108) mmHg ABG Total CO2 (19-24) mmol/L ABG O2 Saturation (94-97) % BUN 24 H (9-20) mg/dL Glucose 132 H (74-99) mg/dL POC Glucose (mg/dL) 145 H (75-99) mg/dL AST 75 H (17-59) U/L Lactate Dehydrogenase 2060 H (313-618) U/L C-Reactive Protein 64.4 H (<10.0) mg/L Albumin 3.4 L (3.5-5.0) g/dL Procalcitonin (0.02-0.09) ng/mL Microbiology - Last 24 Hours (Table) 08/25/20 10:55 Blood Culture - Preliminary Blood No Growth after 24 hours Assessment and Plan Plan: Assessment: 1 acute Covid 19 related pneumonia. The patient was diagnosed having Covid 19 infection on 08/22/2020. His exposure was around Thanksgiving and the patient has been symptomatic for approximately a week. His chest x-ray showing some limited bibasilar pulmonary infiltrates. He is currently hypoxic and 40s about 2 by nasal cannula.. Significant constitutional symptoms and his inflammatory markers are elevated. he was outside of the window for Remdesivir. he will receive 2 units of convalescent plasma 2 acute hypoxic respiratory failure, currently on 4 L of oxygen by nasal cannula secondary to above. On 08/26/2020 patient's is a demand has increased, patient was placed on high flow per Airvo at 60 l/min, Fio2 90% 3 COPD with an FEV1 of 86% of predicted. The patient is not home oxygen dependent and the patient is an ex-smoker 4 coronary artery disease with previous bypass surgery. Limited amount of troponin leak and free of any chest pain and EKG is not showing any acute ischemic changes. 5 CHF 6 diabetes mellitus 7 BPH 8 Parkinson's disease 9 obstructive sleep apnea 10 history of nephrolithiasis 11 history of peripheral neuropathy Plan: Continue current medical treatment, continue diuretics, continue current dose Decadron, continue Lovenox, patient started to diurese, chest x-ray has been reviewed, no worsening in the appearance of bilateral infiltrates, may add 100% nonrebreather, her try BiPAP support if there is worsening dyspnea and hypoxia, patient is awaiting a bed in the intensive care unit, continue close monitoring, patient appears to be more comfortable and breathing easier since this morning. We'll continue to follow I performed a history & physical examination of the patient and discussed their management with my nurse practitioner, Martine Currie. I reviewed the nurse practitioner's note and agree with the documented findings and plan of care. Lung sounds are positive for management of sounds The findings and the impression was discussed with the patient. I attest to the documentation by the nurse practitioner. Time with Patient: Less than 30
[2020-08-26 16:45] LABS: Glucose,Whole Blood 221 mg/dL (75-99)
[2020-08-26 20:42] LABS: Glucose,Whole Blood 233 mg/dL (75-99)
[2020-08-27] MEDS: carvediloL 6.25 MG TAB PO SCH ×2 (06:21→17:34)
[2020-08-27] MEDS: LEVOTHYROXINE 75 MCG TAB PO SCH (06:21)
[2020-08-27] MEDS: PANTOPRAZOLE 40 MG TABLET PO SCH (06:21)
[2020-08-27 06:30] LABS: Glucose,Whole Blood 155 mg/dL (75-99)
[2020-08-27] MEDS: ALBUTEROL HFA INHALER INHALATION SCH ×4 (07:53→19:50)
[2020-08-27 08:10] LABS: HCT 47.4 % (39.0-53.0); HGB 16.2 gm/dL (13.0-17.5); MCH 29.9 pg (25.0-35.0); MCHC 34.2 g/dL (31.0-37.0); MCV 87.4 fL (80.0-100.0); Mean Platelet Volume 8.8; Platelet Count 286 k/uL (150-450); RBC 5.42 m/uL (4.30-5.90); RDW 13.6 % (11.5-15.5); WBC 10.6 k/uL (3.8-10.6)
[2020-08-27 08:16] LABS: African American GFR (CKD) >90 (>60 ml/min/1.73 sqM); Anion Gap 10 mmol/L; Blood Urea Nitrogen 24 mg/dL (9-20); Calcium 8.4 mg/dL (8.4-10.2); Carbon Dioxide 25 mmol/L (22-30); Chloride 106 mmol/L (98-107); Glucose 175 mg/dL (74-99); Non-African American GFR(CKD) 87 (>60 ml/min/1.73 sqM); Potassium 3.7 mmol/L (3.5-5.1); Sodium 141 mmol/L (137-145)
[2020-08-27] MEDS: ZINC SULFATE 220 MG CAP PO SCH (09:00)
[2020-08-27] MEDS: dexAMETHasone 2 MG TAB PO SCH (09:00)
[2020-08-27] MEDS: ALPRAZolam 0.25 MG TAB PO SCH ×2 (09:00→20:53)
[2020-08-27] MEDS: ASPIRIN 81 MG PO SCH (09:00)
[2020-08-27] MEDS: CHOLECALCIFEROL 1,000 UNIT TAB PO SCH (09:00)
[2020-08-27] MEDS: BUMETANIDE 1 MG TAB PO SCH ×2 (09:00→20:53)
[2020-08-27] MEDS: TAMSULOSIN 0.4 MG CAP.ER.24H PO SCH (09:00)
[2020-08-27] MEDS: ASCORBIC ACID 500 MG TAB PO SCH (09:01)
[2020-08-27] MEDS: ENOXAPARIN 40 MG/0.4 ML SYRINGE SQ SCH (09:01)
[2020-08-27] MEDS: SPIRONOLACTONE 25 MG TAB PO SCH (09:01)
--- NOTE | 2020-08-27 09:25 | P.PN ---
Subjective 80 years old male with multiple medical problems as below. He [facility] up in the [place] [facility]. Presents because of dyspnea and generalized weakness. Patient was complaining of from Raynaud's few days ago and he has been prescribed amoxicillin which helped him a little bit but then he developed significant weakness and fatigue over the last 3-4 days that his make him come to the hospital. He has history of COPD and he quit smoking in 1998, he follows up with Dr. Toledo is not on home oxygen however he says that he has mild dyspnea associated with chronic cough and brown greenish phlegm. He denies chest pain, but he has loose bowel movement about once daily no abdominal pain or vomiting No urinary complaints. He denies alcohol or illicit drugs. Vital signs stable, he is saturating 91% on 4 L oxygen via nasal cannula. He narayanan s had unremarkable labs including CBC, INR, BMP, liver enzymes. For his troponin is elevated at 0.05, 0.04, 0.03. EKG showed normal sinus rhythm at [address]-T changes, Q waves in lead 2, 3 and aVF, T wave inversion in the lateral blades V4-V6 Labs at [facility] showing normal sodium and potassium at 137 and 3.5 respectively, creatinine normal at 1.0, liver enzymes not elevated, bilirubin is normal 0.9, WT normal 6.9K, hemoglobin 16.6 and platelets 180 1K. Coronavirus was detected As per the records his been having shortness of breath for 10 days. And he checked his oxygen saturating at home it was 88%. He states that he is post to [place] by son and [id number] around Thanksgiving time. Chest x-ray report showed mild atelectasis. 08/24/2020 Patient awake and alert, he has more dyspnea. No chest pain. He still has fever, his respiratory status was worsened overnight and is currently on 15 L high flow oxygen via cannula with oxygen saturation 91-93%. Inflammatory markers LDH and C-reactive protein are the same or slightly worsened. He is followed closely by the pulmonary team and he is on dexamethasone, vitamin C, zinc and Zithromax Cardiology team evaluated the patient for elevated troponin and echocardiogram is reviewed with preserved LV function, and they signed off the case 08/25/2020 Patient remains on the 15 L high flow along with Ventimask. Patient is to have elevated inflammatory markers. Patient does have a congestive heart failure appears to be fairly euvolemic continue with the present regimen of heart failure medication patient blood pressure is low because of which I'll hold off on losartan temporarily will be resumed as soon as possible. 08/26/2020 Patient is presently on Airvo. Patient's is pretty status has worsened and patient is being transferred to ICU at this time. Patient the regarding heart failure scott appear to be euvolemic. Patient received a dose of Bumex today. Patient chest x-ray is consistent with a diffuse interstitial infiltrates. 08/27/2020 Patient is presently on 6 L of oxygen does look much better actually wanted to go home. Then 60 L of oxygen. Constitutional: Denied any fatigue denied any fever. Cardio vascular: denied any chest pain, palpitations Gastrointestinal denied any nausea vomiting Pulmonary: Denied any shortness of breath cough Neurologic denied any new focal deficits All inpatient medications were reviewed and appropriate changes in these medications as dictated in the interval history and assessment and plan. Objective - Vital Signs Vital signs: Vital Signs Temp 97.8 F 08/27/20 03:56 Pulse 58 L 08/27/20 03:56 Resp 28 H 08/27/20 03:56 BP 118/70 08/27/20 03:56 Pulse Ox 89 L 08/27/20 03:56 Intake & Output 08/26/20 08/27/20 08/27/20 18:59 06:59 18:59 Intake Total 480 240 Output Total 1000 1200 Balance -520 -1200 240 Weight 159.3 kg Intake: Oral 480 240 Output: Urine 1000 1200 Uretheral (Madden) 600 Other: Voiding Method Toilet Indwelling Catheter - Exam PHYSICAL EXAMINATION: GENERAL: The patient is drowsy on airvo, not in any acute distress. Well developed, well nourished. HEENT: Pupils are round and equally reacting to light. EOMI. No scleral icterus. No conjunctival pallor. Normocephalic, atraumatic. No pharyngeal erythema. No thyromegaly. CARDIOVASCULAR: S1 and S2 present. No murmurs, rubs, or gallops. PULMONARY: Crackles bilaterally ABDOMEN: Soft, nontender, nondistended, normoactive bowel sounds. No palpable organomegaly. MUSCULOSKELETAL: No joint swelling or deformity. EXTREMITIES: No cyanosis, clubbing, or pedal edema. NEUROLOGICAL: Unable to assess at this time SKIN: No rashes. - Labs CBC & Chem 7: 08/27/20 07:38 08/27/20 07:38 Labs: Abnormal Lab Results - Last 24 Hours (Table) 08/26/20 08/26/20 08/26/20 Range/Units 07:05 07:05 12:14 BUN 24 H (9-20) mg/dL Glucose 132 H (74-99) mg/dL POC Glucose (mg/dL) 145 H (75-99) mg/dL Ferritin 1159.5 H (22.0-322.0) ng/mL AST 75 H (17-59) U/L Lactate Dehydrogenase 2060 H (313-618) U/L C-Reactive Protein 64.4 H (<10.0) mg/L Albumin 3.4 L (3.5-5.0) g/dL 08/26/20 08/26/20 08/27/20 Range/Units 16:43 20:40 06:29 BUN (9-20) mg/dL Glucose (74-99) mg/dL POC Glucose (mg/dL) 221 H 233 H 155 H (75-99) mg/dL Ferritin (22.0-322.0) ng/mL AST (17-59) U/L Lactate Dehydrogenase (313-618) U/L C-Reactive Protein (<10.0) mg/L Albumin (3.5-5.0) g/dL 08/27/20 Range/Units 07:38 BUN 24 H (9-20) mg/dL Glucose 175 H (74-99) mg/dL POC Glucose (mg/dL) (75-99) mg/dL Ferritin (22.0-322.0) ng/mL AST (17-59) U/L Lactate Dehydrogenase (313-618) U/L C-Reactive Protein (<10.0) mg/L Albumin (3.5-5.0) g/dL Microbiology - Last 24 Hours (Table) 08/25/20 10:55 Blood Culture - Preliminary Blood No Growth after 24 hours Assessment and Plan Plan: Acute hypoxic respiratory failure secondary to Covid 19 continue with respiratory support continue with Decadron, zinc, vitamin C, bronchodilator therapy. Patient's respiratory status and was initiated on Airvo respiratory status is fairly stable compared to yesterday. Patient is presently on 6 L of oxygen Elevated troponin, secondary to demand ischemia from pulmonary disease Diabetes mellitus blood sugars are well controlled. Hypertension Hyperlipidemia Osteoarthritis Chronic heart failure, chronic systolic dysfunction without any acute attacks of which patient is fairly will continue with oral Bumex, Aldactone and Coreg. Hold off on losartan temporarily because of hypotension Hypothyroidism Sleep apnea on CPAP/BiPAP Benign Prostatic hypertrophy Diabetic neuropathy Parkinson disease History of kidney stone Asthma, not an active issue GERD
[2020-08-27 11:42] LABS: Glucose,Whole Blood 262 mg/dL (75-99)
[2020-08-27] MEDS: FLUTICASONE 50MCG/SPRAY NASAL 16GM EA NOSTRIL SCH (11:49)
--- NOTE | 2020-08-27 15:36 | P.PN ---
Subjective Progress Note Date: 08/27/20 Principal diagnosis: acute COVID 19 80-year-old male patient who [facility] at [facility] [place] [facility]. The patient presented to the emergency department because of generalized weakness and worsening shortness of breath. Apparently the patient was given antibiotics on outpatient basis without any help. He reported increased dyspnea and cough and sputum. Apparently, the patient has been having shortness of breath for almost 10 days. He stated that exposed to COVID 19 by his son and [id number] around [facility]. Patient went yesterday to [facility] where he was checked and he was tested positive for coronary/Covid 19 infection. Following that, he was brought to the hospital for further evaluation. Note that his main symptoms were fatigue, tiredness, loss of appetite, diminished oral intake and some increased shortness of breath. No nausea. No vomiting. No abdominal pain. No loss in the sense of taste and smell. He was having some symptoms of URI. Alina abraham is on 2 by nasal cannula with a pulse is 91%. He does have some mild troponin leak with troponin being at 0.05 0.04-0.03 respectively with an EKG showing a normal sinus mechanism and some nonspecific T-wave inversions. Blood work from [facility] or [facility] showed normal LFTs, white cell count of 6900, hemoglobin of 16.6, platelets of 1 80,000, and his sodium was at 137. The patient's LDH is at 982 and the CRP is a 59.5. Chest x-ray is showing some limited infiltration of the lung bases. On examination he has crackles in lung bases bilaterally. No altered mental status. The patient is currently on Decadron 6 mg by mouth daily. On 08/24/2020 patient seen in follow-up on selective care unit. He remains on Lovenox at prophylactic dose, oral Bumex, home dose at 1 mg twice daily, and oral Decadron 6 mg daily, maintenance on high flow oxygen, 15 L, his pulse ox is 91-94%, low-grade fever earlier today, his LDH has trended up, and is currently at 1275, LDH has come down some. His d-dimer currently is at 1.4, electrolytes are renal profile are unremarkable. pro Calcitonin level was low at 0.12 On 08/25/2020 patient seen in follow-up on selective care unit, he is awake and alert, he is on 15 L of oxygen, and at times she gets confused, sometimes removes the oxygen, on 15 L he sat about 92-93%. Today's chest x-ray shows worsening bilateral patchy infiltrates. Yesterday we transfused the patient with 2 units of convalescent plasma, is possible the patient has a component of fluid overload, and we'll start the patient on IV diuretics. Lung sounds reveal coarse inspiratory crackles in bilateral lungs, patient patient was spiking fevers with T-max of 103 this morning. We'll obtain blood cultures, and Sandostatin pro calcitonin level., The patient with Rocephin for empiric antibiotic coverage. On 08/26/2020 patient seen in follow-up on selective care unit, his reading worsened this morning, patient had to be placed on high flow oxygen, he is currently on Airvo at 60 l/min, and Fio2 of 93%, patient was given extra dose of IV Bumex this morning, stay chest x-ray was obtained showing patchy perihilar and basilar infiltrates. Blood gas was obtained last night, showed pO2 of 62, pCO2 of 35, and pH of 7.47, this was done and FiO2 of 100%. His LDH is significantly elevated at 2059, his CRP remains elevated and 60 over 0.4, AST is 75, ALT and alk phos are within normal limits, his electrolytes were unremarkable, B1 is 24 creatinine 0.72. His white cell count is 11.8, d-dimer is 1.4. Patient continues on IV Rocephin for empiric antibiotic coverage, he is on oral Decadron, he is on a prophylactic dose of Lovenox 40 mg daily. he was placed on high flow oxygen, he was ordered to transfer to the intensive care unit earlier this morning however he has been placed on high flow oxygen and appears to be more comfortable, also he started to diurese. On 08/27/2020 patient is seen in follow-up on [facility] care unit, he still remains on high flow oxygen per Airvo at 60 L and FiO2 of 90% and his pulse ox is ranging between 86-90%. We have not been able to wean his FiO2 down any further. He sitting up in the recliner, she is eating lunch, does not appear to be in any acute distress, denies any chest discomfort, he does have tachypnea, and he becomes very short of breath with any exertion, but overall seems to be breathing more comfortably than he did yesterday. His been afebrile, has not had any chest x-ray today, yesterday's chest x-ray showed patchy perihilar and bibasilar infiltrates. Patient continues on oral diuretics with Bumex 1 mg twice daily, is maintaining negative fluid balance, he is in -1.7 L of last 24 hours. he remains on empiric antibiotics in the form of Rocephin, patient was outside the window for Remdesivir treatment, received 2 units of convalescent plasma, last set of inflammatory markers revealed still significantly elevated LDH at 2059, and CRP was relatively stable at 64.4 Objective - Vital Signs Vital signs: Vital Signs Temp 98.9 F 08/27/20 12:00 Pulse 66 08/27/20 14:00 Resp 30 H 08/27/20 14:00 BP 143/70 08/27/20 12:00 Pulse Ox 86 L 08/27/20 12:00 Intake & Output 08/26/20 08/27/20 08/27/20 18:59 06:59 18:59 Intake Total 480 340 Output Total 1000 1200 600 Balance -520 -1200 -260 Weight 159.3 kg 159.3 kg Intake: Oral 480 340 Output: Urine 1000 1200 600 Uretheral (Madden) 600 600 Other: Voiding Method Toilet Indwelling Catheter Indwelling Catheter - Exam GENERAL EXAM: Alert, very pleasant, 72-year-old on 60 l/min, 90% Fio2, and the pulse ox of 86-92% comfortable in no apparent distress. HEAD: Normocephalic/atraumatic. EYES: Normal reaction of pupils, equal size. Conjunctiva pink, sclera white. NOSE: Clear with pink turbinates. THROAT: No erythema or exudates. NECK: No masses, no JVD, no thyroid enlargement, no adenopathy. CHEST: No chest wall deformity. Symmetrical expansion. LUNGS: Equal air entry with no crackles, wheeze, rhonchi or dullness. CVS: Regular rate and rhythm, normal S1 and S2, no gallops, no murmurs, no rubs ABDOMEN: Soft, nontender. No hepatosplenomegaly, normal bowel sounds, no guarding or rigidity. EXTREMITIES: No clubbing, no edema, no cyanosis, 2+ pulses and upper and lower extremities. MUSCULOSKELETAL: Muscle strength and tone normal. SPINE: No scoliosis or deformity SKIN: No rashes CENTRAL NERVOUS SYSTEM: Alert and oriented -3. No focal deficits, tone is normal in all 4 extremities. PSYCHIATRIC: Alert and oriented -3. Appropriate affect. Intact judgment and insight. - Labs CBC & Chem 7: 08/27/20 07:38 08/27/20 07:38 Labs: Abnormal Lab Results - Last 24 Hours (Table) 08/26/20 08/26/20 08/26/20 Range/Units 07:05 16:43 20:40 BUN (9-20) mg/dL Glucose (74-99) mg/dL POC Glucose (mg/dL) 221 H 233 H (75-99) mg/dL Ferritin 1159.5 H (22.0-322.0) ng/mL 08/27/20 08/27/20 08/27/20 Range/Units 06:29 07:38 11:40 BUN 24 H (9-20) mg/dL Glucose 175 H (74-99) mg/dL POC Glucose (mg/dL) 155 H 262 H (75-99) mg/dL Ferritin (22.0-322.0) ng/mL Microbiology - Last 24 Hours (Table) 08/25/20 10:55 Blood Culture - Preliminary Blood No Growth after 48 hours Assessment and Plan Plan: Assessment: 1 acute Covid 19 related pneumonia. The patient was diagnosed having Covid 19 infection on 08/22/2020. His exposure was around Thanksgiving and the patient has been symptomatic for approximately a week. His chest x-ray showing some limited bibasilar pulmonary infiltrates. He is currently hypoxic and 40s about 2 by nasal cannula.. Significant constitutional symptoms and his inflammatory markers are elevated. he was outside of the window for Remdesivir. Patient status post transfusion with 2 units, plasma on 08/24/2020, and 08/25/2020 2 acute hypoxic respiratory failure, and his oxygenation has worsened, patient is currently requiring high flow oxygen per Airvo On 08/26/2020 patient's is a demand has increased, patient was placed on high flow per Airvo at 60 l/min, Fio2 90% 3 COPD with an FEV1 of 86% of predicted. The patient is not home oxygen dependent and the patient is an ex-smoker 4 coronary artery disease with previous bypass surgery. Limited amount of troponin leak and free of any chest pain and EKG is not showing any acute ischemic changes. 5 CHF 6 diabetes mellitus 7 BPH 8 Parkinson's disease 9 obstructive sleep apnea 10 history of nephrolithiasis 11 history of peripheral neuropathy Plan: Continue current medical treatment, continue IV steroids, continue high flow oxygen, continue oral diuretics, will obtain follow-up chest x-ray in the morning, continue prophylactic dose of Lovenox, vitamins, zinc supplement, obtain a set of inflammatory markers, d-dimer in the morning, we'll continue to follow I performed a history & physical examination of the patient and discussed their management with my nurse practitioner, Martine Currie. I reviewed the nurse practitioner's note and agree with the documented findings and plan of care. Lung sounds are positive for management of sounds The findings and the impression was discussed with the patient. I attest to the documentation by the nurse practitioner. Time with Patient: Less than 30
[2020-08-27 16:52] LABS: Glucose,Whole Blood 187 mg/dL (75-99)
[2020-08-27 19:55] LABS: Glucose,Whole Blood 209 mg/dL (75-99)
[2020-08-28 06:17] LABS: Glucose,Whole Blood 129 mg/dL (75-99)
[2020-08-28] MEDS: LEVOTHYROXINE 75 MCG TAB PO SCH (06:24)
[2020-08-28] MEDS: carvediloL 6.25 MG TAB PO SCH ×2 (06:24→18:03)
[2020-08-28] MEDS: PANTOPRAZOLE 40 MG TABLET PO SCH (06:24)
[2020-08-28] MEDS: ALBUTEROL HFA INHALER INHALATION SCH ×4 (07:35→16:39)
--- NOTE | 2020-08-28 07:46 | XR ---
EXAMINATION TYPE: XR chest 1V portable DATE OF EXAM: 08/28/2020 COMPARISON: 08/26/2020 INDICATION: Covid 19 TECHNIQUE: Single frontal view of the chest is obtained. FINDINGS: The heart size is enlarged. The pulmonary vasculature is normal. Patchy infiltrates are through the bilateral lung chahal. Findings are worsening over the interval. IMPRESSION: 1. Worsening bilateral lung infiltrates can be compatible with atypical pneumonia.
[2020-08-28 08:19] LABS: C Reactive Protein 58.4 mg/L (<10.0)
--- NOTE | 2020-08-28 09:06 | P.PN ---
Subjective 80 years old male with multiple medical problems as below. He follows up in the [place] [facility]. Presents because of dyspnea and generalized weakness. Patient was complaining of from Raynaud's few days ago and he has been prescribed amoxicillin which helped him a little bit but then he developed significant weakness and fatigue over the last 3-4 days that his make him come to the hospital. He has history of COPD and he quit smoking in 1998, he follows up with Dr. Tol[place] is not on home oxygen however he says that he has mild dyspnea associated with chronic cough and brown greenish phlegm. He denies chest pain, but he has loose bowel movement about once daily no abdominal pain or vomiting No urinary complaints. He denies alcohol or illicit drugs. Vital signs stable, he is saturating 91% on 4 L oxygen via nasal cannula. He narayanan s had unremarkable labs including CBC, INR, BMP, liver enzymes. For his troponin is elevated at 0.05, 0.04, 0.03. EKG showed normal sinus rhythm at [address]-T changes, Q waves in lead 2, 3 and aVF, T wave inversion in the lateral blades V4-V6 Labs at [facility] showing normal sodium and potassium at 137 and 3.5 respectively, creatinine normal at 1.0, liver enzymes not elevated, bilirubin is normal 0.9, WT normal 6.9K, hemoglobin 16.6 and platelets 180 1K. Coronavirus was detected As per the records his been having shortness of breath for 10 days. And he checked his oxygen saturating at home it was 88%. He states that he is post to [place] by son and [id number] around Thanksgiving time. Chest x-ray report showed mild atelectasis. 08/24/2020 Patient awake and alert, he has more dyspnea. No chest pain. He still has fever, his respiratory status was worsened overnight and is currently on 15 L high flow oxygen via cannula with oxygen saturation 91-93%. Inflammatory markers LDH and C-reactive protein are the same or slightly worsened. He is followed closely by the pulmonary team and he is on dexamethasone, vitamin C, zinc and Zithromax Cardiology team evaluated the patient for elevated troponin and echocardiogram is reviewed with preserved LV function, and they signed off the case 08/25/2020 Patient remains on the 15 L high flow along with Ventimask. Patient is to have elevated inflammatory markers. Patient does have a congestive heart failure appears to be fairly euvolemic continue with the present regimen of heart failure medication patient blood pressure is low because of which I'll hold off on losartan temporarily will be resumed as soon as possible. 08/26/2020 Patient is presently on Airvo. Patient's is pretty status has worsened and patient is being transferred to ICU at this time. Patient the regarding heart failure scott appear to be euvolemic. Patient received a dose of Bumex today. Patient chest x-ray is consistent with a diffuse interstitial infiltrates. 08/27/2020 Patient is presently on 6 L of oxygen does look much better actually wanted to go home. Then 60 L of oxygen. 08/28/2020 X-ray today is showing some worsening of the infiltrate. Patient remains on about 60 L of oxygen no significant worsening clinically. Constitutional: Denied any fatigue denied any fever. Cardio vascular: denied any chest pain, palpitations Gastrointestinal denied any nausea vomiting Pulmonary: Denied any shortness of breath cough on high flow oxygen with airvo Neurologic denied any new focal deficits All inpatient medications were reviewed and appropriate changes in these medications as dictated in the interval history and assessment and plan. Objective - Vital Signs Vital signs: Vital Signs Temp 98.8 F 08/28/20 04:00 Pulse 65 08/28/20 04:00 Resp 16 08/28/20 04:00 BP 136/75 08/28/20 04:00 Pulse Ox 90 L 08/28/20 04:00 Intake & Output 08/27/20 08/28/20 08/28/20 18:59 06:59 18:59 Intake Total 580 Output Total 1800 925 Balance -1220 -925 Weight 159.3 kg 160 kg Intake: Oral 580 Output: Urine 1800 925 Uretheral (Madden) 600 225 Other: Voiding Method Indwelling Catheter Indwelling Catheter # Voids 0 - Exam PHYSICAL EXAMINATION: GENERAL: The patient is drowsy on airvo, not in any acute distress. Well developed, well nourished. HEENT: Pupils are round and equally reacting to light. EOMI. No scleral icterus. No conjunctival pallor. Normocephalic, atraumatic. No pharyngeal erythema. No thyromegaly. CARDIOVASCULAR: S1 and S2 present. No murmurs, rubs, or gallops. PULMONARY: Crackles bilaterally ABDOMEN: Soft, nontender, nondistended, normoactive bowel sounds. No palpable organomegaly. MUSCULOSKELETAL: No joint swelling or deformity. EXTREMITIES: No cyanosis, clubbing, or pedal edema. NEUROLOGICAL: Unable to assess at this time SKIN: No rashes. Note: Because of COVID 19 isolation, some of the history and physical exam findings are indirect and obtained from nursing staff, and other physician examinations to avoid unnecessary contact with the patient. - Labs CBC & Chem 7: 08/27/20 07:38 08/27/20 07:38 Labs: Abnormal Lab Results - Last 24 Hours (Table) 08/27/20 08/27/20 08/27/20 Range/Units 11:40 16:50 19:53 D-Dimer (<0.60) mg/L FEU POC Glucose (mg/dL) 262 H 187 H 209 H (75-99) mg/dL Lactate Dehydrogenase (313-618) U/L C-Reactive Protein (<10.0) mg/L 08/28/20 08/28/20 08/28/20 Range/Units 06:14 06:59 06:59 D-Dimer 2.24 H (<0.60) mg/L FEU POC Glucose (mg/dL) 129 H (75-99) mg/dL Lactate Dehydrogenase 1456 H (313-618) U/L C-Reactive Protein 58.4 H (<10.0) mg/L Microbiology - Last 24 Hours (Table) 08/25/20 10:55 Blood Culture - Preliminary Blood No Growth after 48 hours Assessment and Plan Plan: Acute hypoxic respiratory failure secondary to Covid 19 continue with respiratory support continue with Decadron, zinc, vitamin C, bronchodilator th erapy. Patient's respiratory status and was initiated on Airvo respiratory status is fairly stable compared to yesterday. Patient is presently on 60 L of oxygen. No significant improvement clinically chest x-ray showing worsening Elevated troponin, secondary to demand ischemia from pulmonary disease Diabetes mellitus blood sugars are well controlled. Hypertension Hyperlipidemia Osteoarthritis Chronic heart failure, chronic systolic dysfunction without any acute attacks of which patient is fairly will continue with oral Bumex, Aldactone and Coreg. Hold off on losartan temporarily because of hypotension Hypothyroidism Sleep apnea on CPAP/BiPAP Benign Prostatic hypertrophy Diabetic neuropathy Parkinson disease History of kidney stone Asthma, not an active issue GERD over all prognosis is extremely poor
[2020-08-28] MEDS: ENOXAPARIN 40 MG/0.4 ML SYRINGE SQ SCH (09:10)
[2020-08-28] MEDS: TAMSULOSIN 0.4 MG CAP.ER.24H PO SCH (09:11)
[2020-08-28] MEDS: CHOLECALCIFEROL 1,000 UNIT TAB PO SCH (09:11)
[2020-08-28] MEDS: ASCORBIC ACID 500 MG TAB PO SCH (09:11)
[2020-08-28] MEDS: ZINC SULFATE 220 MG CAP PO SCH (09:11)
[2020-08-28] MEDS: SPIRONOLACTONE 25 MG TAB PO SCH (09:11)
[2020-08-28] MEDS: ASPIRIN 81 MG PO SCH (09:11)
[2020-08-28] MEDS: dexAMETHasone 2 MG TAB PO SCH (09:11)
[2020-08-28] MEDS: BUMETANIDE 1 MG TAB PO SCH ×2 (09:11→21:41)
[2020-08-28] MEDS: ALPRAZolam 0.25 MG TAB PO SCH ×2 (09:11→21:11)
[2020-08-28] MEDS: ACETAMINOPHEN TAB 325 MG TAB PO PRN (09:25)
--- NOTE | 2020-08-28 10:01 | P.PN ---
Progress Note - Text Progress Note Date: 08/28/20 Rapid response was called due to severe dyspnea and hypoxia. O2 sats were dropping into the 80s on 60L airvo. Patient is still answering questions and oriented. He denied any pain. No nausea or vomiting. No fevers. His vitals revealed normal temp, BP 160/80, RR 35, HR 95, O2 sats 84% on 60L airvo. Lung exam with scattered crackles. No wheezing. Patient is already known to pulmonary service, he is being treated for covid pneumonia. He is currently on Decadron as well as ceftriaxone. 100% nonrebreather mask was applied and oxygen saturations came up to the upper 80s, lower 90s. Case was discussed with the nurses and the ICU staff, patient will be transferred to the ICU for further evaluation and management. Time for evaluation 34 min
[2020-08-28] MEDS: FLUTICASONE 50MCG/SPRAY NASAL 16GM EA NOSTRIL SCH (14:13)
--- NOTE | 2020-08-28 14:45 | P.PN ---
Subjective Progress Note Date: 08/28/20 Principal diagnosis: Acute hypoxic respiratory failure secondary to covid 19 pneumonitis. 80-year-old male patient who follows up at the [facility]. The patient presented to the emergency department because of generalized weakness and worsening shortness of breath. Apparently the patient was given antibiotics on outpatient basis without any help. He reported increased dyspnea and cough and sputum. Apparently, the patient has been having shortness of breath for almost 10 days. He stated that exposed to COVID 19 by his son and [id number] around [facility]. Patient went yesterday to [facility] where he was checked and he was tested positive for coronary/Covid 19 infection. Following that, he was brought to the hospital for further evaluation. Note that his main symptoms were fatigue, tiredness, loss of appetite, diminished oral intake and some incre ased shortness of breath. No nausea. No vomiting. No abdominal pain. No loss in the sense of taste and smell. He was having some symptoms of URI. Currently is on 2 by nasal cannula with a pulse is 91%. He does have some mild troponin leak with troponin being at 0.05 0.04-0.03 respectively with an EKG showing a normal sinus mechanism and some nonspecific T-wave inversions. Blood work from [place] or [facility] showed normal LFTs, white cell count of 6900, hemoglobin of 16.6, platelets of 1 80,000, and his sodium was at 137. The patient's LDH is at 982 and the CRP is a 59.5. Chest x-ray is showing some limited infiltration of the lung bases. On examination he has crackles in lung bases bilaterally. No altered mental status. The patient is currently on Decadron 6 mg by mouth daily. On 08/24/2020 patient seen in follow-up on selective care unit. He remains on Lovenox at prophylactic dose, oral Bumex, home dose at 1 mg twice daily, and oral Decadron 6 mg daily, maintenance on high flow oxygen, 15 L, his pulse ox is 91-94%, low-grade fever earlier today, his LDH has trended up, and is currently at 1275, LDH has come down some. His d-dimer currently is at 1.4, electrolytes are renal profile are unremarkable. pro Calcitonin level was low at 0.12 On 08/25/2020 patient seen in follow-up on selective care unit, he is awake and alert, he is on 15 L of oxygen, and at times she gets confused, sometimes removes the oxygen, on 15 L he sat about 92-93%. Today's chest x-ray shows worsening bilateral patchy infiltrates. Yesterday we transfused the patient with 2 units of convalescent plasma, is possible the patient has a component of fluid overload, and we'll start the patient on IV diuretics. Lung sounds reveal coarse inspiratory crackles in bilateral lungs, patient patient was spiking fevers with T-max of 103 this morning. We'll obtain blood cultures, and Sandostatin pro calcitonin level., The patient with Rocephin for empiric antibiotic coverage. On 08/26/2020 patient seen in follow-up on selective care unit, his reading worsened this morning, patient had to be placed on high flow oxygen, he is currently on Airvo at 60 l/min, and Fio2 of 93%, patient was given extra dose of IV Bumex this morning, stay chest x-ray was obtained showing patchy perihilar and basilar infiltrates. Blood gas was obtained last night, showed pO2 of 62, pCO2 of 35, and pH of 7.47, this was done and FiO2 of 100%. His LDH is significantly elevated at 2059, his CRP remains elevated and 60 over 0.4, AST is 75, ALT and alk phos are within normal limits, his electrolytes were unremarkable, B1 is 24 creatinine 0.72. His white cell count is 11.8, d-dimer is 1.4. Patient continues on IV Rocephin for empiric antibiotic coverage, he is on oral Decadron, he is on a prophylactic dose of Lovenox 40 mg daily. he was placed on high flow oxygen, he was ordered to transfer to the intensive care unit earlier this morning however he has been placed on high flow oxygen and appears to be more comfortable, also he started to diurese. On 08/27/2020 patient is seen in follow-up on selective care unit, he still remains on high flow oxygen per Airvo at 60 L and FiO2 of 90% and his pulse ox is ranging between 86-90%. We have not been able to wean his FiO2 down any further. He sitting up in the recliner, she is eating lunch, does not appear to be in any acute distress, denies any chest discomfort, he does have tachypnea, and he becomes very short of breath with any exertion, but overall seems to be breathing more comfortably than he did yesterday. His been afebrile, has not had any chest x-ray today, yesterday's chest x-ray showed patchy perihilar and bibasilar infiltrates. Patient continues on oral diuretics with Bumex 1 mg twice daily, is maintaining negative fluid balance, he is in -1.7 L of last 24 hours. he remains on empiric antibiotics in the form of Rocephin, patient was outside the window for Remdesivir treatment, received 2 units of convalescent plasma, last set of inflammatory markers revealed still significantly elevated LDH at 2059, and CRP was relatively stable at 64.4 Reevaluated today on 08/28/20, patient was transferred early this morning to the ICU, his O2 saturation dropped significantly this morning, and he was transferred to the ICU placed on BiPAP, and high flow oxygen. Ulman better shortly after he arrived to the ICU, and his O2 saturation is in the low 90s. Remains hemodynamically stable, denies any fever or chills, he has mostly cough. Cough is productive with whitish phlegm. D-dimer today is slightly up . WBC c ount is 10.6 hemoglobin is 16.2. Electrolytes are normal. Basic metabolic profile is normal. Renal profile is normal. LDH is coming down 1456 C-reactive protein is coming down 58.4. Patient did not receive remdesivir,, only because he was outside the window for treatment. He did receive however 2 units of convalescent plasma chest x-ray continues to show bilateral interstitial infiltrates quite extensive Objective - Vital Signs Vital signs: Vital Signs Temp 99.7 F H 08/28/20 13:05 Pulse 61 08/28/20 14:30 Resp 24 08/28/20 14:30 BP 144/78 08/28/20 14:30 Pulse Ox 88 L 08/28/20 14:30 Intake & Output 08/27/20 08/28/20 08/28/20 18:59 06:59 18:59 Intake Total 580 600 Output Total 1800 925 500 Balance -1220 -925 100 Weight 159.3 kg 160 kg Intake: Oral 580 600 Output: Urine 1800 925 500 Uretheral (Madden) 600 225 Other: Voiding Method Indwelling Catheter Indwelling Catheter Indwelling Catheter # Voids 0 0 # Bowel Movements 1 - Exam GENERAL EXAM: Alert, very pleasant, obese, on BiPAP, seems to be comfortable. HEAD: Normocephalic/atraumatic. EENT: Short obese neck, PERRLA, EOMI, no icterus, no neck masses, no JVD, no stridor. Moist mucous membranes. CHEST: No chest wall deformity. Symmetrical expansion. LUNGS: Fine crackles noted throughout bilaterally.. CVS: Distant S1 and S2, no S3 gallop. ABDOMEN: Obese, Soft, nontender. No hepatosplenomegaly, normal bowel sounds, no guarding or rigidity. EXTREMITIES: No clubbing, no edema, no cyanosis, 2+ pulses and upper and lower extremities. MUSCULOSKELETAL: Muscle strength and tone normal. SPINE: No scoliosis or deformity SKIN: No rashes CENTRAL NERVOUS SYSTEM: Alert oriented 3 focal deficits. PSYCHIATRIC: Normal mood affect and normal mental status examination. - Labs CBC & Chem 7: 08/27/20 07:38 08/27/20 07:38 Labs: Abnormal Lab Results - Last 24 Hours (Table) 08/27/20 08/27/20 08/28/20 Range/Units 16:50 19:53 06:14 D-Dimer (<0.60) mg/L FEU POC Glucose (mg/dL) 187 H 209 H 129 H (75-99) mg/dL Lactate Dehydrogenase (313-618) U/L C-Reactive Protein (<10.0) mg/L 08/28/20 08/28/20 Range/Units 06:59 06:59 D-Dimer 2.24 H (<0.60) mg/L FEU POC Glucose (mg/dL) (75-99) mg/dL Lactate Dehydrogenase 1456 H (313-618) U/L C-Reactive Protein 58.4 H (<10.0) mg/L Microbiology - Last 24 Hours (Table) 08/25/20 10:55 Blood Culture - Preliminary Blood No Growth after 72 hours Assessment and Plan Assessment: Impression: Acute hypoxic respiratory failure secondary to Covid 19 pneumonia. And ARDS. Patient was diagnosed on 08/22/20, he was exposed around Thanksgiving. Patient was transferred to the ICU this morning because of worsening oxygenation and desaturation. History of mild COPD FEV1 is 86%. History of coronary artery disease and previous CABG. Type 2 diabetes. Obstructive sleep apnea syndrome. History of Parkinson's disease. History of peripheral neuropathy. Recommendation: Continue present medical regimen including Covid 19 cocktail. Continue to titrate oxygen accordingly. Close monitoring in the ICU, may even require intubation and mechanical ventilation. Continue Decadron. Continue inhalers. Continue diuretics/Bumex. Continue Lovenox 40 mg subcu daily. Continue GI and DVT prophylaxis. Continue empiric antibiotics/Rocephin. We'll continue to follow. Critical care time is over 30 minutes. Time with Patient: Greater than 30
[2020-08-29 06:06] LABS: Basophils % (A) 0 %; Eosinophils # (A) 0.2 k/uL (0-0.7); Eosinophils % (A) 2 %; HCT 48.3 % (39.0-53.0); HGB 16.4 gm/dL (13.0-17.5); Lymphocytes # (A) 1.2 k/uL (1.0-4.8); Lymphocytes % (A) 12 %; MCH 29.2 pg (25.0-35.0); MCHC 33.8 g/dL (31.0-37.0); MCV 86.3 fL (80.0-100.0); Mean Platelet Volume 8.4; Monocytes # (A) 0.2 k/uL (0-1.0); Monocytes % (A) 2 %; Neutrophils # (A) 8.5 k/uL (1.3-7.7); Neutrophils % (A) 82 %; Platelet Count 385 k/uL (150-450); RDW 13.9 % (11.5-15.5); WBC 10.3 k/uL (3.8-10.6)
[2020-08-29 06:32] LABS: ALT 69 U/L (4-49); AST 57 U/L (17-59); African American GFR (CKD) >90 (>60 ml/min/1.73 sqM); Albumin 3.3 g/dL (3.5-5.0); Alkaline Phosphatase 85 U/L (38-126); Anion Gap 8 mmol/L; Blood Urea Nitrogen 22 mg/dL (9-20); C Reactive Protein 78.5 mg/L (<10.0); Calcium 8.5 mg/dL (8.4-10.2); Carbon Dioxide 25 mmol/L (22-30); Chloride 107 mmol/L (98-107); Glucose 134 mg/dL (74-99); Non-African American GFR(CKD) >90 (>60 ml/min/1.73 sqM); Sodium 140 mmol/L (137-145); Total Bilirubin 1.5 mg/dL (0.2-1.3); Total Protein 6.8 g/dL (6.3-8.2)
[2020-08-29] MEDS ORDERED: POTASSIUM CHLORIDE ER 20 MEQ TAB.ER PO STA (06:35)
[2020-08-29] MEDS: LEVOTHYROXINE 75 MCG TAB PO SCH (06:50)
[2020-08-29] MEDS: PANTOPRAZOLE 40 MG TABLET PO SCH (06:51)
[2020-08-29] MEDS: carvediloL 6.25 MG TAB PO SCH ×2 (06:51→17:32)
--- NOTE | 2020-08-29 07:18 | XR ---
EXAMINATION TYPE: XR chest 1V DATE OF EXAM: 08/29/2020 COMPARISON: 08/28/2020 HISTORY: Cough TECHNIQUE: Single frontal view of the chest is obtained. FINDINGS: Diffuse multifocal areas of infiltrate bilaterally. Heart enlarged. Postsurgical change. N o pneumothorax. IMPRESSION: Stable diffuse bilateral infiltrates.
[2020-08-29] MEDS: ALBUTEROL HFA INHALER INHALATION SCH ×4 (07:57→19:33)
[2020-08-29] MEDS: ASPIRIN 81 MG PO SCH (08:00)
[2020-08-29] MEDS: ALPRAZolam 0.25 MG TAB PO SCH ×2 (08:00→21:16)
[2020-08-29] MEDS: dexAMETHasone 2 MG TAB PO SCH (08:00)
[2020-08-29] MEDS: ZINC SULFATE 220 MG CAP PO SCH (08:00)
[2020-08-29] MEDS: ASCORBIC ACID 500 MG TAB PO SCH (08:00)
[2020-08-29] MEDS: CHOLECALCIFEROL 1,000 UNIT TAB PO SCH (08:01)
[2020-08-29] MEDS: TAMSULOSIN 0.4 MG CAP.ER.24H PO SCH (08:01)
[2020-08-29] MEDS: ENOXAPARIN 40 MG/0.4 ML SYRINGE SQ SCH (08:01)
[2020-08-29] MEDS: SPIRONOLACTONE 25 MG TAB PO SCH (08:01)
[2020-08-29] MEDS: FLUTICASONE 50MCG/SPRAY NASAL 16GM EA NOSTRIL SCH (08:30)
[2020-08-29] MEDS: BUMETANIDE 1 MG TAB PO SCH ×2 (08:30→21:16)
[2020-08-29] MEDS: FLUCONAZOLE 100 MG TAB PO SCH ×2 (09:55→21:16)
[2020-08-29] MEDS: NYSTATIN 100,000 UNIT/ML SUSP 500,000 UNIT/5 ML CUP PO SCH ×4 (09:55→21:16)
[2020-08-29 11:07] LABS: Glucose,Whole Blood 176 mg/dL (75-99)
--- NOTE | 2020-08-29 11:42 | P.PN ---
Subjective 80 years old male with multiple medical problems as below. He follows up in the [place] [facility]. Presents because of dyspnea and generalized weakness. Patient was complaining of from Raynaud's few days ago and he has been prescribed amoxicillin which helped him a little bit but then he developed significant weakness and fatigue over the last 3-4 days that his make him come to the hospital. He has history of COPD and he quit smoking in 1998, he follows up with Dr. [place] is not on home oxygen however he says that he has mild dyspnea associated with chronic cough and brown greenish phlegm. He denies chest pain, but he has loose bowel movement about once daily no abdominal pain or vomiting No urinary complaints. He denies alcohol or illicit drugs. Vital signs stable, he is saturating 91% on 4 L oxygen via nasal cannula. He narayanan s had unremarkable labs including CBC, INR, BMP, liver enzymes. For his troponin is elevated at 0.05, 0.04, 0.03. EKG showed normal sinus rhythm at [address]-T changes, Q waves in lead 2, 3 and aVF, T wave inversion in the lateral blades V4-V6 Labs at [facility] showing normal sodium and potassium at 137 and 3.5 respectively, creatinine normal at 1.0, liver enzymes not elevated, bilirubin is normal 0.9, WT normal 6.9K, hemoglobin 16.6 and platelets 180 1K. Coronavirus was detected As per the records his been having shortness of breath for 10 days. And he checked his oxygen saturating at home it was 88%. He states that he is post to [place] by son and [id number] around Thanksgiving time. Chest x-ray report showed mild atelectasis. 08/24/2020 Patient awake and alert, he has more dyspnea. No chest pain. He still has fever, his respiratory status was worsened overnight and is currently on 15 L high flow oxygen via cannula with oxygen saturation 91-93%. Inflammatory markers LDH and C-reactive protein are the same or slightly worsened. He is followed closely by the pulmonary team and he is on dexamethasone, vitamin C, zinc and Zithromax Cardiology team evaluated the patient for elevated troponin and echocardiogram is reviewed with preserved LV function, and they signed off the case 08/25/2020 Patient remains on the 15 L high flow along with Ventimask. Patient is to have elevated inflammatory markers. Patient does have a congestive heart failure appears to be fairly euvolemic continue with the present regimen of heart failure medication patient blood pressure is low because of which I'll hold off on losartan temporarily will be resumed as soon as possible. 08/26/2020 Patient is presently on Airvo. Patient's is pretty status has worsened and patient is being transferred to ICU at this time. Patient the regarding heart failure scott appear to be euvolemic. Patient received a dose of Bumex today. Patient chest x-ray is consistent with a diffuse interstitial infiltrates. 08/27/2020 Patient is presently on 6 L of oxygen does look much better actually wanted to go home. Then 60 L of oxygen. 08/28/2020 X-ray today is showing some worsening of the infiltrate. Patient remains on about 60 L of oxygen no significant worsening clinically. 08/29/2020 Patient chest x-ray still showing significant infiltrate bilaterally patient respiratory status remains the same inflammatory markers regularly d-dimer is bit worse and 4.5 today. Veins on 60 L of oxygen Constitutional: Denied any fatigue denied any fever. Cardio vascular: denied any chest pain, palpitations Gastrointestinal denied any nausea vomiting Pulmonary: Denied any shortness of breath cough on high flow oxygen with airvo Neurologic denied any new focal deficits All inpatient medications were reviewed and appropriate changes in these medications as dictated in the interval history and assessment and plan. Objective - Vital Signs Vital signs: Vital Signs Temp 98.1 F 08/29/20 08:00 Pulse 68 08/29/20 09:00 Resp 12 08/29/20 09:00 BP 117/83 08/29/20 09:00 Pulse Ox 89 L 08/29/20 09:00 Intake & Output 08/28/20 08/29/20 08/29/20 18:59 06:59 18:59 Intake Total 600 Output Total 855 885 45 Balance -255 -885 -45 Weight 105.7 kg Intake: Oral 600 Output: Urine 855 885 45 Other: Voiding Method Indwelling Catheter Indwelling Catheter Indwelling Catheter # Voids 0 # Bowel Movements 1 - Exam PHYSICAL EXAMINATION: GENERAL: The patient is drowsy on airvo, not in any acute distress. Well developed, well nourished. HEENT: Pupils are round and equally reacting to light. EOMI. No scleral icterus. No conjunctival pallor. Normocephalic, atraumatic. No pharyngeal erythema. No thyromegaly. CARDIOVASCULAR: S1 and S2 present. No murmurs, rubs, or gallops. PULMONARY: Crackles bilaterally ABDOMEN: Soft, nontender, nondistended, normoactive bowel sounds. No palpable organomegaly. MUSCULOSKELETAL: No joint swelling or deformity. EXTREMITIES: No cyanosis, clubbing, or pedal edema. NEUROLOGICAL: Unable to assess at this time SKIN: No rashes. Note: Because of COVID 19 isolation, some of the history and physical exam findings are indirect and obtained from nursing staff, and other physician examinations to avoid unnecessary contact with the patient. - Labs CBC & Chem 7: 08/29/20 05:53 08/29/20 05:53 Labs: Abnormal Lab Results - Last 24 Hours (Table) 08/29/20 08/29/20 08/29/20 Range/Units 04:51 05:53 05:53 Neutrophils # 8.5 H (1.3-7.7) k/uL Fibrinogen 610 H (200-500) mg/dL D-Dimer 4.92 H (<0.60) mg/L FEU BUN 22 H (9-20) mg/dL Glucose 134 H (74-99) mg/dL POC Glucose (mg/dL) (75-99) mg/dL Ferritin 1349.0 H (22.0-322.0) ng/mL Total Bilirubin 1.5 H (0.2-1.3) mg/dL ALT 69 H (4-49) U/L C-Reactive Protein 78.5 H (<10.0) mg/L Albumin 3.3 L (3.5-5.0) g/dL 08/29/20 Range/Units 11:05 Neutrophils # (1.3-7.7) k/uL Fibrinogen (200-500) mg/dL D-Dimer (<0.60) mg/L FEU BUN (9-20) mg/dL Glucose (74-99) mg/dL POC Glucose (mg/dL) 176 H (75-99) mg/dL Ferritin (22.0-322.0) ng/mL Total Bilirubin (0.2-1.3) mg/dL ALT (4-49) U/L C-Reactive Protein (<10.0) mg/L Albumin (3.5-5.0) g/dL Microbiology - Last 24 Hours (Table) 08/25/20 10:55 Blood Culture - Preliminary Blood No Growth after 72 hours Assessment and Plan Plan: Acute hypoxic respiratory failure secondary to Covid 19 continue with respiratory support continue with Decadron, zinc, vitamin C, bronchodilator therapy. Patient's respiratory status and was initiated on Airvo respiratory status is fairly stable compared to yesterday. Patient is presently on 60 L of oxygen. No significant improvement clinically chest x-ray showing worsening Elevated troponin, secondary to demand ischemia from pulmonary disease Diabetes mellitus blood sugars are well controlled. Hypertension Hyperlipidemia Osteoarthritis Chronic heart failure, chronic systolic dysfunction without any acute attacks of which patient is fairly will continue with oral Bumex, Aldactone and Coreg. Hold off on losartan temporarily because of hypotension Hypothyroidism Sleep apnea on CPAP/BiPAP Benign Prostatic hypertrophy Diabetic neuropathy Parkinson disease History of kidney stone Asthma, not an active issue GERD over all prognosis is extremely poor
[2020-08-29] MEDS: INSULIN ASPART (NovoLOG) 100 UNIT/ML VIAL SQ SCH ×3 (12:48→21:16)
--- NOTE | 2020-08-29 13:14 | P.PN ---
Subjective Progress Note Date: 08/29/20 Principal diagnosis: Acute hypoxic respiratory failure secondary to covid 19 pneumonitis. 80-year-old male patient who follows up at the [facility] clinic. The patient presented to the emergency department because of generalized weakness and worsening shortness of breath. Apparently the patient was given antibiotics on outpatient basis without any help. He reported increased dyspnea and cough and sputum. Apparently, the patient has been having shortness of breath for almost 10 days. He stated that exposed to COVID 19 by his son and [id number]-[id number]-yqu around [facility]. Patient went yesterday to [facility] where he was checked and he was tested positive for coronary/Covid 19 infection. Following that, he was brought to the hospital for further evaluation. Note that his main symptoms were fatigue, tiredness, loss of appetite, diminished oral intake and some incre ased shortness of breath. No nausea. No vomiting. No abdominal pain. No loss in the sense of taste and smell. He was having some symptoms of URI. Currently is on 2 by nasal cannula with a pulse is 91%. He does have some mild troponin leak with troponin being at 0.05 0.04-0.03 respectively with an EKG showing a normal sinus mechanism and some nonspecific T-wave inversions. Blood work from [place] or [facility] showed normal LFTs, white cell count of 6900, hemoglobin of 16.6, platelets of 1 80,000, and his sodium was at 137. The patient's LDH is at 982 and the CRP is a 59.5. Chest x-ray is showing some limited infiltration of the lung bases. On examination he has crackles in lung bases bilaterally. No altered mental status. The patient is currently on Decadron 6 mg by mouth daily. On 08/24/2020 patient seen in follow-up on selective care unit. He remains on Lovenox at prophylactic dose, oral Bumex, home dose at 1 mg twice daily, and oral Decadron 6 mg daily, maintenance on high flow oxygen, 15 L, his pulse ox is 91-94%, low-grade fever earlier today, his LDH has trended up, and is currently at 1275, LDH has come down some. His d-dimer currently is at 1.4, electrolytes are renal profile are unremarkable. pro Calcitonin level was low at 0.12 On 08/25/2020 patient seen in follow-up on selective care unit, he is awake and alert, he is on 15 L of oxygen, and at times she gets confused, sometimes removes the oxygen, on 15 L he sat about 92-93%. Today's chest x-ray shows worsening bilateral patchy infiltrates. Yesterday we transfused the patient with 2 units of convalescent plasma, is possible the patient has a component of fluid overload, and we'll start the patient on IV diuretics. Lung sounds reveal coarse inspiratory crackles in bilateral lungs, patient patient was spiking fevers with T-max of 103 this morning. We'll obtain blood cultures, and Sandostatin pro calcitonin level., The patient with Rocephin for empiric antibiotic coverage. On 08/26/2020 patient seen in follow-up on selective care unit, his reading worsened this morning, patient had to be placed on high flow oxygen, he is currently on Airvo at 60 l/min, and Fio2 of 93%, patient was given extra dose of IV Bumex this morning, stay chest x-ray was obtained showing patchy perihilar and basilar infiltrates. Blood gas was obtained last night, showed pO2 of 62, pCO2 of 35, and pH of 7.47, this was done and FiO2 of 100%. His LDH is significantly elevated at 2059, his CRP remains elevated and 60 over 0.4, AST is 75, ALT and alk phos are within normal limits, his electrolytes were unremarkable, B1 is 24 creatinine 0.72. His white cell count is 11.8, d-dimer is 1.4. Patient continues on IV Rocephin for empiric antibiotic coverage, he is on oral Decadron, he is on a prophylactic dose of Lovenox 40 mg daily. he was placed on high flow oxygen, he was ordered to transfer to the intensive care unit earlier this morning however he has been placed on high flow oxygen and appears to be more comfortable, also he started to diurese. On 08/27/2020 patient is seen in follow-up on selective care unit, he still remains on high flow oxygen per Airvo at 60 L and FiO2 of 90% and his pulse ox is ranging between 86-90%. We have not been able to wean his FiO2 down any further. He sitting up in the recliner, she is eating lunch, does not appear to be in any acute distress, denies any chest discomfort, he does have tachypnea, and he becomes very short of breath with any exertion, but overall seems to be breathing more comfortably than he did yesterday. His been afebrile, has not had any chest x-ray today, yesterday's chest x-ray showed patchy perihilar and bibasilar infiltrates. Patient continues on oral diuretics with Bumex 1 mg twice daily, is maintaining negative fluid balance, he is in -1.7 L of last 24 hours. he remains on empiric antibiotics in the form of Rocephin, patient was outside the window for Remdesivir treatment, received 2 units of convalescent plasma, last set of inflammatory markers revealed still significantly elevated LDH at 2059, and CRP was relatively stable at 64.4 Reevaluated today on 08/28/20, patient was transferred early this morning to the ICU, his O2 saturation dropped significantly this morning, and he was transferred to the ICU placed on BiPAP, and high flow oxygen. [place] better shortly after he arrived to the ICU, and his O2 saturation is in the low 90s. Remains hemodynamically stable, denies any fever or chills, he has mostly cough. Cough is productive with whitish phlegm. D-dimer today is slightly up . WBC c ount is 10.6 hemoglobin is 16.2. Electrolytes are normal. Basic metabolic profile is normal. Renal profile is normal. LDH is coming down 1456 C-reactive protein is coming down 58.4. Patient did not receive remdesivir,, only because he was outside the window for treatment. He did receive however 2 units of convalescent plasma chest x-ray continues to show bilateral interstitial infiltrates quite extensive Patient was reevaluated today on 08/29/20, remains in the ICU, remains on high FiO2, he is on 90% FiO2 and 60 L flow via airvo. Recommended BiPAP at night with IPAP of 14 and EPAP of 6, patient is known to have history of obstructive sleep apnea, and he desaturates easily while sleeping. Patient is also developing oropharyngeal thrush, I did recommend Diflucan and nystatin. He re beka on ceftriaxone empirically. Chest x-ray continues to show significant interstitial infiltrates bilaterally CBC is relatively normal basic metabolic profile is normal, ferritin is quite high at 1349. LDH yesterday was 1456. C- reactive protein today is 78.5 Objective - Vital Signs Vital signs: Vital Signs Temp 98.1 F 08/29/20 08:00 Pulse 65 08/29/20 11:00 Resp 37 H 08/29/20 11:00 BP 141/70 08/29/20 11:00 Pulse Ox 87 L 08/29/20 11:00 Intake & Output 08/28/20 08/29/20 08/29/20 18:59 06:59 18:59 Intake Total 600 Output Total 855 885 45 Balance -255 -885 -45 Weight 105.7 kg Intake: Oral 600 Output: Urine 855 885 45 Other: Voiding Method Indwelling Catheter Indwelling Catheter Indwelling Catheter # Voids 0 # Bowel Movements 1 - Exam GENERAL EXAM: Alert, very pleasant, obese, on airvo high FiO2 and high flow HEAD: Normocephalic/atraumatic. EENT: Short obese neck, PERRLA, EOMI, no icterus, no neck masses, no JVD, no stridor. Moist mucous membranes. CHEST: No chest wall deformity. Symmetrical expansion. LUNGS: Crackles and rhonchi bilaterally... CVS: Distant S1 and S2, no S3 gallop. ABDOMEN: Obese, Soft, nontender. No hepatosplenomegaly, normal bowel sounds, no guarding or rigidity. EXTREMITIES: No clubbing, no edema, no cyanosis, 2+ pulses and upper and lower extremities. MUSCULOSKELETAL: Muscle strength and tone normal. SPINE: No scoliosis or deformity SKIN: No rashes CENTRAL NERVOUS SYSTEM: Alert oriented 3 focal deficits. PSYCHIATRIC: Normal mood affect and normal mental status examination. - Labs CBC & Chem 7: 08/29/20 05:53 08/29/20 05:53 Labs: Abnormal Lab Results - Last 24 Hours (Table) 08/29/20 08/29/20 08/29/20 Range/Units 04:51 05:53 05:53 Neutrophils # 8.5 H (1.3-7.7) k/uL Fibrinogen 610 H (200-500) mg/dL D-Dimer 4.92 H (<0.60) mg/L FEU BUN 22 H (9-20) mg/dL Glucose 134 H (74-99) mg/dL POC Glucose (mg/dL) (75-99) mg/dL Ferritin 1349.0 H (22.0-322.0) ng/mL Total Bilirubin 1.5 H (0.2-1.3) mg/dL ALT 69 H (4-49) U/L C-Reactive Protein 78.5 H (<10.0) mg/L Albumin 3.3 L (3.5-5.0) g/dL 08/29/20 Range/Units 11:05 Neutrophils # (1.3-7.7) k/uL Fibrinogen (200-500) mg/dL D-Dimer (<0.60) mg/L FEU BUN (9-20) mg/dL Glucose (74-99) mg/dL POC Glucose (mg/dL) 176 H (75-99) mg/dL Ferritin (22.0-322.0) ng/mL Total Bilirubin (0.2-1.3) mg/dL ALT (4-49) U/L C-Reactive Protein (<10.0) mg/L Albumin (3.5-5.0) g/dL Microbiology - Last 24 Hours (Table) 08/25/20 10:55 Blood Culture - Preliminary Blood No Growth after 72 hours Assessment and Plan Assessment: Impression: Acute hypoxic respiratory failure secondary to Covid 19 pneumonia. And ARDS. Patient was diagnosed on 08/22/20, he was exposed around Thanksgiving. Transferred to ICU on 08/28/20 History of mild COPD FEV1 is 86%. History of coronary artery disease and previous CABG. Type 2 diabetes. Obstructive sleep apnea syndrome. Patient will likely benefit from BiPAP at night. History of Parkinson's disease. History of peripheral neuropathy. Recommendation: Continue present medical regimen including Covid 19 cocktail. Continue to titrate oxygen accordingly. Close monitoring in the ICU, may even require intubation and mechanical ventilation. Continue Decadron. Continue inhalers. Continue diuretics/Bumex. Continue Lovenox 40 mg subcu daily. Continue GI and DVT prophylaxis. Continue empiric antibiotics/Rocephin. Critical care time is over 30 minutes. We'll follow closely while in ICU. Time with Patient: Greater than 30
[2020-08-29 17:01] LABS: Glucose,Whole Blood 192 mg/dL (75-99)
[2020-08-29 20:53] LABS: Glucose,Whole Blood 159 mg/dL (75-99)
[2020-08-30 03:58] LABS: Basophils # (A) 0.2 k/uL (0-0.2); Basophils % (A) 1 %; Eosinophils # (A) 0.1 k/uL (0-0.7); Eosinophils % (A) 1 %; HCT 45.4 % (39.0-53.0); HGB 15.6 gm/dL (13.0-17.5); Lymphocytes % (A) 8 %; MCH 29.7 pg (25.0-35.0); MCHC 34.4 g/dL (31.0-37.0); MCV 86.4 fL (80.0-100.0); Mean Platelet Volume 8.4; Monocytes # (A) 0.3 k/uL (0-1.0); Monocytes % (A) 2 %; Neutrophils # (A) 10.5 k/uL (1.3-7.7); Neutrophils % (A) 86 %; Platelet Count 368 k/uL (150-450); RBC 5.25 m/uL (4.30-5.90); RDW 13.5 % (11.5-15.5); WBC 12.2 k/uL (3.8-10.6)
[2020-08-30 04:21] LABS: C Reactive Protein 79.3 mg/L (<10.0)
[2020-08-30 06:54] LABS: Glucose,Whole Blood 121 mg/dL (75-99)
[2020-08-30] MEDS: INSULIN ASPART (NovoLOG) 100 UNIT/ML VIAL SQ SCH ×4 (07:08→20:30)
[2020-08-30] MEDS: LEVOTHYROXINE 75 MCG TAB PO SCH (07:10)
[2020-08-30] MEDS: PANTOPRAZOLE 40 MG TABLET PO SCH (07:10)
[2020-08-30] MEDS: carvediloL 6.25 MG TAB PO SCH ×2 (07:10→17:36)
--- NOTE | 2020-08-30 07:28 | XR ---
EXAMINATION TYPE: XR chest 1V DATE OF EXAM: 08/30/2020 HISTORY: Shortness of breath. COMPARISON: 08/29/2020 TECHNIQUE: Single view of the chest is submitted. FINDINGS: Demonstrated are scattered senescent parenchymal change. Bilateral airspace infiltrates remain unchanged. The heart is stable. Hilar and mediastinal structures are within normal limits. Degenerative changes are seen of the dorsal spine. IMPRESSION: 1. Bilateral airspace infiltrates remain unchanged.
[2020-08-30] MEDS: ALBUTEROL HFA INHALER INHALATION SCH ×4 (07:47→19:30)
[2020-08-30 08:17] LABS: ALT 79 U/L (4-49); AST 61 U/L (17-59); African American GFR (CKD) >90 (>60 ml/min/1.73 sqM); Albumin 3.1 g/dL (3.5-5.0); Alkaline Phosphatase 86 U/L (38-126); Anion Gap 9 mmol/L; Blood Urea Nitrogen 26 mg/dL (9-20); Calcium 8.8 mg/dL (8.4-10.2); Carbon Dioxide 24 mmol/L (22-30); Chloride 107 mmol/L (98-107); Glucose 128 mg/dL (74-99); Non-African American GFR(CKD) >90 (>60 ml/min/1.73 sqM); Potassium 4.5 mmol/L (3.5-5.1); Sodium 140 mmol/L (137-145); Total Bilirubin 1.3 mg/dL (0.2-1.3); Total Protein 6.7 g/dL (6.3-8.2)
[2020-08-30] MEDS: CHOLECALCIFEROL 1,000 UNIT TAB PO SCH (08:44)
[2020-08-30] MEDS: ASCORBIC ACID 500 MG TAB PO SCH (08:44)
[2020-08-30] MEDS: dexAMETHasone 2 MG TAB PO SCH (08:44)
[2020-08-30] MEDS: ZINC SULFATE 220 MG CAP PO SCH (08:44)
[2020-08-30] MEDS: ASPIRIN 81 MG PO SCH (08:44)
[2020-08-30] MEDS: SPIRONOLACTONE 25 MG TAB PO SCH (08:45)
[2020-08-30] MEDS: ALPRAZolam 0.25 MG TAB PO SCH ×3 (08:45→22:11)
[2020-08-30] MEDS: FLUCONAZOLE 100 MG TAB PO SCH ×2 (08:45→21:31)
[2020-08-30] MEDS: ENOXAPARIN 40 MG/0.4 ML SYRINGE SQ SCH (08:45)
[2020-08-30] MEDS: TAMSULOSIN 0.4 MG CAP.ER.24H PO SCH (08:45)
[2020-08-30] MEDS: FLUTICASONE 50MCG/SPRAY NASAL 16GM EA NOSTRIL SCH (08:46)
[2020-08-30] MEDS: BUMETANIDE 1 MG TAB PO SCH ×2 (08:46→21:30)
[2020-08-30] MEDS: NYSTATIN 100,000 UNIT/ML SUSP 500,000 UNIT/5 ML CUP PO SCH ×4 (08:47→21:30)
--- NOTE | 2020-08-30 09:32 | P.PN ---
Subjective 80 years old male with multiple medical problems as below. He [facility] in the [place] [facility]. Presents because of dyspnea and generalized weakness. Patient was complaining of from Raynaud's few days ago and he has been prescribed amoxicillin which helped him a little bit but then he developed significant weakness and fatigue over the last 3-4 days that his make him come to the hospital. He has history of COPD and he quit smoking in 1998, he follows up with Dr. [place] is not on home oxygen however he says that he has mild dyspnea associated with chronic cough and brown greenish phlegm. He denies chest pain, but he has loose bowel movement about once daily no abdominal pain or vomiting No urinary complaints. He denies alcohol or illicit drugs. Vital signs stable, he is saturating 91% on 4 L oxygen via nasal cannula. He narayanan s had unremarkable labs including CBC, INR, BMP, liver enzymes. For his troponin is elevated at 0.05, 0.04, 0.03. EKG showed normal sinus rhythm at [address]-T changes, Q waves in lead 2, 3 and aVF, T wave inversion in the lateral blades V4-V6 Labs at [facility] showing normal sodium and potassium at 137 and 3.5 respectively, creatinine normal at 1.0, liver enzymes not elevated, bilirubin is normal 0.9, WT normal 6.9K, hemoglobin 16.6 and platelets 180 1K. Coronavirus was detected As per the records his been having shortness of breath for 10 days. And he checked his oxygen saturating at home it was 88%. He states that he is post to [place] by son and [id number] around Thanksgiving time. Chest x-ray report showed mild atelectasis. 08/24/2020 Patient awake and alert, he has more dyspnea. No chest pain. He still has fever, his respiratory status was worsened overnight and is currently on 15 L high flow oxygen via cannula with oxygen saturation 91-93%. Inflammatory markers LDH and C-reactive protein are the same or slightly worsened. He is followed closely by the pulmonary team and he is on dexamethasone, vitamin C, zinc and Zithromax Cardiology team evaluated the patient for elevated troponin and echocardiogram is reviewed with preserved LV function, and they signed off the case 08/25/2020 Patient remains on the 15 L high flow along with Ventimask. Patient is to have elevated inflammatory markers. Patient does have a congestive heart failure appears to be fairly euvolemic continue with the present regimen of heart failure medication patient blood pressure is low because of which I'll hold off on losartan temporarily will be resumed as soon as possible. 08/26/2020 Patient is presently on Airvo. Patient's is pretty status has worsened and patient is being transferred to ICU at this time. Patient the regarding heart failure scott appear to be euvolemic. Patient received a dose of Bumex today. Patient chest x-ray is consistent with a diffuse interstitial infiltrates. 08/27/2020 Patient is presently on 6 L of oxygen does look much better actually wanted to go home. Then 60 L of oxygen. 08/28/2020 X-ray today is showing some worsening of the infiltrate. Patient remains on about 60 L of oxygen no significant worsening clinically. 08/29/2020 Patient chest x-ray still showing significant infiltrate bilaterally patient respiratory status remains the same inflammatory markers regularly d-dimer is bit worse and 4.5 today. patient on 60 L of oxygen Constitutional: Denied any fatigue denied any fever. Cardio vascular: denied any chest pain, palpitations Gastrointestinal denied any nausea vomiting Pulmonary: Denied any shortness of breath cough on high flow oxygen with airvo Neurologic denied any new focal deficits All inpatient medications were reviewed and appropriate changes in these medications as dictated in the interval history and assessment and plan. Objective - Vital Signs Vital signs: Vital Signs Temp 98.2 F 08/30/20 04:00 Pulse 53 L 08/30/20 07:00 Resp 23 08/30/20 07:00 BP 121/80 08/30/20 07:00 Pulse Ox 92 L 08/30/20 07:00 Intake & Output 08/29/20 08/30/20 08/30/20 18:59 06:59 18:59 Intake Total 50 Output Total 650 1110 60 Balance -600 -1110 -60 Weight 105 kg Intake: Intake, IV Titration 50 Amount cefTRIAXone 1 gm In 50 Sodium Chloride 0.9% 50 ml @ 100 mls/hr IVPB Q24HR [facility] Rx#:[id number] Output: Urine 650 1110 60 Other: Voiding Method Indwelling Catheter Indwelling Catheter - Exam PHYSICAL EXAMINATION: GENERAL: The patient is drowsy on airvo, not in any acute distress. Well deve loped, well nourished. HEENT: Pupils are round and equally reacting to light. EOMI. No scleral icterus. No conjunctival pallor. Normocephalic, atraumatic. No pharyngeal erythema. No thyromegaly. CARDIOVASCULAR: S1 and S2 present. No murmurs, rubs, or gallops. PULMONARY: Crackles bilaterally ABDOMEN: Soft, nontender, nondistended, normoactive bowel sounds. No palpable organomegaly. MUSCULOSKELETAL: No joint swelling or deformity. EXTREMITIES: No cyanosis, clubbing, or pedal edema. NEUROLOGICAL: Unable to assess at this time SKIN: No rashes. Note: Because of [facility] 19 isolation, some of the history and physical exam findings are indirect and obtained from nursing staff, and other physician examinations to avoid unnecessary contact with the patient. - Labs CBC & Chem 7: 08/30/20 03:41 08/30/20 03:41 Labs: Abnormal Lab Results - Last 24 Hours (Table) 08/29/20 08/29/20 08/29/20 Range/Units 05:53 11:05 16:59 WBC (3.8-10.6) k/uL Neutrophils # (1.3-7.7) k/uL Fibrinogen (200-500) mg/dL BUN (9-20) mg/dL Glucose (74-99) mg/dL POC Glucose (mg/dL) 176 H 192 H (75-99) mg/dL Ferritin 1349.0 H (22.0-322.0) ng/mL AST (17-59) U/L ALT (4-49) U/L C-Reactive Protein (<10.0) mg/L Albumin (3.5-5.0) g/dL 08/29/20 08/30/20 08/30/20 Range/Units 20:52 03:41 03:41 WBC 12.2 H (3.8-10.6) k/uL Neutrophils # 10.5 H (1.3-7.7) k/uL Fibrinogen 809 H (200-500) mg/dL BUN (9-20) mg/dL Glucose (74-99) mg/dL POC Glucose (mg/dL) 159 H (75-99) mg/dL Ferritin (22.0-322.0) ng/mL AST (17-59) U/L ALT (4-49) U/L C-Reactive Protein (<10.0) mg/L Albumin (3.5-5.0) g/dL 08/30/20 08/30/20 08/30/20 Range/Units 03:41 03:41 06:53 WBC (3.8-10.6) k/uL Neutrophils # (1.3-7.7) k/uL Fibrinogen (200-500) mg/dL BUN 26 H (9-20) mg/dL Glucose 128 H (74-99) mg/dL POC Glucose (mg/dL) 121 H (75-99) mg/dL Ferritin (22.0-322.0) ng/mL AST 61 H (17-59) U/L ALT 79 H (4-49) U/L C-Reactive Protein 79.3 H (<10.0) mg/L Albumin 3.1 L (3.5-5.0) g/dL Microbiology - Last 24 Hours (Table) 08/25/20 10:55 Blood Culture - Preliminary Blood No Growth after 96 hours Assessment and Plan Plan: Acute hypoxic respiratory failure secondary to Covid 19 continue with respiratory support continue with Decadron, zinc, vitamin C, bronchodilator therapy. Patient's respiratory status and was initiated on Airvo respiratory status is fairly stable compared to yesterday. Patient is presently on 60 L of oxygen. No significant improvement clinically chest x-ray showing worsening Elevated troponin, secondary to demand ischemia from pulmonary disease Diabetes mellitus blood sugars are well controlled. Hypertension Hyperlipidemia Osteoarthritis Chronic heart failure, chronic systolic dysfunction without any acute attacks of which patient is fairly will continue with oral Bumex, Aldactone and Coreg. Hol d off on losartan temporarily because of hypotension Hypothyroidism Sleep apnea on CPAP/BiPAP Benign Prostatic hypertrophy Diabetic neuropathy Parkinson disease History of kidney stone Asthma, not an active issue GERD over all prognosis is extremely poor
[2020-08-30 11:31] LABS: Ferritin 1414.6 ng/mL (22.0-322.0)
[2020-08-30 11:38] LABS: Glucose,Whole Blood 223 mg/dL (75-99)
--- NOTE | 2020-08-30 14:42 | P.PN ---
Subjective Progress Note Date: 08/30/20 Principal diagnosis: Acute hypoxic respiratory failure secondary to covid 19 pneumonitis. 80-year-old male patient who follows up at the [place] [facility]. The patient presented to the emergency department because of generalized weakness and worsening shortness of breath. Apparently the patient was given antibiotics on outpatient basis without any help. He reported increased dyspnea and cough and sputum. Apparently, the patient has been having shortness of breath for almost 10 days. He stated that exposed to COVID 19 by his son and [id number] around [facility]. Patient went yesterday to [facility] where he was checked and he was tested positive for coronary/Covid 19 infection. Following that, he was brought to the hospital for further evaluation. Note that his main symptoms were fatigue, tiredness, loss of appetite, diminished oral intake and some incre ased shortness of breath. No nausea. No vomiting. No abdominal pain. No loss in the sense of taste and smell. He was having some symptoms of URI. Currently is on 2 by nasal cannula with a pulse is 91%. He does have some mild troponin leak with troponin being at 0.05 0.04-0.03 respectively with an EKG showing a normal sinus mechanism and some nonspecific T-wave inversions. Blood work from [facility] or [facility] showed normal LFTs, white cell count of 6900, hemoglobin of 16.6, platelets of 1 80,000, and his sodium was at 137. The patient's LDH is at 982 and the CRP is a 59.5. Chest x-ray is showing some limited infiltration of the lung bases. On examination he has crackles in lung bases bilaterally. No altered mental status. The patient is currently on Decadron 6 mg by mouth daily. On 08/24/2020 patient seen in follow-up on selective care unit. He remains on Lovenox at prophylactic dose, oral Bumex, home dose at 1 mg twice daily, and oral Decadron 6 mg daily, maintenance on high flow oxygen, 15 L, his pulse ox is 91-94%, low-grade fever earlier today, his LDH has trended up, and is currently at 1275, LDH has come down some. His d-dimer currently is at 1.4, electrolytes are renal profile are unremarkable. pro Calcitonin level was low at 0.12 On 08/25/2020 patient seen in follow-up on selective care unit, he is awake and alert, he is on 15 L of oxygen, and at times she gets confused, sometimes removes the oxygen, on 15 L he sat about 92-93%. Today's chest x-ray shows worsening bilateral patchy infiltrates. Yesterday we transfused the patient with 2 units of convalescent plasma, is possible the patient has a component of fluid overload, and we'll start the patient on IV diuretics. Lung sounds reveal coarse inspiratory crackles in bilateral lungs, patient patient was spiking fevers with T-max of 103 this morning. We'll obtain blood cultures, and Sandostatin pro calcitonin level., The patient with Rocephin for empiric antibiotic coverage. On 08/26/2020 patient seen in follow-up on selective care unit, his reading worsened this morning, patient had to be placed on high flow oxygen, he is currently on Airvo at 60 l/min, and Fio2 of 93%, patient was given extra dose of IV Bumex this morning, stay chest x-ray was obtained showing patchy perihilar and basilar infiltrates. Blood gas was obtained last night, showed pO2 of 62, pCO2 of 35, and pH of 7.47, this was done and FiO2 of 100%. His LDH is significantly elevated at 2059, his CRP remains elevated and 60 over 0.4, AST is 75, ALT and alk phos are within normal limits, his electrolytes were unremarkable, B1 is 24 creatinine 0.72. His white cell count is 11.8, d-dimer is 1.4. Patient continues on IV Rocephin for empiric antibiotic coverage, he is on oral Decadron, he is on a prophylactic dose of Lovenox 40 mg daily. he was placed on high flow oxygen, he was ordered to transfer to the intensive care unit earlier this morning however he has been placed on high flow oxygen and appears to be more comfortable, also he started to diurese. On 08/27/2020 patient is seen in follow-up on selective care unit, he still remains on high flow oxygen per Airvo at 60 L and FiO2 of 90% and his pulse ox is ranging between 86-90%. We have not been able to wean his FiO2 down any further. He sitting up in the recliner, she is eating lunch, does not appear to be in any acute distress, denies any chest discomfort, he does have tachypnea, and he becomes very short of breath with any exertion, but overall seems to be breathing more comfortably than he did yesterday. His been afebrile, has not had any chest x-ray today, yesterday's chest x-ray showed patchy perihilar and bibasilar infiltrates. Patient continues on oral diuretics with Bumex 1 mg twice daily, is maintaining negative fluid balance, he is in -1.7 L of last 24 hours. he remains on empiric antibiotics in the form of Rocephin, patient was outside the window for Remdesivir treatment, received 2 units of convalescent plasma, last set of inflammatory markers revealed still significantly elevated LDH at 2059, and CRP was relatively stable at 64.4 Reevaluated today on 08/28/20, patient was transferred early this morning to the ICU, his O2 saturation dropped significantly this morning, and he was transferred to the ICU placed on BiPAP, and high flow oxygen. [place] better shortly after he arrived to the ICU, and his O2 saturation is in the low 90s. Remains hemodynamically stable, denies any fever or chills, he has mostly cough. Cough is productive with whitish phlegm. D-dimer today is slightly up . WBC c ount is 10.6 hemoglobin is 16.2. Electrolytes are normal. Basic metabolic profile is normal. Renal profile is normal. LDH is coming down 1456 C-reactive protein is coming down 58.4. Patient did not receive remdesivir,, only because he was outside the window for treatment. He did receive however 2 units of convalescent plasma chest x-ray continues to show bilateral interstitial infiltrates quite extensive Patient was reevaluated today on 08/29/20, remains in the ICU, remains on high FiO2, he is on 90% FiO2 and 60 L flow via airvo. Recommended BiPAP at night with IPAP of 14 and EPAP of 6, patient is known to have history of obstructive sleep apnea, and he desaturates easily while sleeping. Patient is also developing oropharyngeal thrush, I did recommend Diflucan and nystatin. He re beka on ceftriaxone empirically. Chest x-ray continues to show significant interstitial infiltrates bilaterally CBC is relatively normal basic metabolic profile is normal, ferritin is quite high at 1349. LDH yesterday was 1456. C- reactive protein today is 78.5 Patient was reevaluated today on 08/30/20, remains in the ICU, he is on high flowairvo, FiO2 of 90%, and flow rate of 60 L/m, patient had to be placed on BiPAP last night. And today he is on non-rebreather mask, and on airvo. Surpri singly the patient seems to be doing well clinically, chest x-ray continues to show bilateral interstitial infiltrates, patient denies being short of breath, intermittent cough but no wheezing, and no chest pain. No significant change noted on the chest x-ray. And clinically the patient is about the same. C- reactive protein is about the same at 79.3. Ferritin level is 1414. No LDH done today. Last LDH yesterday was 1456, and seems to be trending down compared to a few days ago. Objective - Vital Signs Vital signs: Vital Signs Temp 97.9 F 08/30/20 12:00 Pulse 56 L 08/30/20 13:00 Resp 32 H 08/30/20 13:00 BP 132/77 08/30/20 13:00 Pulse Ox 93 L 08/30/20 13:00 Intake & Output 08/29/20 08/30/20 08/30/20 18:59 06:59 18:59 Intake Total 50 Output Total 650 1110 340 Balance -600 -1110 -340 Weight 105 kg Intake: Intake, IV Titration 50 Amount cefTRIAXone 1 gm In 50 Sodium Chloride 0.9% 50 ml @ 100 mls/hr IVPB Q24HR [facility] Rx#:[id number] Output: Urine 650 1110 340 Other: Voiding Method Indwelling Catheter Indwelling Catheter Indwelling Catheter - Exam GENERAL EXAM: Alert, very pleasant, obese, on airvo high FiO2 and high flow at 60 L/m. HEAD: Normocephalic/atraumatic. EENT: Short obese neck, PERRLA, EOMI, no icterus, no neck masses, no JVD, no stridor. Moist mucous membranes. CHEST: No chest wall deformity. Symmetrical expansion. LUNGS: Crackles and rhonchi bilaterally... CVS: Distant S1 and S2, no S3 gallop. ABDOMEN: Obese, Soft, nontender. No hepatosplenomegaly, normal bowel sounds, no guarding or rigidity. EXTREMITIES: No clubbing, no edema, no cyanosis, 2+ pulses and upper and lower extremities. MUSCULOSKELETAL: Muscle strength and tone normal. SPINE: No scoliosis or deformity SKIN: No rashes CENTRAL NERVOUS SYSTEM: Alert oriented 3 focal deficits. PSYCHIATRIC: Normal mood affect and normal mental status examination. - Labs CBC & Chem 7: 08/30/20 03:41 08/30/20 03:41 Labs: Abnormal Lab Results - Last 24 Hours (Table) 08/29/20 08/29/20 08/30/20 Range/Units 16:59 20:52 03:41 WBC (3.8-10.6) k/uL Neutrophils # (1.3-7.7) k/uL Fibrinogen (200-500) mg/dL BUN (9-20) mg/dL Glucose (74-99) mg/dL POC Glucose (mg/dL) 192 H 159 H (75-99) mg/dL Hemoglobin A1c 6.8 H (4.0-6.0) % Ferritin (22.0-322.0) ng/mL AST (17-59) U/L ALT (4-49) U/L C-Reactive Protein (<10.0) mg/L Albumin (3.5-5.0) g/dL 08/30/20 08/30/20 08/30/20 Range/Units 03:41 03:41 03:41 WBC 12.2 H (3.8-10.6) k/uL Neutrophils # 10.5 H (1.3-7.7) k/uL Fibrinogen 809 H (200-500) mg/dL BUN (9-20) mg/dL Glucose (74-99) mg/dL POC Glucose (mg/dL) (75-99) mg/dL Hemoglobin A1c (4.0-6.0) % Ferritin 1414.6 H (22.0-322.0) ng/mL AST (17-59) U/L ALT (4-49) U/L C-Reactive Protein 79.3 H (<10.0) mg/L Albumin (3.5-5.0) g/dL 08/30/20 08/30/20 08/30/20 Range/Units 03:41 06:53 11:36 WBC (3.8-10.6) k/uL Neutrophils # (1.3-7.7) k/uL Fibrinogen (200-500) mg/dL BUN 26 H (9-20) mg/dL Glucose 128 H (74-99) mg/dL POC Glucose (mg/dL) 121 H 223 H (75-99) mg/dL Hemoglobin A1c (4.0-6.0) % Ferritin (22.0-322.0) ng/mL AST 61 H (17-59) U/L ALT 79 H (4-49) U/L C-Reactive Protein (<10.0) mg/L Albumin 3.1 L (3.5-5.0) g/dL Microbiology - Last 24 Hours (Table) 08/25/20 10:55 Blood Culture - Preliminary Blood No Growth after 120 hours Assessment and Plan Assessment: Impression: Acute hypoxic respiratory failure secondary to Covid 19 pneumonia. And ARDS. Patient was diagnosed on 08/22/20, he was exposed around Thanksgiving. Transferred to ICU on 08/28/20, missed therapeutic window for remdwsivir History of mild COPD FEV1 is 86%. History of coronary artery disease and previous CABG. Type 2 diabetes. Obstructive sleep apnea syndrome. Patient will likely benefit from BiPAP at night. History of Parkinson's disease. History of peripheral neuropathy. Recommendation: Continue present medical regimen including Covid 19 cocktail. Continue to titrate oxygen accordingly. Close monitoring in the ICU, will try to avoid intubation and mechanical ventilation if possible. Continue Decadron. Continue inhalers. Continue diuretics/Bumex. Continue Lovenox 40 mg subcu daily. Continue GI and DVT prophylaxis. Continue empiric antibiotics/Rocephin. We'll follow closely while in ICU. Time with Patient: Less than 30
[2020-08-30 16:54] LABS: Glucose,Whole Blood 189 mg/dL (75-99)
[2020-08-30 20:24] LABS: Glucose,Whole Blood 130 mg/dL (75-99)
[2020-08-31 04:17] LABS: Basophils % (A) 0 %; Eosinophils # (A) 0.1 k/uL (0-0.7); Eosinophils % (A) 1 %; HCT 45.6 % (39.0-53.0); HGB 15.4 gm/dL (13.0-17.5); Lymphocytes % (A) 9 %; MCH 29.6 pg (25.0-35.0); MCHC 33.9 g/dL (31.0-37.0); MCV 87.5 fL (80.0-100.0); Mean Platelet Volume 8.5; Monocytes # (A) 0.4 k/uL (0-1.0); Monocytes % (A) 4 %; Neutrophils # (A) 9.6 k/uL (1.3-7.7); Neutrophils % (A) 86 %; Platelet Count 412 k/uL (150-450); RDW 13.6 % (11.5-15.5); WBC 11.2 k/uL (3.8-10.6)
[2020-08-31 04:31] LABS: ALT 99 U/L (4-49); AST 62 U/L (17-59); African American GFR (CKD) >90 (>60 ml/min/1.73 sqM); Alkaline Phosphatase 97 U/L (38-126); Anion Gap 5 mmol/L; Blood Urea Nitrogen 28 mg/dL (9-20); C Reactive Protein 61.9 mg/L (<10.0); Calcium 8.8 mg/dL (8.4-10.2); Carbon Dioxide 28 mmol/L (22-30); Chloride 105 mmol/L (98-107); Glucose 133 mg/dL (74-99); Non-African American GFR(CKD) 87 (>60 ml/min/1.73 sqM); Potassium 4.8 mmol/L (3.5-5.1); Sodium 138 mmol/L (137-145); Total Bilirubin 1.2 mg/dL (0.2-1.3); Total Protein 6.6 g/dL (6.3-8.2)
[2020-08-31 06:32] LABS: Glucose,Whole Blood 117 mg/dL (75-99)
[2020-08-31] MEDS: INSULIN ASPART (NovoLOG) 100 UNIT/ML VIAL SQ SCH ×4 (06:38→20:38)
[2020-08-31] MEDS: LEVOTHYROXINE 75 MCG TAB PO SCH (06:39)
[2020-08-31] MEDS: carvediloL 6.25 MG TAB PO SCH ×2 (06:39→17:46)
[2020-08-31] MEDS: PANTOPRAZOLE 40 MG TABLET PO SCH (06:57)
--- NOTE | 2020-08-31 07:17 | XR ---
EXAMINATION TYPE: XR chest 1V portable DATE OF EXAM: 08/31/2020 HISTORY: Shortness of breath. COMPARISON: 08/30/2020 TECHNIQUE: Single view of the chest is submitted. FINDINGS: Demonstrated are scattered senescent parenchymal change. Patchy airspace infiltrates persist throughout both lung chahal. There appears to be interval progres la. The heart is stable. Hilar and mediastinal structures are within normal limits. Degenerative changes are seen of the dorsal spine. IMPRESSION: 1. Patchy airspace infiltrates persist throughout both lung chahal. There appears to be interval pro gression.
[2020-08-31] MEDS: ALBUTEROL HFA INHALER INHALATION SCH ×4 (07:35→20:08)
[2020-08-31] MEDS: ENOXAPARIN 40 MG/0.4 ML SYRINGE SQ SCH (08:36)
[2020-08-31] MEDS: ASPIRIN 81 MG PO SCH (08:36)
[2020-08-31] MEDS: dexAMETHasone 2 MG TAB PO SCH (08:36)
[2020-08-31] MEDS: CHOLECALCIFEROL 1,000 UNIT TAB PO SCH (08:37)
[2020-08-31] MEDS: FLUCONAZOLE 100 MG TAB PO SCH ×2 (08:37→20:38)
[2020-08-31] MEDS: ASCORBIC ACID 500 MG TAB PO SCH (08:37)
[2020-08-31] MEDS: SPIRONOLACTONE 25 MG TAB PO SCH (08:37)
[2020-08-31] MEDS: TAMSULOSIN 0.4 MG CAP.ER.24H PO SCH (08:37)
[2020-08-31] MEDS: ALPRAZolam 0.25 MG TAB PO SCH ×2 (08:37→20:37)
[2020-08-31] MEDS: BUMETANIDE 1 MG TAB PO SCH ×2 (08:37→20:38)
[2020-08-31] MEDS: ZINC SULFATE 220 MG CAP PO SCH (08:37)
[2020-08-31] MEDS: NYSTATIN 100,000 UNIT/ML SUSP 500,000 UNIT/5 ML CUP PO SCH (08:38)
[2020-08-31] MEDS: FLUTICASONE 50MCG/SPRAY NASAL 16GM EA NOSTRIL SCH (08:53)
--- NOTE | 2020-08-31 09:35 | P.PN ---
Subjective Progress Note Date: 08/30/20 80 years old male with multiple medical problems as below. He follows up in the [place] [facility]. Presents because of dyspnea and generalized weakness. Patient was complaining of from Raynaud's few days ago and he has been prescribed amoxicillin which helped him a little bit but then he developed signi ficant weakness and fatigue over the last 3-4 days that his make him come to the hospital. He has history of COPD and he quit smoking in 1998, he follows up with Dr. [place] is not on home oxygen however he says that he has mild dyspnea associated with chronic cough and brown greenish phlegm. He denies chest pain, but he has loose bowel movement about once daily no abdominal pain or vomiting No urinary complaints. He denies alcohol or illicit drugs. Vital signs stable, he is saturating 91% on 4 L oxygen via nasal cannula. He has had unremarkable labs including CBC, INR, BMP, liver enzymes. For his troponin is elevated at 0.05, 0.04, 0.03. EKG showed normal sinus rhythm at [address]-T changes, Q waves in lead 2, 3 and aVF, T wave inversion in the lateral blades V4-V6 Labs at [facility] showing normal sodium and potassium at 137 and 3.5 respectively, creatinine normal at 1.0, liver enzymes not elevated, bilirubin is normal 0.9, WT normal 6.9K, hemoglobin 16.6 and platelets 180 1K. Coronavirus was detected As per the records his been having shortness of breath for 10 days. And he checked his oxygen saturating at home it was 88%. He states that he is post to [place] by son and [id number] around Thanksgiving time. Chest x-ray report showed mild atelectasis. 08/24/2020 Patient awake and alert, he has more dyspnea. No chest pain. He still has fever, his respiratory status was worsened overnight and is currently on 15 L high flow oxygen via cannula with oxygen saturation 91-93%. Inflammatory markers LDH and C-reactive protein are the same or slightly worsened. He is followed closely by the pulmonary team and he is on dexamethasone, vitamin C, zinc and Zithromax Cardiology team evaluated the patient for elevated troponin and echocardiogram is reviewed with preserved LV function, and they signed off the case 08/25/2020 Patient remains on the 15 L high flow along with Ventimask. Patient is to have elevated inflammatory markers. Patient does have a congestive heart failure appears to be fairly euvolemic continue with the present regimen of heart failure medication patient blood pressure is low because of which I'll hold off on losartan temporarily will be resumed as soon as possible. 08/26/2020 Patient is presently on Airvo. Patient's is pretty status has worsened and patient is being transferred to ICU at this time. Patient the regarding heart failure scott appear to be euvolemic. Patient received a dose of Bumex today. Patient chest x-ray is consistent with a diffuse interstitial infiltrates. 08/27/2020 Patient is presently on 6 L of oxygen does look much better actually wanted to go home. Then 60 L of oxygen. 08/28/2020 X-ray today is showing some worsening of the infiltrate. Patient remains on about 60 L of oxygen no significant worsening clinically. 08/29/2020 Patient chest x-ray still showing significant infiltrate bilaterally patient respiratory status remains the same inflammatory markers regularly d-dimer is bit worse and 4.5 today. Veins on 60 L of O2 08/30/2020 Patient remains on 60 airvo L of oxygen via airvo and vent mask Constitutional: Denied any fatigue denied any fever. Cardio vascular: denied any chest pain, palpitations Gastrointestinal denied any nausea vomiting Pulmonary: Denied any shortness of breath cough on high flow oxygen with airvo Neurologic denied any new focal deficits All inpatient medications were reviewed and appropriate changes in these medications as dictated in the interval history and assessment and plan. Objective - Vital Signs Vital signs: Vital Signs Temp 97.8 F 08/31/20 08:00 Pulse 57 L 08/31/20 09:00 Resp 28 H 08/31/20 09:00 BP 121/83 08/31/20 09:00 Pulse Ox 88 L 08/31/20 09:00 Intake & Output 08/30/20 08/31/20 08/31/20 18:59 06:59 18:59 Intake Total 300 250 Output Total 640 1430 150 Balance -640 -1130 100 Weight 103.419 kg Intake: Oral 300 250 Output: Urine 640 1430 150 Other: Voiding Method Indwelling Catheter Indwelling Catheter Indwelling Catheter - Exam PHYSICAL EXAMINATION: GENERAL: The patient is drowsy on airvo, not in any acute distress. Well developed, well nourished. HEENT: Pupils are round and equally reacting to light. EOMI. No scleral icterus. No conjunctival pallor. Normocephalic, atraumatic. No pharyngeal erythema. No thyromegaly. CARDIOVASCULAR: S1 and S2 present. No murmurs, rubs, or gallops. PULMONARY: Crackles bilaterally ABDOMEN: Soft, nontender, nondistended, normoactive bowel sounds. No palpable organomegaly. MUSCULOSKELETAL: No joint swelling or deformity. EXTREMITIES: No cyanosis, clubbing, or pedal edema. NEUROLOGICAL: Unable to assess at this time SKIN: No rashes. Note: Because of [facility] 19 isolation, some of the history and physical exam findings are indirect and obtained from nursing staff, and other physician examinations to avoid unnecessary contact with the patient. - Labs CBC & Chem 7: 08/31/20 03:28 08/31/20 03:28 Labs: Abnormal Lab Results - Last 24 Hours (Table) 08/30/20 08/30/20 08/30/20 Range/Units 03:41 03:41 11:36 WBC (3.8-10.6) k/uL Neutrophils # (1.3-7.7) k/uL D-Dimer (<0.60) mg/L FEU BUN (9-20) mg/dL Glucose (74-99) mg/dL POC Glucose (mg/dL) 223 H (75-99) mg/dL Hemoglobin A1c 6.8 H (4.0-6.0) % Ferritin 1414.6 H (22.0-322.0) ng/mL AST (17-59) U/L ALT (4-49) U/L C-Reactive Protein (<10.0) mg/L Albumin (3.5-5.0) g/dL 08/30/20 08/30/20 08/31/20 Range/Units 16:53 20:23 03:28 WBC (3.8-10.6) k/uL Neutrophils # (1.3-7.7) k/uL D-Dimer (<0.60) mg/L FEU BUN 28 H (9-20) mg/dL Glucose 133 H (74-99) mg/dL POC Glucose (mg/dL) 189 H 130 H (75-99) mg/dL Hemoglobin A1c (4.0-6.0) % Ferritin (22.0-322.0) ng/mL AST 62 H (17-59) U/L ALT 99 H (4-49) U/L C-Reactive Protein 61.9 H (<10.0) mg/L Albumin 3.0 L (3.5-5.0) g/dL 08/31/20 08/31/20 08/31/20 Range/Units 03:28 03:28 06:30 WBC 11.2 H (3.8-10.6) k/uL Neutrophils # 9.6 H (1.3-7.7) k/uL D-Dimer 16.91 H (<0.60) mg/L FEU BUN (9-20) mg/dL Glucose (74-99) mg/dL POC Glucose (mg/dL) 117 H (75-99) mg/dL Hemoglobin A1c (4.0-6.0) % Ferritin (22.0-322.0) ng/mL AST (17-59) U/L ALT (4-49) U/L C-Reactive Protein (<10.0) mg/L Albumin (3.5-5.0) g/dL Microbiology - Last 24 Hours (Table) 08/25/20 10:55 Blood Culture - Preliminary Blood No Growth after 120 hours Assessment and Plan Plan: Acute hypoxic respiratory failure secondary to Covid 19 continue with respiratory support continue with Decadron, zinc, vitamin C, bronchodilator therapy. Patient's respiratory status and was initiated on Airvo respiratory status is fairly stable compared to yesterday. Patient is presently on 60 L of oxygen. No significant improvement clinically chest x-ray showing worsening Elevated troponin, secondary to demand ischemia from pulmonary disease Diabetes mellitus blood sugars are well controlled. Hypertension Hyperlipidemia Osteoarthritis Chronic heart failure, chronic systolic dysfunction without any acute attacks of which patient is fairly will continue with oral Bumex, Aldactone and Coreg. Hold off on losartan temporarily because of hypotension Hypothyroidism Sleep apnea on CPAP/BiPAP Benign Prostatic hypertrophy Diabetic neuropathy Parkinson disease History of kidney stone Asthma, not an active issue GERD over all prognosis is extremely poor
--- NOTE | 2020-08-31 09:38 | P.PN ---
Subjective 80 years old male with multiple medical problems as below. He follows up in the [place] [facility]. Presents because of dyspnea and generalized weakness. Patient was complaining of from Raynaud's few days ago and he has been prescribed amoxicillin which helped him a little bit but then he developed significant weakness and fatigue over the last 3-4 days that his make him come to the hospital. He has history of COPD and he quit smoking in 1998, he follows up with Dr. Toledo is not on home oxygen however he says that he has mild dyspnea associated with chronic cough and brown greenish phlegm. He denies chest pain, but he has loose bowel movement about once daily no abdominal pain or vomiting No urinary complaints. He denies alcohol or illicit drugs. Vital signs stable, he is saturating 91% on 4 L oxygen via nasal cannula. He narayanan s had unremarkable labs including CBC, INR, BMP, liver enzymes. For his troponin is elevated at 0.05, 0.04, 0.03. EKG showed normal sinus rhythm at [address]-T changes, Q waves in lead 2, 3 and aVF, T wave inversion in the lateral blades V4-V6 Labs at [facility] showing normal sodium and potassium at 137 and 3.5 respectively, creatinine normal at 1.0, liver enzymes not elevated, bilirubin is normal 0.9, WT normal 6.9K, hemoglobin 16.6 and platelets 180 1K. Coronavirus was detected As per the records his been having shortness of breath for 10 days. And he checked his oxygen saturating at home it was 88%. He states that he is post to [place] by son and [id number] around Thanksgiving time. Chest x-ray report showed mild atelectasis. 08/24/2020 Patient awake and alert, he has more dyspnea. No chest pain. He still has fever, his respiratory status was worsened overnight and is currently on 15 L high flow oxygen via cannula with oxygen saturation 91-93%. Inflammatory markers LDH and C-reactive protein are the same or slightly worsened. He is followed closely by the pulmonary team and he is on dexamethasone, vitamin C, zinc and Zithromax Cardiology team evaluated the patient for elevated troponin and echocardiogram is reviewed with preserved LV function, and they signed off the case 08/25/2020 Patient remains on the 15 L high flow along with Ventimask. Patient is to have elevated inflammatory markers. Patient does have a congestive heart failure appears to be fairly euvolemic continue with the present regimen of heart failure medication patient blood pressure is low because of which I'll hold off on losartan temporarily will be resumed as soon as possible. 08/26/2020 Patient is presently on Airvo. Patient's is pretty status has worsened and patient is being transferred to ICU at this time. Patient the regarding heart failure scott appear to be euvolemic. Patient received a dose of Bumex today. Patient chest x-ray is consistent with a diffuse interstitial infiltrates. 08/27/2020 Patient is presently on 6 L of oxygen does look much better actually wanted to go home. Then 60 L of oxygen. 08/28/2020 X-ray today is showing some worsening of the infiltrate. Patient remains on about 60 L of oxygen no significant worsening clinically. 08/29/2020 Patient chest x-ray still showing significant infiltrate bilaterally patient respiratory status remains the same inflammatory markers regularly d-dimer is bit worse and 4.5 today. Veins on 60 L of O2 08/30/2020 Patient remains on 60 airvo L of oxygen via airvo and vent mask 08/31/2020 Patient remains on 60 L and Ventimask as well. Patient to d-dimer went up to around 16 because of which patient was started on anticoagulation dose of Lovenox. Patient kidney function is good. Constitutional: Denied any fatigue denied any fever. Cardio vascular: denied any chest pain, palpitations Gastrointestinal denied any nausea vomiting Pulmonary: Denied any shortness of breath cough on high flow oxygen with airvo Neurologic denied any new focal deficits All inpatient medications were reviewed and appropriate changes in these medications as dictated in the interval history and assessment and plan. Objective - Vital Signs Vital signs: Vital Signs Temp 97.8 F 08/31/20 08:00 Pulse 57 L 08/31/20 09:00 Resp 28 H 08/31/20 09:00 BP 121/83 08/31/20 09:00 Pulse Ox 88 L 08/31/20 09:00 Intake & Output 08/30/20 08/31/20 08/31/20 18:59 06:59 18:59 Intake Total 300 250 Output Total 640 1430 150 Balance -640 -1130 100 Weight 103.419 kg Intake: Oral 300 250 Output: Urine 640 1430 150 Other: Voiding Method Indwelling Catheter Indwelling Catheter Indwelling Catheter - Exam PHYSICAL EXAMINATION: GENERAL: The patient is drowsy on airvo, not in any acute distress. Well developed, well nourished. HEENT: Pupils are round and equally reacting to light. EOMI. No scleral icterus. No conjunctival pallor. Normocephalic, atraumatic. No pharyngeal erythema. No thyromegaly. CARDIOVASCULAR: S1 and S2 present. No murmurs, rubs, or gallops. PULMONARY: Clear to auscultation without any crackles ABDOMEN: Soft, nontender, nondistended, normoactive bowel sounds. No palpable organomegaly. MUSCULOSKELETAL: No joint swelling or deformity. EXTREMITIES: No cyanosis, clubbing, or pedal edema. NEUROLOGICAL: Unable to assess at this time SKIN: No rashes. Note: Because of COVID 19 isolation, some of the history and physical exam findings are indirect and obtained from nursing staff, and other physician examinations to avoid unnecessary contact with the patient. - Labs CBC & Chem 7: 08/31/20 03:28 08/31/20 03:28 Labs: Abnormal Lab Results - Last 24 Hours (Table) 08/30/20 08/30/20 08/30/20 Range/Units 03:41 03:41 11:36 WBC (3.8-10.6) k/uL Neutrophils # (1.3-7.7) k/uL D-Dimer (<0.60) mg/L FEU BUN (9-20) mg/dL Glucose (74-99) mg/dL POC Glucose (mg/dL) 223 H (75-99) mg/dL Hemoglobin A1c 6.8 H (4.0-6.0) % Ferritin 1414.6 H (22.0-322.0) ng/mL AST (17-59) U/L ALT (4-49) U/L C-Reactive Protein (<10.0) mg/L Albumin (3.5-5.0) g/dL 08/30/20 08/30/20 08/31/20 Range/Units 16:53 20:23 03:28 WBC (3.8-10.6) k/uL Neutrophils # (1.3-7.7) k/uL D-Dimer (<0.60) mg/L FEU BUN 28 H (9-20) mg/dL Glucose 133 H (74-99) mg/dL POC Glucose (mg/dL) 189 H 130 H (75-99) mg/dL Hemoglobin A1c (4.0-6.0) % Ferritin (22.0-322.0) ng/mL AST 62 H (17-59) U/L ALT 99 H (4-49) U/L C-Reactive Protein 61.9 H (<10.0) mg/L Albumin 3.0 L (3.5-5.0) g/dL 08/31/20 08/31/20 08/31/20 Range/Units 03:28 03:28 06:30 WBC 11.2 H (3.8-10.6) k/uL Neutrophils # 9.6 H (1.3-7.7) k/uL D-Dimer 16.91 H (<0.60) mg/L FEU BUN (9-20) mg/dL Glucose (74-99) mg/dL POC Glucose (mg/dL) 117 H (75-99) mg/dL Hemoglobin A1c (4.0-6.0) % Ferritin (22.0-322.0) ng/mL AST (17-59) U/L ALT (4-49) U/L C-Reactive Protein (<10.0) mg/L Albumin (3.5-5.0) g/dL Microbiology - Last 24 Hours (Table) 08/25/20 10:55 Blood Culture - Preliminary Blood No Growth after 120 hours Assessment and Plan Plan: Acute hypoxic respiratory failure secondary to Covid 19 continue with respiratory support continue with Decadron, zinc, vitamin C, bronchodilator therapy. Patient's respiratory status and was initiated on Airvo respiratory status is fairly stable compared to yesterday. Patient is presently on 60 L of oxygen. No significant improvement clinically chest x-ray showing worsening d-dimer is highly elevated to 16 patient was started on 100 mg twice a day of Lovenox. Elevated troponin, secondary to demand ischemia from pulmonary disease Diabetes mellitus blood sugars are well controlled. Hypertension Hyperlipidemia Osteoarthritis Chronic heart failure, chronic systolic dysfunction without any acute attacks of which patient is fairly will continue with oral Bumex, Aldactone and Coreg. Hold off on losartan temporarily because of hypotension Hypothyroidism Sleep apnea on CPAP/BiPAP Benign Prostatic hypertrophy Diabetic neuropathy Parkinson disease History of kidney stone Asthma, not an active issue GERD over all prognosis is extremely poor
[2020-08-31 11:33] LABS: Ferritin 1464.2 ng/mL (22.0-322.0)
[2020-08-31 11:56] LABS: Glucose,Whole Blood 201 mg/dL (75-99)
--- NOTE | 2020-08-31 12:07 | PN ---
PROGRESS NOTE PULMONARY/CRITICAL CARE PROGRESS NOTE: DATE OF SERVICE: 08/31/2020 Critical care time 31 minute. This is a 80-year-old gentleman who was admitted on August 22. He was transferred down from [facility]. He was positive for COVID-19 pneumonia. He also developed acute hypoxemic respiratory failure. Currently, he is on AIRVO at 60 L/minute with a FiO2 of 90%. He is not receiving any IV fluids. In addition to the AIRVO device, he has a non-rebreather mask in place. Clinically, he looks reasonably stable. His chest x-ray does show bilateral interstitial infiltrates. He is quite hypoxemic, still having to use both AIRVO and the non-rebreather. Inflammatory markers have been measured. The patient did receive the usual medications including vitamin D3, vitamin C, zinc, and Decadron. Current vital signs are reviewed. Temperature 97.8, heart rate 51, respiratory rate 27, blood pressure 110/66 mean 80, saturations are 93% on the AIRVO at 60 L/minute and FiO2 90% along with a non-rebreather mask. There is mild tachypnea. No conversational dyspnea. No audible wheezing. No use of accessory muscles. HEENT: Examination is grossly unremarkable. NECK: Supple, full range of motion. No adenopathy. Neck veins are flat. CARDIOVASCULAR: Examination reveals regular rhythm and rate. S1, S2 normal. No S3, S4, or murmur. LUNGS: Reveal diffuse coarse rhonchi. Some bibasilar crackles. No wheezes. ABDOMEN: Soft, bowel sounds are heard. EXTREMITIES: Intact. No cyanosis, clubbing, or significant edema. Skin without rash. NEUROLOGIC: Examination is nonfocal. LABS: Reviewed. White count 11.2, hemoglobin 15.4, hematocrit 45.6, platelet count 412,000. D-dimer 16.91. Sodium 138, potassium 4.8, chloride is 105, CO2 is 28, anion gap is 5. BUN and creatinine were 28 and 0.77. AST was 62, ALT 99. C-reactive protein was 61.9. Microbiologic studies including blood cultures were negative. A chest x-ray dated August 31 shows patchy bilateral airspace disease. Chest x-ray is essentially unchanged in my opinion. MEDICATIONS: Reviewed. The patient is currently on Tylenol, albuterol inhaler, Xanax, vitamin C, aspirin, Bumex, Coreg, Rocephin, vitamin D3, Decadron, Lovenox, which was recently increased because of his elevated D-dimer, fluconazole, Flonase nasal spray, insulin, levothyroxine, Narcan, nystatin, Protonix, Aldactone, Flomax and zinc. ASSESSMENT: 1. Acute hypoxemic respiratory failure secondary to COVID-19 pneumonia/pneumonitis, with acute lung injury. 2. History of mild COPD, FEV1 is 86% of predicted. 3. History of coronary artery disease with previous bypass grafting. 4. Type 2 diabetes mellitus. 5. Sleep apnea syndrome, stable. 6. History of Parkinson's disease. 7. Peripheral neuropathy secondary to diabetes. PLAN: The patient remains on AIRVO at 60 L/minute, FiO2 of 90%. Also, the patient is on a non-rebreather mask. The patient is not receiving any IV fluids. The patient was admitted on August 22. He came to the ICU on 08/28. He was thought not to be a candidate for Remdesivir. Will continue to follow. Unnecessary medications will be discontinued. Prognosis is guarded. Critical care time 31 minutes. MMODL / IJN: [id number] /
[2020-08-31 16:29] LABS: Glucose,Whole Blood 164 mg/dL (75-99)
[2020-08-31 20:27] LABS: Glucose,Whole Blood 193 mg/dL (75-99)
[2020-08-31] MEDS: ENOXAPARIN 100 MG/ML SYRINGE SQ SCH (20:37)
[2020-09-01 05:44] LABS: Basophils % (A) 0 %; Eosinophils % (A) 0 %; HCT 45.4 % (39.0-53.0); HGB 15.3 gm/dL (13.0-17.5); Lymphocytes # (A) 1.1 k/uL (1.0-4.8); Lymphocytes % (A) 11 %; MCH 29.5 pg (25.0-35.0); MCHC 33.6 g/dL (31.0-37.0); MCV 87.5 fL (80.0-100.0); Mean Platelet Volume 8.2; Monocytes # (A) 0.3 k/uL (0-1.0); Monocytes % (A) 3 %; Neutrophils # (A) 8.2 k/uL (1.3-7.7); Neutrophils % (A) 84 %; Platelet Count 419 k/uL (150-450); RBC 5.19 m/uL (4.30-5.90); RDW 13.6 % (11.5-15.5); WBC 9.7 k/uL (3.8-10.6)
[2020-09-01 05:52] LABS: ALT 101 U/L (4-49); AST 52 U/L (17-59); African American GFR (CKD) >90 (>60 ml/min/1.73 sqM); Albumin 3.1 g/dL (3.5-5.0); Alkaline Phosphatase 88 U/L (38-126); Anion Gap 9 mmol/L; Blood Urea Nitrogen 30 mg/dL (9-20); C Reactive Protein 32.2 mg/L (<10.0); Calcium 8.2 mg/dL (8.4-10.2); Carbon Dioxide 25 mmol/L (22-30); Chloride 100 mmol/L (98-107); Creatine Kinase <20 U/L (55-170); Glucose 122 mg/dL (74-99); LDH 1072 U/L (313-618); Non-African American GFR(CKD) >90 (>60 ml/min/1.73 sqM); Potassium 4.7 mmol/L (3.5-5.1); Sodium 134 mmol/L (137-145); Total Bilirubin 1.2 mg/dL (0.2-1.3); Total Protein 6.8 g/dL (6.3-8.2)
[2020-09-01] MEDS: INSULIN ASPART (NovoLOG) 100 UNIT/ML VIAL SQ SCH ×4 (06:02→20:32)
[2020-09-01] MEDS: carvediloL 6.25 MG TAB PO SCH ×2 (06:10→17:26)
[2020-09-01] MEDS: PANTOPRAZOLE 40 MG TABLET PO SCH (06:11)
[2020-09-01] MEDS: LEVOTHYROXINE 75 MCG TAB PO SCH (06:11)
--- NOTE | 2020-09-01 07:30 | XR ---
EXAMINATION TYPE: XR chest 1V portable DATE OF EXAM: 09/01/2020 COMPARISON: Prior chest x-ray 08/31/2020 HISTORY: Covid pneumonia TECHNIQUE: Single frontal view of the chest is obtained. FINDINGS: Bilateral airspace disease is again noted similar to prior exam. Patient is post median st ernotomy. Heart size is stable. Aorta is dense. Lung volumes are low. No evident pneumothorax or siza ble effusion. IMPRESSION: Findings consistent with patient's history of Covid pneumonia. Additional follow-up jamar mmended.
[2020-09-01] MEDS: ALBUTEROL HFA INHALER INHALATION SCH ×4 (07:48→21:02)
[2020-09-01] MEDS: ALPRAZolam 0.25 MG TAB PO SCH ×2 (08:23→20:32)
[2020-09-01] MEDS: CHOLECALCIFEROL 1,000 UNIT TAB PO SCH (08:23)
[2020-09-01] MEDS: ASPIRIN 81 MG PO SCH (08:23)
[2020-09-01] MEDS: TAMSULOSIN 0.4 MG CAP.ER.24H PO SCH (08:23)
[2020-09-01] MEDS: dexAMETHasone 2 MG TAB PO SCH (08:23)
[2020-09-01] MEDS: BUMETANIDE 1 MG TAB PO SCH ×2 (08:23→20:32)
[2020-09-01] MEDS: SPIRONOLACTONE 25 MG TAB PO SCH (08:23)
[2020-09-01] MEDS: FLUCONAZOLE 100 MG TAB PO SCH ×2 (08:24→20:32)
[2020-09-01] MEDS: ENOXAPARIN 100 MG/ML SYRINGE SQ SCH ×2 (08:24→20:32)
[2020-09-01] MEDS: ZINC SULFATE 220 MG CAP PO SCH (08:24)
[2020-09-01] MEDS: ASCORBIC ACID 500 MG TAB PO SCH (08:24)
[2020-09-01] MEDS: FLUTICASONE 50MCG/SPRAY NASAL 16GM EA NOSTRIL SCH (08:28)
[2020-09-01 10:23] LABS: Ferritin 1401.1 ng/mL (22.0-322.0)
--- NOTE | 2020-09-01 11:56 | PN ---
PROGRESS NOTE PULMONARY/CRITICAL CARE PROGRESS NOTE: DATE OF SERVICE: September 01, 2020 CRITICAL CARE TIME: 32 minutes. A 80-year-old male who was admitted on August 22. He was transferred down from [facility]. He was positive for COVID-19 pneumonia. He also developed acute hypoxemic respiratory failure. Currently, he is on AIRVO at 60 L/minute with a FiO2 of 91%. Also, he is using a non-rebreather on and off. His saturations while on the AIRVO are only in the mid 80s. He does not appear to be particularly short of breath though. The patient's chest x-ray does show bilateral diffuse patchy infiltrates. Anyway, the patient is doing about the same as he did yesterday. No better, no worse. He is not receiving any IV fluids. Currently, he is on all usual medications including vitamin C, vitamin D3, zinc, and Decadron. PHYSICAL EXAMINATION: VITAL SIGNS: Current vital signs are reviewed. Temperature 97.7, heart rate 50, respiratory rate 22, blood pressure 113/67, mean 82, saturations are 92%. GENERAL: Appears in no acute distress. HEENT: Examination is grossly unremarkable. NECK: Supple. Full range of motion. No adenopathy. Neck veins are flat. CARDIOVASCULAR: Examination reveals regular rhythm and rate. S1, S2 normal. No S3, S4, or murmur. Heart rate about 60. LUNGS: Reveal diffuse coarse bilateral rhonchi. No wheezes or crackles. Breath sounds equal. ABDOMEN: Soft. Bowel sounds are heard. EXTREMITIES: Are intact. No significant edema. No cyanosis or clubbing. SKIN: Without rash. NEUROLOGIC: Examination is nonfocal. LABS: Labs are reviewed. White count 9.7, hemoglobin 15.3, hematocrit 45.4, platelet count 419,000. Sodium 134, potassium 4.7, chloride 100, CO2 of 25. Anion gap is 9. BUN and creatinine were 30 and 0.62. Calcium 8.2. Ferritin 1401. ALT 101. LDH 1072 and C- reactive protein 32.2. Microbiology is all negative. Chest x-ray done today shows diffuse bilateral patchy infiltrates. It is essentially unchanged. MEDICATIONS: Medications are reviewed. Currently, the patient is on Tylenol, albuterol inhaler, Xanax, vitamin C, aspirin, Bumex, Coreg, vitamin D3, Lovenox, fluconazole, Flonase nasal spray, insulin, levothyroxine, Narcan, Protonix, Aldactone, Flomax and zinc. ASSESSMENT: 1. Acute hypoxemic respiratory failure, secondary to COVID-19 pneumonia/pneumonitis with acute lung injury. 2. History of mild chronic obstructive pulmonary disease, FEV1 is 86% of predicted. 3. History of coronary artery disease with previous bypass grafting. 4. Type 2 diabetes mellitus. 5. Sleep apnea syndrome, stable. 6. History of Parkinson's disease. 7. Diabetic peripheral neuropathy. PLAN: The patient remains on all appropriate medications. He remains on AIRVO plus or minus non-rebreather mask. He is on AIRVO at 60 L/minute and FiO2 of 91%. He remains on vitamin C, vitamin D3, and zinc. He remains on Decadron. No additional recommendations are made. Prognosis is guarded. Critical care time is 32 minutes. NEELIMA / OTILION: [id number] /
[2020-09-01 12:47] LABS: Glucose,Whole Blood 238 mg/dL (75-99)
--- NOTE | 2020-09-01 14:09 | P.PN ---
Subjective Progress Note Date: 09/01/20 80 years old male with multiple medical problems as below. He follows up in the [place] [facility]. Presents because of dyspnea and generalized weakness. Patient was complaining of from Raynaud's few days ago and he has been prescribed amoxicillin which helped him a little bit but then he developed signi ficant weakness and fatigue over the last 3-4 days that his make him come to the hospital. He has history of COPD and he quit smoking in 1998, he follows up with Dr. Toledo is not on home oxygen however he says that he has mild dyspnea associated with chronic cough and brown greenish phlegm. He denies chest pain, but he has loose bowel movement about once daily no abdominal pain or vomiting No urinary complaints. He denies alcohol or illicit drugs. Vital signs stable, he is saturating 91% on 4 L oxygen via nasal cannula. He has had unremarkable labs including CBC, INR, BMP, liver enzymes. For his troponin is elevated at 0.05, 0.04, 0.03. EKG showed normal sinus rhythm at [address]-T changes, Q waves in lead 2, 3 and aVF, T wave inversion in the lateral blades V4-V6 Labs at [facility] showing normal sodium and potassium at 137 and 3.5 respectively, creatinine normal at 1.0, liver enzymes not elevated, bilirubin is normal 0.9, WT normal 6.9K, hemoglobin 16.6 and platelets 180 1K. Coronavirus was detected As per the records his been having shortness of breath for 10 days. And he checked his oxygen saturating at home it was 88%. He states that he is post to [place] by son and [id number] around Thanksgiving time. Chest x-ray report showed mild atelectasis. 08/24/2020 Patient awake and alert, he has more dyspnea. No chest pain. He still has fever, his respiratory status was worsened overnight and is currently on 15 L high flow oxygen via cannula with oxygen saturation 91-93%. Inflammatory markers LDH and C-reactive protein are the same or slightly worsened. He is followed closely by the pulmonary team and he is on dexamethasone, vitamin C, zinc and Zithromax Cardiology team evaluated the patient for elevated troponin and echocardiogram is reviewed with preserved LV function, and they signed off the case 08/25/2020 Patient remains on the 15 L high flow along with Ventimask. Patient is to have elevated inflammatory markers. Patient does have a congestive heart failure appears to be fairly euvolemic continue with the present regimen of heart failure medication patient blood pressure is low because of which I'll hold off on losartan temporarily will be resumed as soon as possible. 08/26/2020 Patient is presently on Airvo. Patient's is pretty status has worsened and patient is being transferred to ICU at this time. Patient the regarding heart failure scott appear to be euvolemic. Patient received a dose of Bumex today. Patient chest x-ray is consistent with a diffuse interstitial infiltrates. 08/27/2020 Patient is presently on 6 L of oxygen does look much better actually wanted to go home. Then 60 L of oxygen. 08/28/2020 X-ray today is showing some worsening of the infiltrate. Patient remains on about 60 L of oxygen no significant worsening clinically. 08/29/2020 Patient chest x-ray still showing significant infiltrate bilaterally patient respiratory status remains the same inflammatory markers regularly d-dimer is bit worse and 4.5 today. Veins on 60 L of O2 08/30/2020 Patient remains on 60 airvo L of oxygen via airvo and vent mask 08/31/2020 Patient remains on 60 L and Ventimask as well. Patient to d-dimer went up to around 16 because of which patient was started on anticoagulation dose of Lovenox. Patient kidney function is good. 09/01/2020 Patient currently being closely monitored in the ICU and continues to be on airvo with a flow rate of 60 and an FiO2 of 90 and currently saturating 88-91%. Patient also continues with intermittent nonrebreather as well. Patient is maintained on Lovenox, zinc, vitamin C and E supplements. Dexamethasone was discontinued. Blood sugars being monitored closely and will continue sliding scale at this time. Current sodium is 134 with a potassium of 4.7 and creatinine is 0.62. Chest x-ray shows findings consistent with persistent bilateral airspace disease. Constitutional: Denied any fatigue denied any fever. Cardio vascular: denied any chest pain, palpitations Gastrointestinal denied any nausea vomiting Pulmonary: Denied any shortness of breath cough on high flow oxygen with airvo Neurologic denied any new focal deficits All inpatient medications were reviewed and appropriate changes in these medications as dictated in the interval history and assessment and plan. Objective - Vital Signs Vital signs: Vital Signs Temp 97.7 F 09/01/20 08:00 Pulse 49 L 09/01/20 10:00 Resp 22 09/01/20 10:00 BP 113/67 09/01/20 10:00 Pulse Ox 92 L 09/01/20 10:00 Intake & Output 08/31/20 09/01/20 09/01/20 18:59 06:59 18:59 Intake Total 550 100 Output Total 850 1175 275 Balance -300 -1175 -175 Weight 104.9 kg Intake: Oral 550 100 Output: Urine 850 1175 275 Other: Voiding Method Indwelling Catheter Indwelling Catheter Indwelling Catheter - Exam GENERAL: The patient is drowsy although arousable on airvo nonrebreather mask, not in any acute distress. Well developed, well nourished. HEENT: Pupils are round and equally reacting to light. EOMI. No scleral icterus. No conjunctival pallor. Normocephalic, atraumatic. No pharyngeal erythema. No thyromegaly. CARDIOVASCULAR: S1 and S2 present. No murmurs, rubs, or gallops. PULMONARY: Clear to auscultation without any crackles ABDOMEN: Soft, nontender, nondistended, normoactive bowel sounds. No palpable organomegaly. MUSCULOSKELETAL: No joint swelling or deformity. EXTREMITIES: No cyanosis, clubbing, or pedal edema. NEUROLOGICAL: Unable to assess at this time SKIN: No rashes. Note: Because of [facility] isolation, some of the history and physical exam findings are indirect and obtained from nursing staff, and other physician examinations to avoid unnecessary contact with the patient. - Labs CBC & Chem 7: 09/01/20 05:09 09/01/20 05:09 Labs: Abnormal Lab Results - Last 24 Hours (Table) 08/31/20 08/31/20 08/31/20 Range/Units 03:28 11:55 16:28 Neutrophils # (1.3-7.7) k/uL Sodium (137-145) mmol/L BUN (9-20) mg/dL Creatinine (0.66-1.25) mg/dL Glucose (74-99) mg/dL POC Glucose (mg/dL) 201 H 164 H (75-99) mg/dL Calcium (8.4-10.2) mg/dL Ferritin 1464.2 H (22.0-322.0) ng/mL ALT (4-49) U/L Lactate Dehydrogenase (313-618) U/L Creatine Kinase (55-170) U/L C-Reactive Protein (<10.0) mg/L Albumin (3.5-5.0) g/dL 08/31/20 09/01/20 09/01/20 Range/Units 20:26 05:09 05:09 Neutrophils # 8.2 H (1.3-7.7) k/uL Sodium 134 L (137-145) mmol/L BUN 30 H (9-20) mg/dL Creatinine 0.62 L (0.66-1.25) mg/dL Glucose 122 H (74-99) mg/dL POC Glucose (mg/dL) 193 H (75-99) mg/dL Calcium 8.2 L (8.4-10.2) mg/dL Ferritin 1401.1 H (22.0-322.0) ng/mL ALT 101 H (4-49) U/L Lactate Dehydrogenase 1072 H (313-618) U/L Creatine Kinase <20 L (55-170) U/L C-Reactive Protein 32.2 H (<10.0) mg/L Albumin 3.1 L (3.5-5.0) g/dL Microbiology - Last 24 Hours (Table) 08/25/20 10:55 Blood Culture - Final Blood No Growth after 144 hours Assessment and Plan Assessment: Acute hypoxic respiratory failure secondary to Covid 19 continue with respiratory support continue with Decadron, zinc, vitamin C, bronchodilator therapy. Patient's respiratory status and was initiated on Airvo respiratory status is fairly stable compared to yesterday. Patient is presently on 60 L of oxygen. Patient also using intermittent nonrebreather mask. No significant improvement clinically. Repeat chest x-ray this morning with no improvements noted. Continue with Lovenox, zinc, vitamin C and E supplements. Elevated troponin, secondary to demand ischemia from pulmonary disease Diabetes mellitus blood sugars are well controlled. Hypertension Hyperlipidemia Osteoarthritis Chronic heart failure, chronic systolic dysfunction without any acute attacks of which patient is fairly will continue with oral Bumex, Aldactone and Coreg. Hold off on losartan temporarily because of hypotension Hypothyroidism Sleep apnea on CPAP/BiPAP Benign Prostatic hypertrophy Diabetic neuropathy Parkinson disease History of kidney stone Asthma, not an active issue GERD overall prognosis is extremely poor
[2020-09-01 17:23] LABS: Glucose,Whole Blood 183 mg/dL (75-99)
[2020-09-01 20:31] LABS: Glucose,Whole Blood 150 mg/dL (75-99)
[2020-09-02 04:04] LABS: HCT 44.6 % (39.0-53.0); HGB 15.2 gm/dL (13.0-17.5); MCH 29.5 pg (25.0-35.0); MCHC 34.1 g/dL (31.0-37.0); MCV 86.4 fL (80.0-100.0); Mean Platelet Volume 8.5; Platelet Count 389 k/uL (150-450); RBC 5.16 m/uL (4.30-5.90); RDW 13.5 % (11.5-15.5); WBC 9.8 k/uL (3.8-10.6)
[2020-09-02 04:20] LABS: ALT 99 U/L (4-49); AST 53 U/L (17-59); African American GFR (CKD) >90 (>60 ml/min/1.73 sqM); Albumin 3.1 g/dL (3.5-5.0); Alkaline Phosphatase 93 U/L (38-126); Anion Gap 4 mmol/L; Blood Urea Nitrogen 27 mg/dL (9-20); C Reactive Protein 17.9 mg/L (<10.0); Calcium 8.6 mg/dL (8.4-10.2); Carbon Dioxide 26 mmol/L (22-30); Chloride 102 mmol/L (98-107); Creatine Kinase 27 U/L (55-170); Glucose 146 mg/dL (74-99); LDH 944 U/L (313-618); Non-African American GFR(CKD) >90 (>60 ml/min/1.73 sqM); Potassium 4.9 mmol/L (3.5-5.1); Sodium 132 mmol/L (137-145); Total Bilirubin 0.9 mg/dL (0.2-1.3); Total Protein 6.6 g/dL (6.3-8.2)
[2020-09-02 05:30] LABS: Band Neutrophils % 2 %; Lymphocytes # (M) 1.27 k/uL (1.0-4.8); Monocytes # (M) 0.88 k/uL (0-1.0); Neutrophils % (M) 76 %; Nucleated Red Blood Cells 0 /100 WBC (0-0); Total Cells Counted 100
[2020-09-02 05:33] LABS: Large Platelets Present
[2020-09-02 05:35] LABS: Anisocytosis (M) Present; Polychromasia Present
[2020-09-02 06:02] LABS: Glucose,Whole Blood 133 mg/dL (75-99)
[2020-09-02] MEDS: INSULIN ASPART (NovoLOG) 100 UNIT/ML VIAL SQ SCH ×4 (06:53→21:18)
[2020-09-02] MEDS: carvediloL 6.25 MG TAB PO SCH (06:54)
[2020-09-02] MEDS: LEVOTHYROXINE 75 MCG TAB PO SCH (07:05)
[2020-09-02] MEDS: PANTOPRAZOLE 40 MG TABLET PO SCH (07:05)
--- NOTE | 2020-09-02 07:31 | XR ---
EXAMINATION TYPE: XR chest 1V portable DATE OF EXAM: 09/02/2020 HISTORY: Shortness of breath. COMPARISON: 09/01/2020 TECHNIQUE: Single view of the chest is submitted. FINDINGS: Demonstrated are scattered senescent parenchymal change. Patchy perihilar and basilar infiltrates persist. No significant change appreciated. The heart is stable. Hilar and mediastinal structures are within normal limits. Degenerative changes are seen of the dorsal spine. IMPRESSION: 1. Patchy perihilar and basilar infiltrates persist. No significant change appreciated.
[2020-09-02] MEDS: ALBUTEROL HFA INHALER INHALATION SCH ×4 (07:47→20:40)
[2020-09-02] MEDS: ASPIRIN 81 MG PO SCH (08:04)
[2020-09-02] MEDS: ZINC SULFATE 220 MG CAP PO SCH (08:04)
[2020-09-02] MEDS: FLUCONAZOLE 100 MG TAB PO SCH ×2 (08:05→21:23)
[2020-09-02] MEDS: ASCORBIC ACID 500 MG TAB PO SCH (08:05)
[2020-09-02] MEDS: TAMSULOSIN 0.4 MG CAP.ER.24H PO SCH (08:05)
[2020-09-02] MEDS: ALPRAZolam 0.25 MG TAB PO SCH ×2 (08:05→21:23)
[2020-09-02] MEDS: SPIRONOLACTONE 25 MG TAB PO SCH (08:05)
[2020-09-02] MEDS: CHOLECALCIFEROL 1,000 UNIT TAB PO SCH (08:05)
[2020-09-02] MEDS: BUMETANIDE 1 MG TAB PO SCH ×2 (08:06→21:23)
[2020-09-02] MEDS: ENOXAPARIN 100 MG/ML SYRINGE SQ SCH ×2 (08:06→21:23)
[2020-09-02] MEDS: FLUTICASONE 50MCG/SPRAY NASAL 16GM EA NOSTRIL SCH (08:07)
[2020-09-02 09:35] LABS: Ferritin 783.2 ng/mL (22.0-322.0)
--- NOTE | 2020-09-02 10:22 | P.PN ---
Subjective Progress Note Date: 09/02/20 Principal diagnosis: acute COVID 19 80-year-old male patient who follows up at the [place] [facility]. The patient presented to the emergency department because of generalized weakness and worsening shortness of breath. Apparently the patient was given antibiotics on outpatient basis without any help. He reported increased dyspnea and cough and sputum. Apparently, the patient has been having shortness of breath for almost 10 days. He stated that exposed to COVID 19 by his son and [id number] around [facility]. Patient went yesterday to [facility] where he was checked and he was tested positive for coronary/Covid 19 infection. Following that, he was brought to the hospital for further evaluation. Note that his main symptoms were fatigue, tiredness, loss of appetite, diminished oral intake and some increased shortness of breath. No nausea. No vomiting. No abdominal pain. No loss in the sense of taste and smell. He was having some symptoms of URI. Alina abraham is on 2 by nasal cannula with a pulse is 91%. He does have some mild troponin leak with troponin being at 0.05 0.04-0.03 respectively with an EKG showing a normal sinus mechanism and some nonspecific T-wave inversions. Blood work from [place] or [facility] showed normal LFTs, white cell count of 6900, hemoglobin of 16.6, platelets of 1 80,000, and his sodium was at 137. The patient's LDH is at 982 and the CRP is a 59.5. Chest x-ray is showing some limited infiltration of the lung bases. On examination he has crackles in lung bases bilaterally. No altered mental status. The patient is currently on Decadron 6 mg by mouth daily. On 08/24/2020 patient seen in follow-up on selective care unit. He remains on Lovenox at prophylactic dose, oral Bumex, home dose at 1 mg twice daily, and oral Decadron 6 mg daily, maintenance on high flow oxygen, 15 L, his pulse ox is 91-94%, low-grade fever earlier today, his LDH has trended up, and is currently at 1275, LDH has come down some. His d-dimer currently is at 1.4, electrolytes are renal profile are unremarkable. pro Calcitonin level was low at 0.12 On 08/25/2020 patient seen in follow-up on selective care unit, he is awake and alert, he is on 15 L of oxygen, and at times she gets confused, sometimes removes the oxygen, on 15 L he sat about 92-93%. Today's chest x-ray shows worsening bilateral patchy infiltrates. Yesterday we transfused the patient with 2 units of convalescent plasma, is possible the patient has a component of fluid overload, and we'll start the patient on IV diuretics. Lung sounds reveal coarse inspiratory crackles in bilateral lungs, patient patient was spiking fevers with T-max of 103 this morning. We'll obtain blood cultures, and Sandostatin pro calcitonin level., The patient with Rocephin for empiric antibiotic coverage. On 08/26/2020 patient seen in follow-up on selective care unit, his reading worsened this morning, patient had to be placed on high flow oxygen, he is currently on Airvo at 60 l/min, and Fio2 of 93%, patient was given extra dose of IV Bumex this morning, stay chest x-ray was obtained showing patchy perihilar and basilar infiltrates. Blood gas was obtained last night, showed pO2 of 62, pCO2 of 35, and pH of 7.47, this was done and FiO2 of 100%. His LDH is significantly elevated at 2059, his CRP remains elevated and 60 over 0.4, AST is 75, ALT and alk phos are within normal limits, his electrolytes were unremarkable, B1 is 24 creatinine 0.72. His white cell count is 11.8, d-dimer is 1.4. Patient continues on IV Rocephin for empiric antibiotic coverage, he is on oral Decadron, he is on a prophylactic dose of Lovenox 40 mg daily. he was placed on high flow oxygen, he was ordered to transfer to the intensive care unit earlier this morning however he has been placed on high flow oxygen and appears to be more comfortable, also he started to diurese. On 08/27/2020 patient is seen in follow-up [facility], he still remains on high flow oxygen per Airvo at 60 L and FiO2 of 90% and his pulse ox is ranging between 86-90%. We have not been able to wean his FiO2 down any further. He sitting up in the recliner, she is eating lunch, does not appear to be in any acute distress, denies any chest discomfort, he does have tachypnea, and he becomes very short of breath with any exertion, but overall seems to be breathing more comfortably than he did yesterday. His been afebrile, has not had any chest x-ray today, yesterday's chest x-ray showed patchy perihilar and bibasilar infiltrates. Patient continues on oral diuretics with Bumex 1 mg twice daily, is maintaining negative fluid balance, he is in -1.7 L of last 24 hours. he remains on empiric antibiotics in the form of Rocephin, patient was outside the window for Remdesivir treatment, received 2 units of convalescent plasma, last set of inflammatory markers revealed still significantly elevated LDH at 2059, and CRP was relatively stable at 64.4 On 09/02/2020 patient seen in follow-up on selective care unit. Seems to be oxygenating a bit better today, remains on Airvo 60 L, and FiO2 of 80%, however he is not requiring a nonrebreather mask on today's exam, and his pulse ox is 95%, he is breathing easier, he is doing better, no IV fluids. No fever or chills, seems to be breathing comfortably, his d-dimer is trending down, his inflammatory markers are coming down, he remains on Lovenox 100 mg twice daily, today's d-dimer is 14.32. Today's labs have been reviewed, CBC within normal limits Objective - Vital Signs Vital signs: Vital Signs Temp 97 F L 09/02/20 08:00 Pulse 52 L 09/02/20 09:00 Resp 27 H 09/02/20 09:00 BP 135/80 09/02/20 09:00 Pulse Ox 95 09/02/20 09:00 Intake & Output 09/01/20 09/02/20 09/02/20 18:59 06:59 18:59 Intake Total 400 Output Total 1275 990 300 Balance -875 -990 -300 Weight 104 kg Intake: Oral 400 Output: Urine 1275 990 300 Other: Voiding Method Indwelling Catheter Indwelling Catheter Indwelling Catheter - Exam GENERAL EXAM: Alert, very pleasant, 72-year-old on 60 l/min, 80% Fio2, and the pulse ox of 95% comfortable in no apparent distress. HEAD: Normocephalic/atraumatic. EYES: Normal reaction of pupils, equal size. Conjunctiva pink, sclera white. NOSE: Clear with pink turbinates. THROAT: No erythema or exudates. NECK: No masses, no JVD, no thyroid enlargement, no adenopathy. CHEST: No chest wall deformity. Symmetrical expansion. LUNGS: Equal air entry with no crackles, wheeze, rhonchi or dullness. CVS: Regular rate and rhythm, normal S1 and S2, no gallops, no murmurs, no rubs ABDOMEN: Soft, nontender. No hepatosplenomegaly, normal bowel sounds, no guarding or rigidity. EXTREMITIES: No clubbing, no edema, no cyanosis, 2+ pulses and upper and lower extremities. MUSCULOSKELETAL: Muscle strength and tone normal. SPINE: No scoliosis or deformity SKIN: No rashes CENTRAL NERVOUS SYSTEM: Alert and oriented -3. No focal deficits, tone is normal in all 4 extremities. PSYCHIATRIC: Alert and oriented -3. Appropriate affect. Intact judgment and insight. - Labs CBC & Chem 7: 09/02/20 03:31 09/02/20 03:31 Labs: Abnormal Lab Results - Last 24 Hours (Table) 09/01/20 09/01/20 09/01/20 Range/Units 05:09 12:46 17:22 D-Dimer (<0.60) mg/L FEU Sodium (137-145) mmol/L BUN (9-20) mg/dL Creatinine (0.66-1.25) mg/dL Glucose (74-99) mg/dL POC Glucose (mg/dL) 238 H 183 H (75-99) mg/dL Ferritin 1401.1 H (22.0-322.0) ng/mL ALT (4-49) U/L Lactate Dehydrogenase (313-618) U/L Creatine Kinase (55-170) U/L C-Reactive Protein (<10.0) mg/L Albumin (3.5-5.0) g/dL 09/01/20 09/02/20 09/02/20 Range/Units 20:29 03:31 03:31 D-Dimer 14.32 H (<0.60) mg/L FEU Sodium 132 L (137-145) mmol/L BUN 27 H (9-20) mg/dL Creatinine 0.64 L (0.66-1.25) mg/dL Glucose 146 H (74-99) mg/dL POC Glucose (mg/dL) 150 H (75-99) mg/dL Ferritin 783.2 H (22.0-322.0) ng/mL ALT 99 H (4-49) U/L Lactate Dehydrogenase 944 H (313-618) U/L Creatine Kinase 27 L (55-170) U/L C-Reactive Protein 17.9 H (<10.0) mg/L Albumin 3.1 L (3.5-5.0) g/dL 09/02/20 Range/Units 06:00 D-Dimer (<0.60) mg/L FEU Sodium (137-145) mmol/L BUN (9-20) mg/dL Creatinine (0.66-1.25) mg/dL Glucose (74-99) mg/dL POC Glucose (mg/dL) 133 H (75-99) mg/dL Ferritin (22.0-322.0) ng/mL ALT (4-49) U/L Lactate Dehydrogenase (313-618) U/L Creatine Kinase (55-170) U/L C-Reactive Protein (<10.0) mg/L Albumin (3.5-5.0) g/dL Assessment and Plan Plan: Assessment: 1 acute Covid 19 related pneumonia. The patient was diagnosed having Covid 19 infection on 08/22/2020. His exposure was around Thanksgiving and the patient has been symptomatic for approximately a week. His chest x-ray showing some limited bibasilar pulmonary infiltrates. He is currently hypoxic and 40s about 2 by nasal cannula.. Significant constitutional symptoms and his inflammatory markers are elevated. he was outside of the window for Remdesivir. Patient status post transfusion with 2 units, plasma on 08/24/2020, and 08/25/2020 2 acute hypoxic respiratory failure, and his oxygenation has worsened, patient is currently requiring high flow oxygen per Airvo On 08/26/2020 patient's is a demand has increased, patient was placed on high flow per Airvo at 60 l/min, Fio2 90% 3 COPD with an FEV1 of 86% of predicted. The patient is not home oxygen dependent and the patient is an ex-smoker 4 coronary artery disease with previous bypass surgery. Limited amount of troponin leak and free of any chest pain and EKG is not showing any acute ischemic changes. 5 CHF 6 diabetes mellitus 7 BPH 8 Parkinson's disease 9 obstructive sleep apnea 10 history of nephrolithiasis 11 history of peripheral neuropathy Plan: Continue therapeutic dose of Lovenox, patient is oxygenating a little better, patient has completed the steroids, inflammatory markers and the d-dimer is slightly improved, we'll continue supportive medical treatment, continue weaning FiO2, encourage patient to sit up in the chair. Continue close monitoring in the intensive care unit I performed a history & physical examination of the patient and discussed their management with my nurse practitioner, Martine Currie. I reviewed the nurse practitioner's note and agree with the documented findings and plan of care. Lung sounds are positive for management of sounds The findings and the impression was discussed with the patient. I attest to the documentation by the nurse practitioner. Time with Patient: Less than 30
[2020-09-02 11:41] LABS: Glucose,Whole Blood 148 mg/dL (75-99)
--- NOTE | 2020-09-02 14:15 | P.PN ---
Subjective Progress Note Date: 09/02/20 80 years old male with multiple medical problems as below. He follows up in the [place] [facility]. Presents because of dyspnea and generalized weakness. Patient was complaining of from Raynaud's few days ago and he has been prescribed amoxicillin which helped him a little bit but then he developed signi ficant weakness and fatigue over the last 3-4 days that his make him come to the hospital. He has history of COPD and he quit smoking in 1998, he follows up with Dr. Toledo is not on home oxygen however he says that he has mild dyspnea associated with chronic cough and brown greenish phlegm. He denies chest pain, but he has loose bowel movement about once daily no abdominal pain or vomiting No urinary complaints. He denies alcohol or illicit drugs. Vital signs stable, he is saturating 91% on 4 L oxygen via nasal cannula. He has had unremarkable labs including CBC, INR, BMP, liver enzymes. For his troponin is elevated at 0.05, 0.04, 0.03. EKG showed normal sinus rhythm at [address]-T changes, Q waves in lead 2, 3 and aVF, T wave inversion in the lateral blades V4-V6 Labs at [facility] showing normal sodium and potassium at 137 and 3.5 respectively, creatinine normal at 1.0, liver enzymes not elevated, bilirubin is normal 0.9, WT normal 6.9K, hemoglobin 16.6 and platelets 180 1K. Coronavirus was detected As per the records his been having shortness of breath for 10 days. And he checked his oxygen saturating at home it was 88%. He states that he is post to covert by son and [id number] around Thanksgiving time. Chest x-ray report showed mild atelectasis. 08/24/2020 Patient awake and alert, he has more dyspnea. No chest pain. He still has fever, his respiratory status was worsened overnight and is currently on 15 L high flow oxygen via cannula with oxygen saturation 91-93%. Inflammatory markers LDH and C-reactive protein are the same or slightly worsened. He is followed closely by the pulmonary team and he is on dexamethasone, vitamin C, zinc and Zithromax Cardiology team evaluated the patient for elevated troponin and echocardiogram is reviewed with preserved LV function, and they signed off the case 08/25/2020 Patient remains on the 15 L high flow along with Ventimask. Patient is to have elevated inflammatory markers. Patient does have a congestive heart failure appears to be fairly euvolemic continue with the present regimen of heart failure medication patient blood pressure is low because of which I'll hold off on losartan temporarily will be resumed as soon as possible. 08/26/2020 Patient is presently on Airvo. Patient's is pretty status has worsened and patient is being transferred to ICU at this time. Patient the regarding heart failure scott appear to be euvolemic. Patient received a dose of Bumex today. Patient chest x-ray is consistent with a diffuse interstitial infiltrates. 08/27/2020 Patient is presently on 6 L of oxygen does look much better actually wanted to go home. Then 60 L of oxygen. 08/28/2020 X-ray today is showing some worsening of the infiltrate. Patient remains on about 60 L of oxygen no significant worsening clinically. 08/29/2020 Patient chest x-ray still showing significant infiltrate bilaterally patient respiratory status remains the same inflammatory markers regularly d-dimer is bit worse and 4.5 today. Veins on 60 L of O2 08/30/2020 Patient remains on 60 airvo L of oxygen via airvo and vent mask 08/31/2020 Patient remains on 60 L and Ventimask as well. Patient to d-dimer went up to around 16 because of which patient was started on anticoagulation dose of Lovenox. Patient kidney function is good. 09/01/2020 Patient currently being closely monitored in the ICU and continues to be on airvo with a flow rate of 60 and an FiO2 of 90 and currently saturating 88-91%. Patient also continues with intermittent nonrebreather as well. Patient is maintained on Lovenox, zinc, vitamin C and E supplements. Dexamethasone was discontinued. Blood sugars being monitored closely and will continue sliding scale at this time. Current sodium is 134 with a potassium of 4.7 and creatinine is 0.62. Chest x-ray shows findings consistent with persistent bilateral airspace disease. 09/02/2020 Patient is seen in follow up and currently remains in the ICU. Patient is on Airvo and doing well. Patient FiO2 slowly being titrated. Patient uses intermittent BiPAP at night. Heart rate on the lower side and will decrease Coreg. No significant changes noted on today's x-ray. D-dimer slowly trending down and is currently 14.32, sodium is 132, potassium is 4.9, and current creatinine is 0.64. Will continue to monitor blood sugars closely and continue with sliding scale. Constitutional: Reports fatigue, denied any fever. Cardio vascular: denied any chest pain, palpitations Gastrointestinal denied any nausea vomiting Pulmonary: Denied any shortness of breath cough on high flow oxygen with airvo Neurologic denied any new focal deficits All inpatient medications were reviewed and appropriate changes in these medications as dictated in the interval history and assessment and plan. Objective - Vital Signs Vital signs: Vital Signs Temp 97 F L 09/02/20 08:00 Pulse 48 L 09/02/20 10:00 Resp 32 H 09/02/20 10:00 BP 125/98 09/02/20 10:00 Pulse Ox 96 09/02/20 10:00 Intake & Output 09/01/20 09/02/20 09/02/20 18:59 06:59 18:59 Intake Total 400 Output Total 1275 990 415 Balance -875 -990 -415 Weight 104 kg Intake: Oral 400 Output: Urine 1275 990 415 Other: Voiding Method Indwelling Catheter Indwelling Catheter Indwelling Catheter - Exam GENERAL: The patient is drowsy although arousable on airvo, not in any acute distress. Well developed, well nourished. Patient using BiPAP at night HEENT: Pupils are round and equally reacting to light. EOMI. No scleral icterus. No conjunctival pallor. Normocephalic, atraumatic. No pharyngeal erythema. No thyromegaly. CARDIOVASCULAR: S1 and S2 present. No murmurs, rubs, or gallops. PULMONARY: Clear to auscultation without any crackles ABDOMEN: Soft, nontender, nondistended, normoactive bowel sounds. No palpable organomegaly. MUSCULOSKELETAL: No joint swelling or deformity. EXTREMITIES: No cyanosis, clubbing, or pedal edema. NEUROLOGICAL: Lethargic although arousable SKIN: No rashes. Note: Because of COVID 19 isolation, some of the history and physical exam findings are indirect and obtained from nursing staff, and other physician examinations to avoid unnecessary contact with the patient. - Labs CBC & Chem 7: 09/02/20 03:31 09/02/20 03:31 Labs: Abnormal Lab Results - Last 24 Hours (Table) 09/01/20 09/01/20 09/01/20 Range/Units 05:09 12:46 17:22 D-Dimer (<0.60) mg/L FEU Sodium (137-145) mmol/L BUN (9-20) mg/dL Creatinine (0.66-1.25) mg/dL Glucose (74-99) mg/dL POC Glucose (mg/dL) 238 H 183 H (75-99) mg/dL Ferritin 1401.1 H (22.0-322.0) ng/mL ALT (4-49) U/L Lactate Dehydrogenase (313-618) U/L Creatine Kinase (55-170) U/L C-Reactive Protein (<10.0) mg/L Albumin (3.5-5.0) g/dL 09/01/20 09/02/20 09/02/20 Range/Units 20:29 03:31 03:31 D-Dimer 14.32 H (<0.60) mg/L FEU Sodium 132 L (137-145) mmol/L BUN 27 H (9-20) mg/dL Creatinine 0.64 L (0.66-1.25) mg/dL Glucose 146 H (74-99) mg/dL POC Glucose (mg/dL) 150 H (75-99) mg/dL Ferritin 783.2 H (22.0-322.0) ng/mL ALT 99 H (4-49) U/L Lactate Dehydrogenase 944 H (313-618) U/L Creatine Kinase 27 L (55-170) U/L C-Reactive Protein 17.9 H (<10.0) mg/L Albumin 3.1 L (3.5-5.0) g/dL 09/02/20 Range/Units 06:00 D-Dimer (<0.60) mg/L FEU Sodium (137-145) mmol/L BUN (9-20) mg/dL Creatinine (0.66-1.25) mg/dL Glucose (74-99) mg/dL POC Glucose (mg/dL) 133 H (75-99) mg/dL Ferritin (22.0-322.0) ng/mL ALT (4-49) U/L Lactate Dehydrogenase (313-618) U/L Creatine Kinase (55-170) U/L C-Reactive Protein (<10.0) mg/L Albumin (3.5-5.0) g/dL Assessment and Plan Assessment: Acute hypoxic respiratory failure secondary to Covid 19 continue with respiratory support continue with Decadron, zinc, vitamin C, bronchodilator therapy. Patient's presently on Airvo respiratory status is fairly stable compared to yesterday. Weaning FiO2 as tolerated. Patient uses BiPAP at night. Repeat chest x-ray this morning with no improvements noted. Continue with Lovenox, zinc, vitamin C and D supplements. Elevated troponin, secondary to demand ischemia from pulmonary disease Diabetes mellitus blood sugars are well controlled. Continue with sliding scale Hypertension Hyperlipidemia Osteoarthritis Chronic heart failure, chronic systolic dysfunction without any acute attacks of which patient is fairly will continue with oral Bumex, Aldactone and Coreg. Hold off on losartan temporarily because of hypotension, heart rate on the lower side and will decrease dose of Coreg Hypothyroidism Sleep apnea on CPAP/BiPAP Benign Prostatic hypertrophy Diabetic neuropathy Parkinson disease History of kidney stone Asthma, not an active issue GERD overall prognosis is extremely poor
[2020-09-02 16:37] LABS: LD Isoenzymes 1 17 % (19-38); LD Isoenzymes 2 33 % (30-43); LD Isoenzymes 3 23 % (16-26); LD Isoenzymes 4 11 % (3-12); LD Isoenzymes 5 16 % (3-14); Lactacte Dehydrogenase(LD) ISO 449 U/L (120-250)
[2020-09-02 16:55] LABS: Glucose,Whole Blood 122 mg/dL (75-99)
[2020-09-02] MEDS: carvediloL 3.125 MG TAB PO SCH (17:01)
[2020-09-02 20:45] LABS: Glucose,Whole Blood 108 mg/dL (75-99)
[2020-09-03 06:13] LABS: Basophils % (A) 0 %; Eosinophils # (A) 0.2 k/uL (0-0.7); Eosinophils % (A) 2 %; HCT 51.1 % (39.0-53.0); HGB 17.1 gm/dL (13.0-17.5); Lymphocytes # (A) 1.4 k/uL (1.0-4.8); Lymphocytes % (A) 14 %; MCHC 33.5 g/dL (31.0-37.0); MCV 86.7 fL (80.0-100.0); Mean Platelet Volume 8.9; Monocytes # (A) 0.4 k/uL (0-1.0); Monocytes % (A) 4 %; Neutrophils # (A) 7.8 k/uL (1.3-7.7); Neutrophils % (A) 78 %; Platelet Count 391 k/uL (150-450); RBC 5.89 m/uL (4.30-5.90); RDW 13.7 % (11.5-15.5)
[2020-09-03 06:20] LABS: African American GFR (CKD) >90 (>60 ml/min/1.73 sqM); Anion Gap 8 mmol/L; Blood Urea Nitrogen 25 mg/dL (9-20); Calcium 8.8 mg/dL (8.4-10.2); Carbon Dioxide 26 mmol/L (22-30); Chloride 100 mmol/L (98-107); Glucose 114 mg/dL (74-99); Non-African American GFR(CKD) 89 (>60 ml/min/1.73 sqM); Potassium 4.7 mmol/L (3.5-5.1); Sodium 134 mmol/L (137-145)
[2020-09-03] MEDS: PANTOPRAZOLE 40 MG TABLET PO SCH (06:46)
[2020-09-03] MEDS: LEVOTHYROXINE 75 MCG TAB PO SCH (06:47)
[2020-09-03] MEDS: carvediloL 3.125 MG TAB PO SCH ×2 (06:47→17:15)
[2020-09-03] MEDS: INSULIN ASPART (NovoLOG) 100 UNIT/ML VIAL SQ SCH ×4 (06:53→20:25)
[2020-09-03] MEDS: ALBUTEROL HFA INHALER INHALATION SCH ×4 (07:30→20:07)
[2020-09-03] MEDS: ASPIRIN 81 MG PO SCH (08:29)
[2020-09-03] MEDS: ASCORBIC ACID 500 MG TAB PO SCH (08:29)
[2020-09-03] MEDS: CHOLECALCIFEROL 1,000 UNIT TAB PO SCH (08:29)
[2020-09-03] MEDS: BUMETANIDE 1 MG TAB PO SCH ×2 (08:29→20:25)
[2020-09-03] MEDS: SPIRONOLACTONE 25 MG TAB PO SCH (08:29)
[2020-09-03] MEDS: TAMSULOSIN 0.4 MG CAP.ER.24H PO SCH (08:29)
[2020-09-03] MEDS: ALPRAZolam 0.25 MG TAB PO SCH ×2 (08:29→20:25)
[2020-09-03] MEDS: ZINC SULFATE 220 MG CAP PO SCH (08:29)
[2020-09-03] MEDS: FLUTICASONE 50MCG/SPRAY NASAL 16GM EA NOSTRIL SCH (08:30)
[2020-09-03] MEDS: FLUCONAZOLE 100 MG TAB PO SCH ×2 (08:30→20:25)
[2020-09-03] MEDS: ENOXAPARIN 100 MG/ML SYRINGE SQ SCH ×2 (08:30→20:25)
--- NOTE | 2020-09-03 10:28 | P.PN ---
Subjective Progress Note Date: 09/03/20 Principal diagnosis: acute COVID 19 80-year-old male patient who follows up at the [place] [facility]. The patient presented to the emergency department because of generalized weakness and worsening shortness of breath. Apparently the patient was given antibiotics on outpatient basis without any help. He reported increased dyspnea and cough and sputum. Apparently, the patient has been having shortness of breath for almost 10 days. He stated that exposed to COVID 19 by his son and [id number] around [facility]. Patient went yesterday to [facility] where he was checked and he was tested positive for coronary/Covid 19 infection. Following that, he was brought to the hospital for further evaluation. Note that his main symptoms were fatigue, tiredness, loss of appetite, diminished oral intake and some increased shortness of breath. No nausea. No vomiting. No abdominal pain. No loss in the sense of taste and smell. He was having some symptoms of URI. Alina abraham is on 2 by nasal cannula with a pulse is 91%. He does have some mild troponin leak with troponin being at 0.05 0.04-0.03 respectively with an EKG showing a normal sinus mechanism and some nonspecific T-wave inversions. Blood work from [facility] showed normal LFTs, white cell count of 6900, hemoglobin of 16.6, platelets of 1 80,000, and his sodium was at 137. The patient's LDH is at 982 and the CRP is a 59.5. Chest x-ray is showing some limited infiltration of the lung bases. On examination he has crackles in lung bases bilaterally. No altered mental status. The patient is currently on Decadron 6 mg by mouth daily. On 08/24/2020 patient seen in follow-up on selective care unit. He remains on Lovenox at prophylactic dose, oral Bumex, home dose at 1 mg twice daily, and oral Decadron 6 mg daily, maintenance on high flow oxygen, 15 L, his pulse ox is 91-94%, low-grade fever earlier today, his LDH has trended up, and is currently at 1275, LDH has come down some. His d-dimer currently is at 1.4, electrolytes are renal profile are unremarkable. pro Calcitonin level was low at 0.12 On 08/25/2020 patient seen in follow-up on selective care unit, he is awake and alert, he is on 15 L of oxygen, and at times she gets confused, sometimes removes the oxygen, on 15 L he sat about 92-93%. Today's chest x-ray shows worsening bilateral patchy infiltrates. Yesterday we transfused the patient with 2 units of convalescent plasma, is possible the patient has a component of fluid overload, and we'll start the patient on IV diuretics. Lung sounds reveal coarse inspiratory crackles in bilateral lungs, patient patient was spiking fevers with T-max of 103 this morning. We'll obtain blood cultures, and Sandostatin pro calcitonin level., The patient with Rocephin for empiric antibiotic coverage. On 08/26/2020 patient seen in follow-up on selective care unit, his reading worsened this morning, patient had to be placed on high flow oxygen, he is currently on Airvo at 60 l/min, and Fio2 of 93%, patient was given extra dose of IV Bumex this morning, stay chest x-ray was obtained showing patchy perihilar and basilar infiltrates. Blood gas was obtained last night, showed pO2 of 62, pCO2 of 35, and pH of 7.47, this was done and FiO2 of 100%. His LDH is significantly elevated at 2059, his CRP remains elevated and 60 over 0.4, AST is 75, ALT and alk phos are within normal limits, his electrolytes were unremarkable, B1 is 24 creatinine 0.72. His white cell count is 11.8, d-dimer is 1.4. Patient continues on IV Rocephin for empiric antibiotic coverage, he is on oral Decadron, he is on a prophylactic dose of Lovenox 40 mg daily. he was placed on high flow oxygen, he was ordered to transfer to the intensive care unit earlier this morning however he has been placed on high flow oxygen and appears to be more comfortable, also he started to diurese. On 08/27/2020 patient is seen in follow-up on [facility] care unit, he still remains on high flow oxygen per Airvo at 60 L and FiO2 of 90% and his pulse ox is ranging between 86-90%. We have not been able to wean his FiO2 down any further. He sitting up in the recliner, she is eating lunch, does not appear to be in any acute distress, denies any chest discomfort, he does have tachypnea, and he becomes very short of breath with any exertion, but overall seems to be breathing more comfortably than he did yesterday. His been afebrile, has not had any chest x-ray today, yesterday's chest x-ray showed patchy perihilar and bibasilar infiltrates. Patient continues on oral diuretics with Bumex 1 mg twice daily, is maintaining negative fluid balance, he is in -1.7 L of last 24 hours. he remains on empiric antibiotics in the form of Rocephin, patient was outside the window for Remdesivir treatment, received 2 units of convalescent plasma, last set of inflammatory markers revealed still significantly elevated LDH at 2059, and CRP was relatively stable at 64.4 On 09/02/2020 patient seen in follow-up on selective care unit. Seems to be oxygenating a bit better today, remains on Airvo 60 L, and FiO2 of 80%, however he is not requiring a nonrebreather mask on today's exam, and his pulse ox is 95%, he is breathing easier, he is doing better, no IV fluids. No fever or chills, seems to be breathing comfortably, his d-dimer is trending down, his inflammatory markers are coming down, he remains on Lovenox 100 mg twice daily, today's d-dimer is 14.32. Today's labs have been reviewed, CBC within normal limits On 09/03/2020 patient seen in follow-up in intensive care unit, he remains on high flow oxygen per Airvo, however his amylase to is being weaned down, currently at 60 L and FiO2 of 70%, and his pulse ox is 91%, he seems to be breathing comfortably, no worsening dyspnea, he is not on any IV fluids, he states he is doing better, his appetite is good, he is consuming about half of his meals, he is up in a chair, remains in sinus mechanism, no fever or chills, no acute events overnight. Today's blood work has been reviewed, and is relatively unremarkable, blood cultures show no growth. He remains on vitamins including vitamin C, vitamin D3, zinc, he remains on Lovenox 100 mg twice a day. No chest discomfort, no significant cough. Objective - Vital Signs Vital signs: Vital Signs Temp 98 F 09/03/20 08:00 Pulse 56 L 09/03/20 10:00 Resp 20 09/03/20 10:00 BP 122/76 09/03/20 10:00 Pulse Ox 92 L 09/03/20 10:00 Intake & Output 09/02/20 09/03/20 09/03/20 18:59 06:59 18:59 Intake Total 650 250 240 Output Total 1080 1605 260 Balance -430 -1355 -20 Weight 102.3 kg Intake: Oral 650 250 240 Output: Urine 1080 1605 260 Other: Voiding Method Indwelling Catheter Indwelling Catheter Indwelling Catheter - Exam GENERAL EXAM: Alert, very pleasant, 72-year-old on 60 l/min, 70% Fio2, and the pulse ox of 95% comfortable in no apparent distress. HEAD: Normocephalic/atraumatic. EYES: Normal reaction of pupils, equal size. Conjunctiva pink, sclera white. NOSE: Clear with pink turbinates. THROAT: No erythema or exudates. NECK: No masses, no JVD, no thyroid enlargement, no adenopathy. CHEST: No chest wall deformity. Symmetrical expansion. LUNGS: Equal air entry with no crackles, wheeze, rhonchi or dullness. CVS: Regular rate and rhythm, normal S1 and S2, no gallops, no murmurs, no rubs ABDOMEN: Soft, nontender. No hepatosplenomegaly, normal bowel sounds, no guarding or rigidity. EXTREMITIES: No clubbing, no edema, no cyanosis, 2+ pulses and upper and lower extremities. MUSCULOSKELETAL: Muscle strength and tone normal. SPINE: No scoliosis or deformity SKIN: No rashes CENTRAL NERVOUS SYSTEM: Alert and oriented -3. No focal deficits, tone is normal in all 4 extremities. PSYCHIATRIC: Alert and oriented -3. Appropriate affect. Intact judgment and insight. - Labs CBC & Chem 7: 09/03/20 05:22 09/03/20 05:22 Labs: Abnormal Lab Results - Last 24 Hours (Table) 08/29/20 09/02/20 09/02/20 Range/Units 05:53 11:40 16:54 Neutrophils # (1.3-7.7) k/uL Sodium (137-145) mmol/L BUN (9-20) mg/dL Glucose (74-99) mg/dL POC Glucose (mg/dL) 148 H 122 H (75-99) mg/dL LD Isoenzymes 449 H (120-250) U/L LD 1 17 L (19-38) % LD 5 16 H (3-14) % 09/02/20 09/03/20 09/03/20 Range/Units 20:43 05:22 05:22 Neutrophils # 7.8 H (1.3-7.7) k/uL Sodium 134 L (137-145) mmol/L BUN 25 H (9-20) mg/dL Glucose 114 H (74-99) mg/dL POC Glucose (mg/dL) 108 H (75-99) mg/dL LD Isoenzymes (120-250) U/L LD 1 (19-38) % LD 5 (3-14) % Assessment and Plan Plan: Assessment: 1 acute Covid 19 related pneumonia. The patient was diagnosed having Covid 19 infection on 08/22/2020. His exposure was around Thanksgiving and the patient has been symptomatic for approximately a week. His chest x-ray showing some limited bibasilar pulmonary infiltrates. He is currently hypoxic and 40s about 2 by nasal cannula.. Significant constitutional symptoms and his inflammatory markers are elevated. he was outside of the window for Remdesivir. Patient status post transfusion with 2 units, plasma on 08/24/2020, and 08/25/2020 2 acute hypoxic respiratory failure, and his oxygenation has worsened, patient is currently requiring high flow oxygen per Airvo On 08/26/2020 patient's is a demand has increased, patient was placed on high flow per Airvo at 60 l/min, Fio2 90% 3 COPD with an FEV1 of 86% of predicted. The patient is not home oxygen dependent and the patient is an ex-smoker 4 coronary artery disease with previous bypass surgery. Limited amount of troponin leak and free of any chest pain and EKG is not showing any acute ischemic changes. 5 CHF 6 diabetes mellitus 7 BPH 8 Parkinson's disease 9 obstructive sleep apnea 10 history of nephrolithiasis 11 history of peripheral neuropathy Plan: Continue weaning FiO2, encourage deep breathing and coughing, sitting up in a chair, no worsening dyspnea, breathing is comfortable, patient has completed his Decadron, continue his vitamins, continue current dose Lovenox, will obtain follow-up d-dimer inflammatory markers tomorrow, his chest x-ray has been reviewed showing relatively stable findings with bilateral infiltrates. I performed a history & physical examination of the patient and discussed their management with my nurse practitioner, Martine Currie. I reviewed the nurse practitioner's note and agree with the documented findings and plan of care. Lung sounds are positive for management of sounds The findings and the impression was discussed with the patient. I attest to the documentation by the nurse practitioner. Time with Patient: Less than 30
--- NOTE | 2020-09-03 12:38 | P.PN ---
Subjective 80 years old male with multiple medical problems as below. He follows up in the [place] [facility]. Presents because of dyspnea and generalized weakness. Patient was complaining of from Raynaud's few days ago and he has been prescribed amoxicillin which helped him a little bit but then he developed significant weakness and fatigue over the last 3-4 days that his make him come to the hospital. He has history of COPD and he quit smoking in 1998, he follows up with Dr. Toledo is not on home oxygen however he says that he has mild dyspnea associated with chronic cough and brown greenish phlegm. He denies chest pain, but he has loose bowel movement about once daily no abdominal pain or vomiting No urinary complaints. He denies alcohol or illicit drugs. Vital signs stable, he is saturating 91% on 4 L oxygen via nasal cannula. He narayanan s had unremarkable labs including CBC, INR, BMP, liver enzymes. For his troponin is elevated at 0.05, 0.04, 0.03. EKG showed normal sinus rhythm at [address]-T changes, Q waves in lead 2, 3 and aVF, T wave inversion in the lateral blades V4-V6 Labs at [facility] showing normal sodium and potassium at 137 and 3.5 respectively, creatinine normal at 1.0, liver enzymes not elevated, bilirubin is normal 0.9, WT normal 6.9K, hemoglobin 16.6 and platelets 180 1K. Coronavirus was detected As per the records his been having shortness of breath for 10 days. And he checked his oxygen saturating at home it was 88%. He states that he is post to covert by son and [id number] around Thanksgiving time. Chest x-ray report showed mild atelectasis. 08/24/2020 Patient awake and alert, he has more dyspnea. No chest pain. He still has fever, his respiratory status was worsened overnight and is currently on 15 L high flow oxygen via cannula with oxygen saturation 91-93%. Inflammatory markers LDH and C-reactive protein are the same or slightly worsened. He is followed closely by the pulmonary team and he is on dexamethasone, vitamin C, zinc and Zithromax Cardiology team evaluated the patient for elevated troponin and echocardiogram is reviewed with preserved LV function, and they signed off the case 08/25/2020 Patient remains on the 15 L high flow along with Ventimask. Patient is to have elevated inflammatory markers. Patient does have a congestive heart failure appears to be fairly euvolemic continue with the present regimen of heart failure medication patient blood pressure is low because of which I'll hold off on losartan temporarily will be resumed as soon as possible. 08/26/2020 Patient is presently on Airvo. Patient's is pretty status has worsened and patient is being transferred to ICU at this time. Patient the regarding heart failure scott appear to be euvolemic. Patient received a dose of Bumex today. Patient chest x-ray is consistent with a diffuse interstitial infiltrates. 08/27/2020 Patient is presently on 6 L of oxygen does look much better actually wanted to go home. Then 60 L of oxygen. 08/28/2020 X-ray today is showing some worsening of the infiltrate. Patient remains on about 60 L of oxygen no significant worsening clinically. 08/29/2020 Patient chest x-ray still showing significant infiltrate bilaterally patient respiratory status remains the same inflammatory markers regularly d-dimer is bit worse and 4.5 today. Veins on 60 L of O2 08/30/2020 Patient remains on 60 airvo L of oxygen via airvo and vent mask 08/31/2020 Patient remains on 60 L and Ventimask as well. Patient to d-dimer went up to around 16 because of which patient was started on anticoagulation dose of Lovenox. Patient kidney function is good. 09/03/2020 Patient remains on airvo at 60 L no significant improvement Constitutional: Denied any fatigue denied any fever. Cardio vascular: denied any chest pain, palpitations Gastrointestinal denied any nausea vomiting Pulmonary: Denied any shortness of breath cough on high flow oxygen with airvo Neurologic denied any new focal deficits All inpatient medications were reviewed and appropriate changes in these medications as dictated in the interval history and assessment and plan. Objective - Vital Signs Vital signs: Vital Signs Temp 98 F 09/03/20 08:00 Pulse 56 L 09/03/20 10:00 Resp 20 09/03/20 10:00 BP 122/76 09/03/20 10:00 Pulse Ox 95 09/03/20 11:39 Intake & Output 09/02/20 09/03/20 09/03/20 18:59 06:59 18:59 Intake Total 650 250 240 Output Total 1080 1605 260 Balance -430 -2852 -20 Weight 102.3 kg Intake: Oral 650 250 240 Output: Urine 1080 1605 260 Other: Voiding Method Indwelling Catheter Indwelling Catheter Indwelling Catheter - Exam PHYSICAL EXAMINATION: GENERAL: The patient is drowsy on airvo, not in any acute distress. Well developed, well nourished. HEENT: Pupils are round and equally reacting to light. EOMI. No scleral icterus. No conjunctival pallor. Normocephalic, atraumatic. No pharyngeal erythema. No thyromegaly. CARDIOVASCULAR: S1 and S2 present. No murmurs, rubs, or gallops. PULMONARY: Clear to auscultation without any crackles ABDOMEN: Soft, nontender, nondistended, normoactive bowel sounds. No palpable organomegaly. MUSCULOSKELETAL: No joint swelling or deformity. EXTREMITIES: No cyanosis, clubbing, or pedal edema. NEUROLOGICAL: Unable to assess at this time SKIN: No rashes. Note: Because of COVID 19 isolation, some of the history and physical exam findings are indirect and obtained from nursing staff, and other physician examinations to avoid unnecessary contact with the patient. - Labs CBC & Chem 7: 09/03/20 05:22 09/03/20 05:22 Labs: Abnormal Lab Results - Last 24 Hours (Table) 08/29/20 09/02/20 09/02/20 Range/Units 05:53 16:54 20:43 Neutrophils # (1.3-7.7) k/uL Sodium (137-145) mmol/L BUN (9-20) mg/dL Glucose (74-99) mg/dL POC Glucose (mg/dL) 122 H 108 H (75-99) mg/dL LD Isoenzymes 449 H (120-250) U/L LD 1 17 L (19-38) % LD 5 16 H (3-14) % 09/03/20 09/03/20 Range/Units 05:22 05:22 Neutrophils # 7.8 H (1.3-7.7) k/uL Sodium 134 L (137-145) mmol/L BUN 25 H (9-20) mg/dL Glucose 114 H (74-99) mg/dL POC Glucose (mg/dL) (75-99) mg/dL LD Isoenzymes (120-250) U/L LD 1 (19-38) % LD 5 (3-14) % Assessment and Plan Plan: Acute hypoxic respiratory failure secondary to Covid 19 continue with respiratory support continue with Decadron, zinc, vitamin C, bronchodilator therapy. Patient's respiratory status and was initiated on Airvo respiratory status is fairly stable compared to yesterday. Patient is presently on 60 L of oxygen. No significant improvement clinically. d-dimer was highly elevated to 16 patient was started on 100 mg twice a day of Lovenox. Elevated troponin, secondary to demand ischemia from pulmonary disease Diabetes mellitus blood sugars are well controlled. Hypertension Hyperlipidemia Osteoarthritis Chronic heart failure, chronic systolic dysfunction without any acute attacks of which patient is fairly will continue with oral Bumex, Aldactone and Coreg. Hold off on losartan temporarily because of hypotension Hypothyroidism Sleep apnea on CPAP/BiPAP Benign Prostatic hypertrophy Diabetic neuropathy Parkinson disease History of kidney stone Asthma, not an active issue GERD over all prognosis is extremely poor
[2020-09-04 04:13] LABS: HCT 49.4 % (39.0-53.0); HGB 17.3 gm/dL (13.0-17.5); MCHC 35.1 g/dL (31.0-37.0); MCV 85.5 fL (80.0-100.0); Mean Platelet Volume 8.3; Platelet Count 283 k/uL (150-450); RBC 5.78 m/uL (4.30-5.90); RDW 13.4 % (11.5-15.5)
[2020-09-04 04:24] LABS: ALT 103 U/L (4-49); AST 50 U/L (17-59); African American GFR (CKD) >90 (>60 ml/min/1.73 sqM); Albumin 3.5 g/dL (3.5-5.0); Alkaline Phosphatase 108 U/L (38-126); Anion Gap 5 mmol/L; Blood Urea Nitrogen 24 mg/dL (9-20); C Reactive Protein 26.2 mg/L (<10.0); Carbon Dioxide 28 mmol/L (22-30); Chloride 99 mmol/L (98-107); Creatine Kinase 27 U/L (55-170); Glucose 135 mg/dL (74-99); LDH 762 U/L (313-618); Non-African American GFR(CKD) 87 (>60 ml/min/1.73 sqM); Potassium 3.9 mmol/L (3.5-5.1); Sodium 132 mmol/L (137-145); Total Bilirubin 1.5 mg/dL (0.2-1.3); Total Protein 7.6 g/dL (6.3-8.2)
[2020-09-04 05:38] LABS: Band Neutrophils % 3 %; Eosinophils # (M) 0.36 k/uL (0-0.7); Metamyelocytes # (M) 0.09 k/uL (0); Metamyelocytes % 1 %; Monocytes # (M) 0.54 k/uL (0-1.0); Myelocytes # (M) 0.09 k/uL (0); Myelocytes % 1 %; Neutrophils % (M) 67 %; Nucleated Red Blood Cells 0 /100 WBC (0-0); Total Cells Counted 200
[2020-09-04 05:45] LABS: Poikilocytosis (M) Present; Polychromasia Present
[2020-09-04 05:47] LABS: Large Platelets Present
[2020-09-04] MEDS ORDERED: Potassium Replacement Protocol 1 EACH MISC MISCELLANE PRN (06:32)
[2020-09-04] MEDS: INSULIN ASPART (NovoLOG) 100 UNIT/ML VIAL SQ SCH ×4 (06:34→20:23)
[2020-09-04] MEDS ORDERED: POTASSIUM CHLORIDE ER 20 MEQ TAB.ER PO SCH (07:00)
[2020-09-04] MEDS: LEVOTHYROXINE 75 MCG TAB PO SCH (07:06)
--- NOTE | 2020-09-04 07:06 | XR ---
EXAM: XR Chest, 1 View CLINICAL HISTORY: ITS.REASON XR Reason: COVID PNA TECHNIQUE: Frontal view of the chest. COMPARISON: 09/02/20 FINDINGS: Persistent bilateral lung opacities, not significantly changed. Stable cardiomediastinal silhouette. Additional findings similar to prior. IMPRESSION: No significant interval change.
[2020-09-04] MEDS: ASPIRIN 81 MG PO SCH (07:07)
[2020-09-04] MEDS: PANTOPRAZOLE 40 MG TABLET PO SCH (07:07)
[2020-09-04] MEDS: ASCORBIC ACID 500 MG TAB PO SCH (07:07)
[2020-09-04] MEDS: carvediloL 3.125 MG TAB PO SCH ×2 (07:07→17:15)
[2020-09-04] MEDS: ALPRAZolam 0.25 MG TAB PO SCH ×2 (07:07→20:22)
[2020-09-04] MEDS: CHOLECALCIFEROL 1,000 UNIT TAB PO SCH (07:08)
[2020-09-04] MEDS: SPIRONOLACTONE 25 MG TAB PO SCH (07:08)
[2020-09-04] MEDS: FLUCONAZOLE 100 MG TAB PO SCH ×2 (07:08→20:22)
[2020-09-04] MEDS: ENOXAPARIN 100 MG/ML SYRINGE SQ SCH ×2 (07:08→20:22)
[2020-09-04] MEDS: BUMETANIDE 1 MG TAB PO SCH ×2 (07:08→20:23)
[2020-09-04] MEDS: TAMSULOSIN 0.4 MG CAP.ER.24H PO SCH (07:08)
[2020-09-04] MEDS: ZINC SULFATE 220 MG CAP PO SCH (07:08)
[2020-09-04] MEDS: FLUTICASONE 50MCG/SPRAY NASAL 16GM EA NOSTRIL SCH (07:09)
[2020-09-04] MEDS: ALBUTEROL HFA INHALER INHALATION SCH ×4 (07:57→20:10)
--- NOTE | 2020-09-04 09:50 | P.PN ---
Subjective Progress Note Date: 09/04/20 Principal diagnosis: Acute CoVID 19 pneumonia The patient is seen today 09/04/2020 in follow-up in the intensive care unit. He was admitted with CoVID 19 pneumonitis on 08/22/2020. He currently remains on AirVo at 60 L/m and 60% FiO2. No current IV fluids. Chest x-ray remains stable. The patient is awake and alert in no acute distress. Still quite fatigued and weak. Still with dyspnea on minimal exertion. White count 9.0. Hemoglobin 17.3. Lymphocytes 1.80. Sodium 132. Potassium 3.9. Creatinine 0.78. LDH 762. C-reactive protein 26.2. D-dimer 8.42. Continues on Lovenox, vitamin supplements, bronchodilators. Objective - Vital Signs Vital signs: Vital Signs Temp 97.9 F 09/04/20 08:00 Pulse 64 09/04/20 09:00 Resp 24 09/04/20 09:00 BP 132/71 09/04/20 09:00 Pulse Ox 95 09/04/20 09:00 Intake & Output 09/03/20 09/04/20 09/04/20 18:59 06:59 18:59 Intake Total 240 Output Total 850 980 215 Balance -610 -980 -215 Weight 103 kg Intake: Oral 240 Output: Urine 850 980 215 Other: Voiding Method Indwelling Catheter Indwelling Catheter Indwelling Catheter - Exam GENERAL EXAM: Alert, very pleasant, 72-year-old on 60 l/min, 60% Fio2, fairly comfortable in no apparent distress. HEAD: Normocephalic/atraumatic. EYES: Normal reaction of pupils, equal size. Conjunctiva pink, sclera white. NOSE: Clear with pink turbinates. THROAT: No erythema or exudates. NECK: No masses, no JVD, no thyroid enlargement, no adenopathy. CHEST: No chest wall deformity. Symmetrical expansion. LUNGS: Equal air entry with bilateral scattered crackles. Diminished CVS: Regular rate and rhythm, normal S1 and S2, no gallops, no murmurs, no rubs ABDOMEN: Soft, nontender. No hepatosplenomegaly, normal bowel sounds, no guarding or rigidity. EXTREMITIES: No clubbing, no edema, no cyanosis, 2+ pulses and upper and lower extremities. MUSCULOSKELETAL: Muscle strength and tone normal. SPINE: No scoliosis or deformity SKIN: No rashes CENTRAL NERVOUS SYSTEM: No focal deficits, tone is normal in all 4 extremities. PSYCHIATRIC: Alert and oriented -3. Appropriate affect. Intact judgment and insight. - Labs CBC & Chem 7: 09/04/20 04:00 09/04/20 04:00 Labs: Abnormal Lab Results - Last 24 Hours (Table) 09/04/20 09/04/20 09/04/20 Range/Units 04:00 04:00 04:00 Metamyelocytes # (Man) 0.09 H (0) k/uL Myelocytes # (Manual) 0.09 H (0) k/uL D-Dimer 8.42 H (<0.60) mg/L FEU Sodium 132 L (137-145) mmol/L BUN 24 H (9-20) mg/dL Glucose 135 H (74-99) mg/dL Total Bilirubin 1.5 H (0.2-1.3) mg/dL ALT 103 H (4-49) U/L Lactate Dehydrogenase 762 H (313-618) U/L Creatine Kinase 27 L (55-170) U/L C-Reactive Protein 26.2 H (<10.0) mg/L Assessment and Plan Assessment: 1 Acute Covid 19 related pneumonia. The patient was diagnosed having Covid 19 infection on 08/22/2020. His exposure was around Thanksgiving and the patient has been symptomatic for approximately a week. His chest x-ray showing some limited bibasilar pulmonary infiltrates. Today 09/04/2020 he remains on AirVo high flow oxygen at 60 /m and 60% FiO2. Chest x-ray stable. 2 COPD with an FEV1 of 86% of predicted. The patient is not home oxygen depe ndent and the patient is an ex-smoker 3 coronary artery disease with previous bypass surgery. Limited amount of troponin leak and free of any chest pain and EKG is not showing any acute ischemic changes. 4 CHF 5 diabetes mellitus 6 BPH 7 Parkinson's disease 8 obstructive sleep apnea 9 history of nephrolithiasis 10 history of peripheral neuropathy Plan: The patient was seen and evaluated by Dr. Toledo We'll continue with the current treatment plan Titrate down the FiO2 as tolerated Increase the activity as tolerated We'll continue to follow I, the cosigning physician, performed a history & physical examination of the patient. Lungs sounds have scattered crackles. Maintaining good O2 saturations in the 90s on AirVo high flow at 60 L and 60% FiO2. I discussed the assessment and plan of care with my nurse practitioner, Carol Villalta. I attest to the above note as dictated by her.
--- NOTE | 2020-09-04 12:04 | P.PN ---
Subjective 80 years old male with multiple medical problems as below. He follows up in the [place] [facility]. Presents because of dyspnea and generalized weakness. Patient was complaining of from Raynaud's few days ago and he has been prescribed amoxicillin which helped him a little bit but then he developed significant weakness and fatigue over the last 3-4 days that his make him come to the hospital. He has history of COPD and he quit smoking in 1998, he follows up with Dr. Toledo is not on home oxygen however he says that he has mild dyspnea associated with chronic cough and brown greenish phlegm. He denies chest pain, but he has loose bowel movement about once daily no abdominal pain or vomiting No urinary complaints. He denies alcohol or illicit drugs. Vital signs stable, he is saturating 91% on 4 L oxygen via nasal cannula. He narayanan s had unremarkable labs including CBC, INR, BMP, liver enzymes. For his troponin is elevated at 0.05, 0.04, 0.03. EKG showed normal sinus rhythm at [address]-T changes, Q waves in lead 2, 3 and aVF, T wave inversion in the lateral blades V4-V6 Labs at [facility] showing normal sodium and potassium at 137 and 3.5 respectively, creatinine normal at 1.0, liver enzymes not elevated, bilirubin is normal 0.9, WT normal 6.9K, hemoglobin 16.6 and platelets 180 1K. Coronavirus was detected As per the records his been having shortness of breath for 10 days. And he checked his oxygen saturating at home it was 88%. He states that he is post to [place] by son and [id number] around Thanksgiving time. Chest x-ray report showed mild atelectasis. 08/24/2020 Patient awake and alert, he has more dyspnea. No chest pain. He still has fever, his respiratory status was worsened overnight and is currently on 15 L high flow oxygen via cannula with oxygen saturation 91-93%. Inflammatory markers LDH and C-reactive protein are the same or slightly worsened. He is followed closely by the pulmonary team and he is on dexamethasone, vitamin C, zinc and Zithromax Cardiology team evaluated the patient for elevated troponin and echocardiogram is reviewed with preserved LV function, and they signed off the case 08/25/2020 Patient remains on the 15 L high flow along with Ventimask. Patient is to have elevated inflammatory markers. Patient does have a congestive heart failure appears to be fairly euvolemic continue with the present regimen of heart failure medication patient blood pressure is low because of which I'll hold off on losartan temporarily will be resumed as soon as possible. 08/26/2020 Patient is presently on Airvo. Patient's is pretty status has worsened and patient is being transferred to ICU at this time. Patient the regarding heart failure scott appear to be euvolemic. Patient received a dose of Bumex today. Patient chest x-ray is consistent with a diffuse interstitial infiltrates. 08/27/2020 Patient is presently on 6 L of oxygen does look much better actually wanted to go home. Then 60 L of oxygen. 08/28/2020 X-ray today is showing some worsening of the infiltrate. Patient remains on about 60 L of oxygen no significant worsening clinically. 08/29/2020 Patient chest x-ray still showing significant infiltrate bilaterally patient respiratory status remains the same inflammatory markers regularly d-dimer is bit worse and 4.5 today. Veins on 60 L of O2 08/30/2020 Patient remains on 60 airvo L of oxygen via airvo and vent mask 08/31/2020 Patient remains on 60 L and Ventimask as well. Patient to d-dimer went up to around 16 because of which patient was started on anticoagulation dose of Lovenox. Patient kidney function is good. 09/03/2020 Patient remains on airvo at 60 L no significant improvement 09/04/2020 remains on 60 L airvo. Patient's CRP is still elevated LDH is mildly elevated Constitutional: Denied any fatigue denied any fever. Cardio vascular: denied any chest pain, palpitations Gastrointestinal denied any nausea vomiting Pulmonary: Denied any shortness of breath cough on high flow oxygen with airvo Neurologic denied any new focal deficits All inpatient medications were reviewed and appropriate changes in these medications as dictated in the interval history and assessment and plan. Objective - Vital Signs Vital signs: Vital Signs Temp 97.9 F 09/04/20 08:00 Pulse 70 09/04/20 11:00 Resp 22 09/04/20 11:00 BP 113/84 09/04/20 11:00 Pulse Ox 96 09/04/20 11:00 Intake & Output 09/03/20 09/04/20 09/04/20 18:59 06:59 18:59 Intake Total 240 Output Total 719 771 054 Balance -125 -272 -558 Weight 103 kg Intake: Oral 240 Output: Urine 850 980 595 Other: Voiding Method Indwelling Catheter Indwelling Catheter Indwelling Catheter - Exam PHYSICAL EXAMINATION: GENERAL: The patient is drowsy on airvo, not in any acute distress. Well developed, well nourished. HEENT: Pupils are round and equally reacting to light. EOMI. No scleral icterus. No conjunctival pallor. Normocephalic, atraumatic. No pharyngeal erythema. No thyromegaly. CARDIOVASCULAR: S1 and S2 present. No murmurs, rubs, or gallops. PULMONARY: Clear to auscultation without any crackles ABDOMEN: Soft, nontender, nondistended, normoactive bowel sounds. No palpable organomegaly. MUSCULOSKELETAL: No joint swelling or deformity. EXTREMITIES: No cyanosis, clubbing, or pedal edema. NEUROLOGICAL: Unable to assess at this time SKIN: No rashes. Note: Because of COVID 19 isolation, some of the history and physical exam findings are indirect and obtained from nursing staff, and other physician examinations to avoid unnecessary contact with the patient. - Labs CBC & Chem 7: 09/04/20 04:00 09/04/20 04:00 Labs: Abnormal Lab Results - Last 24 Hours (Table) 09/04/20 09/04/20 09/04/20 Range/Units 04:00 04:00 04:00 Metamyelocytes # (Man) 0.09 H (0) k/uL Myelocytes # (Manual) 0.09 H (0) k/uL D-Dimer 8.42 H (<0.60) mg/L FEU Sodium 132 L (137-145) mmol/L BUN 24 H (9-20) mg/dL Glucose 135 H (74-99) mg/dL Total Bilirubin 1.5 H (0.2-1.3) mg/dL ALT 103 H (4-49) U/L Lactate Dehydrogenase 762 H (313-618) U/L Creatine Kinase 27 L (55-170) U/L C-Reactive Protein 26.2 H (<10.0) mg/L Assessment and Plan Plan: Acute hypoxic respiratory failure secondary to Covid 19 continue with respiratory support continue with Decadron, zinc, vitamin C, bronchodilator therapy. Patient's respiratory status and was initiated on Airvo respiratory status is fairly stable compared to yesterday. Patient is presently on 60 L of oxygen. No significant improvement clinically. d-dimer was highly elevated to 16 patient was started on 100 mg twice a day of Lovenox. Elevated troponin, secondary to demand ischemia from pulmonary disease Diabetes mellitus blood sugars are well controlled. Hypertension Hyperlipidemia Osteoarthritis Chronic heart failure, chronic systolic dysfunction without any acute attacks of which patient is fairly will continue with oral Bumex, Aldactone and Coreg. Hold off on losartan temporarily because of hypotension Hypothyroidism Sleep apnea on CPAP/BiPAP Benign Prostatic hypertrophy Diabetic neuropathy Parkinson disease History of kidney stone Asthma, not an active issue GERD over all prognosis is extremely poor
[2020-09-05 04:51] LABS: C Reactive Protein 44.7 mg/L (<10.0)
[2020-09-05 07:12] LABS: HCT 48.3 % (39.0-53.0); HGB 16.8 gm/dL (13.0-17.5); MCH 30.6 pg (25.0-35.0); MCHC 34.9 g/dL (31.0-37.0); MCV 87.7 fL (80.0-100.0); Platelet Count 352 k/uL (150-450); RDW 13.4 % (11.5-15.5); WBC 10.1 k/uL (3.8-10.6)
[2020-09-05 07:18] LABS: ALT 98 U/L (4-49); AST 51 U/L (17-59); African American GFR (CKD) >90 (>60 ml/min/1.73 sqM); Albumin 3.3 g/dL (3.5-5.0); Alkaline Phosphatase 110 U/L (38-126); Anion Gap 7 mmol/L; Blood Urea Nitrogen 23 mg/dL (9-20); Calcium 9.1 mg/dL (8.4-10.2); Carbon Dioxide 27 mmol/L (22-30); Chloride 100 mmol/L (98-107); Glucose 133 mg/dL (74-99); Non-African American GFR(CKD) 84 (>60 ml/min/1.73 sqM); Potassium 4.4 mmol/L (3.5-5.1); Sodium 134 mmol/L (137-145); Total Bilirubin 1.5 mg/dL (0.2-1.3); Total Protein 6.8 g/dL (6.3-8.2)
[2020-09-05] MEDS: LEVOTHYROXINE 75 MCG TAB PO SCH (07:24)
[2020-09-05] MEDS: carvediloL 3.125 MG TAB PO SCH ×2 (07:24→17:09)
[2020-09-05] MEDS: PANTOPRAZOLE 40 MG TABLET PO SCH (07:24)
[2020-09-05] MEDS: INSULIN ASPART (NovoLOG) 100 UNIT/ML VIAL SQ SCH ×5 (07:25→20:30)
[2020-09-05] MEDS: ALPRAZolam 0.25 MG TAB PO SCH ×2 (08:04→20:30)
[2020-09-05] MEDS: ASCORBIC ACID 500 MG TAB PO SCH (08:04)
[2020-09-05] MEDS: FLUCONAZOLE 100 MG TAB PO SCH (08:04)
[2020-09-05] MEDS: ENOXAPARIN 100 MG/ML SYRINGE SQ SCH ×2 (08:04→20:31)
[2020-09-05] MEDS: CHOLECALCIFEROL 1,000 UNIT TAB PO SCH (08:04)
[2020-09-05] MEDS: BUMETANIDE 1 MG TAB PO SCH ×2 (08:04→20:30)
[2020-09-05] MEDS: ZINC SULFATE 220 MG CAP PO SCH (08:04)
[2020-09-05] MEDS: SPIRONOLACTONE 25 MG TAB PO SCH (08:04)
[2020-09-05] MEDS: TAMSULOSIN 0.4 MG CAP.ER.24H PO SCH (08:04)
[2020-09-05] MEDS: ASPIRIN 81 MG PO SCH (08:04)
[2020-09-05] MEDS: FLUTICASONE 50MCG/SPRAY NASAL 16GM EA NOSTRIL SCH (09:30)
[2020-09-05] MEDS: ALBUTEROL HFA INHALER INHALATION SCH ×4 (09:52→21:13)
--- NOTE | 2020-09-05 09:55 | P.PN ---
Subjective 80 years old male with multiple medical problems as below. He follows up in the [place] [facility]. Presents because of dyspnea and generalized weakness. Patient was complaining of from Raynaud's few days ago and he has been prescribed amoxicillin which helped him a little bit but then he developed significant weakness and fatigue over the last 3-4 days that his make him come to the hospital. He has history of COPD and he quit smoking in 1998, he follows up with Dr. Toledo is not on home oxygen however he says that he has mild dyspnea associated with chronic cough and brown greenish phlegm. He denies chest pain, but he has loose bowel movement about once daily no abdominal pain or vomiting No urinary complaints. He denies alcohol or illicit drugs. Vital signs stable, he is saturating 91% on 4 L oxygen via nasal cannula. He narayanan s had unremarkable labs including CBC, INR, BMP, liver enzymes. For his troponin is elevated at 0.05, 0.04, 0.03. EKG showed normal sinus rhythm at [address]-T changes, Q waves in lead 2, 3 and aVF, T wave inversion in the lateral blades V4-V6 Labs at [facility] showing normal sodium and potassium at 137 and 3.5 respectively, creatinine normal at 1.0, liver enzymes not elevated, bilirubin is normal 0.9, WT normal 6.9K, hemoglobin 16.6 and platelets 180 1K. Coronavirus was detected As per the records his been having shortness of breath for 10 days. And he checked his oxygen saturating at home it was 88%. He states that he is post to [place] by son and [id number] around Thanksgiving time. Chest x-ray report showed mild atelectasis. 08/24/2020 Patient awake and alert, he has more dyspnea. No chest pain. He still has fever, his respiratory status was worsened overnight and is currently on 15 L high flow oxygen via cannula with oxygen saturation 91-93%. Inflammatory markers LDH and C-reactive protein are the same or slightly worsened. He is followed closely by the pulmonary team and he is on dexamethasone, vitamin C, zinc and Zithromax Cardiology team evaluated the patient for elevated troponin and echocardiogram is reviewed with preserved LV function, and they signed off the case 08/25/2020 Patient remains on the 15 L high flow along with Ventimask. Patient is to have elevated inflammatory markers. Patient does have a congestive heart failure appears to be fairly euvolemic continue with the present regimen of heart failure medication patient blood pressure is low because of which I'll hold off on losartan temporarily will be resumed as soon as possible. 08/26/2020 Patient is presently on Airvo. Patient's is pretty status has worsened and patient is being transferred to ICU at this time. Patient the regarding heart failure scott appear to be euvolemic. Patient received a dose of Bumex today. Patient chest x-ray is consistent with a diffuse interstitial infiltrates. 08/27/2020 Patient is presently on 6 L of oxygen does look much better actually wanted to go home. Then 60 L of oxygen. 08/28/2020 X-ray today is showing some worsening of the infiltrate. Patient remains on about 60 L of oxygen no significant worsening clinically. 08/29/2020 Patient chest x-ray still showing significant infiltrate bilaterally patient respiratory status remains the same inflammatory markers regularly d-dimer is bit worse and 4.5 today. Veins on 60 L of O2 08/30/2020 Patient remains on 60 airvo L of oxygen via airvo and vent mask 08/31/2020 Patient remains on 60 L and Ventimask as well. Patient to d-dimer went up to around 16 because of which patient was started on anticoagulation dose of Lovenox. Patient kidney function is good. 09/03/2020 Patient remains on airvo at 60 L no significant improvement 09/04/2020 remains on 60 L airvo. Patient's CRP is still elevated LDH is mildly elevated 09/05/2020 Patient is bit hyponatremic at 134 which is actually better compared to yesterday. And patient remains on 60 L of oxygen. Patient d-dimer has come down to 5.53 patient remains on anticoagulation dose of Lovenox Constitutional: Denied any fatigue denied any fever. Cardio vascular: denied any chest pain, palpitations Gastrointestinal denied any nausea vomiting Pulmonary: Denied any shortness of breath cough on high flow oxygen with airvo Neurologic denied any new focal deficits All inpatient medications were reviewed and appropriate changes in these medications as dictated in the interval history and assessment and plan. Objective - Vital Signs Vital signs: Vital Signs Temp 98 F 09/05/20 08:00 Pulse 71 09/05/20 09:00 Resp 33 H 09/05/20 09:00 BP 125/91 09/05/20 09:00 Pulse Ox 90 L 09/05/20 09:00 Intake & Output 09/04/20 09/05/20 09/05/20 18:59 06:59 18:59 Intake Total 240 240 Output Total 1215 930 400 Balance -1215 -690 -160 Weight 102 kg Intake: Oral 240 240 Output: Urine 1215 930 400 Other: Voiding Method Indwelling Catheter Indwelling Catheter Indwelling Catheter - Exam PHYSICAL EXAMINATION: GENERAL: The patient is drowsy on airvo, not in any acute distress. Well developed, well nourished. HEENT: Pupils are round and equally reacting to light. EOMI. No scleral icterus. No conjunctival pallor. Normocephalic, atraumatic. No pharyngeal erythema. No thyromegaly. CARDIOVASCULAR: S1 and S2 present. No murmurs, rubs, or gallops. PULMONARY: Clear to auscultation without any crackles ABDOMEN: Soft, nontender, nondistended, normoactive bowel sounds. No palpable organomegaly. MUSCULOSKELETAL: No joint swelling or deformity. EXTREMITIES: No cyanosis, clubbing, or pedal edema. NEUROLOGICAL: Unable to assess at this time SKIN: No rashes. Note: Because of COVID 19 isolation, some of the history and physical exam findings are indirect and obtained from nursing staff, and other physician examinations to avoid unnecessary contact with the patient. - Labs CBC & Chem 7: 09/05/20 03:37 09/05/20 03:37 Labs: Abnormal Lab Results - Last 24 Hours (Table) 09/05/20 09/05/20 09/05/20 Range/Units 03:37 03:37 03:37 D-Dimer 5.53 H (<0.60) mg/L FEU Sodium 134 L (137-145) mmol/L BUN 23 H (9-20) mg/dL Glucose 133 H (74-99) mg/dL Total Bilirubin 1.5 H (0.2-1.3) mg/dL ALT 98 H (4-49) U/L Lactate Dehydrogenase 836 H (313-618) U/L C-Reactive Protein 44.7 H (<10.0) mg/L Albumin 3.3 L (3.5-5.0) g/dL Assessment and Plan Plan: Acute hypoxic respiratory failure secondary to Covid 19 continue with respiratory support continue with Decadron, zinc, vitamin C, bronchodilator therapy. Patient's respiratory status and was initiated on Airvo respiratory status is fairly stable compared to yesterday. Patient is presently on 60 L of oxygen. No significant improvement clinically. d-dimer was highly elevated to 16 patient was started on 100 mg twice a day of Lovenox. Elevated troponin, secondary to demand ischemia from pulmonary disease Diabetes mellitus blood sugars are well controlled. Hypertension Hyperlipidemia Osteoarthritis Chronic heart failure, chronic systolic dysfunction without any acute attacks of which patient is fairly will continue with oral Bumex, Aldactone and Coreg. Hold off on losartan temporarily because of hypotension Hypothyroidism Sleep apnea on CPAP/BiPAP Benign Prostatic hypertrophy Diabetic neuropathy Parkinson disease History of kidney stone Asthma, not an active issue GERD over all prognosis is extremely poor
--- NOTE | 2020-09-05 10:29 | XR ---
EXAMINATION TYPE: XR chest 1V DATE OF EXAM: 09/03/2020 COMPARISON: 09/02/2020 HISTORY: 80-year-old male COVID. TECHNIQUE: Single frontal view of the chest is obtained. FINDINGS: Median sternotomy wires and post-CABG clips. Heart mildly enlarged. Diffuse interstitial and patchy a irspace opacity especially in the periphery of the mid and lower lungs, left greater than right. Find ings show no significant change. IMPRESSION: Continued diffuse interstitial and patchy airspace disease, left greater right.
--- NOTE | 2020-09-05 11:00 | P.PN ---
Subjective Progress Note Date: 09/05/20 Principal diagnosis: Acute CoVID 19 pneumonia The patient is seen today 09/04/2020 in follow-up in the intensive care unit. He was admitted with CoVID 19 pneumonitis on 08/22/2020. He currently remains on AirVo at 60 L/m and 60% FiO2. No current IV fluids. Chest x-ray remains stable. The patient is awake and alert in no acute distress. Still quite fatigued and weak. Still with dyspnea on minimal exertion. White count 9.0. Hemoglobin 17.3. Lymphocytes 1.80. Sodium 132. Potassium 3.9. Creatinine 0.78. LDH 762. C-reactive protein 26.2. D-dimer 8.42. Continues on Lovenox, vitamin supplements, bronchodilators. The patient is seen today 09/05/2020 in follow-up in the intensive care unit. He is currently awake and alert in no acute distress. He is still requiring AirVo high flow oxygen at 60 L/m and 60% FiO2. He could not tolerate the BiPAP through the evening. No IV fluids currently. Chest x-ray continues to show diffuse interstitial and patchy airspace disease left greater than right. White count 10.1. Hemoglobin 16.8. D-dimer 5.53. Sodium 134. Potassium 4.4. Creatinine 0.83. LDH 836. C-reactive protein 44.7. Remains on Lovenox, ashley min supplements, bronchodilators. Objective - Vital Signs Vital signs: Vital Signs Temp 98 F 09/05/20 08:00 Pulse 63 09/05/20 10:00 Resp 36 H 09/05/20 10:00 BP 108/73 09/05/20 10:00 Pulse Ox 94 L 09/05/20 10:00 Intake & Output 09/04/20 09/05/20 09/05/20 18:59 06:59 18:59 Intake Total 240 240 Output Total 1215 930 400 Balance -8115 -690 -160 Weight 102 kg Intake: Oral 240 240 Output: Urine 1215 930 400 Other: Voiding Method Indwelling Catheter Indwelling Catheter Indwelling Catheter - Exam GENERAL EXAM: Alert, very pleasant, 72-year-old male patient on 60 l/min, 60% Fio2, fairly comfortable in no apparent distress. HEAD: Normocephalic/atraumatic. EYES: Normal reaction of pupils, equal size. Conjunctiva pink, sclera white. NOSE: Clear with pink turbinates. THROAT: No erythema or exudates. NECK: No masses, no JVD, no thyroid enlargement, no adenopathy. CHEST: No chest wall deformity. Symmetrical expansion. LUNGS: Equal air entry with bilateral scattered crackles. Diminished CVS: Regular rate and rhythm, normal S1 and S2, no gallops, no murmurs, no rubs ABDOMEN: Soft, nontender. No hepatosplenomegaly, normal bowel sounds, no guarding or rigidity. EXTREMITIES: No clubbing, no edema, no cyanosis, 2+ pulses and upper and lower extremities. MUSCULOSKELETAL: Muscle strength and tone normal. SPINE: No scoliosis or deformity SKIN: No rashes CENTRAL NERVOUS SYSTEM: No focal deficits, tone is normal in all 4 extremities. PSYCHIATRIC: Alert and oriented -3. Appropriate affect. Intact judgment and insight. - Labs CBC & Chem 7: 09/05/20 03:37 09/05/20 03:37 Labs: Abnormal Lab Results - Last 24 Hours (Table) 09/05/20 09/05/20 09/05/20 Range/Units 03:37 03:37 03:37 D-Dimer 5.53 H (<0.60) mg/L FEU Sodium 134 L (137-145) mmol/L BUN 23 H (9-20) mg/dL Glucose 133 H (74-99) mg/dL Total Bilirubin 1.5 H (0.2-1.3) mg/dL ALT 98 H (4-49) U/L Lactate Dehydrogenase 836 H (313-618) U/L C-Reactive Protein 44.7 H (<10.0) mg/L Albumin 3.3 L (3.5-5.0) g/dL Assessment and Plan Assessment: 1 Acute Covid 19 related pneumonia. The patient was diagnosed having Covid 19 infection on 08/22/2020. His exposure was around Thanksgiving and the patient has been symptomatic for approximately a week. His chest x-ray showing some limited bibasilar pulmonary infiltrates. Today 09/05/2020 he remains on AirVo high flow oxygen at 60 /m and 60% FiO2. Chest x-ray stable. 2 COPD with an FEV1 of 86% of predicted. The patient is not home oxygen dependent and the patient is an ex-smoker 3 coronary artery disease with previous bypass surgery. Limited amount of troponin leak and free of any chest pain and EKG is not showing any acute ische emanuel changes. 4 CHF 5 diabetes mellitus 6 BPH 7 Parkinson's disease 8 obstructive sleep apnea 9 history of nephrolithiasis 10 history of peripheral neuropathy Plan: The patient was seen and evaluated by Dr. Toledo Chest x-ray and labs reviewed Continue Lovenox, vitamin supplements, bronchodilators Titrate down the FiO2 as tolerated Increase the activity as tolerated We'll continue to follow I, the cosigning physician, performed a history & physical examination of the pa dajuan. Lungs sounds have scattered crackles. Maintaining good O2 saturations in the 90s on AirVo high flow at 60 L and 60% FiO2. I discussed the assessment and plan of care with my nurse practitioner, Carol Villalta. I attest to the above note as dictated by her. Time with Patient: Greater than 30
[2020-09-06 04:50] LABS: HGB 17.4 gm/dL (13.0-17.5); MCH 30.2 pg (25.0-35.0); MCHC 34.7 g/dL (31.0-37.0); Mean Platelet Volume 8.1; Platelet Count 296 k/uL (150-450); RBC 5.75 m/uL (4.30-5.90); RDW 13.5 % (11.5-15.5); WBC 11.3 k/uL (3.8-10.6)
[2020-09-06 05:15] LABS: ALT 90 U/L (4-49); AST 49 U/L (17-59); African American GFR (CKD) >90 (>60 ml/min/1.73 sqM); Albumin 3.3 g/dL (3.5-5.0); Alkaline Phosphatase 116 U/L (38-126); Anion Gap 7 mmol/L; Blood Urea Nitrogen 20 mg/dL (9-20); C Reactive Protein 51.1 mg/L (<10.0); Carbon Dioxide 27 mmol/L (22-30); Chloride 98 mmol/L (98-107); Glucose 138 mg/dL (74-99); LDH 883 U/L (313-618); Non-African American GFR(CKD) 89 (>60 ml/min/1.73 sqM); Potassium 4.3 mmol/L (3.5-5.1); Sodium 132 mmol/L (137-145); Total Bilirubin 1.4 mg/dL (0.2-1.3)
[2020-09-06] MEDS: LEVOTHYROXINE 75 MCG TAB PO SCH (06:46)
[2020-09-06] MEDS: PANTOPRAZOLE 40 MG TABLET PO SCH (06:46)
[2020-09-06] MEDS: INSULIN ASPART (NovoLOG) 100 UNIT/ML VIAL SQ SCH ×4 (06:46→20:35)
[2020-09-06] MEDS: carvediloL 3.125 MG TAB PO SCH ×2 (06:46→18:16)
[2020-09-06] MEDS: ASCORBIC ACID 500 MG TAB PO SCH (08:12)
[2020-09-06] MEDS: BUMETANIDE 1 MG TAB PO SCH ×2 (08:12→20:16)
[2020-09-06] MEDS: ENOXAPARIN 100 MG/ML SYRINGE SQ SCH ×2 (08:12→20:16)
[2020-09-06] MEDS: CHOLECALCIFEROL 1,000 UNIT TAB PO SCH (08:13)
[2020-09-06] MEDS: ALPRAZolam 0.25 MG TAB PO SCH ×2 (08:13→20:16)
[2020-09-06] MEDS: TAMSULOSIN 0.4 MG CAP.ER.24H PO SCH (08:13)
[2020-09-06] MEDS: ZINC SULFATE 220 MG CAP PO SCH (08:13)
[2020-09-06] MEDS: ASPIRIN 81 MG PO SCH (08:13)
[2020-09-06] MEDS: SPIRONOLACTONE 25 MG TAB PO SCH (08:13)
[2020-09-06] MEDS: ALBUTEROL HFA INHALER INHALATION SCH ×4 (08:51→20:01)
[2020-09-06 09:37] LABS: Glucose,Whole Blood 113 mg/dL (75-99)
[2020-09-06 09:38] LABS: Glucose,Whole Blood 130 mg/dL (75-99)
[2020-09-06 09:39] LABS: Glucose,Whole Blood 145 mg/dL (75-99)
[2020-09-06 09:39] LABS: Glucose,Whole Blood 142 mg/dL (75-99)
[2020-09-06 09:39] LABS: Glucose,Whole Blood 142 mg/dL (75-99)
[2020-09-06 09:39] LABS: Glucose,Whole Blood 148 mg/dL (75-99)
[2020-09-06 09:40] LABS: Glucose,Whole Blood 162 mg/dL (75-99)
[2020-09-06 09:40] LABS: Glucose,Whole Blood 160 mg/dL (75-99)
[2020-09-06 09:40] LABS: Glucose,Whole Blood 121 mg/dL (75-99)
[2020-09-06 09:40] LABS: Glucose,Whole Blood 120 mg/dL (75-99)
[2020-09-06 09:41] LABS: Glucose,Whole Blood 196 mg/dL (75-99)
[2020-09-06 09:41] LABS: Glucose,Whole Blood 150 mg/dL (75-99)
[2020-09-06 09:41] LABS: Glucose,Whole Blood 159 mg/dL (75-99)
--- NOTE | 2020-09-06 10:27 | P.PN ---
Subjective Progress Note Date: 09/06/20 Principal diagnosis: Acute CoVID 19 pneumonia The patient is seen today 09/04/2020 in follow-up in the intensive care unit. He was admitted with CoVID 19 pneumonitis on 08/22/2020. He currently remains on AirVo at 60 L/m and 60% FiO2. No current IV fluids. Chest x-ray remains stable. The patient is awake and alert in no acute distress. Still quite fatigued and weak. Still with dyspnea on minimal exertion. White count 9.0. Hemoglobin 17.3. Lymphocytes 1.80. Sodium 132. Potassium 3.9. Creatinine 0.78. LDH 762. C-reactive protein 26.2. D-dimer 8.42. Continues on Lovenox, vitamin supplements, bronchodilators. The patient is seen today 09/05/2020 in follow-up in the intensive care unit. He is currently awake and alert in no acute distress. He is still requiring AirVo high flow oxygen at 60 L/m and 60% FiO2. He could not tolerate the BiPAP through the evening. No IV fluids currently. Chest x-ray continues to show diffuse interstitial and patchy airspace disease left greater than right. White count 10.1. Hemoglobin 16.8. D-dimer 5.53. Sodium 134. Potassium 4.4. Creatinine 0.83. LDH 836. C-reactive protein 44.7. Remains on Lovenox, ashley min supplements, bronchodilators. The patient is seen today 09/06/2020 in follow-up in the intensive care unit. He is currently resting comfortably in bed. Awake and alert. Mild respiratory distress. Dyspneic with minimal exertion. He remains on AirVo high flow oxygen at 60 L and 55% FiO2. No current IV fluids. White count 11.3. Hemoglobin 17.4. D-dimer 3.74. Sodium 132. Potassium 4.3. Glucose 138. LDH 83. C- reactive protein 51.1. He remains on bronchodilators, Lovenox, vitamin s upplements. Objective - Vital Signs Vital signs: Vital Signs Temp 97.6 F 09/06/20 08:00 Pulse 59 L 09/06/20 09:00 Resp 33 H 09/06/20 09:00 BP 109/78 09/06/20 09:00 Pulse Ox 97 09/06/20 09:00 Intake & Output 09/05/20 09/06/20 09/06/20 18:59 06:59 18:59 Intake Total 480 400 120 Output Total 990 590 325 Balance -510 -190 -205 Weight 101.3 kg Intake: Oral 480 400 120 Output: Urine 990 590 325 Other: Voiding Method Indwelling Catheter Indwelling Catheter Indwelling Catheter - Exam GENERAL EXAM: Alert, very pleasant, 72-year-old male patient on AirVo high flow at 60 L/min, 55% Fio2, fairly comfortable in no apparent distress. HEAD: Normocephalic/atraumatic. EYES: Normal reaction of pupils, equal size. Conjunctiva pink, sclera white. NOSE: Clear with pink turbinates. THROAT: No erythema or exudates. NECK: No masses, no JVD, no thyroid enlargement, no adenopathy. CHEST: No chest wall deformity. Symmetrical expansion. LUNGS: Equal air entry with bilateral scattered crackles. Diminished CVS: Regular rate and rhythm, normal S1 and S2, no gallops, no murmurs, no rubs ABDOMEN: Soft, nontender. No hepatosplenomegaly, normal bowel sounds, no guarding or rigidity. EXTREMITIES: No clubbing, no edema, no cyanosis, 2+ pulses and upper and lower extremities. MUSCULOSKELETAL: Muscle strength and tone normal. SPINE: No scoliosis or deformity SKIN: No rashes CENTRAL NERVOUS SYSTEM: No focal deficits, tone is normal in all 4 extremities. PSYCHIATRIC: Alert and oriented -3. Appropriate affect. Intact judgment and insight. - Labs CBC & Chem 7: 09/06/20 04:29 09/06/20 04:29 Labs: Abnormal Lab Results - Last 24 Hours (Table) 09/03/20 09/03/20 09/03/20 Range/Units 06:51 17:01 20:21 WBC (3.8-10.6) k/uL D-Dimer (<0.60) mg/L FEU Sodium (137-145) mmol/L Glucose (74-99) mg/dL POC Glucose (mg/dL) 113 H 130 H 142 H (75-99) mg/dL Total Bilirubin (0.2-1.3) mg/dL ALT (4-49) U/L Lactate Dehydrogenase (313-618) U/L C-Reactive Protein (<10.0) mg/L Albumin (3.5-5.0) g/dL 09/04/20 09/04/20 09/04/20 Range/Units 06:23 11:40 16:52 WBC (3.8-10.6) k/uL D-Dimer (<0.60) mg/L FEU Sodium (137-145) mmol/L Glucose (74-99) mg/dL POC Glucose (mg/dL) 142 H 148 H 145 H (75-99) mg/dL Total Bilirubin (0.2-1.3) mg/dL ALT (4-49) U/L Lactate Dehydrogenase (313-618) U/L C-Reactive Protein (<10.0) mg/L Albumin (3.5-5.0) g/dL 09/04/20 09/05/20 09/05/20 Range/Units 20:16 07:09 12:09 WBC (3.8-10.6) k/uL D-Dimer (<0.60) mg/L FEU Sodium (137-145) mmol/L Glucose (74-99) mg/dL POC Glucose (mg/dL) 162 H 160 H 120 H (75-99) mg/dL Total Bilirubin (0.2-1.3) mg/dL ALT (4-49) U/L Lactate Dehydrogenase (313-618) U/L C-Reactive Protein (<10.0) mg/L Albumin (3.5-5.0) g/dL 09/05/20 09/05/20 09/06/20 Range/Units 16:36 20:21 04:29 WBC (3.8-10.6) k/uL D-Dimer 3.74 H (<0.60) mg/L FEU Sodium (137-145) mmol/L Glucose (74-99) mg/dL POC Glucose (mg/dL) 121 H 159 H (75-99) mg/dL Total Bilirubin (0.2-1.3) mg/dL ALT (4-49) U/L Lactate Dehydrogenase (313-618) U/L C-Reactive Protein (<10.0) mg/L Albumin (3.5-5.0) g/dL 09/06/20 09/06/20 09/06/20 Range/Units 04:29 04:29 06:39 WBC 11.3 H (3.8-10.6) k/uL D-Dimer (<0.60) mg/L FEU Sodium 132 L (137-145) mmol/L Glucose 138 H (74-99) mg/dL POC Glucose (mg/dL) 150 H (75-99) mg/dL Total Bilirubin 1.4 H (0.2-1.3) mg/dL ALT 90 H (4-49) U/L Lactate Dehydrogenase 883 H (313-618) U/L C-Reactive Protein 51.1 H (<10.0) mg/L Albumin 3.3 L (3.5-5.0) g/dL 09/06/20 Range/Units 07:35 WBC (3.8-10.6) k/uL D-Dimer (<0.60) mg/L FEU Sodium (137-145) mmol/L Glucose (74-99) mg/dL POC Glucose (mg/dL) 196 H (75-99) mg/dL Total Bilirubin (0.2-1.3) mg/dL ALT (4-49) U/L Lactate Dehydrogenase (313-618) U/L C-Reactive Protein (<10.0) mg/L Albumin (3.5-5.0) g/dL Assessment and Plan Assessment: 1 Acute Covid 19 related pneumonia. The patient was diagnosed having Covid 19 infection on 08/22/2020. His exposure was around Thanksgiving and the patient has been symptomatic for approximately a week. His chest x-ray showing some limited bibasilar pulmonary infiltrates. Today 09/06/2020 he remains on AirVo high flow oxygen at 60 /m and 55% FiO2. . 2 COPD with an FEV1 of 86% of predicted. The patient is not home oxygen dependent and the patient is an ex-smoker 3 Coronary artery disease with previous bypass surgery. Limited amount of troponin leak and free of any chest pain and EKG is not showing any acute ischemic changes. 4 CHF 5 Diabetes mellitus 6 BPH 7 Parkinson's disease 8 Obstructive sleep apnea 9 History of nephrolithiasis 10 History of peripheral neuropathy Plan: The patient was seen and evaluated by Dr. Toledo Continue Lovenox, vitamin supplements, bronchodilators Titrate down the FiO2 as tolerated Increase the activity as tolerated We'll continue to follow I, the cosigning physician, performed a history & physical examination of the patient. Lungs sounds have scattered crackles. Maintaining good O2 saturations in the 90s on AirVo high flow at 60 L and 55% FiO2. I discussed the assessment and plan of care with my nurse practitioner, Carol Villalta. I attest to the above note as dictated by her. Time with Patient: Greater than 30
[2020-09-06] MEDS: FLUTICASONE 50MCG/SPRAY NASAL 16GM EA NOSTRIL SCH (10:46)
[2020-09-06 11:59] LABS: Glucose,Whole Blood 132 mg/dL (75-99)
--- NOTE | 2020-09-06 12:25 | P.PN ---
Subjective 80 years old male with multiple medical problems as below. He follows up in the [facility]. Presents because of dyspnea and generalized weakness. Patient was complaining of from Raynaud's few days ago and he has been prescribed amoxicillin which helped him a little bit but then he developed significant weakness and fatigue over the last 3-4 days that his make him come to the hospital. He has history of COPD and he quit smoking in 1998, he follows up with Dr. Toledo is not on home oxygen however he says that he has mild dyspnea associated with chronic cough and brown greenish phlegm. He denies chest pain, but he has loose bowel movement about once daily no abdominal pain or vomiting No urinary complaints. He denies alcohol or illicit drugs. Vital signs stable, he is saturating 91% on 4 L oxygen via nasal cannula. He narayanan s had unremarkable labs including CBC, INR, BMP, liver enzymes. For his troponin is elevated at 0.05, 0.04, 0.03. EKG showed normal sinus rhythm at [address]-T changes, Q waves in lead 2, 3 and aVF, T wave inversion in the lateral blades V4-V6 Labs at [facility] showing normal sodium and potassium at 137 and 3.5 respectively, creatinine normal at 1.0, liver enzymes not elevated, bilirubin is normal 0.9, WT normal 6.9K, hemoglobin 16.6 and platelets 180 1K. Coronavirus was detected As per the records his been having shortness of breath for 10 days. And he checked his oxygen saturating at home it was 88%. He states that he is post to [place] by son and [id number] around Thanksgiving time. Chest x-ray report showed mild atelectasis. 08/24/2020 Patient awake and alert, he has more dyspnea. No chest pain. He still has fever, his respiratory status was worsened overnight and is currently on 15 L high flow oxygen via cannula with oxygen saturation 91-93%. Inflammatory markers LDH and C-reactive protein are the same or slightly worsened. He is followed closely by the pulmonary team and he is on dexamethasone, vitamin C, zinc and Zithromax Cardiology team evaluated the patient for elevated troponin and echocardiogram is reviewed with preserved LV function, and they signed off the case 08/25/2020 Patient remains on the 15 L high flow along with Ventimask. Patient is to have elevated inflammatory markers. Patient does have a congestive heart failure appears to be fairly euvolemic continue with the present regimen of heart failure medication patient blood pressure is low because of which I'll hold off on losartan temporarily will be resumed as soon as possible. 08/26/2020 Patient is presently on Airvo. Patient's is pretty status has worsened and patient is being transferred to ICU at this time. Patient the regarding heart failure scott appear to be euvolemic. Patient received a dose of Bumex today. Patient chest x-ray is consistent with a diffuse interstitial infiltrates. 08/27/2020 Patient is presently on 6 L of oxygen does look much better actually wanted to go home. Then 60 L of oxygen. 08/28/2020 X-ray today is showing some worsening of the infiltrate. Patient remains on about 60 L of oxygen no significant worsening clinically. 08/29/2020 Patient chest x-ray still showing significant infiltrate bilaterally patient respiratory status remains the same inflammatory markers regularly d-dimer is bit worse and 4.5 today. Veins on 60 L of O2 08/30/2020 Patient remains on 60 airvo L of oxygen via airvo and vent mask 08/31/2020 Patient remains on 60 L and Ventimask as well. Patient to d-dimer went up to around 16 because of which patient was started on anticoagulation dose of Lovenox. Patient kidney function is good. 09/03/2020 Patient remains on airvo at 60 L no significant improvement 09/04/2020 remains on 60 L airvo. Patient's CRP is still elevated LDH is mildly elevated 09/05/2020 Patient is bit hyponatremic at 134 which is actually better compared to yesterday. And patient remains on 60 L of oxygen. Patient d-dimer has come down to 5.53 patient remains on anticoagulation dose of Lovenox 09/06/2020 Patient is on 60 L of oxygen and FiO2 of around 55% which is an improvement patient is presently hemodynamically stable Constitutional: Denied any fatigue denied any fever. Cardio vascular: denied any chest pain, palpitations Gastrointestinal denied any nausea vomiting Pulmonary: Denied any shortness of breath cough on high flow oxygen with airvo Neurologic denied any new focal deficits All inpatient medications were reviewed and appropriate changes in these medications as dictated in the interval history and assessment and plan. Objective - Vital Signs Vital signs: Vital Signs Temp 97.6 F 09/06/20 08:00 Pulse 67 09/06/20 11:00 Resp 21 09/06/20 11:00 BP 108/81 09/06/20 11:00 Pulse Ox 94 L 09/06/20 11:00 Intake & Output 09/05/20 09/06/20 09/06/20 18:59 06:59 18:59 Intake Total 480 400 220 Output Total 990 590 475 Balance -510 -190 -255 Weight 101.3 kg Intake: Oral 480 400 220 Output: Urine 990 590 475 Other: Voiding Method Indwelling Catheter Indwelling Catheter Indwelling Catheter - Exam PHYSICAL EXAMINATION: GENERAL: The patient is drowsy on airvo, not in any acute distress. Well developed, well nourished. HEENT: Pupils are round and equally reacting to light. EOMI. No scleral icterus. No conjunctival pallor. Normocephalic, atraumatic. No pharyngeal erythema. No thyromegaly. CARDIOVASCULAR: S1 and S2 present. No murmurs, rubs, or gallops. PULMONARY: Clear to auscultation without any crackles ABDOMEN: Soft, nontender, nondistended, normoactive bowel sounds. No palpable organomegaly. MUSCULOSKELETAL: No joint swelling or deformity. EXTREMITIES: No cyanosis, clubbing, or pedal edema. NEUROLOGICAL: Unable to assess at this time SKIN: No rashes. Note: Because of COVID 19 isolation, some of the history and physical exam findings are indirect and obtained from nursing staff, and other physician examinations to avoid unnecessary contact with the patient. - Labs CBC & Chem 7: 09/06/20 04:29 09/06/20 04:29 Labs: Abnormal Lab Results - Last 24 Hours (Table) 09/03/20 09/03/20 09/03/20 Range/Units 06:51 17:01 20:21 WBC (3.8-10.6) k/uL D-Dimer (<0.60) mg/L FEU Sodium (137-145) mmol/L Glucose (74-99) mg/dL POC Glucose (mg/dL) 113 H 130 H 142 H (75-99) mg/dL Total Bilirubin (0.2-1.3) mg/dL ALT (4-49) U/L Lactate Dehydrogenase (313-618) U/L C-Reactive Protein (<10.0) mg/L Albumin (3.5-5.0) g/dL 09/04/20 09/04/20 09/04/20 Range/Units 06:23 11:40 16:52 WBC (3.8-10.6) k/uL D-Dimer (<0.60) mg/L FEU Sodium (137-145) mmol/L Glucose (74-99) mg/dL POC Glucose (mg/dL) 142 H 148 H 145 H (75-99) mg/dL Total Bilirubin (0.2-1.3) mg/dL ALT (4-49) U/L Lactate Dehydrogenase (313-618) U/L C-Reactive Protein (<10.0) mg/L Albumin (3.5-5.0) g/dL 09/04/20 09/05/20 09/05/20 Range/Units 20:16 07:09 12:09 WBC (3.8-10.6) k/uL D-Dimer (<0.60) mg/L FEU Sodium (137-145) mmol/L Glucose (74-99) mg/dL POC Glucose (mg/dL) 162 H 160 H 120 H (75-99) mg/dL Total Bilirubin (0.2-1.3) mg/dL ALT (4-49) U/L Lactate Dehydrogenase (313-618) U/L C-Reactive Protein (<10.0) mg/L Albumin (3.5-5.0) g/dL 09/05/20 09/05/20 09/06/20 Range/Units 16:36 20:21 04:29 WBC (3.8-10.6) k/uL D-Dimer 3.74 H (<0.60) mg/L FEU Sodium (137-145) mmol/L Glucose (74-99) mg/dL POC Glucose (mg/dL) 121 H 159 H (75-99) mg/dL Total Bilirubin (0.2-1.3) mg/dL ALT (4-49) U/L Lactate Dehydrogenase (313-618) U/L C-Reactive Protein (<10.0) mg/L Albumin (3.5-5.0) g/dL 09/06/20 09/06/20 09/06/20 Range/Units 04:29 04:29 06:39 WBC 11.3 H (3.8-10.6) k/uL D-Dimer (<0.60) mg/L FEU Sodium 132 L (137-145) mmol/L Glucose 138 H (74-99) mg/dL POC Glucose (mg/dL) 150 H (75-99) mg/dL Total Bilirubin 1.4 H (0.2-1.3) mg/dL ALT 90 H (4-49) U/L Lactate Dehydrogenase 883 H (313-618) U/L C-Reactive Protein 51.1 H (<10.0) mg/L Albumin 3.3 L (3.5-5.0) g/dL 09/06/20 09/06/20 Range/Units 07:35 11:58 WBC (3.8-10.6) k/uL D-Dimer (<0.60) mg/L FEU Sodium (137-145) mmol/L Glucose (74-99) mg/dL POC Glucose (mg/dL) 196 H 132 H (75-99) mg/dL Total Bilirubin (0.2-1.3) mg/dL ALT (4-49) U/L Lactate Dehydrogenase (313-618) U/L C-Reactive Protein (<10.0) mg/L Albumin (3.5-5.0) g/dL Assessment and Plan Plan: Acute hypoxic respiratory failure secondary to Covid 19 continue with respiratory support continue with Decadron, zinc, vitamin C, bronchodilator therapy. Patient's respiratory status and was initiated on Airvo respiratory status is fairly stable compared to yesterday. Patient is presently on 60 L of oxygen. No significant improvement clinically. d-dimer was highly elevated to 16 patient was started on 100 mg twice a day of Lovenox. Elevated troponin, secondary to demand ischemia from pulmonary disease Diabetes mellitus blood sugars are well controlled. Hypertension Hyperlipidemia Osteoarthritis Chronic heart failure, chronic systolic dysfunction without any acute attacks of which patient is fairly will continue with oral Bumex, Aldactone and Coreg. Hold off on losartan temporarily because of hypotension Hypothyroidism Sleep apnea on CPAP/BiPAP Benign Prostatic hypertrophy Diabetic neuropathy Parkinson disease History of kidney stone Asthma, not an active issue GERD over all prognosis is extremely poor
[2020-09-06 16:55] LABS: Glucose,Whole Blood 121 mg/dL (75-99)
[2020-09-06 20:23] LABS: Glucose,Whole Blood 151 mg/dL (75-99)
[2020-09-07 04:21] LABS: HCT 48.4 % (39.0-53.0); HGB 17.1 gm/dL (13.0-17.5); MCH 30.3 pg (25.0-35.0); MCHC 35.3 g/dL (31.0-37.0); MCV 85.8 fL (80.0-100.0); Mean Platelet Volume 8.5; Platelet Count 276 k/uL (150-450); RBC 5.64 m/uL (4.30-5.90); RDW 13.3 % (11.5-15.5); WBC 11.4 k/uL (3.8-10.6)
[2020-09-07 04:36] LABS: ALT 80 U/L (4-49); AST 44 U/L (17-59); African American GFR (CKD) >90 (>60 ml/min/1.73 sqM); Albumin 3.2 g/dL (3.5-5.0); Alkaline Phosphatase 120 U/L (38-126); Anion Gap 8 mmol/L; Blood Urea Nitrogen 19 mg/dL (9-20); Calcium 8.8 mg/dL (8.4-10.2); Carbon Dioxide 25 mmol/L (22-30); Chloride 97 mmol/L (98-107); Glucose 125 mg/dL (74-99); Non-African American GFR(CKD) >90 (>60 ml/min/1.73 sqM); Potassium 4.4 mmol/L (3.5-5.1); Sodium 130 mmol/L (137-145); Total Bilirubin 1.4 mg/dL (0.2-1.3); Total Protein 6.8 g/dL (6.3-8.2)
[2020-09-07] MEDS: PANTOPRAZOLE 40 MG TABLET PO SCH (06:40)
[2020-09-07] MEDS: LEVOTHYROXINE 75 MCG TAB PO SCH (06:40)
[2020-09-07] MEDS: carvediloL 3.125 MG TAB PO SCH ×2 (06:40→17:49)
[2020-09-07 06:45] LABS: Glucose,Whole Blood 168 mg/dL (75-99)
[2020-09-07] MEDS: INSULIN ASPART (NovoLOG) 100 UNIT/ML VIAL SQ SCH ×4 (06:47→20:06)
--- NOTE | 2020-09-07 07:47 | P.PN ---
Subjective Progress Note Date: 09/07/20 80-year-old male patient was still being seen in intensive care unit for COVID90 related pneumonia and subsequent acute hypoxic respiratory failure. The patient remains in the intensive care unit. The patient is currently on high flow oxygen at 60 L with an FiO2 of 55%. His chest x-ray continues to show diffuse interstitial and patchy airspace disease left greater than right. He was originally hospitalized on 08/25/2024 generalized weakness and worsening shortness of breath. Patient was diagnosed on 08/22/20, [facility] on 08/28/20, missed therapeutic window for remdesivir and the patient was also treated with Decadron in addition to routine supplements with vitamin C, vitamin D and Pepcid and melatonin. The patient's condition progressively got worse and currently is on high flow oxygen. Note that he is known to have COPD with an FEV1 of 86% of predicted. His comorbid conditions include coronary artery disease with previous bypass surgery, CHF, diabetes mellitus, BPH, Parkinson's disease and obstructive sleep apnea and peripheral neuropathy. For now, the patient remains on Lovenox 100 mg therapeutic doses being given twice a day. The most recent d-dimer is down to 3.74. Renal function stable and within normal limits along with the rest of electrolytes. The patient clinically is gradually improving. He is becoming more active. This morning he is laying down comfortably in bed. He is tolerating his diet. No altered mentation. The high flow oxygen is still at 60 L with an FiO2 of 44% with a pulse of 72%. Objective - Vital Signs Vital signs: Vital Signs Temp 97.7 F 09/07/20 06:00 Pulse 68 09/07/20 07:00 Resp 30 H 09/07/20 07:00 BP 105/72 09/07/20 07:00 Pulse Ox 95 09/07/20 07:00 Intake & Output 09/06/20 09/07/20 09/07/20 18:59 06:59 18:59 Intake Total 700 450 50 Output Total 935 710 50 Balance -235 -260 0 Weight 101.8 kg Intake: Oral 700 450 50 Output: Urine 935 710 50 Other: Voiding Method Indwelling Catheter Indwelling Catheter - Exam GENERAL EXAM: Alert, very pleasant, 72-year-old male patient on AirVo high flow at 60 L/min, 45% Fio2, fairly comfortable in no apparent distress. HEAD: Normocephalic/atraumatic. EYES: Normal reaction of pupils, equal size. Conjunctiva pink, sclera white. NOSE: Clear with pink turbinates. THROAT: No erythema or exudates. NECK: No masses, no JVD, no thyroid enlargement, no adenopathy. CHEST: No chest wall deformity. Symmetrical expansion. LUNGS: Equal air entry with bilateral scattered crackles. Diminished CVS: Regular rate and rhythm, normal S1 and S2, no gallops, no murmurs, no rubs ABDOMEN: Soft, nontender. No hepatosplenomegaly, normal bowel sounds, no guarding or rigidity. EXTREMITIES: No clubbing, no edema, no cyanosis, 2+ pulses and upper and lower extremities. MUSCULOSKELETAL: Muscle strength and tone normal. SPINE: No scoliosis or deformity SKIN: No rashes CENTRAL NERVOUS SYSTEM: No focal deficits, tone is normal in all 4 extremities. PSYCHIATRIC: Alert and oriented -3. Appropriate affect. Intact judgment and insight. - Labs CBC & Chem 7: 09/07/20 03:25 09/07/20 03:25 Labs: Abnormal Lab Results - Last 24 Hours (Table) 09/03/20 09/03/20 09/03/20 Range/Units 06:51 17:01 20:21 WBC (3.8-10.6) k/uL Sodium (137-145) mmol/L Chloride (98-107) mmol/L Glucose (74-99) mg/dL POC Glucose (mg/dL) 113 H 130 H 142 H (75-99) mg/dL Total Bilirubin (0.2-1.3) mg/dL ALT (4-49) U/L Albumin (3.5-5.0) g/dL 09/04/20 09/04/20 09/04/20 Range/Units 06:23 11:40 16:52 WBC (3.8-10.6) k/uL Sodium (137-145) mmol/L Chloride (98-107) mmol/L Glucose (74-99) mg/dL POC Glucose (mg/dL) 142 H 148 H 145 H (75-99) mg/dL Total Bilirubin (0.2-1.3) mg/dL ALT (4-49) U/L Albumin (3.5-5.0) g/dL 09/04/20 09/05/20 09/05/20 Range/Units 20:16 07:09 12:09 WBC (3.8-10.6) k/uL Sodium (137-145) mmol/L Chloride (98-107) mmol/L Glucose (74-99) mg/dL POC Glucose (mg/dL) 162 H 160 H 120 H (75-99) mg/dL Total Bilirubin (0.2-1.3) mg/dL ALT (4-49) U/L Albumin (3.5-5.0) g/dL 09/05/20 09/05/20 09/06/20 Range/Units 16:36 20:21 06:39 WBC (3.8-10.6) k/uL Sodium (137-145) mmol/L Chloride (98-107) mmol/L Glucose (74-99) mg/dL POC Glucose (mg/dL) 121 H 159 H 150 H (75-99) mg/dL Total Bilirubin (0.2-1.3) mg/dL ALT (4-49) U/L Albumin (3.5-5.0) g/dL 09/06/20 09/06/20 09/06/20 Range/Units 07:35 11:58 16:54 WBC (3.8-10.6) k/uL Sodium (137-145) mmol/L Chloride (98-107) mmol/L Glucose (74-99) mg/dL POC Glucose (mg/dL) 196 H 132 H 121 H (75-99) mg/dL Total Bilirubin (0.2-1.3) mg/dL ALT (4-49) U/L Albumin (3.5-5.0) g/dL 09/06/20 09/07/20 09/07/20 Range/Units 20:22 03:25 03:25 WBC 11.4 H (3.8-10.6) k/uL Sodium 130 L (137-145) mmol/L Chloride 97 L (98-107) mmol/L Glucose 125 H (74-99) mg/dL POC Glucose (mg/dL) 151 H (75-99) mg/dL Total Bilirubin 1.4 H (0.2-1.3) mg/dL ALT 80 H (4-49) U/L Albumin 3.2 L (3.5-5.0) g/dL 09/07/20 Range/Units 06:44 WBC (3.8-10.6) k/uL Sodium (137-145) mmol/L Chloride (98-107) mmol/L Glucose (74-99) mg/dL POC Glucose (mg/dL) 168 H (75-99) mg/dL Total Bilirubin (0.2-1.3) mg/dL ALT (4-49) U/L Albumin (3.5-5.0) g/dL Assessment and Plan Plan: 1 Acute Covid 19 related pneumonia. The patient was diagnosed having Covid 19 infection on 08/22/2020. His exposure was around Thanksgiving and the patient has been symptomatic for approximately a week. His chest x-ray showing some limited bibasilar pulmonary infiltrates. Today 09/06/2020 he remains on AirVo high flow oxygen at 60 /m and 45% FiO2. . 2 COPD with an FEV1 of 86% of predicted. The patient is not home oxygen dependent and the patient is an ex-smoker 3 Coronary artery disease with previous bypass surgery. Limited amount of troponin leak and free of any chest pain and EKG is not showing any acute ischemic changes. 4 CHF 5 Diabetes mellitus 6 BPH 7 Parkinson's disease 8 Obstructive sleep apnea 9 History of nephrolithiasis 10 History of peripheral neuropathy Plan Continue our efforts to wean down the FiO2 We'll try to switch this patient to a high flow nasal cannula and see if he is able to tolerate Dr. Lovenox dose 50 mg every 12 hours as the patient's d-dimer levels have been gradually declining Repeat chest x-ray in the morning Encouraged use of incentive spirometer We'll keep the patient ICU for another 24 hours.
[2020-09-07] MEDS: ALBUTEROL HFA INHALER INHALATION SCH ×4 (07:52→20:56)
[2020-09-07] MEDS: ALPRAZolam 0.25 MG TAB PO SCH ×2 (08:06→20:07)
[2020-09-07] MEDS: ASCORBIC ACID 500 MG TAB PO SCH (08:07)
[2020-09-07] MEDS: BUMETANIDE 1 MG TAB PO SCH ×2 (08:07→20:07)
[2020-09-07] MEDS: ZINC SULFATE 220 MG CAP PO SCH (08:07)
[2020-09-07] MEDS: TAMSULOSIN 0.4 MG CAP.ER.24H PO SCH (08:07)
[2020-09-07] MEDS: SPIRONOLACTONE 25 MG TAB PO SCH (08:07)
[2020-09-07] MEDS: CHOLECALCIFEROL 1,000 UNIT TAB PO SCH (08:07)
[2020-09-07] MEDS: ASPIRIN 81 MG PO SCH (08:07)
[2020-09-07] MEDS: FLUTICASONE 50MCG/SPRAY NASAL 16GM EA NOSTRIL SCH (08:08)
[2020-09-07] MEDS: ENOXAPARIN 60 MG/0.6 ML SYRINGE SQ SCH ×2 (11:05→20:07)
[2020-09-07 11:40] LABS: Glucose,Whole Blood 132 mg/dL (75-99)
--- NOTE | 2020-09-07 13:59 | P.PN ---
Subjective Progress Note Date: 09/07/20 80 years old male with multiple medical problems as below. He follows up in the [place] [facility]. Presents because of dyspnea and generalized weakness. Patient was complaining of from Raynaud's few days ago and he has been prescribed amoxicillin which helped him a little bit but then he developed signi ficant weakness and fatigue over the last 3-4 days that his make him come to the hospital. He has history of COPD and he quit smoking in 1998, he follows up with Dr. [place] is not on home oxygen however he says that he has mild dyspnea associated with chronic cough and brown greenish phlegm. He denies chest pain, but he has loose bowel movement about once daily no abdominal pain or vomiting No urinary complaints. He denies alcohol or illicit drugs. Vital signs stable, he is saturating 91% on 4 L oxygen via nasal cannula. He has had unremarkable labs including CBC, INR, BMP, liver enzymes. For his troponin is elevated at 0.05, 0.04, 0.03. EKG showed normal sinus rhythm at [address]-T changes, Q waves in lead 2, 3 and aVF, T wave inversion in the lateral blades V4-V6 Labs at [facility] showing normal sodium and potassium at 137 and 3.5 respectively, creatinine normal at 1.0, liver enzymes not elevated, bilirubin is normal 0.9, WT normal 6.9K, hemoglobin 16.6 and platelets 180 1K. Coronavirus was detected As per the records his been having shortness of breath for 10 days. And he checked his oxygen saturating at home it was 88%. He states that he is post to covert by son and [id number] around Thanksgiving time. Chest x-ray report showed mild atelectasis. 08/24/2020 Patient awake and alert, he has more dyspnea. No chest pain. He still has fever, his respiratory status was worsened overnight and is currently on 15 L high flow oxygen via cannula with oxygen saturation 91-93%. Inflammatory markers LDH and C-reactive protein are the same or slightly worsened. He is followed closely by the pulmonary team and he is on dexamethasone, vitamin C, zinc and Zithromax Cardiology team evaluated the patient for elevated troponin and echocardiogram is reviewed with preserved LV function, and they signed off the case 08/25/2020 Patient remains on the 15 L high flow along with Ventimask. Patient is to have elevated inflammatory markers. Patient does have a congestive heart failure appears to be fairly euvolemic continue with the present regimen of heart failure medication patient blood pressure is low because of which I'll hold off on losartan temporarily will be resumed as soon as possible. 08/26/2020 Patient is presently on Airvo. Patient's is pretty status has worsened and patient is being transferred to ICU at this time. Patient the regarding heart failure scott appear to be euvolemic. Patient received a dose of Bumex today. Patient chest x-ray is consistent with a diffuse interstitial infiltrates. 08/27/2020 Patient is presently on 6 L of oxygen does look much better actually wanted to go home. Then 60 L of oxygen. 08/28/2020 X-ray today is showing some worsening of the infiltrate. Patient remains on about 60 L of oxygen no significant worsening clinically. 08/29/2020 Patient chest x-ray still showing significant infiltrate bilaterally patient respiratory status remains the same inflammatory markers regularly d-dimer is bit worse and 4.5 today. Veins on 60 L of O2 08/30/2020 Patient remains on 60 airvo L of oxygen via airvo and vent mask 08/31/2020 Patient remains on 60 L and Ventimask as well. Patient to d-dimer went up to around 16 because of which patient was started on anticoagulation dose of Lovenox. Patient kidney function is good. 09/01/2020 Patient currently being closely monitored in the ICU and continues to be on airvo with a flow rate of 60 and an FiO2 of 90 and currently saturating 88-91%. Patient also continues with intermittent nonrebreather as well. Patient is maintained on Lovenox, zinc, vitamin C and E supplements. Dexamethasone was discontinued. Blood sugars being monitored closely and will continue sliding scale at this time. Current sodium is 134 with a potassium of 4.7 and creatinine is 0.62. Chest x-ray shows findings consistent with persistent bilateral airspace disease. 09/02/2020 Patient is seen in follow up and currently remains in the ICU. Patient is on Airvo and doing well. Patient FiO2 slowly being titrated. Patient uses intermittent BiPAP at night. Heart rate on the lower side and will decrease Coreg. No significant changes noted on today's x-ray. D-dimer slowly trending down and is currently 14.32, sodium is 132, potassium is 4.9, and current creatinine is 0.64. Will continue to monitor blood sugars closely and continue with sliding scale. 09/03/2020 Patient remains on airvo at 60 L no significant improvement 09/04/2020 Patient remains on 60 L airvo. Patient's CRP is still elevated LDH is mildly elevated 09/05/2020 Patient is bit hyponatremic at 134 which is actually better compared to yesterday. And patient remains on 60 L of oxygen. Patient d-dimer has come down to 5.53 patient remains on anticoagulation dose of Lovenox 09/06/2020 Patient is on 60 L of oxygen and FiO2 of around 55% which is an improvement p atient is presently hemodynamically stable 09/07/2020 Patient is seen and evaluated in follow-up continues to be closely monitored in the ICU. Patient was transitioned to 15 L high flow nasal cannula and being monitored closely. Oxygen saturation is 93% currently. Patient was also up out of the bed and sitting in the chair. Patient continues to be weak requiring assistance and PT/OT following. Sodium is 130 today and will repeat a.m. labs. Lovenox decreased to 50 mg subcutaneous twice daily as d-dimer is trending down. Continue to encourage oral intake and increase activity as tolerated. Constitutional: Denied any fatigue denied any fever. Cardio vascular: denied any chest pain, palpitations Gastrointestinal denied any nausea vomiting Pulmonary: Denied any shortness of breath cough on high flow oxygen Neurologic denied any new focal deficits All inpatient medications were reviewed and appropriate changes in these medications as dictated in the interval history and assessment and plan. Objective - Vital Signs Vital signs: Vital Signs Temp 98.1 F 09/07/20 08:00 Pulse 75 09/07/20 10:00 Resp 25 H 09/07/20 10:00 BP 107/76 09/07/20 10:00 Pulse Ox 95 09/07/20 10:00 Intake & Output 09/06/20 09/07/20 09/07/20 18:59 06:59 18:59 Intake Total 700 450 50 Output Total 935 710 370 Balance -235 -260 -320 Weight 101.8 kg Intake: Oral 700 450 50 Output: Urine 935 710 370 Other: Voiding Method Indwelling Catheter Indwelling Catheter Indwelling Catheter - Exam GENERAL: The patient is drowsy and lethargic although arousable on high flow nasal cannula, and is currently sitting up in the chair, not in any acute dist ress. Well developed, well nourished. HEENT: Pupils are round and equally reacting to light. EOMI. No scleral icterus. No conjunctival pallor. Normocephalic, atraumatic. No pharyngeal erythema. No th yromegaly. CARDIOVASCULAR: S1 and S2 present. No murmurs, rubs, or gallops. PULMONARY: Clear to auscultation without any crackles ABDOMEN: Soft, nontender, nondistended, normoactive bowel sounds. No palpable organomegaly. MUSCULOSKELETAL: No joint swelling or deformity. EXTREMITIES: No cyanosis, clubbing, or pedal edema. NEUROLOGICAL: Lethargic although arousable SKIN: No rashes. Note: Because of COVID 19 isolation, some of the history and physical exam findings are indirect and obtained from nursing staff, and other physician examinations to avoid unnecessary contact with the patient. - Labs CBC & Chem 7: 09/07/20 03:25 09/07/20 03:25 Labs: Abnormal Lab Results - Last 24 Hours (Table) 09/06/20 09/06/20 09/06/20 Range/Units 11:58 16:54 20:22 WBC (3.8-10.6) k/uL Sodium (137-145) mmol/L Chloride (98-107) mmol/L Glucose (74-99) mg/dL POC Glucose (mg/dL) 132 H 121 H 151 H (75-99) mg/dL Ferritin (22.0-322.0) ng/mL Total Bilirubin (0.2-1.3) mg/dL ALT (4-49) U/L Albumin (3.5-5.0) g/dL 09/07/20 09/07/20 09/07/20 Range/Units 03:25 03:25 03:25 WBC 11.4 H (3.8-10.6) k/uL Sodium 130 L (137-145) mmol/L Chloride 97 L (98-107) mmol/L Glucose 125 H (74-99) mg/dL POC Glucose (mg/dL) (75-99) mg/dL Ferritin 1084.5 H (22.0-322.0) ng/mL Total Bilirubin 1.4 H (0.2-1.3) mg/dL ALT 80 H (4-49) U/L Albumin 3.2 L (3.5-5.0) g/dL 09/07/20 Range/Units 06:44 WBC (3.8-10.6) k/uL Sodium (137-145) mmol/L Chloride (98-107) mmol/L Glucose (74-99) mg/dL POC Glucose (mg/dL) 168 H (75-99) mg/dL Ferritin (22.0-322.0) ng/mL Total Bilirubin (0.2-1.3) mg/dL ALT (4-49) U/L Albumin (3.5-5.0) g/dL Assessment and Plan Assessment: Acute hypoxic respiratory failure secondary to Covid 19 continue with respiratory support continue with Decadron, zinc, vitamin C, bronchodilator therapy. Presently on high flow nasal cannula 15 L monitoring closely and pulmonary following Elevated troponin, secondary to demand ischemia from pulmonary disease Diabetes mellitus blood sugars are well controlled. Hyponatremia, current sodium is 130 Hypertension Hyperlipidemia Osteoarthritis Chronic heart failure, chronic systolic dysfunction without any acute exacerbations. will continue with oral Bumex, Aldactone and Coreg. Hold off on losartan temporarily because of hypotension Hypothyroidism Sleep apnea on CPAP/BiPAP Benign Prostatic hypertrophy Diabetic neuropathy Parkinson disease History of kidney stone Asthma, not an active issue GERD GI prophylaxis: DVT prophylaxis: Subcutaneous Lovenox, d-dimer trending down and Lovenox dose was adjusted to 50 mg twice daily overall prognosis is extremely poor and guarded Plan: Continue to wean FiO2 as tolerated. Pulmonary following closely. Continue to monitor blood sugars and will continue with sliding scale as needed. Sodium slightly low at 130 and will repeat a.m. labs. Continue to encourage oral intake and increasing activity as tolerated. PTOT to evaluate the patient. Will repeat a.m. chest x-ray. Further recommendations to follow.
[2020-09-07 17:03] LABS: Glucose,Whole Blood 137 mg/dL (75-99)
[2020-09-07 19:52] LABS: Glucose,Whole Blood 129 mg/dL (75-99)
[2020-09-08 04:21] LABS: HGB 17.1 gm/dL (13.0-17.5); MCHC 34.3 g/dL (31.0-37.0); MCV 87.5 fL (80.0-100.0); Mean Platelet Volume 8.5; Platelet Count 239 k/uL (150-450); RBC 5.71 m/uL (4.30-5.90); RDW 13.6 % (11.5-15.5); WBC 10.2 k/uL (3.8-10.6)
[2020-09-08 04:32] LABS: ALT 79 U/L (4-49); AST 46 U/L (17-59); African American GFR (CKD) >90 (>60 ml/min/1.73 sqM); Albumin 3.3 g/dL (3.5-5.0); Alkaline Phosphatase 127 U/L (38-126); Anion Gap 8 mmol/L; Blood Urea Nitrogen 21 mg/dL (9-20); C Reactive Protein 50.4 mg/L (<10.0); Carbon Dioxide 29 mmol/L (22-30); Chloride 94 mmol/L (98-107); Creatine Kinase 23 U/L (55-170); Glucose 123 mg/dL (74-99); LDH 798 U/L (313-618); Non-African American GFR(CKD) 82 (>60 ml/min/1.73 sqM); Potassium 4.7 mmol/L (3.5-5.1); Sodium 131 mmol/L (137-145); Total Bilirubin 1.3 mg/dL (0.2-1.3); Total Protein 7.1 g/dL (6.3-8.2)
[2020-09-08] MEDS: PANTOPRAZOLE 40 MG TABLET PO SCH (06:21)
[2020-09-08] MEDS: INSULIN ASPART (NovoLOG) 100 UNIT/ML VIAL SQ SCH ×4 (06:22→21:06)
[2020-09-08] MEDS: carvediloL 3.125 MG TAB PO SCH ×2 (06:22→17:28)
[2020-09-08] MEDS: LEVOTHYROXINE 75 MCG TAB PO SCH (06:22)
[2020-09-08 07:28] LABS: Glucose,Whole Blood 148 mg/dL (75-99)
[2020-09-08] MEDS: ASCORBIC ACID 500 MG TAB PO SCH (07:54)
[2020-09-08] MEDS: ALPRAZolam 0.25 MG TAB PO SCH ×2 (07:54→21:13)
[2020-09-08] MEDS: CHOLECALCIFEROL 1,000 UNIT TAB PO SCH (07:55)
[2020-09-08] MEDS: ENOXAPARIN 60 MG/0.6 ML SYRINGE SQ SCH ×2 (07:55→21:13)
[2020-09-08] MEDS: SPIRONOLACTONE 25 MG TAB PO SCH (07:55)
[2020-09-08] MEDS: BUMETANIDE 1 MG TAB PO SCH ×2 (07:55→21:13)
[2020-09-08] MEDS: TAMSULOSIN 0.4 MG CAP.ER.24H PO SCH (07:55)
[2020-09-08] MEDS: ASPIRIN 81 MG PO SCH (07:55)
[2020-09-08] MEDS: FLUTICASONE 50MCG/SPRAY NASAL 16GM EA NOSTRIL SCH (07:56)
[2020-09-08] MEDS: ZINC SULFATE 220 MG CAP PO SCH (07:56)
[2020-09-08] MEDS: ALBUTEROL HFA INHALER INHALATION SCH ×4 (08:02→19:57)
--- NOTE | 2020-09-08 08:34 | XR ---
EXAMINATION TYPE: XR chest 1V portable DATE OF EXAM: 09/08/2020 COMPARISON: 09/04/2020 INDICATION: Covid 19 TECHNIQUE: Single frontal view of the chest is obtained. FINDINGS: The heart size is mildly prominent. The pulmonary vasculature is normal. Diffuse patchy infiltrates are present similar to prior exam. IMPRESSION: 1. Stable bilateral patchy infiltrates can be compatible with atypical pneumonia
--- NOTE | 2020-09-08 08:42 | P.PN ---
Subjective Progress Note Date: 09/08/20 On today's evaluation of 09/08/2020, the patient is doing well. The patient is on high flow oxygen at 15 L per minute nasal cannula and the patient was taken off the airvo yesterday. Patient is doing well. No significant respiratory distress. He has a congested cough. Is able to swallow well. No chest pain. His pulse ox is ranging between 88-91%. No nausea. No vomiting. No diarrhea. No abdominal pain. No altered mentation. He is gradually regaining his strength back. He is known to have COPD with an FEV1 of 86% of predicted at baseline. He is also known to have CHF, diabetes mellitus, diabetic peripheral neuropathy, BPH, Parkinson's disease and obstructive sleep apnea.His blood work revealed a white cell count 10.2 with hemoglobin of 17.1. D-dimer is at 1.9. BUN is 21 with a creatinine of 0.89. No other significant events overnight and her condition is stable for now. Objective - Vital Signs Vital signs: Vital Signs Temp 97.8 F 09/08/20 04:00 Pulse 68 09/08/20 07:00 Resp 33 H 09/08/20 07:00 BP 127/81 09/08/20 07:00 Pulse Ox 88 L 09/08/20 08:02 Intake & Output 09/07/20 09/08/20 09/08/20 18:59 06:59 18:59 Intake Total 50 720 Output Total 790 880 45 Balance -740 -160 -45 Weight 101.1 kg Intake: Oral 50 720 Output: Urine 790 880 45 Other: Voiding Method Indwelling Catheter Indwelling Catheter - Exam GENERAL EXAM: Alert, very pleasant, 72-year-old male patient on 15 L of oxygen by nasal cannula HEAD: Normocephalic/atraumatic. EYES: Normal reaction of pupils, equal size. Conjunctiva pink, sclera white. NOSE: Clear with pink turbinates. THROAT: No erythema or exudates. NECK: No masses, no JVD, no thyroid enlargement, no adenopathy. CHEST: No chest wall deformity. Symmetrical expansion. LUNGS: Equal air entry with bilateral scattered crackles. Diminished CVS: Regular rate and rhythm, normal S1 and S2, no gallops, no murmurs, no rubs ABDOMEN: Soft, nontender. No hepatosplenomegaly, normal bowel sounds, no guarding or rigidity. EXTREMITIES: No clubbing, no edema, no cyanosis, 2+ pulses and upper and lower extremities. MUSCULOSKELETAL: Muscle strength and tone normal. SPINE: No scoliosis or deformity SKIN: No rashes CENTRAL NERVOUS SYSTEM: No focal deficits, tone is normal in all 4 extremities. PSYCHIATRIC: Alert and oriented -3. Appropriate affect. Intact judgment and insight. - Labs CBC & Chem 7: 09/08/20 03:27 09/08/20 03:27 Labs: Abnormal Lab Results - Last 24 Hours (Table) 09/07/20 09/07/20 09/07/20 Range/Units 03:25 11:39 17:02 Fibrinogen (200-500) mg/dL D-Dimer (<0.60) mg/L FEU Sodium (137-145) mmol/L Chloride (98-107) mmol/L BUN (9-20) mg/dL Glucose (74-99) mg/dL POC Glucose (mg/dL) 132 H 137 H (75-99) mg/dL Ferritin 1084.5 H (22.0-322.0) ng/mL ALT (4-49) U/L Alkaline Phosphatase (38-126) U/L Lactate Dehydrogenase (313-618) U/L Creatine Kinase (55-170) U/L C-Reactive Protein (<10.0) mg/L Albumin (3.5-5.0) g/dL 09/07/20 09/08/20 09/08/20 Range/Units 19:51 03:27 03:27 Fibrinogen 630 H (200-500) mg/dL D-Dimer 1.93 H (<0.60) mg/L FEU Sodium 131 L (137-145) mmol/L Chloride 94 L (98-107) mmol/L BUN 21 H (9-20) mg/dL Glucose 123 H (74-99) mg/dL POC Glucose (mg/dL) 129 H (75-99) mg/dL Ferritin (22.0-322.0) ng/mL ALT 79 H (4-49) U/L Alkaline Phosphatase 127 H (38-126) U/L Lactate Dehydrogenase 798 H (313-618) U/L Creatine Kinase 23 L (55-170) U/L C-Reactive Protein 50.4 H (<10.0) mg/L Albumin 3.3 L (3.5-5.0) g/dL 09/08/20 Range/Units 07:27 Fibrinogen (200-500) mg/dL D-Dimer (<0.60) mg/L FEU Sodium (137-145) mmol/L Chloride (98-107) mmol/L BUN (9-20) mg/dL Glucose (74-99) mg/dL POC Glucose (mg/dL) 148 H (75-99) mg/dL Ferritin (22.0-322.0) ng/mL ALT (4-49) U/L Alkaline Phosphatase (38-126) U/L Lactate Dehydrogenase (313-618) U/L Creatine Kinase (55-170) U/L C-Reactive Protein (<10.0) mg/L Albumin (3.5-5.0) g/dL Assessment and Plan Plan: 1 Acute Covid 19 related pneumonia. The patient was diagnosed having Covid 19 infection on 08/22/2020. His exposure was around Thanksgiving and the patient has been symptomatic for approximately a week. His chest x-ray showing some limited bibasilar pulmonary infiltrates. The patient is currently on 15 L of oxygen by nasal cannula and we are in the process of weaning the FiO2 further. 2 COPD with an FEV1 of 86% of predicted. The patient is not home oxygen depen dent and the patient is an ex-smoker 3 Coronary artery disease with previous bypass surgery. Limited amount of troponin leak and free of any chest pain and EKG is not showing any acute ischemic changes. 4 CHF 5 Diabetes mellitus 6 BPH 7 Parkinson's disease 8 Obstructive sleep apnea 9 History of nephrolithiasis 10 History of peripheral neuropathy Plan Continue our efforts to wean down the FiO2 high flow nasal cannula and see if he is able to tolerate Lovenox dose 50 mg every 12 hours as the patient's d-dimer levels have been gradually declining Repeat chest x-ray in the morning Encouraged use of incentive spirometer A very slow improvement in the chest x-ray over the past 10 days in comparison. Nevertheless, the patient continues to have extensive bilateral pulmonary consolidation from Covid 19 related pneumonia. We'll keep the patient ICU for another 24 hours.
[2020-09-08 11:29] LABS: Ferritin 1133.1 ng/mL (22.0-322.0)
[2020-09-08 11:40] LABS: Glucose,Whole Blood 132 mg/dL (75-99)
--- NOTE | 2020-09-08 15:15 | P.PN ---
Subjective Progress Note Date: 09/08/20 80 years old male with multiple medical problems as below. He follows up in the [facility]. Presents because of dyspnea and generalized weakness. Patient was complaining of from Raynaud's few days ago and he has been prescribed amoxicillin which helped him a little bit but then he developed signi ficant weakness and fatigue over the last 3-4 days that his make him come to the hospital. He has history of COPD and he quit smoking in 1998, he follows up with Dr. [place] is not on home oxygen however he says that he has mild dyspnea associated with chronic cough and brown greenish phlegm. He denies chest pain, but he has loose bowel movement about once daily no abdominal pain or vomiting No urinary complaints. He denies alcohol or illicit drugs. Vital signs stable, he is saturating 91% on 4 L oxygen via nasal cannula. He has had unremarkable labs including CBC, INR, BMP, liver enzymes. For his troponin is elevated at 0.05, 0.04, 0.03. EKG showed normal sinus rhythm at [address]-T changes, Q waves in lead 2, 3 and aVF, T wave inversion in the lateral blades V4-V6 Labs at [facility] showing normal sodium and potassium at 137 and 3.5 respectively, creatinine normal at 1.0, liver enzymes not elevated, bilirubin is normal 0.9, WT normal 6.9K, hemoglobin 16.6 and platelets 180 1K. Coronavirus was detected As per the records his been having shortness of breath for 10 days. And he checked his oxygen saturating at home it was 88%. He states that he is post to covert by son and [id number] around Thanksgiving time. Chest x-ray report showed mild atelectasis. 08/24/2020 Patient awake and alert, he has more dyspnea. No chest pain. He still has fever, his respiratory status was worsened overnight and is currently on 15 L high flow oxygen via cannula with oxygen saturation 91-93%. Inflammatory markers LDH and C-reactive protein are the same or slightly worsened. He is followed closely by the pulmonary team and he is on dexamethasone, vitamin C, zinc and Zithromax Cardiology team evaluated the patient for elevated troponin and echocardiogram is reviewed with preserved LV function, and they signed off the case 08/25/2020 Patient remains on the 15 L high flow along with Ventimask. Patient is to have elevated inflammatory markers. Patient does have a congestive heart failure appears to be fairly euvolemic continue with the present regimen of heart failure medication patient blood pressure is low because of which I'll hold off on losartan temporarily will be resumed as soon as possible. 08/26/2020 Patient is presently on Airvo. Patient's is pretty status has worsened and patient is being transferred to ICU at this time. Patient the regarding heart failure scott appear to be euvolemic. Patient received a dose of Bumex today. Patient chest x-ray is consistent with a diffuse interstitial infiltrates. 08/27/2020 Patient is presently on 6 L of oxygen does look much better actually wanted to go home. Then 60 L of oxygen. 08/28/2020 X-ray today is showing some worsening of the infiltrate. Patient remains on about 60 L of oxygen no significant worsening clinically. 08/29/2020 Patient chest x-ray still showing significant infiltrate bilaterally patient respiratory status remains the same inflammatory markers regularly d-dimer is bit worse and 4.5 today. Veins on 60 L of O2 08/30/2020 Patient remains on 60 airvo L of oxygen via airvo and vent mask 08/31/2020 Patient remains on 60 L and Ventimask as well. Patient to d-dimer went up to around 16 because of which patient was started on anticoagulation dose of Lovenox. Patient kidney function is good. 09/01/2020 Patient currently being closely monitored in the ICU and continues to be on airvo with a flow rate of 60 and an FiO2 of 90 and currently saturating 88-91%. Patient also continues with intermittent nonrebreather as well. Patient is maintained on Lovenox, zinc, vitamin C and E supplements. Dexamethasone was discontinued. Blood sugars being monitored closely and will continue sliding scale at this time. Current sodium is 134 with a potassium of 4.7 and creatinine is 0.62. Chest x-ray shows findings consistent with persistent bilateral airspace disease. 09/02/2020 Patient is seen in follow up and currently remains in the ICU. Patient is on Airvo and doing well. Patient FiO2 slowly being titrated. Patient uses intermittent BiPAP at night. Heart rate on the lower side and will decrease Coreg. No significant changes noted on today's x-ray. D-dimer slowly trending down and is currently 14.32, sodium is 132, potassium is 4.9, and current creatinine is 0.64. Will continue to monitor blood sugars closely and continue with sliding scale. 09/03/2020 Patient remains on airvo at 60 L no significant improvement 09/04/2020 Patient remains on 60 L airvo. Patient's CRP is still elevated LDH is mildly elevated 09/05/2020 Patient is bit hyponatremic at 134 which is actually better compared to yesterday. And patient remains on 60 L of oxygen. Patient d-dimer has come down to 5.53 patient remains on anticoagulation dose of Lovenox 09/06/2020 Patient is on 60 L of oxygen and FiO2 of around 55% which is an improvement p atient is presently hemodynamically stable 09/07/2020 Patient is seen and evaluated in follow-up continues to be closely monitored in the ICU. Patient was transitioned to 15 L high flow nasal cannula and being monitored closely. Oxygen saturation is 93% currently. Patient was also up out of the bed and sitting in the chair. Patient continues to be weak requiring assistance and PT/OT following. Sodium is 130 today and will repeat a.m. labs. Lovenox decreased to 50 mg subcutaneous twice daily as d-dimer is trending down. Continue to encourage oral intake and increase activity as tolerated. 09/08/2020 Patient continues to be in the ICU being closely monitored. Patient continues with 15 L high flow nasal cannula and is tolerating thus far. Patient continues to request to go home although continues to be quite weak. Patient slowly improving on oxygenation. Pulmonary is following. Sodium is improved at 131, potassium is 4.7, d-dimer is trending down at 1.93. Lovenox has been adjusted. We'll continue to monitor blood sugars closely and continue sliding scale. Constitutional: Denied any fatigue denied any fever. Cardio vascular: denied any chest pain, palpitations Gastrointestinal denied any nausea vomiting Pulmonary: Denied any shortness of breath cough on high flow oxygen Neurologic denied any new focal deficits All inpatient medications were reviewed and appropriate changes in these medications as dictated in the interval history and assessment and plan. Objective - Vital Signs Vital signs: Vital Signs Temp 98.5 F 09/08/20 12:00 Pulse 79 09/08/20 13:00 Resp 14 09/08/20 13:00 BP 108/86 09/08/20 13:00 Pulse Ox 87 L 09/08/20 13:00 Intake & Output 12/09/08/20 09/08/20 18:59 06:59 18:59 Intake Total 50 720 Output Total 790 880 385 Balance -740 -160 -385 Weight 101.1 kg Intake: Oral 50 720 Output: Urine 790 880 385 Other: Voiding Method Indwelling Catheter Indwelling Catheter Indwelling Catheter - Exam GENERAL: The patient is awake on high flow nasal cannula, and is currently sitt ing up in the chair, not in any acute distress. Well developed, well nourished. HEENT: Pupils are round and equally reacting to light. EOMI. No scleral icterus. No conjunctival pallor. Normocephalic, atraumatic. No pharyngeal erythema. No thyromegaly. CARDIOVASCULAR: S1 and S2 present. No murmurs, rubs, or gallops. PULMONARY: Clear to auscultation without any crackles ABDOMEN: Soft, nontender, nondistended, normoactive bowel sounds. No palpable organomegaly. MUSCULOSKELETAL: No joint swelling or deformity. EXTREMITIES: No cyanosis, clubbing, or pedal edema. NEUROLOGICAL: Awake, cooperative, diffusely weak SKIN: No rashes. Note: Because of [place] [id number] isolation, some of the history and physical exam findings are indirect and obtained from nursing staff, and other physician examinations to avoid unnecessary contact with the patient. - Labs CBC & Chem 7: 09/08/20 03:27 09/08/20 03:27 Labs: Abnormal Lab Results - Last 24 Hours (Table) 09/07/20 09/07/20 09/08/20 Range/Units 17:02 19:51 03:27 Fibrinogen (200-500) mg/dL D-Dimer (<0.60) mg/L FEU Sodium 131 L (137-145) mmol/L Chloride 94 L (98-107) mmol/L BUN 21 H (9-20) mg/dL Glucose 123 H (74-99) mg/dL POC Glucose (mg/dL) 137 H 129 H (75-99) mg/dL Ferritin 1133.1 H (22.0-322.0) ng/mL ALT 79 H (4-49) U/L Alkaline Phosphatase 127 H (38-126) U/L Lactate Dehydrogenase 798 H (313-618) U/L Creatine Kinase 23 L (55-170) U/L C-Reactive Protein 50.4 H (<10.0) mg/L Albumin 3.3 L (3.5-5.0) g/dL 09/08/20 09/08/20 09/08/20 Range/Units 03:27 07:27 11:38 Fibrinogen 630 H (200-500) mg/dL D-Dimer 1.93 H (<0.60) mg/L FEU Sodium (137-145) mmol/L Chloride (98-107) mmol/L BUN (9-20) mg/dL Glucose (74-99) mg/dL POC Glucose (mg/dL) 148 H 132 H (75-99) mg/dL Ferritin (22.0-322.0) ng/mL ALT (4-49) U/L Alkaline Phosphatase (38-126) U/L Lactate Dehydrogenase (313-618) U/L Creatine Kinase (55-170) U/L C-Reactive Protein (<10.0) mg/L Albumin (3.5-5.0) g/dL Assessment and Plan Assessment: Acute hypoxic respiratory failure secondary to Covid 19 continue with respiratory support continue with Decadron, zinc, vitamin C, bronchodilator therapy. Presently on high flow nasal cannula 15 L monitoring closely and pulmonary following Elevated troponin, secondary to demand ischemia from pulmonary disease Diabetes mellitus blood sugars are well controlled. Hyponatremia, current sodium is 131 Hypertension Hyperlipidemia Osteoarthritis Chronic heart failure, chronic systolic dysfunction without any acute exacerbations. will continue with oral Bumex, Aldactone and Coreg. Hold off on losartan temporarily because of hypotension Hypothyroidism Sleep apnea on CPAP/BiPAP Benign Prostatic hypertrophy Diabetic neuropathy Parkinson disease History of kidney stone Asthma, not an active issue GERD GI prophylaxis: DVT prophylaxis: Subcutaneous Lovenox, d-dimer trending down and Lovenox dose was adjusted to 50 mg twice daily overall prognosis is extremely poor and guarded Plan: Continue to wean FiO2 as tolerated. Pulmonary following closely. Continue to monitor blood sugars and will continue with sliding scale as needed. Continue to encourage oral intake and increasing activity as tolerated. PTOT to evaluate the patient. Chest x-ray today shows stable bilateral patchy infiltrates compatible with atypical pneumonia and similar to prior exam. Further recommendations to follow.
[2020-09-08 16:31] LABS: Glucose,Whole Blood 160 mg/dL (75-99)
[2020-09-08 21:07] LABS: Glucose,Whole Blood 135 mg/dL (75-99)
[2020-09-09 04:29] LABS: Basophils # (A) 0.1 k/uL (0-0.2); Basophils % (A) 1 %; Eosinophils # (A) 0.2 k/uL (0-0.7); Eosinophils % (A) 2 %; HCT 49.1 % (39.0-53.0); HGB 16.3 gm/dL (13.0-17.5); Lymphocytes # (A) 1.7 k/uL (1.0-4.8); Lymphocytes % (A) 15 %; MCH 29.2 pg (25.0-35.0); MCHC 33.1 g/dL (31.0-37.0); MCV 88.2 fL (80.0-100.0); Monocytes # (A) 0.7 k/uL (0-1.0); Monocytes % (A) 6 %; Neutrophils # (A) 8.4 k/uL (1.3-7.7); Neutrophils % (A) 74 %; Platelet Count 248 k/uL (150-450); RBC 5.56 m/uL (4.30-5.90); WBC 11.4 k/uL (3.8-10.6)
[2020-09-09 04:57] LABS: ALT 75 U/L (4-49); AST 42 U/L (17-59); African American GFR (CKD) >90 (>60 ml/min/1.73 sqM); Albumin 3.3 g/dL (3.5-5.0); Alkaline Phosphatase 124 U/L (38-126); Anion Gap 5 mmol/L; Blood Urea Nitrogen 24 mg/dL (9-20); C Reactive Protein 43.3 mg/L (<10.0); Calcium 9.1 mg/dL (8.4-10.2); Carbon Dioxide 32 mmol/L (22-30); Chloride 94 mmol/L (98-107); Glucose 138 mg/dL (74-99); LDH 739 U/L (313-618); Non-African American GFR(CKD) 83 (>60 ml/min/1.73 sqM); Potassium 4.8 mmol/L (3.5-5.1); Sodium 131 mmol/L (137-145); Total Bilirubin 1.2 mg/dL (0.2-1.3); Total Protein 7.1 g/dL (6.3-8.2)
[2020-09-09 07:06] LABS: Glucose,Whole Blood 186 mg/dL (75-99)
[2020-09-09] MEDS: LEVOTHYROXINE 75 MCG TAB PO SCH (07:40)
[2020-09-09] MEDS: INSULIN ASPART (NovoLOG) 100 UNIT/ML VIAL SQ SCH ×3 (07:41→17:54)
[2020-09-09] MEDS: ALBUTEROL HFA INHALER INHALATION SCH ×4 (08:03→21:39)
[2020-09-09] MEDS: ALPRAZolam 0.25 MG TAB PO SCH (08:37)
[2020-09-09] MEDS: BUMETANIDE 1 MG TAB PO SCH (08:37)
[2020-09-09] MEDS: ASPIRIN 81 MG PO SCH (08:37)
[2020-09-09] MEDS: ENOXAPARIN 60 MG/0.6 ML SYRINGE SQ SCH (08:37)
[2020-09-09] MEDS: carvediloL 3.125 MG TAB PO SCH ×2 (08:37→17:54)
[2020-09-09] MEDS: PANTOPRAZOLE 40 MG TABLET PO SCH (08:37)
[2020-09-09] MEDS: ASCORBIC ACID 500 MG TAB PO SCH (08:37)
[2020-09-09] MEDS: CHOLECALCIFEROL 1,000 UNIT TAB PO SCH (08:37)
[2020-09-09] MEDS: TAMSULOSIN 0.4 MG CAP.ER.24H PO SCH (08:38)
[2020-09-09] MEDS: FLUTICASONE 50MCG/SPRAY NASAL 16GM EA NOSTRIL SCH (08:38)
[2020-09-09] MEDS: ZINC SULFATE 220 MG CAP PO SCH (08:38)
[2020-09-09] MEDS: SPIRONOLACTONE 25 MG TAB PO SCH (08:38)
[2020-09-09 09:53] LABS: Ferritin 976.1 ng/mL (22.0-322.0)
[2020-09-09 10:34] VITALS: BMI 27.8
--- NOTE | 2020-09-09 10:38 | PN ---
PROGRESS NOTE This is a 80-year-old gentleman with a history of COVID-19 pneumonia. The patient has been here in the ICU for a number of days. He was actually admitted back on August 22. The patient is doing much better. He is down to 15 L nasal cannula high flow oxygen therapy and no IV fluids. For a number of days, the patient was on BiPAP, AIRVO as well as high-flow oxygen and non-rebreather mask. Anyway, he has improved significantly in the last couple of days. He still has shortness of breath particularly with activity. Denies any chest pain or chest discomfort. No fever or chills. No significant cough or phlegm production. PHYSICAL EXAMINATION: VITAL SIGNS: Vital signs include temperature 97.2, heart rate 72, respiratory rate 23, blood pressure 122/74, mean 90 and saturations are 93% on the 15 L. GENERAL: Appears in no acute distress. No respiratory distress. No audible wheezing or use of accessory muscles. HEENT: Examination is grossly unremarkable. NECK: Supple. Full range of motion. No adenopathy. Neck veins are flat. CARDIOVASCULAR: Examination reveals regular rhythm and rate. S1, S2 normal. No S3, S4, or murmur. Heart rate mid 80s. LUNGS: Reveal a few scattered bilateral crackles. No wheezes or rhonchi. Breath sounds are diminished. ABDOMEN: Soft. Bowel sounds are heard. EXTREMITIES: Are intact. No cyanosis, clubbing, or edema. SKIN: Without rash. NEUROLOGIC: Examination is brief but nonfocal. LABS: Labs are reviewed. White count 11.4, hemoglobin 16.3, hematocrit 49.1, platelet count 248,000. Sodium 131, potassium 4.8, chloride 94, CO2 of 32. Anion gap is 5. BUN and creatinine were 24 and 0.86. Ferritin is 976. ALT 75. LDH 739. C-reactive protein 43.3. Most recent D-dimer was 1.93, which is coming down. Microbiology is negative. The most recent chest x-ray was from yesterday. It continues to show bilateral patchy infiltrates. The infiltrates tend to be more left-sided than right-sided. CURRENT MEDICATIONS: Current medications are reviewed. The patient is on Tylenol, albuterol inhaler, Xanax, vitamin C, aspirin, Bumex, Coreg, vitamin D3, Lovenox, Flonase, levothyroxine, Narcan, Protonix, potassium Aldactone, Flomax and zinc. ASSESSMENT: 1. Acute COVID-19 pneumonia/pneumonitis, complicated by acute hypoxemic respiratory failure, improved. 2. Mild chronic obstructive pulmonary disease, with an FEV1 that is 86% of predicted. 3. Coronary artery disease with previous bypass grafting. 4. History of congestive heart failure. 5. Diabetes mellitus. 6. Benign prostatic hypertrophy. 7. Parkinson's disease. 8. Sleep apnea syndrome. 9. History of nephrolithiasis. 10.Peripheral neuropathy. PLAN: Currently, the patient is doing well. We will continue to follow. No additional recommendations are made. We will continue to provide him with all the appropriate medications. His oxygen will be weaned. He can be transferred out to the general medical floor. Prognosis is still guarded, though. NEELIMA / YE: [id number] /
[2020-09-09 11:41] LABS: Glucose,Whole Blood 146 mg/dL (75-99)
--- NOTE | 2020-09-09 15:07 | P.PN ---
Subjective Progress Note Date: 09/09/20 80 years old male with multiple medical problems as below. He follows up in the [place] [facility]. Presents because of dyspnea and generalized weakness. Patient was complaining of from Raynaud's few days ago and he has been prescribed amoxicillin which helped him a little bit but then he developed signi ficant weakness and fatigue over the last 3-4 days that his make him come to the hospital. He has history of COPD and he quit smoking in 1998, he follows up with Dr. Toledo is not on home oxygen however he says that he has mild dyspnea associated with chronic cough and brown greenish phlegm. He denies chest pain, but he has loose bowel movement about once daily no abdominal pain or vomiting No urinary complaints. He denies alcohol or illicit drugs. Vital signs stable, he is saturating 91% on 4 L oxygen via nasal cannula. He has had unremarkable labs including CBC, INR, BMP, liver enzymes. For his troponin is elevated at 0.05, 0.04, 0.03. EKG showed normal sinus rhythm at [address]-T changes, Q waves in lead 2, 3 and aVF, T wave inversion in the lateral blades V4-V6 Labs at [facility] showing normal sodium and potassium at 137 and 3.5 respectively, creatinine normal at 1.0, liver enzymes not elevated, bilirubin is normal 0.9, WT normal 6.9K, hemoglobin 16.6 and platelets 180 1K. Coronavirus was detected As per the records his been having shortness of breath for 10 days. And he checked his oxygen saturating at home it was 88%. He states that he is post to covert by son and [id number] around Thanksgiving time. Chest x-ray report showed mild atelectasis. 08/24/2020 Patient awake and alert, he has more dyspnea. No chest pain. He still has fever, his respiratory status was worsened overnight and is currently on 15 L high flow oxygen via cannula with oxygen saturation 91-93%. Inflammatory markers LDH and C-reactive protein are the same or slightly worsened. He is followed closely by the pulmonary team and he is on dexamethasone, vitamin C, zinc and Zithromax Cardiology team evaluated the patient for elevated troponin and echocardiogram is reviewed with preserved LV function, and they signed off the case 08/25/2020 Patient remains on the 15 L high flow along with Ventimask. Patient is to have elevated inflammatory markers. Patient does have a congestive heart failure appears to be fairly euvolemic continue with the present regimen of heart failure medication patient blood pressure is low because of which I'll hold off on losartan temporarily will be resumed as soon as possible. 08/26/2020 Patient is presently on Airvo. Patient's is pretty status has worsened and patient is being transferred to ICU at this time. Patient the regarding heart failure scott appear to be euvolemic. Patient received a dose of Bumex today. Patient chest x-ray is consistent with a diffuse interstitial infiltrates. 08/27/2020 Patient is presently on 6 L of oxygen does look much better actually wanted to go home. Then 60 L of oxygen. 08/28/2020 X-ray today is showing some worsening of the infiltrate. Patient remains on about 60 L of oxygen no significant worsening clinically. 08/29/2020 Patient chest x-ray still showing significant infiltrate bilaterally patient respiratory status remains the same inflammatory markers regularly d-dimer is bit worse and 4.5 today. Veins on 60 L of O2 08/30/2020 Patient remains on 60 airvo L of oxygen via airvo and vent mask 08/31/2020 Patient remains on 60 L and Ventimask as well. Patient to d-dimer went up to around 16 because of which patient was started on anticoagulation dose of Lovenox. Patient kidney function is good. 09/01/2020 Patient currently being closely monitored in the ICU and continues to be on airvo with a flow rate of 60 and an FiO2 of 90 and currently saturating 88-91%. Patient also continues with intermittent nonrebreather as well. Patient is maintained on Lovenox, zinc, vitamin C and E supplements. Dexamethasone was discontinued. Blood sugars being monitored closely and will continue sliding scale at this time. Current sodium is 134 with a potassium of 4.7 and creatinine is 0.62. Chest x-ray shows findings consistent with persistent bilateral airspace disease. 09/02/2020 Patient is seen in follow up and currently remains in the ICU. Patient is on Airvo and doing well. Patient FiO2 slowly being titrated. Patient uses intermittent BiPAP at night. Heart rate on the lower side and will decrease Coreg. No significant changes noted on today's x-ray. D-dimer slowly trending down and is currently 14.32, sodium is 132, potassium is 4.9, and current creatinine is 0.64. Will continue to monitor blood sugars closely and continue with sliding scale. 09/03/2020 Patient remains on airvo at 60 L no significant improvement 09/04/2020 Patient remains on 60 L airvo. Patient's CRP is still elevated LDH is mildly elevated 09/05/2020 Patient is bit hyponatremic at 134 which is actually better compared to yesterday. And patient remains on 60 L of oxygen. Patient d-dimer has come down to 5.53 patient remains on anticoagulation dose of Lovenox 09/06/2020 Patient is on 60 L of oxygen and FiO2 of around 55% which is an improvement p atient is presently hemodynamically stable 09/07/2020 Patient is seen and evaluated in follow-up continues to be closely monitored in the ICU. Patient was transitioned to 15 L high flow nasal cannula and being monitored closely. Oxygen saturation is 93% currently. Patient was also up out of the bed and sitting in the chair. Patient continues to be weak requiring assistance and PT/OT following. Sodium is 130 today and will repeat a.m. labs. Lovenox decreased to 50 mg subcutaneous twice daily as d-dimer is trending down. Continue to encourage oral intake and increase activity as tolerated. 09/08/2020 Patient continues to be in the ICU being closely monitored. Patient continues with 15 L high flow nasal cannula and is tolerating thus far. Patient continues to request to go home although continues to be quite weak. Patient slowly improving on oxygenation. Pulmonary is following. Sodium is improved at 131, potassium is 4.7, d-dimer is trending down at 1.93. Lovenox has been adjusted. We'll continue to monitor blood sugars closely and continue sliding scale. 09/09/2020 Patient is seen in follow-up continues to be in the ICU although waiting for a bed to transfer to the [facility] as patient has been off of Airvo and continues to refuse BiPAP and has been maintaining adequate oxygenation on high flow nasal cannula 15 L. Patient continues to be quite weak and PT/OT following and continues to recommend subacute rehab for continued strength and mobility once stabilized and discharged. Pulmonary is following. Constitutional: Denied any fatigue denied any fever. Cardio vascular: denied any chest pain, palpitations Gastrointestinal denied any nausea vomiting Pulmonary: Denied any shortness of breath cough on high flow oxygen Neurologic denied any new focal deficits, reports generalized weakness All inpatient medications were reviewed and appropriate changes in these medications as dictated in the interval history and assessment and plan. Objective - Vital Signs Vital signs: Vital Signs Temp 97.1 F L 09/09/20 14:00 Pulse 65 09/09/20 14:00 Resp 24 09/09/20 14:00 BP 125/69 09/09/20 14:00 Pulse Ox 93 L 09/09/20 08:00 Intake & Output 09/08/20 09/09/20 09/09/20 18:59 06:59 18:59 Intake Total 125 Output Total 675 705 40 Balance -675 -705 85 Weight 100.8 kg 100.8 kg Intake: Oral 125 Output: Urine 675 705 40 Other: Voiding Method Indwelling Catheter Indwelling Catheter Indwelling Catheter - Exam GENERAL: The patient is awake on high flow nasal cannula, and is currently sitting up in the chair, not in any acute distress. Well developed, well nourished. HEENT: Pupils are round and equally reacting to light. EOMI. No scleral icterus. No conjunctival pallor. Normocephalic, atraumatic. No pharyngeal erythema. No thyromegaly. CARDIOVASCULAR: S1 and S2 present. No murmurs, rubs, or gallops. PULMONARY: Clear to auscultation without any crackles ABDOMEN: Soft, nontender, nondistended, normoactive bowel sounds. No palpable organomegaly. MUSCULOSKELETAL: No joint swelling or deformity. EXTREMITIES: No cyanosis, clubbing, or pedal edema. NEUROLOGICAL: Awake, cooperative, diffusely weak SKIN: No rashes. Note: Because of COVID 19 isolation, some of the history and physical exam findings are indirect and obtained from nursing staff, and other physician examinations to avoid unnecessary contact with the patient. - Labs CBC & Chem 7: 09/09/20 04:00 09/09/20 04:00 Labs: Abnormal Lab Results - Last 24 Hours (Table) 09/08/20 09/08/20 09/09/20 Range/Units 16:31 21:04 04:00 WBC 11.4 H (3.8-10.6) k/uL Neutrophils # 8.4 H (1.3-7.7) k/uL Sodium (137-145) mmol/L Chloride (98-107) mmol/L Carbon Dioxide (22-30) mmol/L BUN (9-20) mg/dL Glucose (74-99) mg/dL POC Glucose (mg/dL) 160 H 135 H (75-99) mg/dL Ferritin (22.0-322.0) ng/mL ALT (4-49) U/L Lactate Dehydrogenase (313-618) U/L C-Reactive Protein (<10.0) mg/L Albumin (3.5-5.0) g/dL 09/09/20 09/09/20 09/09/20 Range/Units 04:00 07:04 11:40 WBC (3.8-10.6) k/uL Neutrophils # (1.3-7.7) k/uL Sodium 131 L (137-145) mmol/L Chloride 94 L (98-107) mmol/L Carbon Dioxide 32 H (22-30) mmol/L BUN 24 H (9-20) mg/dL Glucose 138 H (74-99) mg/dL POC Glucose (mg/dL) 186 H 146 H (75-99) mg/dL Ferritin 976.1 H (22.0-322.0) ng/mL ALT 75 H (4-49) U/L Lactate Dehydrogenase 739 H (313-618) U/L C-Reactive Protein 43.3 H (<10.0) mg/L Albumin 3.3 L (3.5-5.0) g/dL Assessment and Plan Assessment: Acute hypoxic respiratory failure secondary to Covid 19 continue with respiratory support continue with Decadron, zinc, vitamin C, bronchodilator therapy. Presently on high flow nasal cannula 15 L monitoring closely and pulmonary following Elevated troponin, secondary to demand ischemia from pulmonary disease Diabetes mellitus blood sugars are well controlled. Hyponatremia, current sodium is 131 Hypertension Hyperlipidemia Osteoarthritis Chronic heart failure, chronic systolic dysfunction without any acute exacerbations. will continue with oral Bumex, Aldactone and Coreg. Hold off on losartan temporarily because of hypotension Hypothyroidism Sleep apnea on CPAP/BiPAP Benign Prostatic hypertrophy Diabetic neuropathy Parkinson disease History of kidney stone Asthma, not an active issue GERD GI prophylaxis: DVT prophylaxis: Subcutaneous Lovenox, d-dimer trending down and Lovenox dose was adjusted to 50 mg twice daily overall prognosis is extremely poor and guarded Plan: Continue to wean FiO2 as tolerated. Pulmonary following closely. Continue to monitor blood sugars and will continue with sliding scale as needed. Continue to encourage oral intake and increasing activity as tolerated. PTOT following and continues to recommend subacute rehab once stabilized and discharged. Meño dajuan currently remains in the ICU although awaiting transfer to the [facility]. Patient is maintained on high flow nasal cannula at 15 L and tolerating well. Patient continues to refuse BiPAP. Due to multiple complex medical issues, prognosis remains extremely poor and guarded. Slowly improving and will continue to monitor closely. Will repeat a.m. labs. Further recommendations to follow based on clinical status of the patient.
[2020-09-09 16:38] LABS: Glucose,Whole Blood 142 mg/dL (75-99)
[2020-09-10] MEDS: ALPRAZolam 0.25 MG TAB PO SCH ×3 (00:36→20:41)
[2020-09-10] MEDS: ENOXAPARIN 60 MG/0.6 ML SYRINGE SQ SCH ×3 (00:37→20:51)
[2020-09-10] MEDS: INSULIN ASPART (NovoLOG) 100 UNIT/ML VIAL SQ SCH ×5 (00:37→20:40)
[2020-09-10] MEDS: BUMETANIDE 1 MG TAB PO SCH ×3 (03:59→20:51)
[2020-09-10 08:42] LABS: Glucose,Whole Blood 140 mg/dL (75-99)
[2020-09-10] MEDS: ZINC SULFATE 220 MG CAP PO SCH (09:44)
[2020-09-10] MEDS: ASPIRIN 81 MG PO SCH (09:44)
[2020-09-10] MEDS: CHOLECALCIFEROL 1,000 UNIT TAB PO SCH (09:44)
[2020-09-10] MEDS: PANTOPRAZOLE 40 MG TABLET PO SCH (09:44)
[2020-09-10] MEDS: carvediloL 3.125 MG TAB PO SCH ×2 (09:44→17:38)
[2020-09-10] MEDS: LEVOTHYROXINE 75 MCG TAB PO SCH (09:44)
[2020-09-10] MEDS: ASCORBIC ACID 500 MG TAB PO SCH (09:44)
[2020-09-10] MEDS: SPIRONOLACTONE 25 MG TAB PO SCH (09:44)
[2020-09-10] MEDS: TAMSULOSIN 0.4 MG CAP.ER.24H PO SCH (09:44)
[2020-09-10 10:18] LABS: African American GFR (CKD) >90 (>60 ml/min/1.73 sqM); Anion Gap 9 mmol/L; Blood Urea Nitrogen 18 mg/dL (9-20); Calcium 9.3 mg/dL (8.4-10.2); Carbon Dioxide 29 mmol/L (22-30); Chloride 95 mmol/L (98-107); Glucose 149 mg/dL (74-99); Non-African American GFR(CKD) 84 (>60 ml/min/1.73 sqM); Potassium 4.5 mmol/L (3.5-5.1); Sodium 133 mmol/L (137-145)
[2020-09-10] MEDS: ALBUTEROL HFA INHALER INHALATION SCH ×4 (11:05→19:39)
--- NOTE | 2020-09-10 11:06 | P.PN ---
Subjective Progress Note Date: 09/10/20 Principal diagnosis: Acute CoVID 19 pneumonia The patient is seen today 09/04/2020 in follow-up in the intensive care unit. He was admitted with CoVID 19 pneumonitis on 08/22/2020. He currently remains on AirVo at 60 L/m and 60% FiO2. No current IV fluids. Chest x-ray remains stable. The patient is awake and alert in no acute distress. Still quite fatigued and weak. Still with dyspnea on minimal exertion. White count 9.0. Hemoglobin 17.3. Lymphocytes 1.80. Sodium 132. Potassium 3.9. Creatinine 0.78. LDH 762. C-reactive protein 26.2. D-dimer 8.42. Continues on Lovenox, vitamin supplements, bronchodilators. The patient is seen today 09/05/2020 in follow-up in the intensive care unit. He is currently awake and alert in no acute distress. He is still requiring AirVo high flow oxygen at 60 L/m and 60% FiO2. He could not tolerate the BiPAP through the evening. No IV fluids currently. Chest x-ray continues to show diffuse interstitial and patchy airspace disease left greater than right. White count 10.1. Hemoglobin 16.8. D-dimer 5.53. Sodium 134. Potassium 4.4. Creatinine 0.83. LDH 836. C-reactive protein 44.7. Remains on Lovenox, ashley min supplements, bronchodilators. The patient is seen today 09/06/2020 in follow-up in the intensive care unit. He is currently resting comfortably in bed. Awake and alert. Mild respiratory distress. Dyspneic with minimal exertion. He remains on AirVo high flow oxygen at 60 L and 55% FiO2. No current IV fluids. White count 11.3. Hemoglobin 17.4. D-dimer 3.74. Sodium 132. Potassium 4.3. Glucose 138. LDH 83. C- reactive protein 51.1. He remains on bronchodilators, Lovenox, vitamin s upplements. The patient is seen today 09/10/2020 in follow-up on the regular medical floor. He is awake and alert in no acute distress. He was transferred out of the ICU earlier this morning. Rectal maintaining O2 saturations in the 90s on 15 L high flow nasal cannula. He is afebrile. Hemodynamically stable. Sodium 133. Potassium 4.5. Creatinine 0.85. He remains on bronchodilators, Lovenox, vitamin supplements. Objective - Vital Signs Vital signs: Vital Signs Temp 97.9 F 09/10/20 02:00 Pulse 64 09/10/20 02:00 Resp 23 09/10/20 02:00 BP 124/99 09/10/20 02:00 Pulse Ox 94 L 09/09/20 21:41 Intake & Output 09/09/20 09/10/20 09/10/20 18:59 06:59 18:59 Intake Total 125 Output Total 95 350 Balance 30 -350 Weight 100.8 kg Intake: Oral 125 Output: Urine 95 350 Other: Voiding Method Indwelling Catheter Indwelling Catheter Indwelling Catheter - Exam GENERAL EXAM: Alert, very pleasant, 80-year-old male patient on 15 L high flow nasal cannula, comfortable in no apparent distress. HEAD: Normocephalic/atraumatic. EYES: Normal reaction of pupils, equal size. Conjunctiva pink, sclera white. NOSE: Clear with pink turbinates. THROAT: No erythema or exudates. NECK: No masses, no JVD, no thyroid enlargement, no adenopathy. CHEST: No chest wall deformity. Symmetrical expansion. LUNGS: Equal air entry with bilateral scattered crackles. Diminished CVS: Regular rate and rhythm, normal S1 and S2, no gallops, no murmurs, no rubs ABDOMEN: Soft, nontender. No hepatosplenomegaly, normal bowel sounds, no guarding or rigidity. EXTREMITIES: No clubbing, no edema, no cyanosis, 2+ pulses and upper and lower extremities. MUSCULOSKELETAL: Muscle strength and tone normal. SPINE: No scoliosis or deformity SKIN: No rashes CENTRAL NERVOUS SYSTEM: No focal deficits, tone is normal in all 4 extremities. PSYCHIATRIC: Alert and oriented -3. Appropriate affect. Intact judgment and insight. - Labs CBC & Chem 7: 09/09/20 04:00 09/10/20 09:40 Labs: Abnormal Lab Results - Last 24 Hours (Table) 09/09/20 09/09/20 09/10/20 Range/Units 11:40 16:36 08:33 Sodium (137-145) mmol/L Chloride (98-107) mmol/L Glucose (74-99) mg/dL POC Glucose (mg/dL) 146 H 142 H 140 H (75-99) mg/dL 09/10/20 Range/Units 09:40 Sodium 133 L (137-145) mmol/L Chloride 95 L (98-107) mmol/L Glucose 149 H (74-99) mg/dL POC Glucose (mg/dL) (75-99) mg/dL Assessment and Plan Assessment: 1 Acute Covid 19 related pneumonia. The patient was diagnosed having Covid 19 infection on 08/22/2020. His exposure was around Thanksgiving and the patient has been symptomatic for approximately a week. His chest x-ray showing some limited bibasilar pulmonary infiltrates. Today 09/10/2020 he remains on 15 L high flow nasal cannula to maintain O2 saturations in the 90s. 2 COPD with an FEV1 of 86% of predicted. The patient is not home oxygen dependent and the patient is an ex-smoker 3 Coronary artery disease with previous bypass surgery. Limited amount of troponin leak and free of any chest pain and EKG is not showing any acute ischemic changes. 4 CHF 5 Diabetes mellitus 6 BPH 7 Parkinson's disease 8 Obstructive sleep apnea 9 History of nephrolithiasis 10 History of peripheral neuropathy Plan: The patient was seen and evaluated by Dr. Toledo Transferred out of the ICU today Continue Lovenox, vitamin supplements, bronchodilators Titrate down the FiO2 as tolerated Increase the activity as tolerated We'll continue to follow I, the cosigning physician, performed a history & physical examination of the patient. Lungs sounds have scattered crackles. Maintaining good O2 saturations in the 90s on 15 L high flow nasal cannula. I discussed the assessment and plan of care with my nurse practitioner, Carol Villalta. I attest to the above note as dictated by her.
[2020-09-10 12:06] LABS: Glucose,Whole Blood 141 mg/dL (75-99)
[2020-09-10] MEDS: FLUTICASONE 50MCG/SPRAY NASAL 16GM EA NOSTRIL SCH (12:31)
--- NOTE | 2020-09-10 15:31 | P.PN ---
Subjective Progress Note Date: 09/10/20 80 years old male with multiple medical problems as below. He follows up in the [facility]. Presents because of dyspnea and generalized weakness. Patient was complaining of from Raynaud's few days ago and he has been prescribed amoxicillin which helped him a little bit but then he developed signi ficant weakness and fatigue over the last 3-4 days that his make him come to the hospital. He has history of COPD and he quit smoking in 1998, he follows up with Dr. Toledo is not on home oxygen however he says that he has mild dyspnea associated with chronic cough and brown greenish phlegm. He denies chest pain, but he has loose bowel movement about once daily no abdominal pain or vomiting No urinary complaints. He denies alcohol or illicit drugs. Vital signs stable, he is saturating 91% on 4 L oxygen via nasal cannula. He has had unremarkable labs including CBC, INR, BMP, liver enzymes. For his troponin is elevated at 0.05, 0.04, 0.03. EKG showed normal sinus rhythm at [address]-T changes, Q waves in lead 2, 3 and aVF, T wave inversion in the lateral blades V4-V6 Labs at [facility] showing normal sodium and potassium at 137 and 3.5 respectively, creatinine normal at 1.0, liver enzymes not elevated, bilirubin is normal 0.9, WT normal 6.9K, hemoglobin 16.6 and platelets 180 1K. Coronavirus was detected As per the records his been having shortness of breath for 10 days. And he checked his oxygen saturating at home it was 88%. He states that he is post to covert by son and [id number] around Thanksgiving time. Chest x-ray report showed mild atelectasis. 08/24/2020 Patient awake and alert, he has more dyspnea. No chest pain. He still has fever, his respiratory status was worsened overnight and is currently on 15 L high flow oxygen via cannula with oxygen saturation 91-93%. Inflammatory markers LDH and C-reactive protein are the same or slightly worsened. He is followed closely by the pulmonary team and he is on dexamethasone, vitamin C, zinc and Zithromax Cardiology team evaluated the patient for elevated troponin and echocardiogram is reviewed with preserved LV function, and they signed off the case 08/25/2020 Patient remains on the 15 L high flow along with Ventimask. Patient is to have elevated inflammatory markers. Patient does have a congestive heart failure appears to be fairly euvolemic continue with the present regimen of heart failure medication patient blood pressure is low because of which I'll hold off on losartan temporarily will be resumed as soon as possible. 08/26/2020 Patient is presently on Airvo. Patient's is pretty status has worsened and patient is being transferred to ICU at this time. Patient the regarding heart failure scott appear to be euvolemic. Patient received a dose of Bumex today. Patient chest x-ray is consistent with a diffuse interstitial infiltrates. 08/27/2020 Patient is presently on 6 L of oxygen does look much better actually wanted to go home. Then 60 L of oxygen. 08/28/2020 X-ray today is showing some worsening of the infiltrate. Patient remains on about 60 L of oxygen no significant worsening clinically. 08/29/2020 Patient chest x-ray still showing significant infiltrate bilaterally patient respiratory status remains the same inflammatory markers regularly d-dimer is bit worse and 4.5 today. Veins on 60 L of O2 08/30/2020 Patient remains on 60 airvo L of oxygen via airvo and vent mask 08/31/2020 Patient remains on 60 L and Ventimask as well. Patient to d-dimer went up to around 16 because of which patient was started on anticoagulation dose of Lovenox. Patient kidney function is good. 09/01/2020 Patient currently being closely monitored in the ICU and continues to be on airvo with a flow rate of 60 and an FiO2 of 90 and currently saturating 88-91%. Patient also continues with intermittent nonrebreather as well. Patient is maintained on Lovenox, zinc, vitamin C and E supplements. Dexamethasone was discontinued. Blood sugars being monitored closely and will continue sliding scale at this time. Current sodium is 134 with a potassium of 4.7 and creatinine is 0.62. Chest x-ray shows findings consistent with persistent bilateral airspace disease. 09/02/2020 Patient is seen in follow up and currently remains in the ICU. Patient is on Airvo and doing well. Patient FiO2 slowly being titrated. Patient uses intermittent BiPAP at night. Heart rate on the lower side and will decrease Coreg. No significant changes noted on today's x-ray. D-dimer slowly trending down and is currently 14.32, sodium is 132, potassium is 4.9, and current creatinine is 0.64. Will continue to monitor blood sugars closely and continue with sliding scale. 09/03/2020 Patient remains on airvo at 60 L no significant improvement 09/04/2020 Patient remains on 60 L airvo. Patient's CRP is still elevated LDH is mildly elevated 09/05/2020 Patient is bit hyponatremic at 134 which is actually better compared to yesterday. And patient remains on 60 L of oxygen. Patient d-dimer has come down to 5.53 patient remains on anticoagulation dose of Lovenox 09/06/2020 Patient is on 60 L of oxygen and FiO2 of around 55% which is an improvement p atient is presently hemodynamically stable 09/07/2020 Patient is seen and evaluated in follow-up continues to be closely monitored in the ICU. Patient was transitioned to 15 L high flow nasal cannula and being monitored closely. Oxygen saturation is 93% currently. Patient was also up out of the bed and sitting in the chair. Patient continues to be weak requiring assistance and PT/OT following. Sodium is 130 today and will repeat a.m. labs. Lovenox decreased to 50 mg subcutaneous twice daily as d-dimer is trending down. Continue to encourage oral intake and increase activity as tolerated. 09/08/2020 Patient continues to be in the ICU being closely monitored. Patient continues with 15 L high flow nasal cannula and is tolerating thus far. Patient continues to request to go home although continues to be quite weak. Patient slowly improving on oxygenation. Pulmonary is following. Sodium is improved at 131, potassium is 4.7, d-dimer is trending down at 1.93. Lovenox has been adjusted. We'll continue to monitor blood sugars closely and continue sliding scale. 09/09/2020 Patient is seen in follow-up continues to be in the ICU although waiting for a bed to transfer to the [facility] as patient has been off of Airvo and continues to refuse BiPAP and has been maintaining adequate oxygenation on high flow nasal cannula 15 L. Patient continues to be quite weak and PT/OT following and continues to recommend subacute rehab for continued strength and mobility once stabilized and discharged. Pulmonary is following. 09/10/2020 Patient is seen in follow-up and has been transferred out of the ICU currently on a medical surgical unit and continues to be closely monitored. Patient remains on high flow nasal cannula and discussed with nursing staff about weaning FiO2 as tolerated. Patient is currently 91% on 15 L. Social work also following as patient will require rehab once medically stable for continued PT/OT therapy as he continues to be quite weak requiring assistance. No reports of chest pain, worsening shortness of breath, or palpitations. Is afebrile. Patient is tolerating diet and has increased his oral intake slightly. Sodium has improved and is 133, potassium is 4.5, current creatinine is 0.85. Will repeat a.m. chest x-ray. Constitutional: Denied any fatigue denied any fever. Cardio vascular: denied any chest pain, palpitations Gastrointestinal denied any nausea vomiting Pulmonary: Denied any shortness of breath cough on high flow oxygen Neurologic denied any new focal deficits, reports generalized weakness All inpatient medications were reviewed and appropriate changes in these medications as dictated in the interval history and assessment and plan. Objective - Vital Signs Vital signs: Vital Signs Temp 97.5 F L 09/10/20 11:00 Pulse 65 09/10/20 11:00 Resp 22 09/10/20 11:00 BP 118/81 09/10/20 11:00 Pulse Ox 91 L 09/10/20 11:00 Intake & Output 09/09/20 09/10/20 09/10/20 18:59 06:59 18:59 Intake Total 125 Output Total 95 350 Balance 30 -350 Weight 100.8 kg Intake: Oral 125 Output: Urine 95 350 Other: Voiding Method Indwelling Catheter Indwelling Catheter Indwelling Catheter - Exam GENERAL: The patient is awake on high flow nasal cannula, and is currently sitting up in the chair, not in any acute distress. Well developed, well nourished. HEENT: Pupils are round and equally reacting to light. EOMI. No scleral icterus. No conjunctival pallor. Normocephalic, atraumatic. No pharyngeal erythema. No thyromegaly. CARDIOVASCULAR: S1 and S2 present. No murmurs, rubs, or gallops. PULMONARY: Clear to auscultation without any crackles ABDOMEN: Soft, nontender, nondistended, normoactive bowel sounds. No palpable organomegaly. MUSCULOSKELETAL: No joint swelling or deformity. EXTREMITIES: No cyanosis, clubbing, or pedal edema. NEUROLOGICAL: Awake, cooperative, diffusely weak SKIN: No rashes. Note: Because of COVID 19 isolation, some of the history and physical exam findings are indirect and obtained from nursing staff, and other physician examinations to avoid unnecessary contact with the patient. - Labs CBC & Chem 7: 09/09/20 04:00 09/10/20 09:40 Labs: Abnormal Lab Results - Last 24 Hours (Table) 09/09/20 09/10/20 09/10/20 Range/Units 16:36 08:33 09:40 Sodium 133 L (137-145) mmol/L Chloride 95 L (98-107) mmol/L Glucose 149 H (74-99) mg/dL POC Glucose (mg/dL) 142 H 140 H (75-99) mg/dL 09/10/20 Range/Units 12:03 Sodium (137-145) mmol/L Chloride (98-107) mmol/L Glucose (74-99) mg/dL POC Glucose (mg/dL) 141 H (75-99) mg/dL Assessment and Plan Assessment: Acute hypoxic respiratory failure secondary to Covid 19 continue with r espiratory support continue with Decadron, zinc, vitamin C, bronchodilator therapy. Presently on high flow nasal cannula 15 L monitoring closely and pulmonary following Elevated troponin, secondary to demand ischemia from pulmonary disease Diabetes mellitus blood sugars are well controlled. Hyponatremia, current sodium is 133 Hypertension Hyperlipidemia Osteoarthritis Chronic heart failure, chronic systolic dysfunction without any acute exacerbations. will continue with oral Bumex, Aldactone and Coreg. Hold off on losartan temporarily because of hypotension Hypothyroidism Sleep apnea on CPAP/BiPAP Benign Prostatic hypertrophy Diabetic neuropathy Parkinson disease History of kidney stone Asthma, not an active issue GERD GI prophylaxis: DVT prophylaxis: Subcutaneous Lovenox, d-dimer trending down and Lovenox dose was adjusted to 50 mg twice daily overall prognosis is extremely poor and guarded Plan: Continue to wean FiO2 as tolerated. Patient has been moved out of the ICU and is currently on a medical surgical floor. Pulmonary following closely. Continue to monitor blood sugars and will continue with sliding scale as needed. Continue to encourage oral intake and increasing activity as tolerated. PTOT following and continues to recommend subacute rehab once stabilized and discharged. Patient currently remains in the ICU although awaiting transfer to the [facility]. Patient presently remains on high flow nasal cannula at 15 L and tolerating well. Discussed with nursing staff about weaning FiO2 as tolerated. Due to multiple complex medical issues, prognosis remains extremely poor and guarded. Slowly improving and will continue to monitor closely. Will repeat a.m. labs. Will repeat a.m. chest x-ray. Further recommendations to follow based on clinical status of the patient.
[2020-09-10 17:07] LABS: Glucose,Whole Blood 185 mg/dL (75-99)
[2020-09-10 20:38] LABS: Glucose,Whole Blood 143 mg/dL (75-99)
[2020-09-11] MEDS: LEVOTHYROXINE 75 MCG TAB PO SCH (05:53)
[2020-09-11 07:11] LABS: Glucose,Whole Blood 160 mg/dL (75-99)
--- NOTE | 2020-09-11 07:13 | XR ---
EXAMINATION TYPE: XR chest 1V portable DATE OF EXAM: 09/11/2020 CLINICAL HISTORY: Difficulty breathing progress study. Cold 19 infection. TECHNIQUE: Single AP portable upright view of the chest is obtained. COMPARISON: Chest x-ray from September 08, 2020 and older studies FINDINGS: Overlying sternal wires redemonstrated. Stable mild cardiomegaly with atherosclerotic aort a. Background chronic parenchymal changes with increased opacities bilaterally redemonstrated. No ple ural effusion or pneumothorax seen. Osseous structures remain intact. IMPRESSION: Persistent bilateral multifocal acute infiltrates on background chronic changes consisten t with covid 19 infection. No significant change from most recent x-ray.
[2020-09-11] MEDS: ENOXAPARIN 60 MG/0.6 ML SYRINGE SQ SCH ×2 (08:06→20:12)
[2020-09-11] MEDS: ASCORBIC ACID 500 MG TAB PO SCH (08:07)
[2020-09-11] MEDS: ZINC SULFATE 220 MG CAP PO SCH (08:07)
[2020-09-11] MEDS: ASPIRIN 81 MG PO SCH (08:07)
[2020-09-11] MEDS: TAMSULOSIN 0.4 MG CAP.ER.24H PO SCH (08:07)
[2020-09-11] MEDS: CHOLECALCIFEROL 1,000 UNIT TAB PO SCH (08:07)
[2020-09-11] MEDS: carvediloL 3.125 MG TAB PO SCH ×2 (08:07→17:42)
[2020-09-11] MEDS: PANTOPRAZOLE 40 MG TABLET PO SCH (08:07)
[2020-09-11] MEDS: ALPRAZolam 0.25 MG TAB PO SCH ×2 (08:07→20:13)
[2020-09-11] MEDS: SPIRONOLACTONE 25 MG TAB PO SCH (08:08)
[2020-09-11] MEDS: BUMETANIDE 1 MG TAB PO SCH ×2 (08:08→20:12)
[2020-09-11] MEDS: INSULIN ASPART (NovoLOG) 100 UNIT/ML VIAL SQ SCH ×4 (08:08→20:55)
[2020-09-11] MEDS: ALBUTEROL HFA INHALER INHALATION SCH ×4 (08:09→20:35)
[2020-09-11] MEDS: FLUTICASONE 50MCG/SPRAY NASAL 16GM EA NOSTRIL SCH (08:10)
[2020-09-11 09:37] LABS: African American GFR (CKD) 94.5 (60.0-200.0); Anion Gap 10.4 mmol/L (4.00-12.00); BUN/Creat Ratio 18.89 Ratio (12.00-20.00); Calcium 8.6 mg/dL (8.7-10.3); Carbon Dioxide 25.6 mmol/L (21.6-31.8); Non-African American GFR(CKD) 81.5 (60.0-200.0); Potassium 4.2 mmol/L (3.5-5.5)
--- NOTE | 2020-09-11 12:14 | P.PN ---
Subjective Progress Note Date: 09/11/20 Principal diagnosis: Acute CoVID 19 pneumonia The patient is seen today 09/04/2020 in follow-up in the intensive care unit. He was admitted with CoVID 19 pneumonitis on 08/22/2020. He currently remains on AirVo at 60 L/m and 60% FiO2. No current IV fluids. Chest x-ray remains stable. The patient is awake and alert in no acute distress. Still quite fatigued and weak. Still with dyspnea on minimal exertion. White count 9.0. Hemoglobin 17.3. Lymphocytes 1.80. Sodium 132. Potassium 3.9. Creatinine 0.78. LDH 762. C-reactive protein 26.2. D-dimer 8.42. Continues on Lovenox, vitamin supplements, bronchodilators. The patient is seen today 09/05/2020 in follow-up in the intensive care unit. He is currently awake and alert in no acute distress. He is still requiring AirVo high flow oxygen at 60 L/m and 60% FiO2. He could not tolerate the BiPAP through the evening. No IV fluids currently. Chest x-ray continues to show diffuse interstitial and patchy airspace disease left greater than right. White count 10.1. Hemoglobin 16.8. D-dimer 5.53. Sodium 134. Potassium 4.4. Creatinine 0.83. LDH 836. C-reactive protein 44.7. Remains on Lovenox, ashley min supplements, bronchodilators. The patient is seen today 09/06/2020 in follow-up in the intensive care unit. He is currently resting comfortably in bed. Awake and alert. Mild respiratory distress. Dyspneic with minimal exertion. He remains on AirVo high flow oxygen at 60 L and 55% FiO2. No current IV fluids. White count 11.3. Hemoglobin 17.4. D-dimer 3.74. Sodium 132. Potassium 4.3. Glucose 138. LDH 83. C- reactive protein 51.1. He remains on bronchodilators, Lovenox, vitamin s upplements. The patient is seen today 09/10/2020 in follow-up on the regular medical floor. He is awake and alert in no acute distress. He was transferred out of the ICU earlier this morning. Rectal maintaining O2 saturations in the 90s on 15 L high flow nasal cannula. He is afebrile. Hemodynamically stable. Sodium 133. Potassium 4.5. Creatinine 0.85. He remains on bronchodilators, Lovenox, vitamin supplements. The patient is seen today 09/11/2020 in follow-up on the regular medical floor. He is improving daily. Less short of breath. He is currently down to 13 L high flow nasal cannula. He is afebrile. Hemodynamically stable. Still dyspneic with minimal exertion. Sodium 132. Potassium 4.2. Creatinine 0.9. He remains on bronchodilators, Lovenox, vitamin supplements. He has been here for 20 days now. Completed dexamethasone. Chest x-ray continues to show persistent bilateral multifocal acute infiltrates on the background of chronic changes consistent with Covid 19 infection. No significant change compared to previous. Objective - Vital Signs Vital signs: Vital Signs Temp 97.7 F 09/11/20 04:20 Pulse 62 09/11/20 08:00 Resp 20 09/11/20 04:20 BP 127/80 09/11/20 04:20 Pulse Ox 90 L 09/11/20 04:20 Intake & Output 09/10/20 09/11/20 09/11/20 18:59 06:59 18:59 Intake Total 600 Output Total 1000 Balance 600 -1000 Intake: Oral 600 Output: Urine 1000 Other: Voiding Method Indwelling Catheter Indwelling Catheter Indwelling Catheter - Exam GENERAL EXAM: Alert, very pleasant, 80-year-old male patient on 13 L high flow nasal cannula, comfortable in no apparent distress. HEAD: Normocephalic/atraumatic. EYES: Normal reaction of pupils, equal size. Conjunctiva pink, sclera white. NOSE: Clear with pink turbinates. THROAT: No erythema or exudates. NECK: No masses, no JVD, no thyroid enlargement, no adenopathy. CHEST: No chest wall deformity. Symmetrical expansion. LUNGS: Equal air entry with bilateral scattered crackles. Diminished CVS: Regular rate and rhythm, normal S1 and S2, no gallops, no murmurs, no rubs ABDOMEN: Soft, nontender. No hepatosplenomegaly, normal bowel sounds, no guarding or rigidity. EXTREMITIES: No clubbing, no edema, no cyanosis, 2+ pulses and upper and lower extremities. MUSCULOSKELETAL: Muscle strength and tone normal. SPINE: No scoliosis or deformity SKIN: No rashes CENTRAL NERVOUS SYSTEM: No focal deficits, tone is normal in all 4 extremities. PSYCHIATRIC: Alert and oriented -3. Appropriate affect. Intact judgment and insight. - Labs CBC & Chem 7: 09/09/20 04:00 09/11/20 05:24 Labs: Abnormal Lab Results - Last 24 Hours (Table) 09/10/20 09/10/20 09/11/20 Range/Units 17:05 20:18 05:24 Sodium 132 L (135-145) mmol/L Glucose 159 H (70-110) mg/dL POC Glucose (mg/dL) 185 H 143 H (75-99) mg/dL Calcium 8.6 L (8.7-10.3) mg/dL 09/11/20 Range/Units 07:08 Sodium (135-145) mmol/L Glucose (70-110) mg/dL POC Glucose (mg/dL) 160 H (75-99) mg/dL Calcium (8.7-10.3) mg/dL Assessment and Plan Assessment: 1 Acute Covid 19 related pneumonia. The patient was diagnosed having Covid 19 infection on 08/22/2020. His exposure was around Thanksgiving and the patient has been symptomatic for approximately a week. His chest x-ray continues to revealed persistent bilateral multifocal acute infiltrates and background chronic changes consistent with Covid 19 infection. No significant change. Today 09/11/2020 he remains on 13 L high flow nasal cannula to maintain O2 saturations in the 90s. 2 COPD with an FEV1 of 86% of predicted. The patient is not home oxygen dependent and the patient is an ex-smoker 3 Coronary artery disease with previous bypass surgery. Limited amount of troponin leak and free of any chest pain and EKG is not showing any acute ischemic changes. 4 CHF 5 Diabetes mellitus 6 BPH 7 Parkinson's disease 8 Obstructive sleep apnea 9 History of nephrolithiasis 10 History of peripheral neuropathy Plan: The patient was seen and evaluated by Dr. Toledo Chest x-ray and labs reviewed Continue Lovenox, vitamin supplements, bronchodilators Titrate down the FiO2 as tolerated Increase the activity as tolerated We'll continue to follow I, the cosigning physician, performed a history & physical examination of the patient. Lungs sounds have scattered crackles. Maintaining good O2 saturations in the 90s on 13 L high flow nasal cannula. I discussed the assessment and plan of care with my nurse practitioner, Carol Villalta. I attest to the above note as dictated by her.
[2020-09-11 12:39] LABS: Glucose,Whole Blood 137 mg/dL (75-99)
--- NOTE | 2020-09-11 13:30 | P.PN ---
Subjective Progress Note Date: 09/11/20 80 years old male with multiple medical problems as below. He follows up in the [place] [facility]. Presents because of dyspnea and generalized weakness. Patient was complaining of from Raynaud's few days ago and he has been prescribed amoxicillin which helped him a little bit but then he developed signi ficant weakness and fatigue over the last 3-4 days that his make him come to the hospital. He has history of COPD and he quit smoking in 1998, he follows up with Dr. Toledo is not on home oxygen however he says that he has mild dyspnea associated with chronic cough and brown greenish phlegm. He denies chest pain, but he has loose bowel movement about once daily no abdominal pain or vomiting No urinary complaints. He denies alcohol or illicit drugs. Vital signs stable, he is saturating 91% on 4 L oxygen via nasal cannula. He has had unremarkable labs including CBC, INR, BMP, liver enzymes. For his troponin is elevated at 0.05, 0.04, 0.03. EKG showed normal sinus rhythm at [address]-T changes, Q waves in lead 2, 3 and aVF, T wave inversion in the lateral blades V4-V6 Labs at [facility] showing normal sodium and potassium at 137 and 3.5 respectively, creatinine normal at 1.0, liver enzymes not elevated, bilirubin is normal 0.9, WT normal 6.9K, hemoglobin 16.6 and platelets 180 1K. Coronavirus was detected As per the records his been having shortness of breath for 10 days. And he checked his oxygen saturating at home it was 88%. He states that he is post to covert by son and [id number] around Thanksgiving time. Chest x-ray report showed mild atelectasis. 08/24/2020 Patient awake and alert, he has more dyspnea. No chest pain. He still has fever, his respiratory status was worsened overnight and is currently on 15 L high flow oxygen via cannula with oxygen saturation 91-93%. Inflammatory markers LDH and C-reactive protein are the same or slightly worsened. He is followed closely by the pulmonary team and he is on dexamethasone, vitamin C, zinc and Zithromax Cardiology team evaluated the patient for elevated troponin and echocardiogram is reviewed with preserved LV function, and they signed off the case 08/25/2020 Patient remains on the 15 L high flow along with Ventimask. Patient is to have elevated inflammatory markers. Patient does have a congestive heart failure appears to be fairly euvolemic continue with the present regimen of heart failure medication patient blood pressure is low because of which I'll hold off on losartan temporarily will be resumed as soon as possible. 08/26/2020 Patient is presently on Airvo. Patient's is pretty status has worsened and patient is being transferred to ICU at this time. Patient the regarding heart failure scott appear to be euvolemic. Patient received a dose of Bumex today. Patient chest x-ray is consistent with a diffuse interstitial infiltrates. 08/27/2020 Patient is presently on 6 L of oxygen does look much better actually wanted to go home. Then 60 L of oxygen. 08/28/2020 X-ray today is showing some worsening of the infiltrate. Patient remains on about 60 L of oxygen no significant worsening clinically. 08/29/2020 Patient chest x-ray still showing significant infiltrate bilaterally patient respiratory status remains the same inflammatory markers regularly d-dimer is bit worse and 4.5 today. Veins on 60 L of O2 08/30/2020 Patient remains on 60 airvo L of oxygen via airvo and vent mask 08/31/2020 Patient remains on 60 L and Ventimask as well. Patient to d-dimer went up to around 16 because of which patient was started on anticoagulation dose of Lovenox. Patient kidney function is good. 09/01/2020 Patient currently being closely monitored in the ICU and continues to be on airvo with a flow rate of 60 and an FiO2 of 90 and currently saturating 88-91%. Patient also continues with intermittent nonrebreather as well. Patient is maintained on Lovenox, zinc, vitamin C and E supplements. Dexamethasone was discontinued. Blood sugars being monitored closely and will continue sliding scale at this time. Current sodium is 134 with a potassium of 4.7 and creatinine is 0.62. Chest x-ray shows findings consistent with persistent bilateral airspace disease. 09/02/2020 Patient is seen in follow up and currently remains in the ICU. Patient is on Airvo and doing well. Patient FiO2 slowly being titrated. Patient uses intermittent BiPAP at night. Heart rate on the lower side and will decrease Coreg. No significant changes noted on today's x-ray. D-dimer slowly trending down and is currently 14.32, sodium is 132, potassium is 4.9, and current creatinine is 0.64. Will continue to monitor blood sugars closely and continue with sliding scale. 09/03/2020 Patient remains on airvo at 60 L no significant improvement 09/04/2020 Patient remains on 60 L airvo. Patient's CRP is still elevated LDH is mildly elevated 09/05/2020 Patient is bit hyponatremic at 134 which is actually better compared to yesterday. And patient remains on 60 L of oxygen. Patient d-dimer has come down to 5.53 patient remains on anticoagulation dose of Lovenox 09/06/2020 Patient is on 60 L of oxygen and FiO2 of around 55% which is an improvement p atient is presently hemodynamically stable 09/07/2020 Patient is seen and evaluated in follow-up continues to be closely monitored in the ICU. Patient was transitioned to 15 L high flow nasal cannula and being monitored closely. Oxygen saturation is 93% currently. Patient was also up out of the bed and sitting in the chair. Patient continues to be weak requiring assistance and PT/OT following. Sodium is 130 today and will repeat a.m. labs. Lovenox decreased to 50 mg subcutaneous twice daily as d-dimer is trending down. Continue to encourage oral intake and increase activity as tolerated. 09/08/2020 Patient continues to be in the ICU being closely monitored. Patient continues with 15 L high flow nasal cannula and is tolerating thus far. Patient continues to request to go home although continues to be quite weak. Patient slowly improving on oxygenation. Pulmonary is following. Sodium is improved at 131, potassium is 4.7, d-dimer is trending down at 1.93. Lovenox has been adjusted. We'll continue to monitor blood sugars closely and continue sliding scale. 09/09/2020 Patient is seen in follow-up continues to be in the ICU although waiting for a bed to transfer to the [facility] as patient has been off of Airvo and continues to refuse BiPAP and has been maintaining adequate oxygenation on high flow nasal cannula 15 L. Patient continues to be quite weak and PT/OT following and continues to recommend subacute rehab for continued strength and mobility once stabilized and discharged. Pulmonary is following. 09/10/2020 Patient is seen in follow-up and has been transferred out of the ICU currently on a medical surgical unit and continues to be closely monitored. Patient remains on high flow nasal cannula and discussed with nursing staff about weaning FiO2 as tolerated. Patient is currently 91% on 15 L. Social work also following as patient will require rehab once medically stable for continued PT/OT therapy as he continues to be quite weak requiring assistance. No reports of chest pain, worsening shortness of breath, or palpitations. Is afebrile. Patient is tolerating diet and has increased his oral intake slightly. Sodium has improved and is 133, potassium is 4.5, current creatinine is 0.85. Will repeat a.m. chest x-ray. 09/11/2020 Patient is seen and evaluated in follow-up sitting up in the bed appears to be comfortable. Patient is slowly being titrated down on his FiO2 and is currently on 13 L nasal cannula. Patient states his breathing is slightly improved and requesting when he can go home. Patient denies any further worsening shortness of breath. Patient continues to be weak requiring assistance and will most likely require rehab upon discharge. Will have PT/OT continue to evaluate and follow-up on Monday. Patient continues to be eating more of his meals and denies any nausea or vomiting. Chest x-ray today shows persistent bilateral multifocal acute infiltrates with no significant changes noted. Sodium remains stable at 132 and potassium is 4.2 current creatinine is 0.9. Blood sugars appear to be well controlled acquiring minimal coverage on sliding scale. Constitutional: Denied any fatigue denied any fever. Cardio vascular: denied any chest pain, palpitations Gastrointestinal denied any nausea vomiting Pulmonary: Denied any shortness of breath cough on high flow oxygen Neurologic denied any new focal deficits, reports generalized weakness All inpatient medications were reviewed and appropriate changes in these medications as dictated in the interval history and assessment and plan. Objective - Vital Signs Vital signs: Vital Signs Temp 97.7 F 09/11/20 04:20 Pulse 62 09/11/20 04:20 Resp 20 09/11/20 04:20 BP 127/80 09/11/20 04:20 Pulse Ox 90 L 09/11/20 04:20 Intake & Output 09/10/20 09/11/20 09/11/20 18:59 06:59 18:59 Intake Total 600 Output Total 1000 Balance 600 -1000 Intake: Oral 600 Output: Urine 1000 Other: Voiding Method Indwelling Catheter Indwelling Catheter - Exam GENERAL: The patient is awake on high flow nasal cannula although weaning slowly and currently on 13 L, and is currently sitting up in the chair, not in any acute distress. Well developed, well nourished. HEENT: Pupils are round and equally reacting to light. EOMI. No scleral icterus. No conjunctival pallor. Normocephalic, atraumatic. No pharyngeal erythema. No thyromegaly. CARDIOVASCULAR: S1 and S2 present. No murmurs, rubs, or gallops. PULMONARY: Clear to auscultation without any crackles ABDOMEN: Soft, nontender, nondistended, normoactive bowel sounds. No palpable organomegaly. MUSCULOSKELETAL: No joint swelling or deformity. EXTREMITIES: No cyanosis, clubbing, or pedal edema. NEUROLOGICAL: Awake, cooperative, diffusely weak SKIN: No rashes. . - Labs CBC & Chem 7: 09/09/20 04:00 09/11/20 05:24 Labs: Abnormal Lab Results - Last 24 Hours (Table) 09/10/20 09/10/20 09/10/20 Range/Units 09:40 12:03 17:05 Sodium 133 L (137-145) mmol/L Chloride 95 L (98-107) mmol/L Glucose 149 H (74-99) mg/dL POC Glucose (mg/dL) 141 H 185 H (75-99) mg/dL 09/10/20 09/11/20 Range/Units 20:18 07:08 Sodium (137-145) mmol/L Chloride (98-107) mmol/L Glucose (74-99) mg/dL POC Glucose (mg/dL) 143 H 160 H (75-99) mg/dL Assessment and Plan Assessment: Acute hypoxic respiratory failure secondary to Covid 19 continue with respiratory support continue with Decadron, zinc, vitamin C, bronchodilator therapy. Presently on high flow nasal cannula 15 L monitoring closely and pulmonary following Elevated troponin, secondary to demand ischemia from pulmonary disease Diabetes mellitus blood sugars are well controlled. Hyponatremia, current sodium is 133 Hypertension Hyperlipidemia Osteoarthritis Chronic heart failure, chronic systolic dysfunction without any acute exacerbations. will continue with oral Bumex, Aldactone and Coreg. Hold off on losartan temporarily because of hypotension Hypothyroidism Sleep apnea on CPAP/BiPAP Benign Prostatic hypertrophy Diabetic neuropathy Parkinson disease History of kidney stone Asthma, not an active issue GERD GI prophylaxis: DVT prophylaxis: Subcutaneous Lovenox, d-dimer trending down and Lovenox dose was adjusted to 50 mg twice daily overall prognosis is extremely poor and guarded Plan: Continue to wean FiO2 as tolerated. Currently on 13 L nasal cannula and tolerating. Chest x-ray from this morning shows no real improvement although patient appears to be improving slowly. Pulmonary following closely. Continue to monitor blood sugars and will continue with sliding scale as needed. Continue to encourage oral intake and increasing activity as tolerated. PTOT following and continues to recommend subacute rehab once stabilized and discharged. Discussed with nursing staff about weaning FiO2 as tolerated. Due to multiple complex medical issues, prognosis remains extremely guarded. Slowly improving and will continue to monitor closely. Will repeat a.m. labs. Further recommendations to follow based on clinical status of the patient.
[2020-09-11] MEDS: ACETAMINOPHEN TAB 325 MG TAB PO PRN (15:05)
[2020-09-11 17:08] LABS: Glucose,Whole Blood 125 mg/dL (75-99)
[2020-09-11 20:47] LABS: Glucose,Whole Blood 156 mg/dL (75-99)
[2020-09-12] MEDS: LEVOTHYROXINE 75 MCG TAB PO SCH (04:49)
[2020-09-12 07:02] LABS: Glucose,Whole Blood 124 mg/dL (75-99)
[2020-09-12] MEDS: INSULIN ASPART (NovoLOG) 100 UNIT/ML VIAL SQ SCH ×4 (07:15→21:23)
[2020-09-12] MEDS: ALBUTEROL HFA INHALER INHALATION SCH ×4 (07:42→19:19)
[2020-09-12] MEDS: PANTOPRAZOLE 40 MG TABLET PO SCH (07:43)
[2020-09-12] MEDS: carvediloL 3.125 MG TAB PO SCH ×2 (07:45→18:29)
[2020-09-12] MEDS: TAMSULOSIN 0.4 MG CAP.ER.24H PO SCH (09:24)
[2020-09-12] MEDS: ASPIRIN 81 MG PO SCH (09:24)
[2020-09-12] MEDS: CHOLECALCIFEROL 1,000 UNIT TAB PO SCH (09:25)
[2020-09-12] MEDS: SPIRONOLACTONE 25 MG TAB PO SCH (09:25)
[2020-09-12] MEDS: ASCORBIC ACID 500 MG TAB PO SCH (09:25)
[2020-09-12] MEDS: ALPRAZolam 0.25 MG TAB PO SCH ×2 (09:26→21:24)
[2020-09-12] MEDS: ENOXAPARIN 60 MG/0.6 ML SYRINGE SQ SCH ×2 (09:27→21:22)
[2020-09-12] MEDS: BUMETANIDE 1 MG TAB PO SCH ×2 (09:27→21:24)
[2020-09-12] MEDS: ZINC SULFATE 220 MG CAP PO SCH (09:28)
[2020-09-12] MEDS: FLUTICASONE 50MCG/SPRAY NASAL 16GM EA NOSTRIL SCH (10:26)
[2020-09-12 11:12] LABS: Glucose,Whole Blood 143 mg/dL (75-99)
--- NOTE | 2020-09-12 12:30 | P.PN ---
Subjective Progress Note Date: 09/12/20 Principal diagnosis: Acute CoVID 19 pneumonia The patient is seen today 09/04/2020 in follow-up in the intensive care unit. He was admitted with CoVID 19 pneumonitis on 08/22/2020. He currently remains on AirVo at 60 L/m and 60% FiO2. No current IV fluids. Chest x-ray remains stable. The patient is awake and alert in no acute distress. Still quite fatigued and weak. Still with dyspnea on minimal exertion. White count 9.0. Hemoglobin 17.3. Lymphocytes 1.80. Sodium 132. Potassium 3.9. Creatinine 0.78. LDH 762. C-reactive protein 26.2. D-dimer 8.42. Continues on Lovenox, vitamin supplements, bronchodilators. The patient is seen today 09/05/2020 in follow-up in the intensive care unit. He is currently awake and alert in no acute distress. He is still requiring AirVo high flow oxygen at 60 L/m and 60% FiO2. He could not tolerate the BiPAP through the evening. No IV fluids currently. Chest x-ray continues to show diffuse interstitial and patchy airspace disease left greater than right. White count 10.1. Hemoglobin 16.8. D-dimer 5.53. Sodium 134. Potassium 4.4. Creatinine 0.83. LDH 836. C-reactive protein 44.7. Remains on Lovenox, ashley min supplements, bronchodilators. The patient is seen today 09/06/2020 in follow-up in the intensive care unit. He is currently resting comfortably in bed. Awake and alert. Mild respiratory distress. Dyspneic with minimal exertion. He remains on AirVo high flow oxygen at 60 L and 55% FiO2. No current IV fluids. White count 11.3. Hemoglobin 17.4. D-dimer 3.74. Sodium 132. Potassium 4.3. Glucose 138. LDH 83. C- reactive protein 51.1. He remains on bronchodilators, Lovenox, vitamin s upplements. The patient is seen today 09/10/2020 in follow-up on the regular medical floor. He is awake and alert in no acute distress. He was transferred out of the ICU earlier this morning. Rectal maintaining O2 saturations in the 90s on 15 L high flow nasal cannula. He is afebrile. Hemodynamically stable. Sodium 133. Potassium 4.5. Creatinine 0.85. He remains on bronchodilators, Lovenox, vitamin supplements. The patient is seen today 09/11/2020 in follow-up on the regular medical floor. He is improving daily. Less short of breath. He is currently down to 13 L high flow nasal cannula. He is afebrile. Hemodynamically stable. Still dyspneic with minimal exertion. Sodium 132. Potassium 4.2. Creatinine 0.9. He remains on bronchodilators, Lovenox, vitamin supplements. He has been here for 20 days now. Completed dexamethasone. Chest x-ray continues to show persistent bilateral multifocal acute infiltrates on the background of chronic changes consistent with Covid 19 infection. No significant change compared to previous. The patient is seen today 09/12/2020 in follow-up on the regular medical floor. He is resting comfortably in bed. Awake and alert in no acute distress. No worsening shortness of breath, cough or congestion. He's been slow to progress. Currently maintaining O2 saturations in the 90s on 13 L high flow nasal cannula. Chest x-ray continues to show bilateral scattered infiltrates. Blood culture reveals no growth. Blood glucose 143. He remains on bronchodilators, Lovenox, vitamin supplements. Completed dexamethasone. Objective - Vital Signs Vital signs: Vital Signs Temp 97.6 F 09/12/20 11:00 Pulse 56 L 09/12/20 11:00 Resp 22 09/12/20 11:00 BP 117/77 09/12/20 11:00 Pulse Ox 96 09/12/20 11:00 Intake & Output 09/11/20 09/12/20 09/12/20 18:59 06:59 18:59 Output Total 600 1100 Balance -600 -1100 Output: Urine 600 1100 Other: Voiding Method Indwelling Catheter Indwelling Catheter Indwelling Catheter # Voids 2 - Exam GENERAL EXAM: Alert, very pleasant, 80-year-old male patient on 13 L high flow nasal cannula, comfortable in no apparent distress. HEAD: Normocephalic/atraumatic. EYES: Normal reaction of pupils, equal size. Conjunctiva pink, sclera white. NOSE: Clear with pink turbinates. THROAT: No erythema or exudates. NECK: No masses, no JVD, no thyroid enlargement, no adenopathy. CHEST: No chest wall deformity. Symmetrical expansion. LUNGS: Equal air entry with bilateral scattered crackles. Diminished CVS: Regular rate and rhythm, normal S1 and S2, no gallops, no murmurs, no rubs ABDOMEN: Soft, nontender. No hepatosplenomegaly, normal bowel sounds, no guarding or rigidity. EXTREMITIES: No clubbing, no edema, no cyanosis, 2+ pulses and upper and lower extremities. MUSCULOSKELETAL: Muscle strength and tone normal. SPINE: No scoliosis or deformity SKIN: No rashes CENTRAL NERVOUS SYSTEM: No focal deficits, tone is normal in all 4 extremities. PSYCHIATRIC: Alert and oriented -3. Appropriate affect. Intact judgment and insight. - Labs CBC & Chem 7: 09/09/20 04:00 09/11/20 05:24 Labs: Abnormal Lab Results - Last 24 Hours (Table) 09/11/20 09/11/20 09/11/20 Range/Units 12:32 17:06 20:45 POC Glucose (mg/dL) 137 H 125 H 156 H (75-99) mg/dL 09/12/20 09/12/20 Range/Units 06:58 11:10 POC Glucose (mg/dL) 124 H 143 H (75-99) mg/dL Assessment and Plan Assessment: 1 Acute Covid 19 related pneumonia. The patient was diagnosed having Covid 19 infection on 08/22/2020. His exposure was around Thanksgiving and the patient has been symptomatic for approximately a week. His chest x-ray continues to rev ealed persistent bilateral multifocal acute infiltrates and background chronic changes consistent with Covid 19 infection. No significant change. Today 09/12/2020 he remains on 13 L high flow nasal cannula to maintain O2 saturations in the 90s. 2 COPD with an FEV1 of 86% of predicted. The patient is not home oxygen dependent and the patient is an ex-smoker 3 Coronary artery disease with previous bypass surgery. Limited amount of troponin leak and free of any chest pain and EKG is not showing any acute ischemic changes. 4 CHF 5 Diabetes mellitus 6 BPH 7 Parkinson's disease 8 Obstructive sleep apnea 9 History of nephrolithiasis 10 History of peripheral neuropathy Plan: The patient was seen and evaluated by Dr. Toledo The patient has been slow to progress Continue Lovenox, vitamin supplements, bronchodilators Encourage increased use the incentive spirometer and cough and deep breathing exercises Titrate down the FiO2 as tolerated Increase the activity as tolerated We'll continue to follow I, the cosigning physician, performed a history & physical examination of the patient. Lungs sounds have scattered crackles. Maintaining good O2 saturations in the 90s on 13 L high flow nasal cannula. I discussed the assessment and plan of care with my nurse practitioner, Carol Villalta. I attest to the above note as dictated by her.
[2020-09-12 17:03] LABS: Glucose,Whole Blood 106 mg/dL (75-99)
[2020-09-12 20:04] LABS: Glucose,Whole Blood 137 mg/dL (75-99)
[2020-09-13] MEDS: LEVOTHYROXINE 75 MCG TAB PO SCH (05:31)
[2020-09-13 07:15] LABS: Glucose,Whole Blood 119 mg/dL (75-99)
[2020-09-13] MEDS: INSULIN ASPART (NovoLOG) 100 UNIT/ML VIAL SQ SCH ×4 (07:31→20:45)
[2020-09-13] MEDS: ALBUTEROL HFA INHALER INHALATION SCH ×4 (08:12→19:50)
[2020-09-13] MEDS: ENOXAPARIN 60 MG/0.6 ML SYRINGE SQ SCH ×2 (08:38→20:45)
[2020-09-13] MEDS: BUMETANIDE 1 MG TAB PO SCH ×2 (08:39→20:45)
[2020-09-13] MEDS: PANTOPRAZOLE 40 MG TABLET PO SCH (08:39)
[2020-09-13] MEDS: ASCORBIC ACID 500 MG TAB PO SCH (08:39)
[2020-09-13] MEDS: ASPIRIN 81 MG PO SCH (08:39)
[2020-09-13] MEDS: SPIRONOLACTONE 25 MG TAB PO SCH (08:39)
[2020-09-13] MEDS: carvediloL 3.125 MG TAB PO SCH ×2 (08:39→15:56)
[2020-09-13] MEDS: TAMSULOSIN 0.4 MG CAP.ER.24H PO SCH (08:39)
[2020-09-13] MEDS: CHOLECALCIFEROL 1,000 UNIT TAB PO SCH (08:39)
[2020-09-13] MEDS: ALPRAZolam 0.25 MG TAB PO SCH ×2 (08:39→20:45)
[2020-09-13] MEDS: ZINC SULFATE 220 MG CAP PO SCH (08:39)
[2020-09-13] MEDS: FLUTICASONE 50MCG/SPRAY NASAL 16GM EA NOSTRIL SCH (08:40)
[2020-09-13 11:35] LABS: Glucose,Whole Blood 127 mg/dL (75-99)
--- NOTE | 2020-09-13 11:46 | P.PN ---
Subjective Progress Note Date: 09/13/20 Principal diagnosis: Acute CoVID 19 pneumonia The patient is seen today 09/04/2020 in follow-up in the intensive care unit. He was admitted with CoVID 19 pneumonitis on 08/22/2020. He currently remains on AirVo at 60 L/m and 60% FiO2. No current IV fluids. Chest x-ray remains stable. The patient is awake and alert in no acute distress. Still quite fatigued and weak. Still with dyspnea on minimal exertion. White count 9.0. Hemoglobin 17.3. Lymphocytes 1.80. Sodium 132. Potassium 3.9. Creatinine 0.78. LDH 762. C-reactive protein 26.2. D-dimer 8.42. Continues on Lovenox, vitamin supplements, bronchodilators. The patient is seen today 09/05/2020 in follow-up in the intensive care unit. He is currently awake and alert in no acute distress. He is still requiring AirVo high flow oxygen at 60 L/m and 60% FiO2. He could not tolerate the BiPAP through the evening. No IV fluids currently. Chest x-ray continues to show diffuse interstitial and patchy airspace disease left greater than right. White count 10.1. Hemoglobin 16.8. D-dimer 5.53. Sodium 134. Potassium 4.4. Creatinine 0.83. LDH 836. C-reactive protein 44.7. Remains on Lovenox, ashley min supplements, bronchodilators. The patient is seen today 09/06/2020 in follow-up in the intensive care unit. He is currently resting comfortably in bed. Awake and alert. Mild respiratory distress. Dyspneic with minimal exertion. He remains on AirVo high flow oxygen at 60 L and 55% FiO2. No current IV fluids. White count 11.3. Hemoglobin 17.4. D-dimer 3.74. Sodium 132. Potassium 4.3. Glucose 138. LDH 83. C- reactive protein 51.1. He remains on bronchodilators, Lovenox, vitamin s upplements. The patient is seen today 09/10/2020 in follow-up on the regular medical floor. He is awake and alert in no acute distress. He was transferred out of the ICU earlier this morning. Rectal maintaining O2 saturations in the 90s on 15 L high flow nasal cannula. He is afebrile. Hemodynamically stable. Sodium 133. Potassium 4.5. Creatinine 0.85. He remains on bronchodilators, Lovenox, vitamin supplements. The patient is seen today 09/11/2020 in follow-up on the regular medical floor. He is improving daily. Less short of breath. He is currently down to 13 L high flow nasal cannula. He is afebrile. Hemodynamically stable. Still dyspneic with minimal exertion. Sodium 132. Potassium 4.2. Creatinine 0.9. He remains on bronchodilators, Lovenox, vitamin supplements. He has been here for 20 days now. Completed dexamethasone. Chest x-ray continues to show persistent bilateral multifocal acute infiltrates on the background of chronic changes consistent with Covid 19 infection. No significant change compared to previous. The patient is seen today 09/12/2020 in follow-up on the regular medical floor. He is resting comfortably in bed. Awake and alert in no acute distress. No worsening shortness of breath, cough or congestion. He's been slow to progress. Currently maintaining O2 saturations in the 90s on 13 L high flow nasal cannula. Chest x-ray continues to show bilateral scattered infiltrates. Blood culture reveals no growth. Blood glucose 143. He remains on bronchodilators, Lovenox, vitamin supplements. Completed dexamethasone. The patient is seen today 09/13/2020 in follow-up on the regular medical floor. He is currently awake and alert in no acute distress. Resting fairly comfortably in bed. He has been slow to progress. He is down to 8 L/m per nasal cannula currently. He is somewhat agitated and considering leaving AGAINST MEDICAL ADVICE. Benefits and rationale of continued treatment discussed. We'll attempt to titrate down the FiO2 to 4 L and then he could go home safely. He remains on bronchodilators, Lovenox, vitamin supplements. Objective - Vital Signs Vital signs: Vital Signs Temp 98.5 F 09/13/20 05:00 Pulse 71 09/13/20 05:00 Resp 20 09/13/20 05:00 BP 114/74 09/13/20 05:00 Pulse Ox 93 L 09/13/20 05:00 Intake & Output 09/12/20 09/13/20 09/13/20 18:59 06:59 18:59 Intake Total 400 Output Total 400 Balance 0 Intake: Oral 400 Output: Urine 400 Other: Voiding Method Indwelling Catheter Urinal Urinal # Voids 4 2 - Exam GENERAL EXAM: Alert, very pleasant, 80-year-old male patient on 8 L high flow nasal cannula, comfortable in no apparent distress. HEAD: Normocephalic/atraumatic. EYES: Normal reaction of pupils, equal size. Conjunctiva pink, sclera white. NOSE: Clear with pink turbinates. THROAT: No erythema or exudates. NECK: No masses, no JVD, no thyroid enlargement, no adenopathy. CHEST: No chest wall deformity. Symmetrical expansion. LUNGS: Equal air entry with bilateral scattered crackles. Diminished CVS: Regular rate and rhythm, normal S1 and S2, no gallops, no murmurs, no rubs ABDOMEN: Soft, nontender. No hepatosplenomegaly, normal bowel sounds, no guarding or rigidity. EXTREMITIES: No clubbing, no edema, no cyanosis, 2+ pulses and upper and lower extremities. MUSCULOSKELETAL: Muscle strength and tone normal. SPINE: No scoliosis or deformity SKIN: No rashes CENTRAL NERVOUS SYSTEM: No focal deficits, tone is normal in all 4 extremities. PSYCHIATRIC: Alert and oriented -3. Appropriate affect. Intact judgment and insight. - Labs CBC & Chem 7: 09/09/20 04:00 09/11/20 05:24 Labs: Abnormal Lab Results - Last 24 Hours (Table) 09/12/20 09/12/20 09/13/20 Range/Units 17:01 19:54 07:13 POC Glucose (mg/dL) 106 H 137 H 119 H (75-99) mg/dL 09/13/20 Range/Units 11:33 POC Glucose (mg/dL) 127 H (75-99) mg/dL Assessment and Plan Assessment: 1 Acute Covid 19 related pneumonia. The patient was diagnosed having Covid 19 infection on 08/22/2020. His exposure was around Thanksgiving and the patient has been symptomatic for approximately a week. His chest x-ray continues to revealed persistent bilateral multifocal acute infiltrates and background chronic changes consistent with Covid 19 infection. No significant change. Today 09/13/2020 he is down to 8 L high flow nasal cannula to maintain O2 saturations in the 90s. 2 COPD with an FEV1 of 86% of predicted. The patient is not home oxygen dependent and the patient is an ex-smoker 3 Coronary artery disease with previous bypass surgery. Limited amount of troponin leak and free of any chest pain and EKG is not showing any acute ischemic changes. 4 CHF 5 Diabetes mellitus 6 BPH 7 Parkinson's disease 8 Obstructive sleep apnea 9 History of nephrolithiasis 10 History of peripheral neuropathy Plan: The patient was seen and evaluated by Dr. Toledo The patient has been slow to progress He is quite agitated and considering leaving AGAINST MEDICAL ADVICE Rationale regarding continued safe treatment was discussed Once he is down to 4 L nasal cannula he could be discharged home safely Continue Lovenox, vitamin supplements, bronchodilators Encourage increased use the incentive spirometer and cough and deep breathing exercises Titrate down the FiO2 as tolerated Increase the activity as tolerated We'll continue to follow I, the cosigning physician, performed a history & physical examination of the patient. Lungs sounds have scattered crackles. Maintaining good O2 saturations in the 90s on 13 L high flow nasal cannula. I discussed the assessment and plan of care with my nurse practitioner, Carol Villalta. I attest to the above note as dictated by her.
[2020-09-13 16:56] LABS: Glucose,Whole Blood 113 mg/dL (75-99)
[2020-09-13 20:39] LABS: Glucose,Whole Blood 152 mg/dL (75-99)
--- NOTE | 2020-09-13 22:49 | P.PN ---
Subjective Progress Note Date: 09/12/20 Principal diagnosis: Acute hypoxic respiratory failure secondary to Covid 19 80 years old male with multiple medical problems as below. He follows up in the [place] [facility]. Presents because of dyspnea and generalized weakness. Patient was complaining of from Raynaud's few days ago and he has been prescribed amoxicillin which helped him a little bit but then he developed s ignificant weakness and fatigue over the last 3-4 days that his make him come to the hospital. He has history of COPD and he quit smoking in 1998, he follows up with Dr. Toledo is not on home oxygen however he says that he has mild dyspnea associated with chronic cough and brown greenish phlegm. He denies chest pain, but he has loose bowel movement about once daily no abdominal pain or vomiting No urinary complaints. He denies alcohol or illicit drugs. Vital signs stable, he is saturating 91% on 4 L oxygen via nasal cannula. He has had unremarkable labs including CBC, INR, BMP, liver enzymes. For his troponin is elevated at 0.05, 0.04, 0.03. EKG showed normal sinus rhythm at [address]-T changes, Q waves in lead 2, 3 and aVF, T wave inversion in the lateral blades V4-V6 Labs at [facility] showing normal sodium and potassium at 137 and 3.5 respectively, creatinine normal at 1.0, liver enzymes not elevated, bilirubin is normal 0.9, WT normal 6.9K, hemoglobin 16.6 and platelets 180 1K. Coronavirus was detected As per the records his been having shortness of breath for 10 days. And he checked his oxygen saturating at home it was 88%. He states that he is post to [place] by son and [id number] around Thanksgiving time. Chest x-ray report showed mild atelectasis. 08/24/2020 Patient awake and alert, he has more dyspnea. No chest pain. He still has fever, his respiratory status was worsened overnight and is currently on 15 L high flow oxygen via cannula with oxygen saturation 91-93%. Inflammatory markers LDH and C-reactive protein are the same or slightly worsened. He is followed closely by the pulmonary team and he is on dexamethasone, vitamin C, zinc and Zithromax Cardiology team evaluated the patient for elevated troponin and echocardiogram is reviewed with preserved LV function, and they signed off the case 08/25/2020 Patient remains on the 15 L high flow along with Ventimask. Patient is to have elevated inflammatory markers. Patient does have a congestive heart failure appears to be fairly euvolemic continue with the present regimen of heart failure medication patient blood pressure is low because of which I'll hold off on losartan temporarily will be resumed as soon as possible. 08/26/2020 Patient is presently on Airvo. Patient's is pretty status has worsened and patient is being transferred to ICU at this time. Patient the regarding heart failure scott appear to be euvolemic. Patient received a dose of Bumex today. Patient chest x-ray is consistent with a diffuse interstitial infiltrates. 08/27/2020 Patient is presently on 6 L of oxygen does look much better actually wanted to go home. Then 60 L of oxygen. 08/28/2020 X-ray today is showing some worsening of the infiltrate. Patient remains on about 60 L of oxygen no significant worsening clinically. 08/29/2020 Patient chest x-ray still showing significant infiltrate bilaterally patient respiratory status remains the same inflammatory markers regularly d-dimer is bit worse and 4.5 today. Veins on 60 L of O2 08/30/2020 Patient remains on 60 airvo L of oxygen via airvo and vent mask 08/31/2020 Patient remains on 60 L and Ventimask as well. Patient to d-dimer went up to around 16 because of which patient was started on anticoagulation dose of Lovenox. Patient kidney function is good. 09/01/2020 Patient currently being closely monitored in the ICU and continues to be on airvo with a flow rate of 60 and an FiO2 of 90 and currently saturating 88-91%. Patient also continues with intermittent nonrebreather as well. Patient is maintained on Lovenox, zinc, vitamin C and E supplements. Dexamethasone was discontinued. Blood sugars being monitored closely and will continue sliding scale at this time. Current sodium is 134 with a potassium of 4.7 and creatinine is 0.62. Chest x-ray shows findings consistent with persistent bilat eral airspace disease. 09/02/2020 Patient is seen in follow up and currently remains in the ICU. Patient is on Airvo and doing well. Patient FiO2 slowly being titrated. Patient uses intermittent BiPAP at night. Heart rate on the lower side and will decrease Coreg. No significant changes noted on today's x-ray. D-dimer slowly trending down and is currently 14.32, sodium is 132, potassium is 4.9, and current creatinine is 0.64. Will continue to monitor blood sugars closely and continue with sliding scale. 09/03/2020 Patient remains on airvo at 60 L no significant improvement 09/04/2020 Patient remains on 60 L airvo. Patient's CRP is still elevated LDH is mildly elevated 09/05/2020 Patient is bit hyponatremic at 134 which is actually better compared to yesterday. And patient remains on 60 L of oxygen. Patient d-dimer has come down to 5.53 patient remains on anticoagulation dose of Lovenox 09/06/2020 Patient is on 60 L of oxygen and FiO2 of around 55% which is an improvement patient is presently hemodynamically stable 09/07/2020 Patient is seen and evaluated in follow-up continues to be closely monitored in the ICU. Patient was transitioned to 15 L high flow nasal cannula and being monitored closely. Oxygen saturation is 93% currently. Patient was also up out of the bed and sitting in the chair. Patient continues to be weak requiring assistance and PT/OT following. Sodium is 130 today and will repeat a.m. labs. Lovenox decreased to 50 mg subcutaneous twice daily as d-dimer is trending down. Continue to encourage oral intake and increase activity as tolerated. 09/08/2020 Patient continues to be in the ICU being closely monitored. Patient continues with 15 L high flow nasal cannula and is tolerating thus far. Patient continues to request to go home although continues to be quite weak. Patient slowly improving on oxygenation. Pulmonary is following. Sodium is improved at 131, potassium is 4.7, d-dimer is trending down at 1.93. Lovenox has been adjusted. We'll continue to monitor blood sugars closely and continue sliding scale. 09/09/2020 Patient is seen in follow-up continues to be in the ICU although waiting for a bed to transfer to the selective as patient has been off of Airvo and continues to refuse BiPAP and has been maintaining adequate oxygenation on high flow nasal cannula 15 L. Patient continues to be quite weak and PT/OT following and continues to recommend subacute rehab for continued strength and mobility once stabilized and discharged. Pulmonary is following. 09/10/2020 Patient is seen in follow-up and has been transferred out of the ICU currently on a medical surgical unit and continues to be closely monitored. Patient remains on high flow nasal cannula and discussed with nursing staff about weaning FiO2 as tolerated. Patient is currently 91% on 15 L. Social work also following as patient will require rehab once medically stable for continued PT/OT therapy as he continues to be quite weak requiring assistance. No reports of chest pain, worsening shortness of breath, or palpitations. Is afebrile. Patient is tolerating diet and has increased his oral intake slightly. Sodium has improved and is 133, potassium is 4.5, current creatinine is 0.85. Will repeat a.m. chest x-ray. 09/11/2020 Patient is seen and evaluated in follow-up sitting up in the bed appears to be comfortable. Patient is slowly being titrated down on his FiO2 and is currently on 13 L nasal cannula. Patient states his breathing is slightly improved and requesting when he can go home. Patient denies any further worsening shortness of breath. Patient continues to be weak requiring assistance and will most likely require rehab upon discharge. Will have PT/OT continue to evaluate and follow-up on Monday. Patient continues to be eating more of his meals and denies any nausea or vomiting. Chest x-ray today shows persistent bilateral multifocal acute infiltrates with no significant changes noted. Sodium remains stable at 132 and potassium is 4.2 current creatinine is 0.9. Blood sugars appear to be well controlled acquiring minimal coverage on sliding scale. 09/12/2020 Patient is currently resting in the bed comfortably. Oxygen at 13 L via nasal cannula. No complaints of fever or chills. Patient is awake alert and oriented. No acute distress. Currently being continued bronchodilators and vitamin supplements and Lovenox. Patient completed course of dexamethasone. Constitutional: Denied any fatigue denied any fever. Cardio vascular: denied any chest pain, palpitations Gastrointestinal denied any nausea vomiting Pulmonary: Denied any shortness of breath cough on high flow oxygen Neurologic denied any new focal deficits, reports generalized weakness All inpatient medications were reviewed and appropriate changes in these medications as dictated in the interval history and assessment and plan. Objective - Vital Signs Vital signs: Vital Signs Temp 97.6 F 09/12/20 16:27 Pulse 62 09/12/20 16:27 Resp 20 09/12/20 16:27 BP 128/79 09/12/20 16:27 Pulse Ox 96 09/12/20 16:27 Intake & Output 09/12/20 09/12/20 09/13/20 06:59 18:59 06:59 Output Total 1100 Balance -1100 Output: Urine 1100 Other: Voiding Method Indwelling Catheter Indwelling Catheter # Voids 2 4 - Exam - Exam GENERAL: The patient is awake on high flow nasal cannula although weaning slowly and currently on 13 L, and is currently sitting up in the chair, not in any acute distress. Well developed, well nourished. HEENT: Pupils are round and equally reacting to light. EOMI. No scleral icterus. No conjunctival pallor. Normocephalic, atraumatic. No pharyngeal erythema. No thyromegaly. CARDIOVASCULAR: S1 and S2 present. No murmurs, rubs, or gallops. PULMONARY: Clear to auscultation without any crackles ABDOMEN: Soft, nontender, nondistended, normoactive bowel sounds. No palpable organomegaly. MUSCULOSKELETAL: No joint swelling or deformity. EXTREMITIES: No cyanosis, clubbing, or pedal edema. NEUROLOGICAL: Awake, cooperative, diffusely weak SKIN: No rashes. - Labs CBC & Chem 7: 09/09/20 04:00 09/11/20 05:24 Labs: Abnormal Lab Results - Last 24 Hours (Table) 09/11/20 09/12/20 09/12/20 Range/Units 20:45 06:58 11:10 POC Glucose (mg/dL) 156 H 124 H 143 H (75-99) mg/dL 09/12/20 Range/Units 17:01 POC Glucose (mg/dL) 106 H (75-99) mg/dL Assessment and Plan Assessment: Acute hypoxic respiratory failure secondary to Covid 19 continue with respiratory support continue with zinc, vitamin C, bronchodilator therapy. Presently on high flow nasal cannula 13 L monitoring closely and pulmonary following Elevated troponin, secondary to demand ischemia from pulmonary disease Diabetes mellitus blood sugars are well controlled. Hyponatremia, current sodium is 133 Hypertension Hyperlipidemia Osteoarthritis Chronic heart failure, chronic systolic dysfunction without any acute exacerba tions. will continue with oral Bumex, Aldactone and Coreg. Hold off on losartan temporarily because of hypotension Hypothyroidism Sleep apnea on CPAP/BiPAP Benign Prostatic hypertrophy Diabetic neuropathy Parkinson disease History of kidney stone Asthma, not an active issue GERD GI prophylaxis: DVT prophylaxis: Subcutaneous Lovenox, d-dimer trending down and Lovenox dose was adjusted to 50 mg twice daily overall prognosis is extremely poor and guarded Plan: Continue to wean FiO2 as tolerated. Currently on 13 L nasal cannula and tolerating. Chest x-ray from this morning shows no real improvement although patient appears to be improving slowly. Pulmonary following closely. Continue to monitor blood sugars and will continue with sliding scale as needed. Continue to encourage oral intake and increasing activity as tolerated. PTOT following and continues to recommend subacute rehab once stabilized and discharged. Discussed with nursing staff about weaning FiO2 as tolerated. Due to multiple complex medical issues, prognosis remains extremely guarded. Slowly improving and will continue to monitor closely. Will repeat a.m. labs. Further recommendations to follow based on clinical status of the patient. Time with Patient: Greater than 30
--- NOTE | 2020-09-13 22:50 | P.PN ---
Subjective Progress Note Date: 09/13/20 Principal diagnosis: Acute hypoxic respiratory failure secondary to Covid 19 80 years old male with multiple medical problems as below. He [facility] up in the [facility]. Presents because of dyspnea and generalized weakness. Patient was complaining of from Raynaud's few days ago and he has been prescribed amoxicillin which helped him a little bit but then he developed s ignificant weakness and fatigue over the last 3-4 days that his make him come to the hospital. He has history of COPD and he quit smoking in 1998, he follows up with Dr. [place] is not on home oxygen however he says that he has mild dyspnea associated with chronic cough and brown greenish phlegm. He denies chest pain, but he has loose bowel movement about once daily no abdominal pain or vomiting No urinary complaints. He denies alcohol or illicit drugs. Vital signs stable, he is saturating 91% on 4 L oxygen via nasal cannula. He has had unremarkable labs including CBC, INR, BMP, liver enzymes. For his troponin is elevated at 0.05, 0.04, 0.03. EKG showed normal sinus rhythm at [address]-T changes, Q waves in lead 2, 3 and aVF, T wave inversion in the lateral blades V4-V6 Labs at [facility] showing normal sodium and potassium at 137 and 3.5 respectively, creatinine normal at 1.0, liver enzymes not elevated, bilirubin is normal 0.9, WT normal 6.9K, hemoglobin 16.6 and platelets 180 1K. Coronavirus was detected As per the records his been having shortness of breath for 10 days. And he checked his oxygen saturating at home it was 88%. He states that he is post to [place] by son and [id number] around Thanksgiving time. Chest x-ray report showed mild atelectasis. 08/24/2020 Patient awake and alert, he has more dyspnea. No chest pain. He still has fever, his respiratory status was worsened overnight and is currently on 15 L high flow oxygen via cannula with oxygen saturation 91-93%. Inflammatory markers LDH and C-reactive protein are the same or slightly worsened. He is followed closely by the pulmonary team and he is on dexamethasone, vitamin C, zinc and Zithromax Cardiology team evaluated the patient for elevated troponin and echocardiogram is reviewed with preserved LV function, and they signed off the case 08/25/2020 Patient remains on the 15 L high flow along with Ventimask. Patient is to have elevated inflammatory markers. Patient does have a congestive heart failure appears to be fairly euvolemic continue with the present regimen of heart failure medication patient blood pressure is low because of which I'll hold off on losartan temporarily will be resumed as soon as possible. 08/26/2020 Patient is presently on Airvo. Patient's is pretty status has worsened and patient is being transferred to ICU at this time. Patient the regarding heart failure scott appear to be euvolemic. Patient received a dose of Bumex today. Patient chest x-ray is consistent with a diffuse interstitial infiltrates. 08/27/2020 Patient is presently on 6 L of oxygen does look much better actually wanted to go home. Then 60 L of oxygen. 08/28/2020 X-ray today is showing some worsening of the infiltrate. Patient remains on about 60 L of oxygen no significant worsening clinically. 08/29/2020 Patient chest x-ray still showing significant infiltrate bilaterally patient respiratory status remains the same inflammatory markers regularly d-dimer is bit worse and 4.5 today. Veins on 60 L of O2 08/30/2020 Patient remains on 60 airvo L of oxygen via airvo and vent mask 08/31/2020 Patient remains on 60 L and Ventimask as well. Patient to d-dimer went up to around 16 because of which patient was started on anticoagulation dose of Lovenox. Patient kidney function is good. 09/01/2020 Patient currently being closely monitored in the ICU and continues to be on airvo with a flow rate of 60 and an FiO2 of 90 and currently saturating 88-91%. Patient also continues with intermittent nonrebreather as well. Patient is maintained on Lovenox, zinc, vitamin C and E supplements. Dexamethasone was discontinued. Blood sugars being monitored closely and will continue sliding scale at this time. Current sodium is 134 with a potassium of 4.7 and creatinine is 0.62. Chest x-ray shows findings consistent with persistent bilat eral airspace disease. 09/02/2020 Patient is seen in follow up and currently remains in the ICU. Patient is on Airvo and doing well. Patient FiO2 slowly being titrated. Patient uses intermittent BiPAP at night. Heart rate on the lower side and will decrease Coreg. No significant changes noted on today's x-ray. D-dimer slowly trending down and is currently 14.32, sodium is 132, potassium is 4.9, and current creatinine is 0.64. Will continue to monitor blood sugars closely and continue with sliding scale. 09/03/2020 Patient remains on airvo at 60 L no significant improvement 09/04/2020 Patient remains on 60 L airvo. Patient's CRP is still elevated LDH is mildly elevated 09/05/2020 Patient is bit hyponatremic at 134 which is actually better compared to yesterday. And patient remains on 60 L of oxygen. Patient d-dimer has come down to 5.53 patient remains on anticoagulation dose of Lovenox 09/06/2020 Patient is on 60 L of oxygen and FiO2 of around 55% which is an improvement patient is presently hemodynamically stable 09/07/2020 Patient is seen and evaluated in follow-up continues to be closely monitored in the ICU. Patient was transitioned to 15 L high flow nasal cannula and being monitored closely. Oxygen saturation is 93% currently. Patient was also up out of the bed and sitting in the chair. Patient continues to be weak requiring assistance and PT/OT following. Sodium is 130 today and will repeat a.m. labs. Lovenox decreased to 50 mg subcutaneous twice daily as d-dimer is trending down. Continue to encourage oral intake and increase activity as tolerated. 09/08/2020 Patient continues to be in the ICU being closely monitored. Patient continues with 15 L high flow nasal cannula and is tolerating thus far. Patient continues to request to go home although continues to be quite weak. Patient slowly improving on oxygenation. Pulmonary is following. Sodium is improved at 131, potassium is 4.7, d-dimer is trending down at 1.93. Lovenox has been adjusted. We'll continue to monitor blood sugars closely and continue sliding scale. 09/09/2020 Patient is seen in follow-up continues to be in the ICU although waiting for a bed to transfer to the selective as patient has been off of Airvo and continues to refuse BiPAP and has been maintaining adequate oxygenation on high flow nasal cannula 15 L. Patient continues to be quite weak and PT/OT following and continues to recommend subacute rehab for continued strength and mobility once stabilized and discharged. Pulmonary is following. 09/10/2020 Patient is seen in follow-up and has been transferred out of the ICU currently on a medical surgical unit and continues to be closely monitored. Patient remains on high flow nasal cannula and discussed with nursing staff about weaning FiO2 as tolerated. Patient is currently 91% on 15 L. Social work also following as patient will require rehab once medically stable for continued PT/OT therapy as he continues to be quite weak requiring assistance. No reports of chest pain, worsening shortness of breath, or palpitations. Is afebrile. Patient is tolerating diet and has increased his oral intake slightly. Sodium has improved and is 133, potassium is 4.5, current creatinine is 0.85. Will repeat a.m. chest x-ray. 09/11/2020 Patient is seen and evaluated in follow-up sitting up in the bed appears to be comfortable. Patient is slowly being titrated down on his FiO2 and is currently on 13 L nasal cannula. Patient states his breathing is slightly improved and requesting when he can go home. Patient denies any further worsening shortness of breath. Patient continues to be weak requiring assistance and will most likely require rehab upon discharge. Will have PT/OT continue to evaluate and follow-up on Monday. Patient continues to be eating more of his meals and denies any nausea or vomiting. Chest x-ray today shows persistent bilateral multifocal acute infiltrates with no significant changes noted. Sodium remains stable at 132 and potassium is 4.2 current creatinine is 0.9. Blood sugars appear to be well controlled acquiring minimal coverage on sliding scale. 09/12/2020 Patient is currently resting in the bed comfortably. Oxygen at 13 L via nasal cannula. No complaints of fever or chills. Patient is awake alert and oriented. No acute distress. Currently being continued bronchodilators and vitamin supplements and Lovenox. Patient completed course of dexamethasone. 09/13/2019 Patient is currently resting in the bed comfortably. Awake alert oriented x3 and wants to be discharged home. Still requiring 8 L oxygen via nasal cannula. We will continue to titrate down below 5 L. Denied any complaints of chest pain or worsening shortness of breath. Continued on bronchodilators and Lovenox and vitamin supplementation. Constitutional: Denied any fatigue denied any fever. Cardio vascular: denied any chest pain, palpitations Gastrointestinal denied any nausea vomiting Pulmonary: Denied any shortness of breath cough on high flow oxygen Neurologic denied any new focal deficits, reports generalized weakness All inpatient medications were reviewed and appropriate changes in these medications as dictated in the interval history and assessment and plan. Objective - Vital Signs Vital signs: Vital Signs Temp 97.8 F 01/03/21 15:51 Pulse 66 09/13/20 15:51 Resp 18 09/13/20 15:51 BP 100/69 09/13/20 15:51 Pulse Ox 90 L 09/13/20 15:51 Intake & Output 09/13/20 09/13/20 09/14/20 06:59 18:59 06:59 Intake Total 400 520 Output Total 400 Balance 0 520 Weight 100.8 kg Intake: Oral 400 520 Output: Urine 400 Other: Voiding Method Urinal Urinal # Voids 2 3 - Exam - Exam GENERAL: The patient is awake on high flow nasal cannula although weaning slowly and currently on 13 L, and is currently sitting up in the chair, not in any acute distress. Well developed, well nourished. HEENT: Pupils are round and equally reacting to light. EOMI. No scleral icterus. No conjunctival pallor. Normocephalic, atraumatic. No pharyngeal erythema. No thyromegaly. CARDIOVASCULAR: S1 and S2 present. No murmurs, rubs, or gallops. PULMONARY: Clear to auscultation without any crackles ABDOMEN: Soft, nontender, nondistended, normoactive bowel sounds. No palpable organomegaly. MUSCULOSKELETAL: No joint swelling or deformity. EXTREMITIES: No cyanosis, clubbing, or pedal edema. NEUROLOGICAL: Awake, cooperative, diffusely weak SKIN: No rashes. - Labs CBC & Chem 7: 09/09/20 04:00 09/11/20 05:24 Labs: Abnormal Lab Results - Last 24 Hours (Table) 09/12/20 09/13/20 09/13/20 Range/Units 19:54 07:13 11:33 POC Glucose (mg/dL) 137 H 119 H 127 H (75-99) mg/dL 09/13/20 Range/Units 16:55 POC Glucose (mg/dL) 113 H (75-99) mg/dL Assessment and Plan Assessment: Acute hypoxic respiratory failure secondary to Covid 19 continue with respiratory support continue with zinc, vitamin C, bronchodilator therapy. Presently on high flow nasal cannula 8 L monitoring closely and pulmonary following Elevated troponin, secondary to demand ischemia from pulmonary disease Diabetes mellitus blood sugars are well controlled. Hyponatremia, current sodium is 133 Hypertension Hyperlipidemia Osteoarthritis Chronic heart failure, chronic systolic dysfunction without any acute exacerb ations. will continue with oral Bumex, Aldactone and Coreg. Hold off on losartan temporarily because of hypotension Hypothyroidism Sleep apnea on CPAP/BiPAP Benign Prostatic hypertrophy Diabetic neuropathy Parkinson disease History of kidney stone Asthma, not an active issue GERD GI prophylaxis: DVT prophylaxis: Subcutaneous Lovenox, d-dimer trending down and Lovenox dose was adjusted to 50 mg twice daily overall prognosis is extremely poor and guarded Plan: Continue to wean FiO2 as tolerated. Currently on 8 L nasal cannula and tolerating. Chest x-ray from this morning shows no real improvement although patient appears to be improving slowly. Pulmonary following closely. Continue to monitor blood sugars and will continue with sliding scale as needed. Continue to encourage oral intake and increasing activity as tolerated. PTOT following and continues to recommend subacute rehab once stabilized and discharged. Discussed with nursing staff about weaning FiO2 as tolerated. Due to multiple complex medical issues, prognosis remains extremely guarded. Slowly improving and will continue to monitor closely. Will repeat a.m. labs. Further recommendations to follow based on clinical status of the patient. Time with Patient: Greater than 30
[2020-09-14 05:48] LABS: Basophils # (A) 0.1 k/uL (0-0.2); Basophils % (A) 1 %; Eosinophils # (A) 0.4 k/uL (0-0.7); Eosinophils % (A) 4 %; HCT 48.5 % (39.0-53.0); HGB 16.5 gm/dL (13.0-17.5); Lymphocytes # (A) 2.3 k/uL (1.0-4.8); Lymphocytes % (A) 29 %; MCH 29.7 pg (25.0-35.0); MCHC 34.1 g/dL (31.0-37.0); MCV 86.9 fL (80.0-100.0); Mean Platelet Volume 8.9; Monocytes # (A) 0.6 k/uL (0-1.0); Monocytes % (A) 7 %; Neutrophils # (A) 4.6 k/uL (1.3-7.7); Neutrophils % (A) 56 %; Platelet Count 248 k/uL (150-450); RBC 5.58 m/uL (4.30-5.90); RDW 14.1 % (11.5-15.5); WBC 8.2 k/uL (3.8-10.6)
[2020-09-14] MEDS: LEVOTHYROXINE 75 MCG TAB PO SCH (06:05)
[2020-09-14] MEDS: ALBUTEROL HFA INHALER INHALATION SCH ×4 (07:50→19:16)
[2020-09-14 08:01] LABS: Glucose,Whole Blood 142 mg/dL (75-99)
[2020-09-14] MEDS: ENOXAPARIN 60 MG/0.6 ML SYRINGE SQ SCH ×2 (08:24→21:26)
[2020-09-14] MEDS: TAMSULOSIN 0.4 MG CAP.ER.24H PO SCH (08:24)
[2020-09-14] MEDS: CHOLECALCIFEROL 1,000 UNIT TAB PO SCH (08:25)
[2020-09-14] MEDS: carvediloL 3.125 MG TAB PO SCH ×2 (08:25→18:04)
[2020-09-14] MEDS: ALPRAZolam 0.25 MG TAB PO SCH ×2 (08:25→21:25)
[2020-09-14] MEDS: BUMETANIDE 1 MG TAB PO SCH (08:25)
[2020-09-14] MEDS: ZINC SULFATE 220 MG CAP PO SCH (08:25)
[2020-09-14] MEDS: SPIRONOLACTONE 25 MG TAB PO SCH (08:25)
[2020-09-14] MEDS: PANTOPRAZOLE 40 MG TABLET PO SCH (08:25)
[2020-09-14] MEDS: ASPIRIN 81 MG PO SCH (08:25)
[2020-09-14] MEDS: INSULIN ASPART (NovoLOG) 100 UNIT/ML VIAL SQ SCH ×4 (08:26→21:26)
[2020-09-14] MEDS: ASCORBIC ACID 500 MG TAB PO SCH (08:26)
[2020-09-14] MEDS: FLUTICASONE 50MCG/SPRAY NASAL 16GM EA NOSTRIL SCH (08:27)
[2020-09-14 09:41] LABS: African American GFR (CKD) 94.5 (60.0-200.0); Anion Gap 12.1 mmol/L (4.00-12.00); Calcium 8.9 mg/dL (8.7-10.3); Carbon Dioxide 22.9 mmol/L (21.6-31.8); Non-African American GFR(CKD) 81.5 (60.0-200.0); Potassium 4.8 mmol/L (3.5-5.5)
[2020-09-14 11:01] LABS: Glucose,Whole Blood 196 mg/dL (75-99)
[2020-09-14] MEDS ORDERED: FUROSEMIDE 10 MG/ML 4 ML VIAL IV STA (11:52)
--- NOTE | 2020-09-14 13:23 | P.PN ---
Subjective Progress Note Date: 09/14/20 Principal diagnosis: acute COVID 19 80-year-old male patient who follows up at the [facility]. The patient presented to the emergency department because of generalized weakness and worsening shortness of breath. Apparently the patient was given antibiotics on outpatient basis without any help. He reported increased dyspnea and cough and sputum. Apparently, the patient has been having shortness of breath for almost 10 days. He stated that exposed to COVID 19 by his son and [id number] around [facility]. Patient went yesterday to [facility] where he was checked and he was tested positive for coronary/Covid 19 infection. Following that, he was brought to the hospital for further evaluation. Note that his main symptoms were fatigue, tiredness, loss of appetite, diminished oral intake and some increased shortness of breath. No nausea. No vomiting. No abdominal pain. No loss in the sense of taste and smell. He was having some symptoms of URI. Alina abraham is on 2 by nasal cannula with a pulse is 91%. He does have some mild troponin leak with troponin being at 0.05 0.04-0.03 respectively with an EKG showing a normal sinus mechanism and some nonspecific T-wave inversions. Blood work from [place] or [facility] showed normal LFTs, white cell count of 6900, hemoglobin of 16.6, platelets of 1 80,000, and his sodium was at 137. The patient's LDH is at 982 and the CRP is a 59.5. Chest x-ray is showing some limited infiltration of the lung bases. On examination he has crackles in lung bases bilaterally. No altered mental status. The patient is currently on Decadron 6 mg by mouth daily. On 08/24/2020 patient seen in follow-up on selective care unit. He remains on Lovenox at prophylactic dose, oral Bumex, home dose at 1 mg twice daily, and oral Decadron 6 mg daily, maintenance on high flow oxygen, 15 L, his pulse ox is 91-94%, low-grade fever earlier today, his LDH has trended up, and is currently at 1275, LDH has come down some. His d-dimer currently is at 1.4, electrolytes are renal profile are unremarkable. pro Calcitonin level was low at 0.12 On 08/25/2020 patient seen in follow-up on selective care unit, he is awake and alert, he is on 15 L of oxygen, and at times she gets confused, sometimes removes the oxygen, on 15 L he sat about 92-93%. Today's chest x-ray shows worsening bilateral patchy infiltrates. Yesterday we transfused the patient with 2 units of convalescent plasma, is possible the patient has a component of fluid overload, and we'll start the patient on IV diuretics. Lung sounds reveal coarse inspiratory crackles in bilateral lungs, patient patient was spiking fevers with T-max of 103 this morning. We'll obtain blood cultures, and Sandostatin pro calcitonin level., The patient with Rocephin for empiric antibiotic coverage. On 08/26/2020 patient seen in follow-up on selective care unit, his reading worsened this morning, patient had to be placed on high flow oxygen, he is currently on Airvo at 60 l/min, and Fio2 of 93%, patient was given extra dose of IV Bumex this morning, stay chest x-ray was obtained showing patchy perihilar and basilar infiltrates. Blood gas was obtained last night, showed pO2 of 62, pCO2 of 35, and pH of 7.47, this was done and FiO2 of 100%. His LDH is significantly elevated at 2059, his CRP remains elevated and 60 over 0.4, AST is 75, ALT and alk phos are within normal limits, his electrolytes were unremarkable, B1 is 24 creatinine 0.72. His white cell count is 11.8, d-dimer is 1.4. Patient continues on IV Rocephin for empiric antibiotic coverage, he is on oral Decadron, he is on a prophylactic dose of Lovenox 40 mg daily. he was placed on high flow oxygen, he was ordered to transfer to the intensive care unit earlier this morning however he has been placed on high flow oxygen and appears to be more comfortable, also he started to diurese. On 08/27/2020 patient is seen in follow-up on [facility] care unit, he still remains on high flow oxygen per Airvo at 60 L and FiO2 of 90% and his pulse ox is ranging between 86-90%. We have not been able to wean his FiO2 down any further. He sitting up in the recliner, she is eating lunch, does not appear to be in any acute distress, denies any chest discomfort, he does have tachypnea, and he becomes very short of breath with any exertion, but overall seems to be breathing more comfortably than he did yesterday. His been afebrile, has not had any chest x-ray today, yesterday's chest x-ray showed patchy perihilar and bibasilar infiltrates. Patient continues on oral diuretics with Bumex 1 mg twice daily, is maintaining negative fluid balance, he is in -1.7 L of last 24 hours. he remains on empiric antibiotics in the form of Rocephin, patient was outside the window for Remdesivir treatment, received 2 units of convalescent plasma, last set of inflammatory markers revealed still significantly elevated LDH at 2059, and CRP was relatively stable at 64.4 On 09/02/2020 patient seen in follow-up on selective care unit. Seems to be oxygenating a bit better today, remains on Airvo 60 L, and FiO2 of 80%, however he is not requiring a nonrebreather mask on today's exam, and his pulse ox is 95%, he is breathing easier, he is doing better, no IV fluids. No fever or chills, seems to be breathing comfortably, his d-dimer is trending down, his inflammatory markers are coming down, he remains on Lovenox 100 mg twice daily, today's d-dimer is 14.32. Today's labs have been reviewed, CBC within normal limits On 09/03/2020 patient seen in follow-up in intensive care unit, he remains on high flow oxygen per Airvo, however his amylase to is being weaned down, currently at 60 L and FiO2 of 70%, and his pulse ox is 91%, he seems to be breathing comfortably, no worsening dyspnea, he is not on any IV fluids, he states he is doing better, his appetite is good, he is consuming about half of his meals, he is up in a chair, remains in sinus mechanism, no fever or chills, no acute events overnight. Today's blood work has been reviewed, and is relatively unremarkable, blood cultures show no growth. He remains on vitamins including vitamin C, vitamin D3, zinc, he remains on Lovenox 100 mg twice a day. No chest discomfort, no significant cough. On 09/14/2020 patient seen in follow-up on medical floor. He is awake and alert, he is currently down to 7 L with a pulse ox at around 90%, breathing comfortably, denies any cough, overall she is feeling better, he is answering questions appropriately, appears to be in no acute distress. His last chest x- ray is done on 09/11/2020 still showing significant bilateral airspace disease, but clinically patient states he is improving. Patient was outside the therapeutic window for Remdesivir, but she did receive 2 units of convalescent plasma, has completed the steroids, and he remains on Lovenox at 50 mg twice daily. 10 years on bronchodilators. Last d-dimer was done on 09/08/2020 and was down trending from admission and down to 1.93. He hasn't had his inflammatory markers repeated the last few days, but overall they were coming down slowly from admission. C nausea vomiting or diarrhea. Appears to be breathing comfortably, Objective - Vital Signs Vital signs: Vital Signs Temp 97.4 F L 09/14/20 04:36 Pulse 71 09/14/20 04:36 Resp 20 09/14/20 04:36 BP 125/82 09/14/20 04:36 Pulse Ox 90 L 09/14/20 04:36 Intake & Output 09/13/20 09/14/20 09/14/20 18:59 06:59 18:59 Intake Total 750 Output Total 400 Balance 350 Weight 100.8 kg 87.5 kg Intake: Oral 750 Output: Urine 400 Other: Voiding Method Urinal Urinal Urinal # Voids 3 1 # Bowel Movements 1 - Exam GENERAL EXAM: Alert, very pleasant, 72-year-old on 7 L oxygen with pulse ox of 90% HEAD: Normocephalic/atraumatic. EYES: Normal reaction of pupils, equal size. Conjunctiva pink, sclera white. NOSE: Clear with pink turbinates. THROAT: No erythema or exudates. NECK: No masses, no JVD, no thyroid enlargement, no adenopathy. CHEST: No chest wall deformity. Symmetrical expansion. LUNGS: Equal air entry with no crackles, wheeze, rhonchi or dullness. CVS: Regular rate and rhythm, normal S1 and S2, no gallops, no murmurs, no rubs ABDOMEN: Soft, nontender. No hepatosplenomegaly, normal bowel sounds, no guarding or rigidity. EXTREMITIES: No clubbing, no edema, no cyanosis, 2+ pulses and upper and lower extremities. MUSCULOSKELETAL: Muscle strength and tone normal. SPINE: No scoliosis or deformity SKIN: No rashes CENTRAL NERVOUS SYSTEM: Alert and oriented -3. No focal deficits, tone is normal in all 4 extremities. PSYCHIATRIC: Alert and oriented -3. Appropriate affect. Intact judgment and insight. - Labs CBC & Chem 7: 09/14/20 04:40 09/14/20 04:40 Labs: Abnormal Lab Results - Last 24 Hours (Table) 09/13/20 09/13/20 09/14/20 Range/Units 16:55 20:38 04:40 Sodium 130 L (135-145) mmol/L Chloride 95 L (96-109) mmol/L Anion Gap 12.10 H (4.00-12.00) mmol/L POC Glucose (mg/dL) 113 H 152 H (75-99) mg/dL 09/14/20 09/14/20 Range/Units 07:58 10:52 Sodium (135-145) mmol/L Chloride (96-109) mmol/L Anion Gap (4.00-12.00) mmol/L POC Glucose (mg/dL) 142 H 196 H (75-99) mg/dL Assessment and Plan Plan: Assessment: #1. acute Covid 19 related pneumonia. The patient was diagnosed having Covid 19 infection on 08/22/2020. His exposure was around Thanksgiving and the patient h as been symptomatic for approximately a week. His chest x-ray showing some limited bibasilar pulmonary infiltrates. He is currently hypoxic and 40s about 2 by nasal cannula.. Significant constitutional symptoms and his inflammatory markers are elevated. he was outside of the window for Remdesivir. Patient status post transfusion with 2 units, plasma on 08/24/2020, and 08/25/2020 #2. acute hypoxic respiratory failure, and his oxygenation has worsened, patient is currently requiring high flow oxygen per Airvo On 08/26/2020 patient's is a demand has increased, patient was placed on high f low per Airvo at 60 l/min, Fio2 90% On 09/14/2020 patient is down to 7 L per high flow nasal cannula with a pulse ox at around 90%, breathing comfortably #3. COPD with an FEV1 of 86% of predicted. The patient is not home oxygen dependent and the patient is an ex-smoker #4. coronary artery disease with previous bypass surgery. Limited amount of troponin leak and free of any chest pain and EKG is not showing any acute ischemic changes. #5. CHF #6. diabetes mellitus #7. BPH #8. Parkinson's disease #9. obstructive sleep apnea #10. history of nephrolithiasis #11. history of peripheral neuropathy Plan: We'll give the patient got dose of Lasix, continue weaning FiO2 to keep O2 sat at 88-89 as well as the patient is asymptomatic, encourage deep breathing and coughing, encourage incentive spirometry use, increase activity as tolerated, he completed a course of steroids, he status post transfusion 2 units of convalescent plasma, results of the therapeutic window for Remdesivir, we'll continue with the vitamin D, vitamin C and zinc supplement. Repeat a d-dimer and inflammatory markers. I performed a history & physical examination of the patient and discussed their management with my nurse practitioner, Martine Currie. I reviewed the nurse practitioner's note and agree with the documented findings and plan of care. Lung sounds are positive for management of sounds The findings and the impression was discussed with the patient. I attest to the documentation by the nurse practitioner. Time with Patient: Less than 30
[2020-09-14] MEDS: SENNOSIDES-DOCUSATE SODIUM 1 EACH TAB PO SCH ×2 (13:30→21:25)
--- NOTE | 2020-09-14 13:47 | P.PN ---
Subjective Progress Note Date: 09/14/20 80 years old male with multiple medical problems as below. He follows up in the [facility] [facility]. Presents because of dyspnea and generalized weakness. Patient was complaining of from Raynaud's few days ago and he has been prescribed amoxicillin which helped him a little bit but then he developed signi ficant weakness and fatigue over the last 3-4 days that his make him come to the hospital. He has history of COPD and he quit smoking in 1998, he follows up with Dr. [place] is not on home oxygen however he says that he has mild dyspnea associated with chronic cough and brown greenish phlegm. He denies chest pain, but he has loose bowel movement about once daily no abdominal pain or vomiting No urinary complaints. He denies alcohol or illicit drugs. Vital signs stable, he is saturating 91% on 4 L oxygen via nasal cannula. He has had unremarkable labs including CBC, INR, BMP, liver enzymes. For his troponin is elevated at 0.05, 0.04, 0.03. EKG showed normal sinus rhythm at [address]-T changes, Q waves in lead 2, 3 and aVF, T wave inversion in the lateral blades V4-V6 Labs at [facility] showing normal sodium and potassium at 137 and 3.5 respectively, creatinine normal at 1.0, liver enzymes not elevated, bilirubin is normal 0.9, WT normal 6.9K, hemoglobin 16.6 and platelets 180 1K. Coronavirus was detected As per the records his been having shortness of breath for 10 days. And he checked his oxygen saturating at home it was 88%. He states that he is post to covert by son and [id number] around Thanksgiving time. Chest x-ray report showed mild atelectasis. 08/24/2020 Patient awake and alert, he has more dyspnea. No chest pain. He still has fever, his respiratory status was worsened overnight and is currently on 15 L high flow oxygen via cannula with oxygen saturation 91-93%. Inflammatory markers LDH and C-reactive protein are the same or slightly worsened. He is followed closely by the pulmonary team and he is on dexamethasone, vitamin C, zinc and Zithromax Cardiology team evaluated the patient for elevated troponin and echocardiogram is reviewed with preserved LV function, and they signed off the case 08/25/2020 Patient remains on the 15 L high flow along with Ventimask. Patient is to have elevated inflammatory markers. Patient does have a congestive heart failure appears to be fairly euvolemic continue with the present regimen of heart failure medication patient blood pressure is low because of which I'll hold off on losartan temporarily will be resumed as soon as possible. 08/26/2020 Patient is presently on Airvo. Patient's is pretty status has worsened and patient is being transferred to ICU at this time. Patient the regarding heart failure scott appear to be euvolemic. Patient received a dose of Bumex today. Patient chest x-ray is consistent with a diffuse interstitial infiltrates. 08/27/2020 Patient is presently on 6 L of oxygen does look much better actually wanted to go home. Then 60 L of oxygen. 08/28/2020 X-ray today is showing some worsening of the infiltrate. Patient remains on about 60 L of oxygen no significant worsening clinically. 08/29/2020 Patient chest x-ray still showing significant infiltrate bilaterally patient respiratory status remains the same inflammatory markers regularly d-dimer is bit worse and 4.5 today. Veins on 60 L of O2 08/30/2020 Patient remains on 60 airvo L of oxygen via airvo and vent mask 08/31/2020 Patient remains on 60 L and Ventimask as well. Patient to d-dimer went up to around 16 because of which patient was started on anticoagulation dose of Lovenox. Patient kidney function is good. 09/01/2020 Patient currently being closely monitored in the ICU and continues to be on airvo with a flow rate of 60 and an FiO2 of 90 and currently saturating 88-91%. Patient also continues with intermittent nonrebreather as well. Patient is maintained on Lovenox, zinc, vitamin C and E supplements. Dexamethasone was discontinued. Blood sugars being monitored closely and will continue sliding scale at this time. Current sodium is 134 with a potassium of 4.7 and creatinine is 0.62. Chest x-ray shows findings consistent with persistent bilateral airspace disease. 09/02/2020 Patient is seen in follow up and currently remains in the ICU. Patient is on Airvo and doing well. Patient FiO2 slowly being titrated. Patient uses intermittent BiPAP at night. Heart rate on the lower side and will decrease Coreg. No significant changes noted on today's x-ray. D-dimer slowly trending down and is currently 14.32, sodium is 132, potassium is 4.9, and current creatinine is 0.64. Will continue to monitor blood sugars closely and continue with sliding scale. 09/03/2020 Patient remains on airvo at 60 L no significant improvement 09/04/2020 Patient remains on 60 L airvo. Patient's CRP is still elevated LDH is mildly elevated 09/05/2020 Patient is bit hyponatremic at 134 which is actually better compared to yesterday. And patient remains on 60 L of oxygen. Patient d-dimer has come down to 5.53 patient remains on anticoagulation dose of Lovenox 09/06/2020 Patient is on 60 L of oxygen and FiO2 of around 55% which is an improvement p atient is presently hemodynamically stable 09/07/2020 Patient is seen and evaluated in follow-up continues to be closely monitored in the ICU. Patient was transitioned to 15 L high flow nasal cannula and being monitored closely. Oxygen saturation is 93% currently. Patient was also up out of the bed and sitting in the chair. Patient continues to be weak requiring assistance and PT/OT following. Sodium is 130 today and will repeat a.m. labs. Lovenox decreased to 50 mg subcutaneous twice daily as d-dimer is trending down. Continue to encourage oral intake and increase activity as tolerated. 09/08/2020 Patient continues to be in the ICU being closely monitored. Patient continues with 15 L high flow nasal cannula and is tolerating thus far. Patient continues to request to go home although continues to be quite weak. Patient slowly improving on oxygenation. Pulmonary is following. Sodium is improved at 131, potassium is 4.7, d-dimer is trending down at 1.93. Lovenox has been adjusted. We'll continue to monitor blood sugars closely and continue sliding scale. 09/09/2020 Patient is seen in follow-up continues to be in the ICU although waiting for a bed to transfer to the [facility] as patient has been off of Airvo and continues to refuse BiPAP and has been maintaining adequate oxygenation on high flow nasal cannula 15 L. Patient continues to be quite weak and PT/OT following and continues to recommend subacute rehab for continued strength and mobility once stabilized and discharged. Pulmonary is following. 09/10/2020 Patient is seen in follow-up and has been transferred out of the ICU currently on a medical surgical unit and continues to be closely monitored. Patient remains on high flow nasal cannula and discussed with nursing staff about weaning FiO2 as tolerated. Patient is currently 91% on 15 L. Social work also following as patient will require rehab once medically stable for continued PT/OT therapy as he continues to be quite weak requiring assistance. No reports of chest pain, worsening shortness of breath, or palpitations. Is afebrile. Patient is tolerating diet and has increased his oral intake slightly. Sodium has improved and is 133, potassium is 4.5, current creatinine is 0.85. Will repeat a.m. chest x-ray. 09/11/2020 Patient is seen and evaluated in follow-up sitting up in the bed appears to be comfortable. Patient is slowly being titrated down on his FiO2 and is currently on 13 L nasal cannula. Patient states his breathing is slightly improved and requesting when he can go home. Patient denies any further worsening shortness of breath. Patient continues to be weak requiring assistance and will most likely require rehab upon discharge. Will have PT/OT continue to evaluate and follow-up on Monday. Patient continues to be eating more of his meals and denies any nausea or vomiting. Chest x-ray today shows persistent bilateral multifocal acute infiltrates with no significant changes noted. Sodium remains stable at 132 and potassium is 4.2 current creatinine is 0.9. Blood sugars appear to be well controlled acquiring minimal coverage on sliding scale. 09/12/2020 Patient is currently resting in the bed comfortably. Oxygen at 13 L via nasal cannula. No complaints of fever or chills. Patient is awake alert and oriented. No acute distress. Currently being continued bronchodilators and vitamin supplements and Lovenox. Patient completed course of dexamethasone. 09/13/2020 Patient is currently resting in the bed comfortably. Awake alert oriented x3 and wants to be discharged home. Still requiring 8 L oxygen via nasal cannula. We will continue to titrate down below 5 L. Denied any complaints of chest pain or worsening shortness of breath. Continued on bronchodilators and Lovenox and vitamin supplementation. 09/14/2020 Patient is seen in follow-up today and oxygen saturations maintaining 90% on 7 L high flow nasal cannula. Patient states his breathing feels is slightly better. Patient is having some feelings of constipation and stool softeners ordered. Patient is up to the bedside commode with 1 person assist although continues to be weak and will have PT/OT evaluate the patient for possibility of ECF once stabilized and discharged. Pulmonary is following and was given a dose of Lasix. Will repeat a.m. chest x-ray along with labs. Bumex and Aldactone have been discontinued. Constitutional: Denied any fatigue denied any fever. Cardio vascular: denied any chest pain, palpitations Gastrointestinal denied any nausea vomiting Pulmonary: Denied any shortness of breath cough on high flow oxygen Neurologic denied any new focal deficits, reports generalized weakness All inpatient medications were reviewed and appropriate changes in these medications as dictated in the interval history and assessment and plan. Objective - Vital Signs Vital signs: Vital Signs Temp 97.4 F L 09/14/20 04:36 Pulse 71 09/14/20 04:36 Resp 20 09/14/20 04:36 BP 125/82 09/14/20 04:36 Pulse Ox 90 L 09/14/20 04:36 Intake & Output 09/13/20 09/14/20 09/14/20 18:59 06:59 18:59 Intake Total 750 Output Total 400 Balance 350 Weight 100.8 kg 87.5 kg Intake: Oral 750 Output: Urine 400 Other: Voiding Method Urinal Urinal Urinal # Voids 3 1 # Bowel Movements 1 - Exam GENERAL: The patient is awake on high flow nasal cannula although weaning slowly and currently on 7 L, and is currently sitting up on the commode, not in any acute distress. Well developed, well nourished. HEENT: Pupils are round and equally reacting to light. EOMI. No scleral icterus. No conjunctival pallor. Normocephalic, atraumatic. No pharyngeal erythema. No thyromegaly. CARDIOVASCULAR: S1 and S2 present. No murmurs, rubs, or gallops. PULMONARY: Diminished breath sounds with some scattered rhonchi noted ABDOMEN: Soft, nontender, nondistended, normoactive bowel sounds. No palpable organomegaly. MUSCULOSKELETAL: No joint swelling or deformity. EXTREMITIES: No cyanosis, clubbing, or pedal edema. NEUROLOGICAL: Awake, cooperative, diffusely weak SKIN: No rashes. . - Labs CBC & Chem 7: 09/14/20 04:40 09/14/20 04:40 Labs: Abnormal Lab Results - Last 24 Hours (Table) 09/13/20 09/13/20 09/14/20 Range/Units 16:55 20:38 04:40 Sodium 130 L (135-145) mmol/L Chloride 95 L (96-109) mmol/L Anion Gap 12.10 H (4.00-12.00) mmol/L POC Glucose (mg/dL) 113 H 152 H (75-99) mg/dL 09/14/20 09/14/20 Range/Units 07:58 10:52 Sodium (135-145) mmol/L Chloride (96-109) mmol/L Anion Gap (4.00-12.00) mmol/L POC Glucose (mg/dL) 142 H 196 H (75-99) mg/dL Assessment and Plan Assessment: Acute hypoxic respiratory failure secondary to Covid 19 continue with respiratory support continue with zinc, vitamin C, bronchodilator therapy. Patient has completed steroid therapy. Presently on high flow nasal cannula 7 L high flow nasal cannula monitoring closely and pulmonary following Elevated troponin, secondary to demand ischemia from pulmonary disease Diabetes mellitus blood sugars are well controlled. Hyponatremia, current sodium is 130, Bumex and Aldactone discontinued Hypertension Hyperlipidemia Osteoarthritis Chronic heart failure, chronic systolic dysfunction without any acute exacerbations Hypothyroidism Sleep apnea on CPAP/BiPAP, patient refuses BiPAP Benign Prostatic hypertrophy Diabetic neuropathy Parkinson disease History of kidney stone Asthma, not an active issue GERD GI prophylaxis: DVT prophylaxis: Subcutaneous Lovenox Plan: Continue to wean FiO2 as tolerated. Currently on 7 L high flow nasal cannula a nd containing 90%. Will repeat Chest x-ray. Pulmonary following closely. Continue to encourage oral intake and increasing activity as tolerated. PTOT following and continues to recommend subacute rehab once stabilized and discharged. Discussed with nursing staff about weaning FiO2 as tolerated. Due to multiple complex medical issues, prognosis remains extremely guarded. Slowly improving and will continue to monitor closely. Will repeat a.m. labs. Further recommendations to follow based on clinical status of the patient. Case management and social work following as patient may require ECF for rehab once stabilized and discharged.
[2020-09-14 17:34] LABS: Glucose,Whole Blood 114 mg/dL (75-99)
[2020-09-14 21:03] LABS: Glucose,Whole Blood 151 mg/dL (75-99)
[2020-09-15] MEDS: LEVOTHYROXINE 75 MCG TAB PO SCH (06:20)
[2020-09-15 06:21] LABS: Basophils # (A) 0.1 k/uL (0-0.2); Basophils % (A) 1 %; Eosinophils # (A) 0.3 k/uL (0-0.7); Eosinophils % (A) 3 %; HGB 16.6 gm/dL (13.0-17.5); Lymphocytes # (A) 2.1 k/uL (1.0-4.8); Lymphocytes % (A) 25 %; MCH 29.6 pg (25.0-35.0); MCHC 33.2 g/dL (31.0-37.0); MCV 89.2 fL (80.0-100.0); Mean Platelet Volume 8.5; Monocytes # (A) 0.5 k/uL (0-1.0); Monocytes % (A) 6 %; Neutrophils # (A) 5.2 k/uL (1.3-7.7); Neutrophils % (A) 63 %; Platelet Count 218 k/uL (150-450); RBC 5.61 m/uL (4.30-5.90); RDW 14.2 % (11.5-15.5); WBC 8.3 k/uL (3.8-10.6)
[2020-09-15 07:22] LABS: Glucose,Whole Blood 123 mg/dL (75-99)
[2020-09-15] MEDS: ALBUTEROL HFA INHALER INHALATION SCH ×4 (07:48→19:30)
[2020-09-15] MEDS: SENNOSIDES-DOCUSATE SODIUM 1 EACH TAB PO SCH ×2 (08:50→23:17)
[2020-09-15] MEDS: PANTOPRAZOLE 40 MG TABLET PO SCH (08:50)
[2020-09-15] MEDS: ZINC SULFATE 220 MG CAP PO SCH (08:50)
[2020-09-15] MEDS: ENOXAPARIN 60 MG/0.6 ML SYRINGE SQ SCH ×2 (08:50→23:18)
[2020-09-15] MEDS: ASPIRIN 81 MG PO SCH (08:50)
[2020-09-15] MEDS: CHOLECALCIFEROL 1,000 UNIT TAB PO SCH (08:50)
[2020-09-15] MEDS: ASCORBIC ACID 500 MG TAB PO SCH (08:50)
[2020-09-15] MEDS: carvediloL 3.125 MG TAB PO SCH ×2 (08:50→17:25)
[2020-09-15] MEDS: ALPRAZolam 0.25 MG TAB PO SCH ×2 (08:50→23:17)
[2020-09-15] MEDS: TAMSULOSIN 0.4 MG CAP.ER.24H PO SCH (08:50)
[2020-09-15] MEDS: FLUTICASONE 50MCG/SPRAY NASAL 16GM EA NOSTRIL SCH (08:53)
[2020-09-15] MEDS: INSULIN ASPART (NovoLOG) 100 UNIT/ML VIAL SQ SCH ×4 (08:53→23:18)
--- NOTE | 2020-09-15 09:32 | XR ---
EXAMINATION TYPE: XR chest 1V portable DATE OF EXAM: 09/15/2020 COMPARISON: 09/11/2020 INDICATION: Covid 19 TECHNIQUE: Single frontal view of the chest is obtained. FINDINGS: The heart size is enlarged. The pulmonary vasculature is indistinct. There is diffuse increased infiltrate throughout the bilateral lungs. Findings are worsening. IMPRESSION: 1. Worsening bilateral lung infiltrates.
[2020-09-15 12:57] LABS: Glucose,Whole Blood 150 mg/dL (75-99)
[2020-09-15 13:03] LABS: African American GFR (CKD) 83.2 (60.0-200.0); Anion Gap 15.8 mmol/L (4.00-12.00); C Reactive Protein 1.9 mg/dL (0.0-0.8); Calcium 9.4 mg/dL (8.7-10.3); Carbon Dioxide 22.2 mmol/L (21.6-31.8); Non-African American GFR(CKD) 71.8 (60.0-200.0); Potassium 4.7 mmol/L (3.5-5.5)
--- NOTE | 2020-09-15 13:53 | P.PN ---
Subjective Progress Note Date: 09/15/20 Principal diagnosis: acute COVID 19 80-year-old male patient who follows up at the [facility]. The patient presented to the emergency department because of generalized weakness and worsening shortness of breath. Apparently the patient was given antibiotics on outpatient basis without any help. He reported increased dyspnea and cough and sputum. Apparently, the patient has been having shortness of breath for almost 10 days. He stated that exposed to COVID 19 by his son and [id number]-wh-alr around [facility]. Patient went yesterday to [facility] where he was checked and he was tested positive for coronary/Covid 19 infection. Following that, he was brought to the hospital for further evaluation. Note that his main symptoms were fatigue, tiredness, loss of appetite, diminished oral intake and some increased shortness of breath. No nausea. No vomiting. No abdominal pain. No loss in the sense of taste and smell. He was having some symptoms of URI. Alina abraham is on 2 by nasal cannula with a pulse is 91%. He does have some mild troponin leak with troponin being at 0.05 0.04-0.03 respectively with an EKG showing a normal sinus mechanism and some nonspecific T-wave inversions. Blood work from [facility] showed normal LFTs, white cell count of 6900, hemoglobin of 16.6, platelets of 1 80,000, and his sodium was at 137. The patient's LDH is at 982 and the CRP is a 59.5. Chest x-ray is showing some limited infiltration of the lung bases. On examination he has crackles in lung bases bilaterally. No altered mental status. The patient is currently on Decadron 6 mg by mouth daily. On 08/24/2020 patient seen in follow-up on selective care unit. He remains on Lovenox at prophylactic dose, oral Bumex, home dose at 1 mg twice daily, and oral Decadron 6 mg daily, maintenance on high flow oxygen, 15 L, his pulse ox is 91-94%, low-grade fever earlier today, his LDH has trended up, and is currently at 1275, LDH has come down some. His d-dimer currently is at 1.4, electrolytes are renal profile are unremarkable. pro Calcitonin level was low at 0.12 On 08/25/2020 patient seen in follow-up on selective care unit, he is awake and alert, he is on 15 L of oxygen, and at times she gets confused, sometimes removes the oxygen, on 15 L he sat about 92-93%. Today's chest x-ray shows worsening bilateral patchy infiltrates. Yesterday we transfused the patient with 2 units of convalescent plasma, is possible the patient has a component of fluid overload, and we'll start the patient on IV diuretics. Lung sounds reveal coarse inspiratory crackles in bilateral lungs, patient patient was spiking fevers with T-max of 103 this morning. We'll obtain blood cultures, and Sandostatin pro calcitonin level., The patient with Rocephin for empiric antibiotic coverage. On 08/26/2020 patient seen in follow-up on selective care unit, his reading worsened this morning, patient had to be placed on high flow oxygen, he is currently on Airvo at 60 l/min, and Fio2 of 93%, patient was given extra dose of IV Bumex this morning, stay chest x-ray was obtained showing patchy perihilar and basilar infiltrates. Blood gas was obtained last night, showed pO2 of 62, pCO2 of 35, and pH of 7.47, this was done and FiO2 of 100%. His LDH is significantly elevated at 2059, his CRP remains elevated and 60 over 0.4, AST is 75, ALT and alk phos are within normal limits, his electrolytes were unremarkable, B1 is 24 creatinine 0.72. His white cell count is 11.8, d-dimer is 1.4. Patient continues on IV Rocephin for empiric antibiotic coverage, he is on oral Decadron, he is on a prophylactic dose of Lovenox 40 mg daily. he was placed on high flow oxygen, he was ordered to transfer to the intensive care unit earlier this morning however he has been placed on high flow oxygen and appears to be more comfortable, also he started to diurese. On 08/27/2020 patient is seen in follow-up on [facility] care unit, he still remains on high flow oxygen per Airvo at 60 L and FiO2 of 90% and his pulse ox is ranging between 86-90%. We have not been able to wean his FiO2 down any further. He sitting up in the recliner, she is eating lunch, does not appear to be in any acute distress, denies any chest discomfort, he does have tachypnea, and he becomes very short of breath with any exertion, but overall seems to be breathing more comfortably than he did yesterday. His been afebrile, has not had any chest x-ray today, yesterday's chest x-ray showed patchy perihilar and bibasilar infiltrates. Patient continues on oral diuretics with Bumex 1 mg twice daily, is maintaining negative fluid balance, he is in -1.7 L of last 24 hours. he remains on empiric antibiotics in the form of Rocephin, patient was outside the window for Remdesivir treatment, received 2 units of convalescent plasma, last set of inflammatory markers revealed still significantly elevated LDH at 2059, and CRP was relatively stable at 64.4 On 09/02/2020 patient seen in follow-up on selective care unit. Seems to be oxygenating a bit better today, remains on Airvo 60 L, and FiO2 of 80%, however he is not requiring a nonrebreather mask on today's exam, and his pulse ox is 95%, he is breathing easier, he is doing better, no IV fluids. No fever or chills, seems to be breathing comfortably, his d-dimer is trending down, his inflammatory markers are coming down, he remains on Lovenox 100 mg twice daily, today's d-dimer is 14.32. Today's labs have been reviewed, CBC within normal limits On 09/03/2020 patient seen in follow-up in intensive care unit, he remains on high flow oxygen per Airvo, however his amylase to is being weaned down, currently at 60 L and FiO2 of 70%, and his pulse ox is 91%, he seems to be breathing comfortably, no worsening dyspnea, he is not on any IV fluids, he states he is doing better, his appetite is good, he is consuming about half of his meals, he is up in a chair, remains in sinus mechanism, no fever or chills, no acute events overnight. Today's blood work has been reviewed, and is relatively unremarkable, blood cultures show no growth. He remains on vitamins including vitamin C, vitamin D3, zinc, he remains on Lovenox 100 mg twice a day. No chest discomfort, no significant cough. On 09/14/2020 patient seen in follow-up on medical floor. He is awake and alert, he is currently down to 7 L with a pulse ox at around 90%, breathing comfortably, denies any cough, overall she is feeling better, he is answering questions appropriately, appears to be in no acute distress. His last chest x- ray is done on 09/11/2020 still showing significant bilateral airspace disease, but clinically patient states he is improving. Patient was outside the therapeutic window for Remdesivir, but she did receive 2 units of convalescent plasma, has completed the steroids, and he remains on Lovenox at 50 mg twice daily. 10 years on bronchodilators. Last d-dimer was done on 09/08/2020 and was down trending from admission and down to 1.93. He hasn't had his inflammatory markers repeated the last few days, but overall they were coming down slowly from admission. C nausea vomiting or diarrhea. Appears to be breathing comfortably On 09/15/2020 patient seen in follow-up on medical surgical floor, currently down to 5 L nasal cannula, his pulse ox is 94%, she looks very comfortable, breathing comfortably, no worsening dyspnea, his vital signs have been stable, she had no acute events overnight, reports no fever or chills, today's chest x- ray showed worsening bilateral infiltrates, however clinically patient is feeling better, breathing comfortably, history she got 1 dose of Lasix, he normally takes Bumex 1 mg twice daily on a regular basis which has been on hold for some reason. We will restart his Bumex today. His labs have been reviewed Objective - Vital Signs Vital signs: Vital Signs Temp 97.6 F 09/15/20 04:25 Pulse 70 09/15/20 04:25 Resp 16 09/15/20 04:25 BP 102/69 09/15/20 04:25 Pulse Ox 94 L 09/15/20 04:25 Intake & Output 09/14/20 09/15/20 09/15/20 18:59 06:59 18:59 Intake Total 237 Output Total 1000 200 Balance -1000 237 -200 Intake: Oral 237 Output: Urine 1000 200 Other: Voiding Method Urinal Urinal Urinal # Voids 1 3 1 # Bowel Movements 1 0 0 - Exam GENERAL EXAM: Alert, very pleasant, 72-year-old on 5 L oxygen with pulse ox of 94% HEAD: Normocephalic/atraumatic. EYES: Normal reaction of pupils, equal size. Conjunctiva pink, sclera white. NOSE: Clear with pink turbinates. THROAT: No erythema or exudates. NECK: No masses, no JVD, no thyroid enlargement, no adenopathy. CHEST: No chest wall deformity. Symmetrical expansion. LUNGS: Equal air entry with no crackles, wheeze, rhonchi or dullness. CVS: Regular rate and rhythm, normal S1 and S2, no gallops, no murmurs, no rubs ABDOMEN: Soft, nontender. No hepatosplenomegaly, normal bowel sounds, no guarding or rigidity. EXTREMITIES: No clubbing, no edema, no cyanosis, 2+ pulses and upper and lower extremities. MUSCULOSKELETAL: Muscle strength and tone normal. SPINE: No scoliosis or deformity SKIN: No rashes CENTRAL NERVOUS SYSTEM: Alert and oriented -3. No focal deficits, tone is normal in all 4 extremities. PSYCHIATRIC: Alert and oriented -3. Appropriate affect. Intact judgment and insight. - Labs CBC & Chem 7: 09/15/20 05:28 09/15/20 06:34 Labs: Abnormal Lab Results - Last 24 Hours (Table) 09/14/20 09/14/20 09/15/20 Range/Units 17:20 20:59 05:28 D-Dimer 2.19 H (<0.60) mg/L FEU Sodium (135-145) mmol/L Chloride (96-109) mmol/L Anion Gap (4.00-12.00) mmol/L BUN/Creatinine Ratio (12.00-20.00) Ratio Glucose (70-110) mg/dL POC Glucose (mg/dL) 114 H 151 H (75-99) mg/dL Lactate Dehydrogenase (120-246) U/L C-Reactive Protein (0.0-0.8) mg/dL 09/15/20 09/15/20 09/15/20 Range/Units 06:34 07:18 12:46 D-Dimer (<0.60) mg/L FEU Sodium 131 L (135-145) mmol/L Chloride 93 L (96-109) mmol/L Anion Gap 15.80 H (4.00-12.00) mmol/L BUN/Creatinine Ratio 25.00 H (12.00-20.00) Ratio Glucose 120 H (70-110) mg/dL POC Glucose (mg/dL) 123 H 150 H (75-99) mg/dL Lactate Dehydrogenase 302 H (120-246) U/L C-Reactive Protein 1.9 H (0.0-0.8) mg/dL Assessment and Plan Plan: Assessment: #1. acute Covid 19 related pneumonia. The patient was diagnosed having Covid 19 infection on 08/22/2020. His exposure was around Thanksgiving and the patient has been symptomatic for approximately a week. His chest x-ray showing some limited bibasilar pulmonary infiltrates. He is currently hypoxic and 40s about 2 by nasal cannula.. Significant constitutional symptoms and his inflammatory markers are elevated. he was outside of the window for Remdesivir. Patient status post transfusion with 2 units, plasma on 08/24/2020, and 08/25/2020 #2. acute hypoxic respiratory failure, and his oxygenation has worsened, patient is currently requiring high flow oxygen per Airvo On 08/26/2020 patient's is a demand has increased, patient was placed on high flow per Airvo at 60 l/min, Fio2 90% On 09/14/2020 patient is down to 7 L per high flow nasal cannula with a pulse ox at around 90%, breathing comfortably #3. COPD with an FEV1 of 86% of predicted. The patient is not home oxygen dependent and the patient is an ex-smoker #4. coronary artery disease with previous bypass surgery. Limited amount of troponin leak and free of any chest pain and EKG is not showing any acute ischemic changes. #5. CHF #6. diabetes mellitus #7. BPH #8. Parkinson's disease #9. obstructive sleep apnea #10. history of nephrolithiasis #11. history of peripheral neuropathy Plan: Patient is improving, FiO2 is down to 5 L, continue to wean to keep O2 sat at or above 90%, history of breathing comfortably, today's chest x-ray has been reviewed showing worsening pulmonary infiltrates, yesterday he got a dose of IV Lasix, today we'll restart his maintenance dose Bumex. Overall clinically stable, improving, from pulmonary perspective discharge planning can be started for discharge to rehab today. I performed a history & physical examination of the patient and discussed their management with my nurse practitioner, Martine Currie. I reviewed the nurse practitioner's note and agree with the documented findings and plan of care. Lung sounds are positive for management of sounds The findings and the impression was discussed with the patient. I attest to the documentation by the nurse practitioner. Time with Patient: Less than 30
--- NOTE | 2020-09-15 16:15 | P.PN ---
Subjective Progress Note Date: 09/15/20 80 years old male with multiple medical problems as below. He follows up in the [place] [facility]. Presents because of dyspnea and generalized weakness. Patient was complaining of from Raynaud's few days ago and he has been prescribed amoxicillin which helped him a little bit but then he developed signi ficant weakness and fatigue over the last 3-4 days that his make him come to the hospital. He has history of COPD and he quit smoking in 1998, he follows up with Dr. [place] is not on home oxygen however he says that he has mild dyspnea associated with chronic cough and brown greenish phlegm. He denies chest pain, but he has loose bowel movement about once daily no abdominal pain or vomiting No urinary complaints. He denies alcohol or illicit drugs. Vital signs stable, he is saturating 91% on 4 L oxygen via nasal cannula. He has had unremarkable labs including CBC, INR, BMP, liver enzymes. For his troponin is elevated at 0.05, 0.04, 0.03. EKG showed normal sinus rhythm at [address]-T changes, Q waves in lead 2, 3 and aVF, T wave inversion in the lateral blades V4-V6 Labs at [facility] showing normal sodium and potassium at 137 and 3.5 respectively, creatinine normal at 1.0, liver enzymes not elevated, bilirubin is normal 0.9, WT normal 6.9K, hemoglobin 16.6 and platelets 180 1K. Coronavirus was detected As per the records his been having shortness of breath for 10 days. And he checked his oxygen saturating at home it was 88%. He states that he is post to [place] by son and [id number] around Thanksgiving time. Chest x-ray report showed mild atelectasis. 08/24/2020 Patient awake and alert, he has more dyspnea. No chest pain. He still has fever, his respiratory status was worsened overnight and is currently on 15 L high flow oxygen via cannula with oxygen saturation 91-93%. Inflammatory markers LDH and C-reactive protein are the same or slightly worsened. He is followed closely by the pulmonary team and he is on dexamethasone, vitamin C, zinc and Zithromax Cardiology team evaluated the patient for elevated troponin and echocardiogram is reviewed with preserved LV function, and they signed off the case 08/25/2020 Patient remains on the 15 L high flow along with Ventimask. Patient is to have elevated inflammatory markers. Patient does have a congestive heart failure appears to be fairly euvolemic continue with the present regimen of heart failure medication patient blood pressure is low because of which I'll hold off on losartan temporarily will be resumed as soon as possible. 08/26/2020 Patient is presently on Airvo. Patient's is pretty status has worsened and patient is being transferred to ICU at this time. Patient the regarding heart failure scott appear to be euvolemic. Patient received a dose of Bumex today. Patient chest x-ray is consistent with a diffuse interstitial infiltrates. 08/27/2020 Patient is presently on 6 L of oxygen does look much better actually wanted to go home. Then 60 L of oxygen. 08/28/2020 X-ray today is showing some worsening of the infiltrate. Patient remains on about 60 L of oxygen no significant worsening clinically. 08/29/2020 Patient chest x-ray still showing significant infiltrate bilaterally patient respiratory status remains the same inflammatory markers regularly d-dimer is bit worse and 4.5 today. Veins on 60 L of O2 08/30/2020 Patient remains on 60 airvo L of oxygen via airvo and vent mask 08/31/2020 Patient remains on 60 L and Ventimask as well. Patient to d-dimer went up to around 16 because of which patient was started on anticoagulation dose of Lovenox. Patient kidney function is good. 09/01/2020 Patient currently being closely monitored in the ICU and continues to be on airvo with a flow rate of 60 and an FiO2 of 90 and currently saturating 88-91%. Patient also continues with intermittent nonrebreather as well. Patient is maintained on Lovenox, zinc, vitamin C and E supplements. Dexamethasone was discontinued. Blood sugars being monitored closely and will continue sliding scale at this time. Current sodium is 134 with a potassium of 4.7 and creatinine is 0.62. Chest x-ray shows findings consistent with persistent bilateral airspace disease. 09/02/2020 Patient is seen in follow up and currently remains in the ICU. Patient is on Airvo and doing well. Patient FiO2 slowly being titrated. Patient uses intermittent BiPAP at night. Heart rate on the lower side and will decrease Coreg. No significant changes noted on today's x-ray. D-dimer slowly trending down and is currently 14.32, sodium is 132, potassium is 4.9, and current creatinine is 0.64. Will continue to monitor blood sugars closely and continue with sliding scale. 09/03/2020 Patient remains on airvo at 60 L no significant improvement 09/04/2020 Patient remains on 60 L airvo. Patient's CRP is still elevated LDH is mildly elevated 09/05/2020 Patient is bit hyponatremic at 134 which is actually better compared to yesterday. And patient remains on 60 L of oxygen. Patient d-dimer has come down to 5.53 patient remains on anticoagulation dose of Lovenox 09/06/2020 Patient is on 60 L of oxygen and FiO2 of around 55% which is an improvement p atient is presently hemodynamically stable 09/07/2020 Patient is seen and evaluated in follow-up continues to be closely monitored in the ICU. Patient was transitioned to 15 L high flow nasal cannula and being monitored closely. Oxygen saturation is 93% currently. Patient was also up out of the bed and sitting in the chair. Patient continues to be weak requiring assistance and PT/OT following. Sodium is 130 today and will repeat a.m. labs. Lovenox decreased to 50 mg subcutaneous twice daily as d-dimer is trending down. Continue to encourage oral intake and increase activity as tolerated. 09/08/2020 Patient continues to be in the ICU being closely monitored. Patient continues with 15 L high flow nasal cannula and is tolerating thus far. Patient continues to request to go home although continues to be quite weak. Patient slowly improving on oxygenation. Pulmonary is following. Sodium is improved at 131, potassium is 4.7, d-dimer is trending down at 1.93. Lovenox has been adjusted. We'll continue to monitor blood sugars closely and continue sliding scale. 09/09/2020 Patient is seen in follow-up continues to be in the ICU although waiting for a bed to transfer to the [facility] as patient has been off of Airvo and continues to refuse BiPAP and has been maintaining adequate oxygenation on high flow nasal cannula 15 L. Patient continues to be quite weak and PT/OT following and continues to recommend subacute rehab for continued strength and mobility once stabilized and discharged. Pulmonary is following. 09/10/2020 Patient is seen in follow-up and has been transferred out of the ICU currently on a medical surgical unit and continues to be closely monitored. Patient remains on high flow nasal cannula and discussed with nursing staff about weaning FiO2 as tolerated. Patient is currently 91% on 15 L. Social work also following as patient will require rehab once medically stable for continued PT/OT therapy as he continues to be quite weak requiring assistance. No reports of chest pain, worsening shortness of breath, or palpitations. Is afebrile. Patient is tolerating diet and has increased his oral intake slightly. Sodium has improved and is 133, potassium is 4.5, current creatinine is 0.85. Will repeat a.m. chest x-ray. 09/11/2020 Patient is seen and evaluated in follow-up sitting up in the bed appears to be comfortable. Patient is slowly being titrated down on his FiO2 and is currently on 13 L nasal cannula. Patient states his breathing is slightly improved and requesting when he can go home. Patient denies any further worsening shortness of breath. Patient continues to be weak requiring assistance and will most likely require rehab upon discharge. Will have PT/OT continue to evaluate and follow-up on Monday. Patient continues to be eating more of his meals and denies any nausea or vomiting. Chest x-ray today shows persistent bilateral multifocal acute infiltrates with no significant changes noted. Sodium remains stable at 132 and potassium is 4.2 current creatinine is 0.9. Blood sugars appear to be well controlled acquiring minimal coverage on sliding scale. 09/12/2020 Patient is currently resting in the bed comfortably. Oxygen at 13 L via nasal cannula. No complaints of fever or chills. Patient is awake alert and oriented. No acute distress. Currently being continued bronchodilators and vitamin supplements and Lovenox. Patient completed course of dexamethasone. 09/13/2020 Patient is currently resting in the bed comfortably. Awake alert oriented x3 and wants to be discharged home. Still requiring 8 L oxygen via nasal cannula. We will continue to titrate down below 5 L. Denied any complaints of chest pain or worsening shortness of breath. Continued on bronchodilators and Lovenox and vitamin supplementation. 09/14/2020 Patient is seen in follow-up today and oxygen saturations maintaining 90% on 7 L high flow nasal cannula. Patient states his breathing feels is slightly better. Patient is having some feelings of constipation and stool softeners ordered. Patient is up to the bedside commode with 1 person assist although continues to be weak and will have PT/OT evaluate the patient for possibility of ECF once stabilized and discharged. Pulmonary is following and was given a dose of Lasix. Will repeat a.m. chest x-ray along with labs. Bumex and Aldactone have been discontinued. 09/15/2020 Patient is seen and evaluated in follow-up most recent chest x-ray shows worsening bilateral lung infiltrates although patient states his breathing feels better and patient is currently maintained on 5 L via nasal cannula and is saturating 94%. Patient remains afebrile and continues to ask when he is able to leave. Patient will be accepted at [facility] for continued PT/OT therapy. Case management and social work following. BNP was done this morning showing 587. Current creatinine is 1.0, sodium is 131, potassium is 4.7. D- dimer is slightly elevated at 2.19. Will resume Bumex as it was currently on hold. Patient instructed to increase activity as tolerated and sit up in the chair out of the bed today. Constitutional: Denied any fatigue denied any fever. Cardio vascular: denied any chest pain, palpitations Gastrointestinal denied any nausea vomiting Pulmonary: Denied any shortness of breath cough on high flow oxygen Neurologic denied any new focal deficits, reports generalized weakness All inpatient medications were reviewed and appropriate changes in these medications as dictated in the interval history and assessment and plan. Objective - Vital Signs Vital signs: Vital Signs Temp 97.6 F 09/15/20 11:00 Pulse 69 09/15/20 11:00 Resp 18 09/15/20 11:00 BP 113/74 09/15/20 11:00 Pulse Ox 94 L 09/15/20 11:00 Intake & Output 09/14/20 09/15/20 09/15/20 18:59 06:59 18:59 Intake Total 237 Output Total 1000 200 Balance -1000 237 -200 Intake: Oral 237 Output: Urine 1000 200 Other: Voiding Method Urinal Urinal Urinal # Voids 1 3 1 # Bowel Movements 1 0 0 - Exam GENERAL: The patient is awake on nasal cannula although weaning slowly and currently on 5 L, not in any acute distress. Well developed, well nourished. HEENT: Pupils are round and equally reacting to light. EOMI. No scleral icterus. No conjunctival pallor. Normocephalic, atraumatic. No pharyngeal erythema. No t hyromegaly. CARDIOVASCULAR: S1 and S2 present. No murmurs, rubs, or gallops. PULMONARY: Diminished breath sounds with some scattered rhonchi noted ABDOMEN: Soft, nontender, nondistended, normoactive bowel sounds. No palpable organomegaly. MUSCULOSKELETAL: No joint swelling or deformity. EXTREMITIES: No cyanosis, clubbing, or pedal edema. NEUROLOGICAL: Awake, cooperative, diffusely weak SKIN: No rashes. . - Labs CBC & Chem 7: 09/15/20 05:28 09/15/20 06:34 Labs: Abnormal Lab Results - Last 24 Hours (Table) 09/14/20 09/14/20 09/15/20 Range/Units 17:20 20:59 05:28 D-Dimer 2.19 H (<0.60) mg/L FEU Sodium (135-145) mmol/L Chloride (96-109) mmol/L Anion Gap (4.00-12.00) mmol/L BUN/Creatinine Ratio (12.00-20.00) Ratio Glucose (70-110) mg/dL POC Glucose (mg/dL) 114 H 151 H (75-99) mg/dL Lactate Dehydrogenase (120-246) U/L C-Reactive Protein (0.0-0.8) mg/dL 09/15/20 09/15/20 09/15/20 Range/Units 06:34 07:18 12:46 D-Dimer (<0.60) mg/L FEU Sodium 131 L (135-145) mmol/L Chloride 93 L (96-109) mmol/L Anion Gap 15.80 H (4.00-12.00) mmol/L BUN/Creatinine Ratio 25.00 H (12.00-20.00) Ratio Glucose 120 H (70-110) mg/dL POC Glucose (mg/dL) 123 H 150 H (75-99) mg/dL Lactate Dehydrogenase 302 H (120-246) U/L C-Reactive Protein 1.9 H (0.0-0.8) mg/dL Assessment and Plan Assessment: Acute hypoxic respiratory failure secondary to Covid 19 continue with respiratory support continue with zinc, vitamin C, bronchodilator therapy. Patient has completed steroid therapy. Presently on nasal cannula 5 L monitor ing closely and pulmonary following Elevated troponin, secondary to demand ischemia from pulmonary disease Diabetes mellitus blood sugars are well controlled. Hyponatremia, current sodium is 131, Bumex will be resumed tomorrow Hypertension Hyperlipidemia Osteoarthritis Chronic heart failure, chronic systolic dysfunction without any acute exacerbations Hypothyroidism Sleep apnea on CPAP/BiPAP, patient refuses BiPAP Benign Prostatic hypertrophy Diabetic neuropathy Parkinson disease History of kidney stone Asthma, not an active issue GERD GI prophylaxis: DVT prophylaxis: Subcutaneous Lovenox Plan: Continue to wean FiO2 as tolerated. Currently on 5 L nasal cannula and maintaining 94%. Chest x-ray shows worsening infiltrates although patient states he feels better. Pulmonary following closely. Continue to encourage oral intake and increasing activity as tolerated. PTOT following and continues to recommend subacute rehab once stabilized and discharged. Patient has been accepted at [facility] on the [place] when stabilized. Discussed with nursing staff about weaning FiO2 as tolerated. Due to multiple complex medical issues, prognosis remains extremely guarded. Slowly improving and will continue to monitor closely. Further recommendations to follow based on clinical status of the patient. Case management and social work following as patient will require ECF for rehab once stabilized and discharged.
[2020-09-15] MEDS: BUMETANIDE 1 MG TAB PO SCH (17:25)
[2020-09-15 17:36] LABS: Glucose,Whole Blood 140 mg/dL (75-99)
[2020-09-15 21:08] LABS: Glucose,Whole Blood 129 mg/dL (75-99)
[2020-09-16] MEDS: LEVOTHYROXINE 75 MCG TAB PO SCH (05:16)
[2020-09-16 07:40] LABS: Glucose,Whole Blood 134 mg/dL (75-99)
[2020-09-16] MEDS: ALBUTEROL HFA INHALER INHALATION SCH ×2 (08:23→11:52)
--- NOTE | 2020-09-16 09:42 | XR ---
EXAMINATION TYPE: XR chest 1V portable DATE OF EXAM: 09/16/2020 CLINICAL HISTORY: Difficulty breathing progress study. Covid 19 positive TECHNIQUE: Single AP portable upright view of the chest is obtained. COMPARISON: Chest x-ray from one day earlier and older studies. FINDINGS: Overlying sternal wires redemonstrated. Stable mild cardiomegaly with atherosclerotic aort a. Persistent low lung volumes or diminished inspiration. Background chronic parenchymal changes with increased opacities bilaterally redemonstrated. Some interval improvement from one day earlier in th e bilateral central opacities. Osseous structures remain intact. Cholecystectomy clips incidentally n oted. IMPRESSION: Improved bilateral central edema and/or less likely infiltrates. Persistent bilateral mul tifocal acute infiltrates on background chronic changes consistent with covid 19 infection.
[2020-09-16] MEDS: ENOXAPARIN 60 MG/0.6 ML SYRINGE SQ SCH (09:49)
[2020-09-16] MEDS: TAMSULOSIN 0.4 MG CAP.ER.24H PO SCH (09:50)
[2020-09-16] MEDS: ALPRAZolam 0.25 MG TAB PO SCH (09:50)
[2020-09-16] MEDS: ZINC SULFATE 220 MG CAP PO SCH (09:51)
[2020-09-16] MEDS: PANTOPRAZOLE 40 MG TABLET PO SCH (09:51)
[2020-09-16] MEDS: ASCORBIC ACID 500 MG TAB PO SCH (09:51)
[2020-09-16] MEDS: CHOLECALCIFEROL 1,000 UNIT TAB PO SCH (09:51)
[2020-09-16] MEDS: SENNOSIDES-DOCUSATE SODIUM 1 EACH TAB PO SCH (09:51)
[2020-09-16] MEDS: carvediloL 3.125 MG TAB PO SCH (09:51)
[2020-09-16] MEDS: BUMETANIDE 1 MG TAB PO SCH (09:51)
[2020-09-16] MEDS: ASPIRIN 81 MG PO SCH (09:51)
[2020-09-16] MEDS: FLUTICASONE 50MCG/SPRAY NASAL 16GM EA NOSTRIL SCH (09:52)
[2020-09-16] MEDS: INSULIN ASPART (NovoLOG) 100 UNIT/ML VIAL SQ SCH ×2 (09:52→13:02)
--- NOTE | 2020-09-16 12:16 | P.DS ---
Providers Date of admission: 08/22/20 18:11 Expected date of discharge: 09/16/20 Attending physician: Brian Velasquez MD Consults: 08/22/20 19:00 Consult Physician Routine Consulting Provider: Mary Good Consult Reason/Comments: COVID Do you want consulting provider notified?: Yes Primary care physician: [facility] Hospital Course: Final diagnosis Acute hypoxic respiratory failure secondary to Covid 19 continue with respiratory support continue with zinc, vitamin C, bronchodilator therapy. Patient has completed steroid therapy. Presently on nasal cannula 5 L monitoring closely and pulmonary following Elevated troponin, secondary to demand ischemia from pulmonary disease Diabetes mellitus blood sugars are well controlled. Hyponatremia, current sodium is 131, Bumex will be resumed tomorrow Hypertension Hyperlipidemia Osteoarthritis Chronic heart failure, chronic systolic dysfunction without any acute exacerbations Hypothyroidism Sleep apnea on CPAP/BiPAP, patient refuses BiPAP Benign Prostatic hypertrophy Diabetic neuropathy Parkinson disease History of kidney stone Asthma, not an active issue GERD GI prophylaxis: DVT prophylaxis: Subcutaneous Lovenox Discharge disposition Patient is being discharged in a stable condition with guarded prognosis to [facility] for continued PT/OT therapy. Patient will follow-up with [facility] in the outpatient setting upon discharge. Total time taken is greater than 35 minutes. Hospital course This is a 80-year-old male who was recently admitted with dyspnea and generalized weakness and was being closely monitored. Patient was initially seen by primary care and started on antibiotics although continue to become more weak and fatigued and short of breath and was brought to the hospital by family. Patient was previously recently diagnosed with Covid 19 pneumonia as other family members were positive as well. Patient was observed closely in the ICU for quite some time and had remained on high flow along with Airvo oxygen and subsequently on BiPAP for a short period. Patient then refused the BiPAP and was slow to respond although didn't improve. Patient continues to be quite weak and has been seen and evaluated by physical therapy recommending subacute rehab for some strength and mobility. Patient has completed the course of steroids and is maintained on zinc, vitamin C, and will continue at this time. Patient has completed the course of antibiotics during hospitalization and has been off of antibiotics. Continue to wean oxygen as tolerated. Recommended repeat labs in a few days to monitor kidney functions along with sodium. Currently no reports of chest pain, worsening shortness of breath, or palpitations. Patient is afebrile. No reports of nausea or vomiting and patient is tolerating diet. Patient is requesting to go home. Patient will be going to [facility] on the [place] today. Guarded prognosis. On exam vital signs are stable. Cardio S1, S2 are muffled. Patient is currently maintained on 5 L of oxygen via nasal cannula and 91%. Respiratory system shows diminished breath sounds at the bases with no wheezing or rhonchi noted. Abdomen is soft and nontender. Nervous system shows diffuse weakness. Please refer to medication reconciliation sheet for a list of medications. Patient Condition at Discharge: Stable Plan - Discharge Summary Discharge Rx Participant: No New Discharge Prescriptions: New carvediloL [Coreg] 3.125 mg PO BID-W/MEALS tab Enoxaparin [Lovenox] 50 mg SQ BID syringe INSULIN ASPART (NovoLOG) [NovoLOG (formulary)] 0 unit SQ ACHS vial Zinc Sulfate [Orazinc] 220 mg PO DAILY cap Pantoprazole [Protonix] 40 mg PO AC-BRKFST tablet.dr Ge-Docusate Sodium [Senokot-S] 1 each PO BID tab Acetaminophen Tab [Tylenol] 650 mg PO Q6HR PRN tab PRN Reason: Mild Pain Or Fever > 100.5 Albuterol Inhaler [Ventolin Hfa Inhaler] 2 puff INHALATION RT-QID PRN puff PRN Reason: Dyspnea Albuterol Inhaler [Ventolin Hfa Inhaler] 2 puff INHALATION RT-QID puff ALPRAZolam [Xanax] 0.25 mg PO BID #6 tab Continue Vitamin E (Dl,Tocopheryl Acet) [Vitamin E] 400 unit PO BID Multivitamins, Thera [Multivitamin (formulary)] 1 tab PO DAILY Fluticasone Nasal [place] [Flonase Nasal [place]] 2 spr EA NOSTRIL DAILY Aspirin 81 mg PO DAILY Tamsulosin [Flomax] 0.4 mg PO DAILY Levothyroxine Sodium [Synthroid] 150 mcg PO DAILY Garlic 1,000 mg PO DAILY Ascorbic Acid [Vitamin C] 1,000 mg PO DAILY Cholecalciferol [Vitamin D3 (25 Mcg = 1000 Iu)] 1,000 unit PO DAILY Glucosam/Praveen-Msm1/C/Harris/Bosw [Glucosamine-Chondroitin Tablet] 1 tab PO BID Bumetanide [BUMEX] 1 mg PO BID Fish Oil/Dha/Epa [Fish Oil 1,200 mg Fish Oil] 1 cap PO DAILY Loratadine [Claritin] 10 mg PO DAILY Discontinued Simvastatin [Zocor] 20 mg PO HS Carvedilol [Coreg] 6.25 mg PO BID Losartan Potassium 50 mg PO DAILY Amoxic-Pot Clav 875-125Mg [Augmentin 875-125] 1 tab PO BID Discharge Medication List Ascorbic Acid [Vitamin C] 1,000 mg PO DAILY 05/03/19 [History] Aspirin 81 mg PO DAILY 05/03/19 [History] Fluticasone Nasal [place] [Flonase Nasal [place]] 2 spr EA NOSTRIL DAILY 05/03/19 [History] Garlic 1,000 mg PO DAILY 05/03/19 [History] Levothyroxine Sodium [Synthroid] 150 mcg PO DAILY 05/03/19 [History] Multivitamins, Thera [Multivitamin (formulary)] 1 tab PO DAILY 05/03/19 [History] Tamsulosin [Flomax] 0.4 mg PO DAILY 05/03/19 [History] Vitamin E (Dl,Tocopheryl Acet) [Vitamin E] 400 unit PO BID 05/03/19 [History] Cholecalciferol [Vitamin D3 (25 Mcg = 1000 Iu)] 1,000 unit PO DAILY 06/24/19 [History] Glucosam/Praveen-Msm1/C/Harris/Bosw [Glucosamine-Chondroitin Tablet] 1 tab PO BID 06/24/19 [History] Bumetanide [BUMEX] 1 mg PO BID 08/22/20 [History] Fish Oil/Dha/Epa [Fish Oil 1,200 mg Fish Oil] 1 cap PO DAILY 08/22/20 [History] Loratadine [Claritin] 10 mg PO DAILY 08/22/20 [History] ALPRAZolam [Xanax] 0.25 mg PO BID #6 tab 09/16/20 [Rx] Acetaminophen Tab [Tylenol] 650 mg PO Q6HR PRN tab 09/16/20 [Rx] Albuterol Inhaler [Ventolin Hfa Inhaler] 2 puff INHALATION RT-QID puff 09/16/20 [Rx] Albuterol Inhaler [Ventolin Hfa Inhaler] 2 puff INHALATION RT-QID PRN puff 09/16/20 [Rx] Enoxaparin [Lovenox] 50 mg SQ BID syringe 09/16/20 [Rx] INSULIN ASPART (NovoLOG) [NovoLOG (formulary)] 0 unit SQ ACHS vial 09/16/20 [Rx] Pantoprazole [Protonix] 40 mg PO AC-BRKFST tablet. 09/16/20 [Rx] Sennosides-Docusate Sodium [Senokot-S] 1 each PO BID tab 09/16/20 [Rx] Zinc Sulfate [Orazinc] 220 mg PO DAILY cap 09/16/20 [Rx] carvediloL [Coreg] 3.125 mg PO BID-W/MEALS tab 09/16/20 [Rx] Follow up Appointment(s)/Referral(s): Tony Diehl PT [REFERRING] - 1-2 days Ambulatory/Diagnostic Orders: Basic Metabolic Panel [LAB.AMB] Time Frame: 3 Days, Location: None Selected Activity/Diet/Wound Care/Special [facility]ructions[facility] as tolerated Continue with dysphagia 3 chopped heart healthy diet Continue to monitor blood sugars before meals at bedtime and treat accordingly with sliding scale Continue with [place] 3 times daily with meals Encourage oral intake Repeat labs in 2-3 days to monitor electrolytes Wean oxygen as tolerated Follow-up with primary care provider upon discharge Follow up with your freight dispatcher, Dr. Zayas Discharge Disposition: TRANSFER TO SNF/ECF
[2020-09-16 12:24] LABS: Glucose,Whole Blood 142 mg/dL (75-99)
[2020-09-16 13:48] VITALS: BP 110/76; PULSE 66; RESP 16; TEMP 97.5
== END 2020-09-16 14:00 | DRG 177 ==
LOC: EC 18:00 → 3SCARD 18:11 → 2SICU 08-28 10:17 → 6NMEDSUR 09-10 08:21
PROVIDERS: ADMIT Internal Medicine; ATTEND Internal Medicine
PROC: XW033E5 Introduction of Remdesivir Anti-infective into Peripheral Vein, Percutaneous Approach, New Technology Group 5 (ICD-10-PCS; principal; 2020-08-23)
PROC: XW13325 Transfusion of Convalescent Plasma (Nonautologous) into Peripheral Vein, Percutaneous Approach, New Technology Group 5 (ICD-10-PCS; 2020-08-24)
PROC: 5A0955A Assistance with Respiratory Ventilation, Greater than 96 Consecutive Hours, High Flow/Velocity Cannula (ICD-10-PCS; 2020-08-24)
PROC: 5A09457 Assistance with Respiratory Ventilation, 24-96 Consecutive Hours, Continuous Positive Airway Pressure (ICD-10-PCS; 2020-08-29)
DX: U07.1 COVID-19 (principal); J80 Acute respiratory distress syndrome; J12.82 Pneumonia due to coronavirus disease 2019; E87.1 Hypo-osmolality and hyponatremia; J44.0 Chronic obstructive pulmonary disease with (acute) lower respiratory infection; I50.22 Chronic systolic (congestive) heart failure; B37.0 Candidal stomatitis; A08.39 Other viral enteritis; I24.8 Other forms of acute ischemic heart disease; E11.42 Type 2 diabetes mellitus with diabetic polyneuropathy; G20 Parkinson's disease; I95.9 Hypotension, unspecified; I11.0 Hypertensive heart disease with heart failure; I25.5 Ischemic cardiomyopathy; G47.33 Obstructive sleep apnea (adult) (pediatric); I25.10 Atherosclerotic heart disease of native coronary artery without angina pectoris; I73.00 Raynaud's syndrome without gangrene; E78.5 Hyperlipidemia, unspecified; E03.9 Hypothyroidism, unspecified; K21.9 Gastro-esophageal reflux disease without esophagitis; N40.0 Benign prostatic hyperplasia without lower urinary tract symptoms; K59.00 Constipation, unspecified; I25.2 Old myocardial infarction; M19.90 Unspecified osteoarthritis, unspecified site; Z87.442 Personal history of urinary calculi; Z79.82 Long term (current) use of aspirin; Z79.890 Hormone replacement therapy; Z79.899 Other long term (current) drug therapy; Z87.891 Personal history of nicotine dependence; Z90.49 Acquired absence of other specified parts of digestive tract; Z95.1 Presence of aortocoronary bypass graft; Z87.19 Personal history of other diseases of the digestive system; Z87.39 Personal history of other diseases of the musculoskeletal system and connective tissue; Z98.890 Other specified postprocedural states; Z88.1 Allergy status to other antibiotic agents; Z88.8 Allergy status to other drugs, medicaments and biological substances
CPT/HCPCS: 36415; 36600; 71045; 80048; 80053; 81001; 82550; 82728; 82805; 83036; 83615; 83625; 83735; 83880; 84145; 84484; 85025; 85027; 85379; 85384; 85610; 85730; 86140; 86850; 86900; 86901; 87040; 93005; 93306; 94640; 94660; 94760; 96374; 99285

== ENCOUNTER → 2022-06-21 | Outpatient (CLI) | payer OTHER ==
--- NOTE | 2022-06-21 16:09 | CT ---
EXAMINATION TYPE: CT chest wo con DATE OF EXAM: 06/21/2022 COMPARISON: HISTORY: Pt states doctor is looking for lung scarring due to agent orange exposure CT DLP: 269 mGycm. Automated Exposure Control for Dose Reduction was Utilized. TECHNIQUE: CT scan of the thorax is performed without IV contrast. FINDINGS: LUNGS: There is interlobular septal thickening throughout the lung pattern most chronic interstitial pulmonary fibrosis UIP type. 6 mm calcified granuloma left lower lobe and there is central and basila r mild bronchiectasis. There is interval resolution of area of consolidation left lower lobe rales. N o sizable pleural effusion or pneumothorax. MEDIASTINUM: Lack of IV contrast is noted to limit evaluation for mediastinal and especially hilar ad enopathy. There are no definitive greater than 1 cm hilar or mediastinal lymph nodes. The heart is en larged coronary artery calcification. There is a calcification along the inferior margin of the peric ardium which can be associated with calcific pericarditis. Coronary artery calcifications seen. Aorta is of normal caliber with mild atherosclerotic changes and dictation. OTHER: Hypertrophic degenerative changes in the spine. Splenic granuloma noted. IMPRESSION: 1. 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 Resolution of previous pneumoni a in left upper lobe. 2. Coronary artery calcifications. 3. Left lower lobe superior segment granuloma.
== END | disposition home or self-care (01) ==
LOC: RADCTMAIN 14:17
PROVIDERS: ATTEND Internal Medicine Critical Care Medicine
DX: I25.10 Atherosclerotic heart disease of native coronary artery without angina pectoris (principal); J84.10 Pulmonary fibrosis, unspecified
CPT/HCPCS: 71250

== ENCOUNTER → 2022-12-28 | Outpatient (CLI) | payer OTHER ==
[2022-12-28 20:33] LABS: Basophils # (A) 0.07 X 10*3/uL (0.00-0.10); Basophils % (A) 0.8 %; Eosinophils # (A) 0.24 X 10*3/uL (0.04-0.35); Eosinophils % (A) 2.9 %; HGB 16.4 g/dL (13.0-17.0); Immature Grans, Automated 0.2 %; Lymphocytes # (A) 2.52 X 10*3/uL (0.90-5.00); MCH 30.3 pg (27.0-32.0); MCHC 33.5 g/dL (32.0-37.0); MCV 90.6 fL (80.0-97.0); Mean Platelet Volume 11.4 fL (9.5-12.2); Monocytes # (A) 0.84 X 10*3/uL (0.20-1.00); NRBC Per 100 WBC 0 /100 WBCS (0.0-0.0); Neutrophils # (A) 4.72 X 10*3/uL (1.80-7.70); Neutrophils % (A) 56.1 %; Platelet Count 215 X 10*3/uL (140-440); RBC 5.41 X 10*6/uL (4.40-5.60); RDW 13.7 % (11.5-14.5); WBC 8.41 X 10*3/uL (4.50-10.00)
[2022-12-28 20:46] LABS: Albumin 4.4 g/dL (3.8-4.9); Albumin/Globulin Ratio 1.69 (1.60-3.17); Anion Gap 10.9 mmol/L (10.00-18.00); BUN/Creat Ratio 12.8 Ratio (12.00-20.00); Blood Urea Nitrogen 12.8 mg/dL (9.0-27.0); Calcium 9.8 mg/dL (8.7-10.3); Carbon Dioxide 22.1 mmol/L (20.0-27.5); Globulin 2.6 g/dL (1.6-3.3); Non-African American GFR(CKD) 70.8 (60.0-200.0); Potassium 4.5 mmol/L (3.5-5.5); Total Bilirubin 0.7 mg/dL (0.30-1.20)
== END | disposition home or self-care (01) ==
LOC: LABWHC1 14:19
PROVIDERS: ATTEND Thoracic Surgery (Cardiothoracic Vascular Surgery)
DX: I50.42 Chronic combined systolic (congestive) and diastolic (congestive) heart failure (principal)
CPT/HCPCS: 36415; 80053; 83880; 85025

== ENCOUNTER → 2022-12-28 | Outpatient (CLI) | payer OTHER ==
--- NOTE | 2022-12-28 18:12 | CA ---
Transthoracic Echo Report Name: Abundio Murillo Age: 82 Gender: M : 1940 Exam Date: 12/28/2022 15:01 Exam Location: [place] Echo Ht (in): 75 Wt (lb): 252 Ordering Physician: Dheeraj Franklin MD Attending/Referring Phys: [id number], [facility] Lead Consultant Minda Porter, [facility] Procedure CPT: Indications: I50.42 Cardiac Hx: CABG 2 vessels. Hx of stent Technical Quality: Fair Contrast 1: Total Dose (mL): Contrast 2: Total Dose (mL): MEASUREMENTS (Male / Female) Normal Values 2D ECHO LV Diastolic Diameter PLAX 4.5 cm 4.2 - 5.9 / 3.9 - 5.3 cm LV Systolic Diameter PLAX 2.9 cm IVS Diastolic Thickness 2.2 cm 0.6 - 1.0 / 0.6 - 0.9 cm LVPW Diastolic Thickness 1.8 cm 0.6 - 1.0 / 0.6 - 0.9 cm LV Relative Wall Thickness 0.9 RV Internal Dim ED PLAX 3.7 cm LVOT Diameter 2.5 cm LA Systolic Diameter LX 4.8 cm 3.0 - 4.0 / 2.7 - 3.8 cm LV Diastolic Volume MOD BP 168.2 cm??? 67 - 155 / 56 - 104 cm??? LV Systolic Volume MOD BP 102.9 cm??? 22 - 58 / 19 - 49 cm??? LV Ejection Fraction MOD BP 38.8 % >= 55 % LV Diastolic Volume MOD 4C 182.9 cm??? LV Systolic Volume MOD 4C 106.2 cm??? LV Ejection Fraction MOD 4C 42.0 % LV Diastolic Length 4C 9.0 cm LV Systolic Length 4C 8.5 cm LV Diastolic Volume MOD 2C 146.7 cm??? LV Systolic Volume MOD 2C 88.4 cm??? LV Ejection Fraction MOD 2C 39.7 % LV Diastolic Length 2C 9.6 cm LV Systolic Length 2C 9.7 cm LA Volume 88.5 cm??? 18 - 58 / 22 - 52 cm??? M-MODE Aortic Root Diameter MM 3.5 cm MV E Point Septal Separation 1.3 cm AV Cusp Separation MM 2.0 cm DOPPLER AV Peak Velocity 203.1 cm/s AV Peak Gradient 16.5 mmHg AV Mean Velocity 140.8 cm/s AV Mean Gradient 9.1 mmHg AV Velocity Time Integral 45.5 cm LVOT Peak Velocity 90.1 cm/s LVOT Peak Gradient 3.2 mmHg AV Area Cont Eq pk 2.2 cm??? MV Area PHT 1.9 cm??? Mitral E Point Velocity 58.1 cm/s Mitral A Point Velocity 116.0 cm/s Mitral E to A Ratio 0.5 MV Deceleration Time 394.0 ms TR Peak Velocity 278.2 cm/s TR Peak Gradient 31.0 mmHg Right Ventricular Systolic Press 35.3 mmHg FINDINGS Left Ventricle Left ventricular ejection fraction is estimated at 45 %. Left ventricular cavity size normal. Asymmetric left ventricular hypertrophy. Severely increased septal wall thickness. Mildly increased left ventricular diastolic volume. Severely increased left ventricular systolic volume. Moderately decreased left ventricular ejection fraction. Basel inferior wall akinesis. Basel posterior wall akinesis. Basel inferioseeptal wall akinesis Right Ventricle Mild right ventricular dilatation. Mild pulmonary hypertension. Right ventricular systolic pressure estimated at 35 mm hg. Right Atrium Normal right atrial size. Left Atrium Moderately increased left atrial diameter. Severely increased left atrial volume. Mildly increased left atrial area. Mitral Valve Mitral valve thickened. Mild mitral annular calcification. Trace to mild mitral regurgitation. Aortic Valve Trileaflet aortic valve. Aortic valve sclerosis. Mild aortic stenosis with a peak gradient of 17 mmHg and a mean gradient of 9 mmHg. Tricuspid Valve Structurally normal tricuspid valve. Mild tricuspid regurgitation. Pulmonic Valve No pulmonic stenosis. Trace to mild pulmonic regurgitation. Pericardium Normal pericardium. No pericardial effusion. Aorta Normal size aortic root and proximal ascending aorta. CONCLUSIONS Mild LV systolic dysfunction Enlarged left atrium Mitral annular are calcification with mild mitral regurgitation Mild aortic stenosis Previewed by: Dr. Saravanan Stokes MD (Electronically Signed) Final Date: 28 December 2022 18:10
== END | disposition home or self-care (01) ==
LOC: RADECHMAIN 14:47
PROVIDERS: ATTEND Thoracic Surgery (Cardiothoracic Vascular Surgery)
DX: I08.0 Rheumatic disorders of both mitral and aortic valves (principal); I50.42 Chronic combined systolic (congestive) and diastolic (congestive) heart failure
CPT/HCPCS: 93306; Q9950

== ENCOUNTER → 2023-01-24 | Outpatient (CLI) | payer MEDICARE, OTHER ==
--- NOTE | 2023-01-25 07:34 | CT ---
EXAMINATION TYPE: CT sinus wo con DATE OF EXAM: 01/24/2023 COMPARISON: None HISTORY: Chronic sinusitis. CT DLP: 550.8 mGycm CONTRAST: 0 mL of Isovue 300 The paranasal sinuses are examined in the axial plane at 2 mm thick sections. Reconstructed images i n the coronal plane were obtained. There is a small left honorio bullosa The maxillary sinuses are clear. Mild mucosal thickening is within ethmoid air cells The sphenoid s inuses are clear. The frontal sinuses are clear. The septum is evaluated. There is septal deviation to the right. The ostiomeatal units are patent. Mastoid air cells within the field of view are clear. IMPRESSIONS: 1. Mild mucosal thickening within a posterior left ethmoid air cell. 2. Remaining paranasal sinuses appear clear.
== END | disposition home or self-care (01) ==
LOC: RADCTMAIN 14:43
PROVIDERS: ATTEND Otolaryngology
DX: J32.9 Chronic sinusitis, unspecified (principal); J34.89 Other specified disorders of nose and nasal sinuses
CPT/HCPCS: 70486

== ENCOUNTER 2023-03-18 13:32 | Emergency (ER) | payer MEDICARE, OTHER ==
[2023-03-18 13:38] VITALS: TEMP 98.8
--- NOTE | 2023-03-18 13:50 | ED ---
General Adult HPI - General Chief complaint: Upper Respiratory Infection Stated complaint: cough,sore throat Time Seen by Provider: 03/18/23 13:45 Source: patient Mode of arrival: ambulatory Limitations: no limitations - History of Present Illness Initial comments: This is a well-appearing 83-year-old male brought in by his with complaints of increased congestion, nasal drainage, cough with thick yellow mucus and eye watering for the past 5 days. states that she also had similar symptoms earlier in the week. Denies any fevers or shortness of breath. No chest pain. Patient does have a history of COPD and does use a daily inhaler of ipatropium bromide. Has not been using his albuterol. Also using his azelastine with no relief. Patient is a previous smoker with a history of exposure to agent orange. Did have a coronary artery stent placed in September and is on Plavix. -: days(s) (5) Severity scale (1-10): 4 Quality: other (sore) Consistency: intermittent Associated Symptoms: cough - Related Data Home Medications Medication Instructions Recorded Confirmed Ascorbic Acid [Vitamin C] 1,000 mg PO DAILY 05/03/19 08/22/20 Aspirin 81 mg PO DAILY 05/03/19 08/22/20 Fluticasone Nasal [place] [Flonase 2 spr EA NOSTRIL DAILY 05/03/19 08/22/20 Nasal [place]] Garlic 1,000 mg PO DAILY 05/03/19 08/22/20 Levothyroxine Sodium [Synthroid] 150 mcg PO DAILY 05/03/19 08/22/20 Multivitamins, Thera [Multivitamin 1 tab PO DAILY 05/03/19 08/22/20 (formulary)] Tamsulosin [Flomax] 0.4 mg PO DAILY 05/03/19 08/22/20 Vitamin E (Dl,Tocopheryl Acet) 400 unit PO BID 05/03/19 08/22/20 [Vitamin E (400 Iu = 180 mg)] Cholecalciferol [Vitamin D3 (25 1,000 unit PO DAILY 06/24/19 08/22/20 Mcg = 1000 Iu)] Glucosam/Praveen-Msm1/C/Harris/Bosw 1 tab PO BID 06/24/19 08/22/20 [Glucosamine-Chondroitin Tablet] Bumetanide [BUMEX] 1 mg PO BID 08/22/20 08/22/20 Fish Oil/Dha/Epa [Fish Oil 1,200 1 cap PO DAILY 08/22/20 08/22/20 mg Fish Oil] Loratadine [Claritin] 10 mg PO DAILY 08/22/20 08/22/20 Previous Rx's Medication Instructions Recorded ALPRAZolam [Xanax] 0.25 mg PO BID #6 tab 09/16/20 Acetaminophen Tab [Tylenol] 650 mg PO Q6HR PRN tab 09/16/20 Albuterol Inhaler [Ventolin Hfa 2 puff INHALATION RT-QID puff 09/16/20 Inhaler] Albuterol Inhaler [Ventolin Hfa 2 puff INHALATION RT-QID PRN puff 09/16/20 Inhaler] Enoxaparin [Lovenox] 50 mg SQ BID syringe 09/16/20 INSULIN ASPART (NovoLOG) [NovoLOG 0 unit SQ ACHS vial 09/16/20 (formulary)] Pantoprazole [Protonix] 40 mg PO AC-BRKFST tablet. 09/16/20 Sennosides-Docusate Sodium 1 each PO BID tab 09/16/20 [Senokot-S] Zinc Sulfate [Orazinc] 220 mg PO DAILY cap 09/16/20 carvediloL [Coreg] 3.125 mg PO BID-W/MEALS tab 09/16/20 Azithromycin [Zithromax Z Pack] 1 tab PO DIRECTED #6 tab 03/18/23 Allergies Allergy/AdvReac Type Severity Reaction Status Date / Time furosemide [From Lasix] Allergy hives, lip Verified 03/18/23 13:38 swelling levofloxacin [From Levaquin] Allergy Rash/Hives Verified 03/18/23 13:38 moxifloxacin [From Avelox] Allergy Rash/Hives Verified 03/18/23 13:38 valacyclovir [From Valtrex] Allergy Rash/Hives Verified 03/18/23 13:38 Review of Systems ROS Statement: Those systems with pertinent positive or pertinent negative responses have been documented in the HPI. ROS Other: All systems not noted in ROS Statement are negative. 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, early Parkinson's, tremors, "pre-diabetic"-checks blood sugar periodically, kidney stones, left inguinal hernia currently, uses CPAP Last Myocardial Infarction Date:: unknown History of Any Multi-Drug Resistant Organisms: None Reported Past Surgical History: Cholecystectomy, Coronary Bypass/CABG, Heart Catheterization, Hernia Repair, Orthopedic Surgery Additional Past Surgical History / Comment(s): 2002 double bypass, right tibia repair, lithotripsy 04-15-19 Past Anesthesia/Blood Transfusion Reactions: No Reported Reaction Past Psychological History: No Psychological Hx Reported Smoking Status: Never smoker Past Alcohol Use History: Occasional Past Drug Use History: None Reported - Past Family History Mother Family Medical History: No Reported History General Exam Limitations: no limitations General appearance: alert, in no apparent distress Head exam: Present: atraumatic Eye exam: Present: normal appearance. Absent: scleral icterus, conjunctival injection, periorbital swelling ENT exam: Present: normal oropharynx, mucous membranes moist Expanded Mouth exam: Present: tongue normal, tongue elevation. Absent: drooling, trismus, muffled voice Throat exam: normal inspection. negative: tonsillar erythema, tonsillomegaly, tonsillar exudate, R peritonsillar mass, L peritonsillar mass Neck exam: Absent: tenderness, meningismus Respiratory exam: Present: normal lung sounds bilaterally. Absent: respiratory distress, accessory muscle use Cardiovascular Exam: Present: regular rate GI/Abdominal exam: Present: soft Extremities exam: Present: normal capillary refill Neurological exam: Present: alert, oriented X3 Psychiatric exam: Present: normal affect, normal mood Skin exam: Present: warm, dry, normal color. Absent: cyanosis, diaphoretic, petechiae, pallor Course Vital Signs 03/18/23 03/18/23 03/18/23 13:36 14:44 14:46 Temperature 98.8 F Pulse Rate 64 72 Respiratory 18 20 20 Rate Blood Pressure 147/87 156/86 O2 Sat by Pulse 94 L 96 Oximetry Medical Decision Making - Medical Decision Making Was pt. sent in by a medical professional or institution (, PA, CERTIFIED CAREGIVER, urgent care, hospital, or fci...) When possible be specific @ -No Did you speak to anyone other than the patient for history (EMS, parent, family, police, friend...)? What history was obtained from this source @ -Patient's at bedside states patient does not use his albuterol when needed. States she had similar symptoms earlier in the week Did you review nursing and triage notes (agree or disagree)? Why? @ -I reviewed and agree with nursing and triage notes Were old charts reviewed (outside hosp., previous admission, EMS record, old EKG, old radiological studies, urgent care reports/EKG's, fci records)? Report findings @ -Yes Dr. Franklin's note and CT sinuses 01/24/2023 Differential Diagnosis (chest pain, altered mental status, abdominal pain women, abdominal pain men, vaginal bleeding, weakness, fever, dyspnea, syncope, headache, dizziness, GI bleed, back pain, seizure, CVA, palpatations, mental health, musculoskeletal)? @ -URI, pneumonia, COPD exacerbation, viral illness this is a noninclusive list EKG interpreted by me (3pts min.). @ -n/a X-rays interpreted by me (1pt min.). @ -None done CT interpreted by me (1pt min.). @ -None done U/S interpreted by me (1pt. min.). @ -None done What testing was considered but not performed or refused? (CT, X-rays, U/S, labs)? Why? @ -None What meds were considered but not given or refused? Why? @ -Albuterol treatment was offered however patient has no cough no wheezing and no difficulty in breathing at this time. Did you discuss the management of the patient with other professionals (professionals i.e. , PA, CERTIFIED CAREGIVER, lab, RT, psych nurse, social media marketing specialist, customs officer, teacher, restoration officer, pillowcase cutter)? Give summary @ -No Was smoking cessation discussed for >3mins.? @ -No Was critical care preformed (if so, how long)? @ -No Were there social determinants of health that impacted care today? How? (Homelessness, low income, unemployed, alcoholism, drug addiction, transportation, low edu. Level, literacy, decrease access to med. care, senior care, rehab)? @ -No Was there de-escalation of care discussed even if they declined (Discuss DNR or withdrawal of care, Hospice)? DNR status @ -No What co-morbidities impacted this encounter? (DM, HTN, Smoking, COPD, CAD, Cancer, CVA, ARF, Chemo, Hep., AIDS, mental health diagnosis, sleep apnea, morbid obesity)? @ -asthma, COPD, diabetes, hypertension, PA, sleep apnea, Parkinson's, osteoarthritis, coronary artery bypass graft Was patient admitted / discharged? Hospital course, mention meds given and route, prescriptions, significant lab abnormalities, going to OR and other pertinent info. @ -Discharged This is a well-appearing 83-year-old male brought in by his with complaints of increased congestion, nasal drainage, cough with thick yellow mucus and eye watering for the past 5 days. states that she also had similar symptoms earlier in the week. Denies any fevers or shortness of breath. No chest pain. Patient does have a history of COPD and does use a daily inhaler of ipatropium bromide. Has not been using his albuterol. Also using hi s azelastine with no relief. Patient is a previous smoker with a history of exposure to agent orange. Did have a coronary artery stent placed in September and is on Plavix. Consult note from Dr. Franklin reviewed, noted ejection fraction of 40-45%. Negative proBNP with no evidence of heart failure. Patient had a stent proximal LAD in September and placed on Plavix for 1 year. Lung biopsy discussed at that time and patient declined. CT of the sinuses without contrast was performed on 01/24/2023 showing mild mucosal thickening with posterior left ethmoid air cell. Remaining paranasal sinuses appear clear This is likely upper respiratory infection as patient states his had similar symptoms earlier in the week. He was offered Covid and influenza testing and declined. Denies any fevers. Patient was given a prescription for Z-Pako and directed to use Mucinex. Use his albuterol for any cough and wheezing. Follow up with primary care doctor on Monday. Return to the emergency room with a symptoms including difficulty breathing, chest pain or fevers. Patient and are agreeable to this plan of care. Case discussed with Dr. Cleary Undiagnosed new problem with uncertain prognosis? @ -No Drug Therapy requiring intensive monitoring for toxicity (Heparin, Nitro, Insulin, Cardizem)? @ -No Were any procedures done? @ -No Diagnosis/symptom? @ -URI, COPD Acute, or Chronic, or Acute on Chronic? @ -Acute Uncomplicated (without systemic symptoms) or Complicated (systemic symptoms)? @ -Uncomplicated Side effects of treatment? @ -No Exacerbation, Progression, or Severe Exacerbation? @ -No Poses a threat to life or bodily function? How? (Chest pain, USA, PA, pneumonia, PE, COPD, DKA, ARF, appy, cholecystitis, CVA, Diverticulitis, Homicidal, Suicidal, threat to staff... and all critical care pts) @ -No Disposition Clinical Impression: COPD (chronic obstructive pulmonary disease), Acute upper respiratory infection Disposition: HOME SELF-CARE Condition: Good Instructions (If sedation given, give patient instructions): Upper Respiratory Infection (ED), COPD (Chronic Obstructive Pulmonary Disease) (ED) Additional Instructions: Increase your water intake. Use Mucinex [id number] to thin mucus. Take the antibiotics as prescribed. Follow-up with your primary care doctor on Monday. Return to the emergency room with any new or concerning symptoms include shortness of breath, chest pain or fevers. Prescriptions: Azithromycin [Zithromax Z Pack] 1 tab PO DIRECTED #6 tab Is patient prescribed a controlled substance at d/c from ED?: No Referrals: [facility],Clinic [Primary Care Provider] - 1-2 days Time of Disposition: 14:20
[2023-03-18 14:47] VITALS: RESP 20
[2023-03-18 14:48] VITALS: BP 156/86; PULSE 72
== END 2023-03-18 14:47 | disposition home or self-care (01) ==
LOC: EC 13:32
DX: J44.9 Chronic obstructive pulmonary disease, unspecified (principal); J06.9 Acute upper respiratory infection, unspecified; E11.9 Type 2 diabetes mellitus without complications; E78.5 Hyperlipidemia, unspecified; I10 Essential (primary) hypertension; I25.2 Old myocardial infarction; E07.9 Disorder of thyroid, unspecified; Z88.8 Allergy status to other drugs, medicaments and biological substances; Z88.1 Allergy status to other antibiotic agents; Z79.890 Hormone replacement therapy; Z79.82 Long term (current) use of aspirin; Z79.02 Long term (current) use of antithrombotics/antiplatelets; Z79.899 Other long term (current) drug therapy
CPT/HCPCS: 99283

== ENCOUNTER 2023-10-09 13:25 | Emergency (ER) | payer MEDICARE, OTHER ==
--- NOTE | 2023-10-09 14:19 | ED ---
General Adult HPI - General Stated complaint: Pain in right foot Time Seen by Provider: 10/09/23 14:18 Source: patient, family, RN notes reviewed Mode of arrival: ambulatory Limitations: no limitations - History of Present Illness Initial comments: 83-year-old male presents emergency department complaint of right foot pain. Patient states has been dealing with swelling of his right foot, infections. He states that he woke up this morning there was bleeding states there is a pool of blood from his foot. Patient denies any other trauma. - Related Data Home Medications Medication Instructions Recorded Confirmed Ascorbic Acid [Vitamin C] 1,000 mg PO DAILY 05/03/19 08/22/20 Aspirin 81 mg PO DAILY 05/03/19 08/22/20 Fluticasone Nasal [place] [Flonase 2 spr EA NOSTRIL DAILY 05/03/19 08/22/20 Nasal [place]] Garlic 1,000 mg PO DAILY 05/03/19 08/22/20 Levothyroxine Sodium [Synthroid] 150 mcg PO DAILY 05/03/19 08/22/20 Multivitamins, Thera [Multivitamin 1 tab PO DAILY 05/03/19 08/22/20 (formulary)] Tamsulosin [Flomax] 0.4 mg PO DAILY 05/03/19 08/22/20 Vitamin E (Dl,Tocopheryl Acet) 400 unit PO BID 05/03/19 08/22/20 [Vitamin E (400 Iu = 180 mg)] Cholecalciferol [Vitamin D3 (25 1,000 unit PO DAILY 06/24/19 08/22/20 Mcg = 1000 Iu)] Glucosam/Praveen-Msm1/C/Harris/Bosw 1 tab PO BID 06/24/19 08/22/20 [Glucosamine-Chondroitin Tablet] Bumetanide [BUMEX] 1 mg PO BID 08/22/20 08/22/20 Fish Oil/Dha/Epa [Fish Oil 1,200 1 cap PO DAILY 08/22/20 08/22/20 mg Fish Oil] Loratadine [Claritin] 10 mg PO DAILY 08/22/20 08/22/20 Previous Rx's Medication Instructions Recorded ALPRAZolam [Xanax] 0.25 mg PO BID #6 tab 09/16/20 Acetaminophen Tab [Tylenol] 650 mg PO Q6HR PRN tab 09/16/20 Albuterol Inhaler [Ventolin Hfa 2 puff INHALATION RT-QID puff 09/16/20 Inhaler] Albuterol Inhaler [Ventolin Hfa 2 puff INHALATION RT-QID PRN puff 09/16/20 Inhaler] Enoxaparin [Lovenox] 50 mg SQ BID syringe 09/16/20 INSULIN ASPART (NovoLOG) [NovoLOG 0 unit SQ ACHS vial 09/16/20 (formulary)] Pantoprazole [Protonix] 40 mg PO AC-BRKFST tablet. 09/16/20 Sennosides-Docusate Sodium 1 each PO BID tab 09/16/20 [Senokot-S] Zinc Sulfate [Orazinc] 220 mg PO DAILY cap 09/16/20 carvediloL [Coreg] 3.125 mg PO BID-W/MEALS tab 09/16/20 Azithromycin [Zithromax Z Pack] 1 tab PO DIRECTED #6 tab 03/18/23 Allergies Allergy/AdvReac Type Severity Reaction Status Date / Time furosemide [From Lasix] Allergy hives, lip Verified 10/09/23 14:19 swelling levofloxacin [From Levaquin] Allergy Rash/Hives Verified 10/09/23 14:19 moxifloxacin [From Avelox] Allergy Rash/Hives Verified 10/09/23 14:19 valacyclovir [From Valtrex] Allergy Rash/Hives Verified 10/09/23 14:19 Review of Systems ROS Statement: Those systems with pertinent positive or pertinent negative responses have been documented in the HPI. ROS Other: All systems not noted in ROS Statement are negative. 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, early Parkinson's, tremors, "pre-diabetic"-checks blood sugar periodically, kidney stones, left inguinal hernia currently, uses CPAP Last Myocardial Infarction Date:: unknown History of Any Multi-Drug Resistant Organisms: None Reported Past Surgical History: Cholecystectomy, Coronary Bypass/CABG, Heart Catheterization, Hernia Repair, Orthopedic Surgery Additional Past Surgical History / Comment(s): 2001 double bypass, right tibia repair, lithotripsy 04-15-19 Past Anesthesia/Blood Transfusion Reactions: No Reported Reaction Past Psychological History: No Psychological Hx Reported Smoking Status: Never smoker Past Alcohol Use History: Occasional Past Drug Use History: None Reported - Past Family History Mother Family Medical History: No Reported History General Exam - General Exam Comments Initial Comments: Visual Physical Exam Vital signs reviewed General: Well-appearing, nontoxic, no acute distress. Head: Normocephalic, atraumatic Eyes: PERRLA, EOMI ENT: Airway patent Chest: Nonlabored breathing Skin: No visual rash, normal skin tone Neuro: Alert and oriented 3 Musculoskeletal: No gross abnormalities Course Vital Signs 10/09/23 14:17 Temperature 98.4 F Pulse Rate 66 Respiratory 20 Rate Blood Pressure 134/69 O2 Sat by Pulse 99 Oximetry Medical Decision Making - Medical Decision Making I completed the quick note portion of this chart signed Brian Mulligan PA-C Patient left AGAINST MEDICAL ADVICE from the waiting room Disposition Clinical Impression: Foot pain Disposition: LEFT AGAINST MEDICAL ADVICE Referrals: Domitila Hobbs, PAC [Primary Care Provider] - 1-2 days
[2023-10-09 14:20] VITALS: BP 134/69; PULSE 66; RESP 20; TEMP 98.4
--- NOTE | 2023-10-09 16:26 | XR ---
EXAMINATION TYPE: XR foot complete RT DATE OF EXAM: 10/09/2023 CLINICAL HISTORY: pain TECHNIQUE: Frontal, lateral and oblique images of the right foot are obtained. COMPARISON: None. FINDINGS: There is no acute fracture/dislocation evident. The joint spaces appear within normal wallace its. The overlying soft tissue appears unremarkable. IMPRESSION: There is no acute fracture or dislocation. ICD 10 NO FRACTURE, INITIAL EVALUATION
== END 2023-10-09 18:16 | disposition left against medical advice (07) ==
LOC: EC 13:25
DX: M79.671 Pain in right foot (principal); J45.909 Unspecified asthma, uncomplicated; E11.9 Type 2 diabetes mellitus without complications; I10 Essential (primary) hypertension; I25.2 Old myocardial infarction; G47.30 Sleep apnea, unspecified; E07.9 Disorder of thyroid, unspecified; M19.90 Unspecified osteoarthritis, unspecified site; Z79.1 Long term (current) use of non-steroidal anti-inflammatories (NSAID); Z79.890 Hormone replacement therapy; Z79.82 Long term (current) use of aspirin; Z79.899 Other long term (current) drug therapy; Z88.1 Allergy status to other antibiotic agents; Z88.8 Allergy status to other drugs, medicaments and biological substances; Z88.6 Allergy status to analgesic agent; Z53.29 Procedure and treatment not carried out because of patient's decision for other reasons
CPT/HCPCS: 99283

== ENCOUNTER → 2024-04-02 | Outpatient (CLI) | payer OTHER ==
--- NOTE | 2024-04-02 10:32 | MR ---
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 CONTRAST: Standard multiplanar, multisequence MRI departmental protocol images were obtained without contrast a nd with 11 mL intravenous Gadavist gadolinium contrast. FINDINGS: There is abnormal marrow signal involving the distal phalanx of the second digit compatible with marrow edema and osteomyelitis. No destructive changes. There is diffuse soft tissue edema. There is mild to moderate first MTP joint arthropathy. Tiny spur involving the base of the calcaneus. Mild intertarsal arthropathy. No erosive changes. A benign cystic appearing changes involving the ta rsal bones and base of the first metatarsal with tarsal metatarsal joint arthropathy is likely post a rthritic. There is a small amount of fluid seen along the plantar surface of the foot could be on the basis of bursitis. Abscess felt less likely. IMPRESSION: 1. Findings compatible with osteomyelitis distal phalanx second digit. 2. Stable findings suggestive of diffuse cellulitis. 3. There is a small 1.4 cm plantar surface fluid collection which may be on the basis of a small gang lion cyst or bursitis\tenosynovitis.
== END | disposition home or self-care (01) ==
LOC: RADMRIMAIN 08:31
PROVIDERS: ATTEND Podiatrist Foot & Ankle Surgery
DX: M86.9 Osteomyelitis, unspecified (principal)
CPT/HCPCS: 73720; A9585

== ENCOUNTER 2024-06-03 06:24 | Day surgery (SDC) | payer MEDICARE, OTHER ==
[2024-06-03] MEDS ORDERED: LACTATED RINGERS 1,000 ML IV SCH (06:48)
[2024-06-03] MEDS: SODIUM CHLORIDE 0.9% 500 ML DEHP FREE BAG IV STA (07:00)
[2024-06-03] MEDS: SODIUM CHLORIDE 0.9% 500 ML 500 ML IV ONE (07:00)
[2024-06-03] MEDS: LIDOCAINE 1% (10MG/ML) FOR IV START INTRADERMA PRN (07:00)
[2024-06-03 07:26] LABS: Glucose,Whole Blood 101 mg/dL (70-110)
[2024-06-03 07:27] VITALS: RESP 16; TEMP 97.3
[2024-06-03] MEDS ORDERED: PROPOFOL 10 MG/ML 20 ML VIAL IV ONE (07:27)
[2024-06-03] MEDS: BENZOCAINE SPRAY 1 EACH MM ONE (07:34)
[2024-06-03] MEDS: BUMETANIDE 0.25 MG/ML 4 ML VIAL IVP STA (08:55)
[2024-06-03 09:32] VITALS: BP 110/70; PULSE 65
--- NOTE | 2024-06-04 14:00 | P.TEE ---
Date of Procedure: 06/04/24 Description of Procedure(s): Procedure performed: 1. Transesophageal Echocardiogram. 2. Synchronized Cardioversion. Indications: Persistent atrial fibrillation Consent: I have discussed the risks, benefits and alternative therapies for the above-mentioned procedure. The patient has indicated understanding and acceptance of the risks of the procedure. Signed consent was obtained and was placed in the paper chart. Moderate conscious sedation: Moderate conscious sedation was administered by anesthesia, see separate report. Procedural Steps: Timeout was performed in usual fashion. Patient's heart rate, blood pressure, oxygen saturation and ECG were monitored. After achieving appropriate moderate conscious sedation, PITA PITA probe was advanced without difficulty and without any immediate complications to the esophagus. PITA study was performed with color flow doppler, pulsed wave doppler and continuous wave doppler. Agitated saline bubbles were injected to assess for any intra-atrial shunt. The probe was then removed. SYNCHRONIZED CARDIOVERSION After making sure that there is no evidence of intracardiac thrombus, pacer pads were placed and secured on patients chest and back. Synchronized cardioversion was perfromed using [150] J. [1] attempt. Sinus rhythm was confirmed with a 12 lead EKG. Patient tolerated the procedure well. Patient was transferred to the post procedure area in stable and satisfactory condition. Complications: none Blood loss: none FINDINGS Overall patient's heart is rotated by approximately 60 degrees as compared to normal anatomy. Left Atrium: Severe left atrial dilatation. Elevated LA filling pressures. Left Atrial Appendage: No evidence of thrombus or mass seen in GIAN. Small size left atrial appendage. Inter atrial septum: Intact inter-atrial septum. No evidence of atrial septal defect or patent foramen ovale on color doppler. Left Ventricle: Normal global LV size and systolic function Right Atrium: Normal overall RA size Right Ventricle: Normal global RV size and systolic function Aortic Valve: Trileaflet, mild calcification, mild to moderate aortic stenosis by color Doppler. Mitral Valve: Structurally normal, mild functional mitral regurgitation due to annular dilatation. Pulmonic Valve: No significant stenosis or regurgitation Tricuspid Valve: Mild tricuspid regurgitation Ascending aorta, Aortic root and Aortic arch: Mild intimal thickening. No evidence of large atheroma. Descending aorta: Mild intimal thickening. No evidence of large atheroma or bulky calcification No pericardial effusion CONCLUSION: Severe LA dilatation with elevated LA filling pressures. No evidence of thrombus in GIAN or left atrial appendage. Small left atrial appendage. Mild to moderate calcific aortic stenosis Normal global LV size and systolic function Successful PITA cardioversion, 1 attempt, 150 J. Rio Tapia MD, RPVI, FACC Thank you for allowing [facility] to participate in this patient's care. Feel free to reach out in case of any followup questions.
== END 2024-06-03 09:36 | disposition home or self-care (01) ==
LOC: OR 06:24
PROVIDERS: ATTEND Student in an Organized Health Care Education/Training Program
DX: I48.0 Paroxysmal atrial fibrillation
CPT/HCPCS: 92960; 93312; 93320; 93325

== ENCOUNTER → 2024-06-12 | Outpatient (CLI) | payer OTHER ==
[2024-06-12 13:02] LABS: African American GFR (CKD) >90 (>60 ml/min/1.73 sqM); Blood Urea Nitrogen 15 mg/dL (9-20); Non-African American GFR(CKD) 85 (>60 ml/min/1.73 sqM)
--- NOTE | 2024-06-12 17:25 | CT ---
EXAMINATION TYPE: CT urogram wo/w con CT DLP: 3840 mGycm, Automated exposure control for dose reduction was used. DATE OF EXAM: 06/12/2024 2:00 PM COMPARISON: CT chest 06/25/2019 CLINICAL INDICATION:Male, 84 years old with history of R31.0 GROSS HE MATURIA; PHH, hematuria TECHNIQUE: Urogram of the abdomen and pelvis was performed before and after the administration of 100 cc of IV c ontrast Isovue 300 contrast. Delayed imaging was performed. Coronal and sagittal reformats were perfo rmed. One or more CT dose reduction strategies were utilized during this examination. Total DLP 3840 mGycm. FINDINGS: GENITOURINARY: RIGHT KIDNEY AND URETER: Approximately 6 nonobstructive calculi with largest in the inferior pole tyler suring up to 9 mm. No hydronephrosis or hydroureter. Exophytic inferior pole 3.2 cm thin-walled nonen hancing cyst. No other suspicious enhancing lesions. No urothelial lesions: no filling defect, dilati on, stricture or wall thickening. LEFT KIDNEY AND URETER: Nonobstructive lower pole 4 mm calculus. No hydronephrosis or hydroureter. Pr ominent left extra renal pelvis. Posterior inferior pole exophytic 4.3 cm thin-walled nonenhancing cy st. Additional few inferior pole subcentimeter cortical foci of which are nonenhancing and most consi stent with cysts. No suspicious enhancing lesion. The left ureter is not opacified after the ureterop elvic junction despite delayed imaging. This limits evaluation. URINARY BLADDER: Not optimally distended. Only a third of the bladder demonstrate contrast on delayed imaging. No evidence of calculi. No gross evidence of mass or other lesions within the limitations. REPRODUCTIVE: Prostate is enlarged measuring up to 5.2 cm in transverse dimension. This indents upon the urinary bladder base. ABDOMEN LIVER: Unremarkable. GALLBLADDER AND BILE DUCTS: Postcholecystectomy changes. No biliary duct dilatation. PANCREAS: Unremarkable. SPLEEN: Few small calcified granulomas. ADRENAL GLANDS: Unremarkable. STOMACH AND BOWEL: Distal colonic diverticulosis. Mild colonic stool burden. No focal bowel wall thic kening or surrounding inflammatory changes. The appendix is within normal limits. No evidence of katia l obstruction. PERITONEUM: No evidence of pneumoperitoneum, free fluid, or adenopathy. VASCULATURE: Moderate atherosclerotic calcifications are present throughout the abdominal aorta and i ts branches. Ectasia of the infrarenal abdominal aorta measured 2.6 cm. Moderate to high-grade stenos is involving the origin of the SMA secondary to calcified plaque. Small-caliber celiac artery with at least moderate stenosis at its origin. Moderate stenosis of the origins of the bilateral single oneil l arteries secondary to calcified plaque. MUSCULOSKELETAL: No acute osseous abnormalities. Degenerative changes of both SI joints with partial anterior fusion. Mild to moderate osteoarthritic changes of both hips. Remote left superior pubic cookie us fracture. Grade 1 anterolisthesis of L4 on L5 without evidence of pars defects. Mild to moderate m ultilevel degenerative disc disease. Minimal S-shaped scoliotic curvature of the thoracolumbar spine. SOFT TISSUE/ABDOMINAL WALL: Fat filled left inguinal hernia. Postsurgical changes from right inguinal hernia repair with mesh identified. LOWER CHEST: Scattered bibasilar reticular opacities likely representing chronic interstitial process . 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 Cardiomegaly. Apurva nary artery calcifications. Partial visualization of median sternotomy wires. IMPRESSION: 1. No evidence of enhancing renal/urothelial neoplasm. No opacification of the left ureter past the u reteral pelvic junction which limits evaluation. No gross evidence of urinary bladder neoplasm howeve r only a small amount of contrast is identified with poor distention. 2. Nonobstructive bilateral renal calculi with bilateral nonenhancing renal cysts. 3. Ectasia of the infrarenal abdominal aorta with moderate atherosclerotic calcification of the aorta and its branches. 4. Colonic diverticulosis. 5. Prostatomegaly which indents upon the urinary bladder base. 6. 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 [facility], , 06/12/2024 5:23 PM
== END | disposition home or self-care (01) ==
LOC: RADCTMAIN 12:19
PROVIDERS: ATTEND Urology
DX: R31.0 Gross hematuria
CPT/HCPCS: 36415; 74178; 74400; 82565; 84520

== ENCOUNTER → 2024-11-22 | Outpatient (CLI) | payer MEDICARE, OTHER ==
[2024-11-23 02:38] LABS: HCT 48.8 % (39.6-50.0); HGB 15.3 g/dL (13.0-17.0); MCH 28.1 pg (27.0-32.0); MCHC 31.4 g/dL (32.0-37.0); MCV 89.5 FL (80.0-97.0); Mean Platelet Volume 11.7 FL (9.5-12.2); NRBC Per 100 WBC 0 X 10*3/uL (0.00-0.01); Platelet Count 279 X 10*3/uL (140-440); RBC 5.45 X 10*6/uL (4.40-5.60); RDW 14.4 % (11.5-14.5); WBC 9.86 X 10*3/uL (4.50-10.00)
[2024-11-23 02:55] LABS: Blood Urea Nitrogen 9.8 mg/dL (9.0-27.0); Carbon Dioxide 24.1 mmol/L (21.6-31.8); Chloride 108 mmol/L (96-109); Potassium 4.2 mmol/L (3.5-5.5); Sodium 142 mmol/L (135-145)
== END | disposition home or self-care (01) ==
LOC: LABWHC1 15:35
PROVIDERS: ATTEND Internal Medicine Clinical Cardiac Electrophysiology
DX: Z01.812 Encounter for preprocedural laboratory examination (principal); I48.4 Atypical atrial flutter
CPT/HCPCS: 80051; 82565; 84520; 85027

== ENCOUNTER 2024-12-09 11:04 | Day surgery (SDC) | payer MEDICARE, OTHER ==
[2024-12-05 14:14] VITALS: BMI 27.3
[2024-12-09 11:34] LABS: Glucose,Whole Blood 108 mg/dL (70-110)
[2024-12-09 11:57] LABS: ALT 18 U/L (4-49); AST 25 U/L (17-59); African American GFR (CKD) >90 (>60 ml/min/1.73 sqM); Albumin 4.1 g/dL (3.5-5.0); Alkaline Phosphatase 76 U/L (38-126); Anion Gap 2 mmol/L; Blood Urea Nitrogen 12 mg/dL (9-20); Calcium 9.4 mg/dL (8.4-10.2); Carbon Dioxide 28 mmol/L (22-30); Chloride 105 mmol/L (98-107); Glucose 117 mg/dL (74-99); Non-African American GFR(CKD) 82 (>60 ml/min/1.73 sqM); Sodium 135 mmol/L (137-145); Total Bilirubin 0.9 mg/dL (0.2-1.3)
[2024-12-09] MEDS: SODIUM CHLORIDE 0.9% 1,000 ML IV SCH (12:04)
[2024-12-09] MEDS: IV FLUID CONTINUATION 1,000 ML IV ONE (12:04)
[2024-12-09] MEDS ORDERED: MIDAZOLAM 2 MG/2 ML VIAL ONE (12:25)
[2024-12-09] MEDS ORDERED: NEOSTIGMINE 1 MG/ML 10 ML VIAL ONE (12:25)
[2024-12-09] MEDS ORDERED: PHENYLEPHRINE 10 MG/ML VIAL ONE (12:25)
[2024-12-09] MEDS ORDERED: ePHEDrine 50 MG/ML 1 ML VIAL ONE (12:25)
[2024-12-09] MEDS ORDERED: LIDOCAINE 4% LTA KIT (4 ML) TOPICAL ONE (12:25)
[2024-12-09] MEDS ORDERED: fentaNYL (PF) 50 MCG/ML 2 ML AMP ONE (12:25)
[2024-12-09] MEDS ORDERED: GLYCOPYRROLATE 0.2 MG/ML 2 ML VIAL ONE (12:25)
[2024-12-09] MEDS ORDERED: SUCCINYLCHOLINE CHLORIDE 200 MG/10 ML VIAL IV ONE (12:25)
[2024-12-09] MEDS ORDERED: ROCURONIUM 10 MG/ML (5 ML VIAL) IV ONE (12:25)
[2024-12-09] MEDS ORDERED: PROPOFOL 10 MG/ML 20 ML VIAL IV ONE (12:25)
[2024-12-09] MEDS: HEPARIN SODIUM (1,000 UNIT/ML) 1,000 UNIT in SODIUM CHLORIDE 0.9% 1,000 ML IRRIGATION ONE (12:30)
[2024-12-09] MEDS: LIDOCAINE 1% INJ 10MG/ML (20 ML MDV) SQ ONE (13:07)
[2024-12-09] MEDS: HEPARIN SODIUM,PORCINE 10,000 UNIT in SODIUM CHLORIDE 0.9% 1,000 ML IRRIGATION ONE (13:09)
[2024-12-09] MEDS ORDERED: ACETAMINOPHEN TAB 325 MG TAB PO PRN (15:45)
[2024-12-09 15:59] LABS: Glucose,Whole Blood 92 mg/dL (70-110)
--- NOTE | 2024-12-09 16:15 | P.EPPROC ---
- EP Procedure Note Electrophysiology Procedure Note: Diagnosis; typical atrial flutter provoking congestive heart failure exacerbations Final diagnosis typical atrial flutter status post successful ablation Bidirectional block confirmed with differential pacing Voltage mapping revealed scar along the ablation line Noncapture with high output pacing along this line Details Patient was brought to the EP lab in a fasting state. Written informed consent was obtained prior to the procedure. Venous sheaths were placed in the right left femoral veins. Later these were closed with venous closure devices. Hemostasis was assured at the end of the procedure Diagnostic catheters were placed in the coronary sinus, intracardiac echo catheter placed, mapping and ablation catheter placed Patient was in sinus rhythm at the start of the study sinus cycle length 991 ms MT interval 97, QRS 142 and QT interval 496 ms AH interval 75 ms and HV interval 48 ms Intracardiac echo revealed absence of any pericardial effusion. Mildly thickened pericardium noted. Patient has had a history of coronary artery bypass grafting in the past. Severe LV dysfunction is noted The cavotricuspid isthmus was mapped A long sheath was placed The tricuspid annulus and the eustachian ridge were tagged RF ablation was performed in the cavotricuspid isthmus. A complete line of block was made This was interrogated with high output pacing, voltage mapping, activation mapping and differential pacing Complete bidirectional block was proven All catheters were removed and patient was transferred back to telemetry. Procedures performed under general anesthesia
[2024-12-09] MEDS: LACTATED RINGERS 1,000 ML IV SCH (17:56)
[2024-12-09] MEDS: carvediloL 6.25 MG TAB PO SCH (17:59)
[2024-12-09] MEDS: ACETAMINOPHEN IV (For NPO) 1,000 MG in EMPTY BAG 1 BAG IVPB ONE (18:00)
[2024-12-09 19:49] VITALS: RESP 16
[2024-12-09] MEDS: ASPIRIN 81 MG PO SCH (21:34)
[2024-12-09] MEDS: APIXABAN 5 MG TAB PO SCH (21:35)
[2024-12-09] MEDS: PRAVASTATIN SODIUM 40 MG TAB PO SCH (21:35)
[2024-12-09] MEDS: cilostazoL 100 MG TAB PO SCH (21:35)
[2024-12-09] MEDS: TAMSULOSIN 0.4 MG CAP.ER.24H PO SCH (21:36)
[2024-12-09] MEDS: SACUBITRIL/VALSARTAN 24 MG-26 MG TABLET PO SCH (21:36)
[2024-12-09] MEDS: IPRATROPIUM BROMIDE 0.06% NASAL SPRAY (15 ML) EA NOSTRIL SCH (21:36)
[2024-12-10] MEDS: LEVOTHYROXINE 75 MCG TAB PO SCH (05:35)
[2024-12-10 07:32] VITALS: BP 123/66; PULSE 51; TEMP 98
[2024-12-10] MEDS: SPIRONOLACTONE 25 MG TAB PO SCH (08:53)
[2024-12-10] MEDS: DAPAGLIFLOZIN PROPANEDIOL 5 MG TABLET PO SCH (08:53)
[2024-12-10] MEDS: BUMETANIDE 0.5 MG TABLET PO SCH (08:54)
--- NOTE | 2024-12-11 11:30 | P.DS ---
Providers Expected date of discharge: 12/10/24 Attending physician: Ciro Rangel [facility] Course: This is an 84-year-old male patient brought into the hospital under the care of Dr. Rangel due to typical atrial flutter provoking congestive heart failure exacerbation. Patient underwent successful ablation and is seen today in follow-up. EKG has been reviewed by Dr. Rangel. Patient remains in a sinus rhythm. Patient denies palpitations, chest chest pain, lightheadedness or dizziness. No change in home medications. Patient will be following up with Dr. Tapia in 1 week. Patient will be discharged home today in stable condition. Physical examination: Gen: This is an 84-year-old male in no acute distress. VS: reviewed HEENT: Head is atraumatic, normocephalic. Pupils equal, round. Sclerae is anicteric. NECK: Supple. No JVD. LUNGS: Clear to auscultation. No wheezes or rhonchi. No intercostal retractions. HEART: Regular rate and rhythm. ABDOMEN: Soft No tenderness. EXTREMITIES: No pedal edema. No calf tenderness. NEUROLOGICAL: Patient is awake, alert and oriented x3. Assessment: Typical atrial flutter Associated cardiomyopathy Chronic systolic heart failure Coronary artery disease with previous CABG Severe peripheral vascular disease Osteomyelitis of the toes Nurse practitioner note has been reviewed, I agree with documented findings and plan of care. Patient was seen and examined. Plan - Discharge Summary Discharge Rx Participant: No New Discharge Prescriptions: Continue Vitamin E (Dl,Tocopheryl Acet) [Vitamin E (400 Iu = 180 mg)] 400 unit PO BID Multivitamins, Thera [Multivitamin (formulary)] 1 tab PO DAILY Aspirin 81 mg PO HS Tamsulosin [Flomax] 0.4 mg PO BID Levothyroxine Sodium [Synthroid] 150 mcg PO DAILY Cholecalciferol [Vitamin D3 (25 Mcg = 1000 Iu)] 1,000 unit PO DAILY Glucosam/Praveen-Msm1/C/Harris/Bosw [Glucosamine-Chondroitin Tablet] 1 tab PO BID Bumetanide [BUMEX] 0.5 mg PO DAILY Acetaminophen Tab [Tylenol] 650 mg PO Q6HR PRN tab PRN Reason: Mild Pain Or Fever > 100.5 Apixaban [Eliquis] 5 mg PO BID Azelastine/Fluticasone [Azelastin-Flutic 137-50Mcg Spr] 1 spray EA NOSTRIL DAILY guaiFENesin [Mucinex] 600 mg PO Q12H carvediloL [Coreg] 6.25 mg PO BID Turmeric Root Extract [Turmeric] 500 mg PO DAILY Pyridoxine HCl (Vitamin B6) [Vitamin B-6] 100 mg PO DAILY Bifidobacterium Infantis [Align] 4 mg PO DAILY cilostazoL [Pletal] 50 mg PO BID Ipratropium Diamondhead [Ipratropium Diamondhead 0.03%] 1 spray NASAL HS Sacubitril/Valsartan [Entresto 24 mg-26 mg Tablet] 0.5 each PO BID Vitamin B Complex 1 each PO DAILY Pravastatin Sodium [Pravachol] 40 mg PO HS Mindful Tab 1 tab PO DAILY Spironolactone 12.5 mg PO DAILY Empagliflozin [Jardiance] 10 mg PO DAILY Discharge Medication List Aspirin 81 mg PO HS 05/03/19 [History] Levothyroxine Sodium [Synthroid] 150 mcg PO DAILY 05/03/19 [History] Multivitamins, Thera [Multivitamin (formulary)] 1 tab PO DAILY 05/03/19 [History] Tamsulosin [Flomax] 0.4 mg PO BID 05/03/19 [History] Vitamin E (Dl,Tocopheryl Acet) [Vitamin E (400 Iu = 180 mg)] 400 unit PO BID 05/03/19 [History] Cholecalciferol [Vitamin D3 (25 Mcg = 1000 Iu)] 1,000 unit PO DAILY 06/24/19 [History] Glucosam/Praveen-Msm1/C/Harris/Bosw [Glucosamine-Chondroitin Tablet] 1 tab PO BID 06/24/19 [History] Bumetanide [BUMEX] 0.5 mg PO DAILY 08/22/20 [History] Acetaminophen Tab [Tylenol] 650 mg PO Q6HR PRN tab 09/16/20 [Rx] Apixaban [Eliquis] 5 mg PO BID 05/27/24 [History] Azelastine/Fluticasone [Azelastin-Flutic 137-50Mcg Spr] 1 spray EA NOSTRIL DAILY 05/27/24 [History] Ipratropium Diamondhead [Ipratropium Diamondhead 0.03%] 1 spray NASAL HS 05/27/24 [History] Sacubitril/Valsartan [Entresto 24 mg-26 mg Tablet] 0.5 each PO BID 05/27/24 [History] Vitamin B Complex 1 each PO DAILY 05/27/24 [History] cilostazoL [Pletal] 50 mg PO BID 05/27/24 [History] Bifidobacterium Infantis [Align] 4 mg PO DAILY 12/05/24 [History] Mindful Tab 1 tab PO DAILY 12/05/24 [History] Pravastatin Sodium [Pravachol] 40 mg PO HS 12/05/24 [History] Pyridoxine HCl (Vitamin B6) [Vitamin B-6] 100 mg PO DAILY 12/05/24 [History] Turmeric Root Extract [Turmeric] 500 mg PO DAILY 12/05/24 [History] carvediloL [Coreg] 6.25 mg PO BID 12/05/24 [History] guaiFENesin [Mucinex] 600 mg PO Q12H 12/05/24 [History] Empagliflozin [Jardiance] 10 mg PO DAILY 12/09/24 [History] Spironolactone 12.5 mg PO DAILY 12/09/24 [History] Follow up Appointment(s)/Referral(s): Rio Tapia MD [Medical Doctor] - 12/18/24 4:15 pm Patient Instructions/Handouts: Cardiac Ablation (GEN) Activity/Diet/Wound Care/Special Instructions: Post EP study - Ablation instructions 1. Keep access sites dry for 2 days. 2. No heavy lifting or straining for 2 days. 3. Avoid bending the hips repeatedly for 2 days. 4. You may go up and down stairs slowly 5. If you have had an ablation for atrial fibrillation or atrial flutter and are on a blood thinner, do not stop the blood thinner even temporarily for 3 months post ablation Call if the following is noted 1. Bleeding, increasing swelling or pain at the access sites. 2. Increasing chest discomfort, especially upon taking a deep breath. 3. Increasing shortness of breath, at rest or with exertion. 4. Undue cough / phlegm 5. Difficulty or pain while swallowing. 6. Pain or change in color in the extremities. 7. Fever, chills, rigors. 8. Increasing headache or neurologic symptoms. 9. Dizziness, fainting, palpitations For patients who have undergone an A-fib ablation /atrial flutter ablation Strict instruction; do NOT stop anticoagulation (Eliquis/Xarelto/Pradaxa) for the next 2 months temporarily, for any elective, nonurgent surgery. This increases the risk of stroke, post A-fib ablation Discharge Disposition: HOME SELF-CARE
== END 2024-12-10 11:42 | disposition home or self-care (01) ==
LOC: CATHEP 11:04 → 6NMEDSUR 14:45 → CATHEP 12-10 11:42
PROVIDERS: ATTEND Internal Medicine Clinical Cardiac Electrophysiology
DX: I48.3 Typical atrial flutter (principal); I50.9 Heart failure, unspecified; I42.9 Cardiomyopathy, unspecified; I25.10 Atherosclerotic heart disease of native coronary artery without angina pectoris; M86.9 Osteomyelitis, unspecified; I73.9 Peripheral vascular disease, unspecified; Z95.1 Presence of aortocoronary bypass graft; Z79.82 Long term (current) use of aspirin; Z79.01 Long term (current) use of anticoagulants; Z79.899 Other long term (current) drug therapy
CPT/HCPCS: 93662; 93653; 86900; 86901; 80053; 84443; 86850; C1894; C1769; C1760 ×2; C1766; C1730; C1731; C1759; C1732; J1644 ×2; J2003; 93005

== ENCOUNTER → 2025-02-25 | Outpatient (CLI) | payer MEDICARE, OTHER ==
--- NOTE | 2025-02-25 14:04 | FL ---
EXAMINATION TYPE: FL barium swallow w video DATE OF EXAM: 02/25/2025 CLINICAL HISTORY: 84-year-old male R05.9, unspecified coughing episodes not only. History of Parkinso n's disease. TECHNIQUE: Deglutition study is performed utilizing thin liquid barium, honey and nectar thick liqui d barium, barium thick pudding, and barium coated cracker. Total images: 28. Total fluoroscopy time: 2 minutes 40 seconds. Total dose area product (DAP) 150 mGycm2 COMPARISON: None. FINDINGS: The patient is partially edentulous. Initially, we note episodes of transient penetration w ith thin liquids as well as an episode of trace silent aspiration. As the exam progresses, we encount er larger amount of silent aspiration of thin, nectar, and honey liquid consistencies. No penetration or aspiration seen with pureed or solid consistencies. No significant pharyngeal residue was appreci ated. IMPRESSION: Worsening as the exam progresses. Initially, there was only a single episode of trace silent aspirati on of thin liquids. However, by the end of the study, there are larger quantities of silent aspiratio n with thin, nectar, and honey thickened liquid consistencies. Please refer to speech therapist notes for further details if necessary. [facility], , 02/25/2025 2:02 PM
== END | disposition home or self-care (01) ==
LOC: RADFLMAIN 12:18
PROVIDERS: ATTEND Otolaryngology
DX: G20.A1 Parkinson's disease without dyskinesia, without mention of fluctuations (principal); R05.9 Cough, unspecified
CPT/HCPCS: 74230